=== PATIENT | male | born 1945 | race African-American/Black ===

== ENCOUNTER 2016-06-07 18:56 | Emergency (ER) | payer MEDICARE, MEDICAID ==
[~2016-06-07] VITALS: Ht 195.6 cm; Wt 100.0 kg
[~2016-06-07 18:56] MED LIST: BAYE2KIT XX; BUME2TAB PO; CLIN1CAP6 PO; GLUCOMETER XX; GLUCOMTESTSTRIPS XX; LACTCAP8 PO; LORTA5 PO; METF500 PO; PANT40IN3 PO; POTA-243 PO; POTA-267 PO; PRAV20TA PO; TRIA.1%T TOP
[2016-06-07 18:58] VITALS: BP 110/78; PULSE 124; RESP 18; TEMP 97.8; O2SAT 96
[2016-06-07] MEDS ORDERED: KLOR25PO2 (19:32)
[2016-06-07] MEDS ORDERED: BUME1TAB PO (19:32)
[2016-06-07] MEDS ORDERED: PRAV20TA PO (19:32)
[2016-06-07] MEDS ORDERED: METF500T PO (19:32)
[2016-06-07] MEDS ORDERED: PROPARACAINE HCL 0.5% OPHT SOLN 15 ML BTL EACH EYE ONE (19:45)
--- NOTE | 2016-06-07 19:53 | PD ---
HPI Chief Complaint: Eye Problems/Injury Time Seen by Provider: 19:45 Travel History International Travel<30 days: No Contact w/Intl Traveler<30days: No Traveled to known affect area: No History of Present Illness HPI 70-year-old black male presents to emergency department with complains of left I discharge and swelling. He states that this is been present now for approximately 4 days. He thinks that maybe he had been bitten by an insect. His left eye has become increasingly swollen, red and now has a large amount of mucoid drainage. He has blurred vision. No photophobia. Positive itching and irritation. Positive foreign body sensation. No diplopia. No fever chills. He does not wear contacts or glasses. PFSH Past Medical History Arthritis: Yes Anxiety: No Depression: No Cancer: No Cardiovascular Problems: Yes (CHF) High Cholesterol: Yes Congestive Heart Failure: Yes Diabetes: Yes (METFORMIN) Diminished Hearing: No Endocrine: No Gastrointestinal Disorders: No GERD: Yes Genitourinary: Yes Hypertension: Yes Immune Disorder: No Implanted Vascular Access Dvce: No Kidney Stones: Yes Musculoskeletal: Yes Neurologic: No Psychiatric: No Reproductive: No Respiratory: No Immunizations Current: No (UNKNOWN) Past Surgical History Other Surgery: Yes Social History Alcohol Use: Yes (OCCASIONAL) Tobacco Use: No Substance Use: No Allergies-Medications (Allergen,Severity, Reaction): Coded Allergies: No Known Allergies (Verified , 06/07/16) Reported Meds & Prescriptions Reported Meds & Active Scripts Active Tobrex Opth Drops (Tobramycin Opth Drops) 0.3 % Soln 1 Drop LEFT EYE Q6H Reported Pravachol (Pravastatin) 20 Mg Tab 10 Mg PO HS Klor-Con 25 (Potassium Chloride) 25 Meq Pow 10 Meq Metformin (Metformin HCl) 500 Mg Tab 500 Mg PO BIDPC With meals Bumetanide 1 Mg Tab 1 Mg PO DAILY Review of Systems Except as stated in HPI: all other systems reviewed are Neg General / Constitutional: No: Fever, Chills Eyes: Positive: Blurred Vision, Drainage, Redness, Foreign Body Sensation, Pain (mild), Visual changes, No: Diploplia, Photophobia, Tearing HENT: No: Headaches, Neck Pain Cardiovascular: No: Chest Pain or Discomfort, Palpitations Respiratory: Positive: Shortness of Breath (mild), No: Cough Gastrointestinal: No: Nausea, Vomiting Genitourinary: No: Dysuria, Hematuria Musculoskeletal: Positive: Arthralgias, Limited ROM, Edema Skin: Positive Rash, Positive Lesions (open draining sores on the left great toe and right second toe) Neurologic: No: Syncope, Headache Physical Exam Narrative GENERAL: Well-developed, well-nourished in no apparent distress. Nontoxic appearing. HEAD: Normocephalic, atraumatic. EYES: Pupils equal round and reactive. Extraocular motions intact. No scleral icterus. No injection or drainage in the right eye. The left eye has swelling of the upper and lower eyelids. He has a large amount of mucoid drainage. Lids are flipped and no foreign body seen. Ophthaine is instilled in left eye. Fluorescein stain reveals no obvious corneal abrasion. There is no obvious corneal abrasion, ulcer or dendrites. ENT: Nose clear. Throat without erythema, tonsillar hypertrophy or exudate. Uvula midline. Airway patent. NECK: Trachea midline. Supple, nontender, moves head freely. No central bony tenderness or spasm. CARDIOVASCULAR: Patient is irregularly irregular with a mildly tachycardic rate. He has a 2/6 murmur left sternal border. Question S 4 RESPIRATORY: Clear to auscultation. Breath sounds equal bilaterally. No wheezes , rales, or rhonchi. GASTROINTESTINAL: Abdomen soft, non-tender, nondistended. No hepato-splenomegaly , or palpable masses. No guarding. EXTREMITIES: Patient has 1+ bilateral pedal edema. He has chronic nodular densities over his joints I question whether these are tophi.. The left foot has a large open draining sore over the MTP joint as well as a skin avulsion with slight amount of drainage at the distal tip. The right foot has an open draining sore on the dorsal IP joint of the second toe. Both feet are edematous , however follow odor and are mildly erythematous. No significant pain. BACK: Nontender without deformity. No flank tenderness. NEUROLOGICAL: Awake, alert and oriented x 3 .Cranial nerves grossly intact. Motor and sensory grossly within normal limits. Normal speech. Data Data Last Documented VS Vital Signs Date Time Temp Pulse Resp B/P Pulse Ox O2 Delivery O2 Flow Rate FiO2 06/07/16 20:01 98 06/07/16 18:58 97.8 18 110/78 96 Room Air Orders Electrocardiogram (06/07/16 19:32) Proparacaine 0.5% Opth Soln (Alcaine 0.5 (06/07/16 19:45) Tobramycin 0.3% Opth Soln (Tobrex 0.3% O (06/07/16 20:45) Aspirin (Aspirin) (06/07/16 20:45) MDM Medical Decision Making Medical Screen Exam Complete: Yes Emergency Medical Condition: Yes Medical Record Reviewed: Yes Interpretation(s) EKG: Sinus rhythm with LVH. Old AL. No arrhythmia. The patient is placed on a string laster. He has episodes of frequent PVCs, bigeminy, couplets and a few runs of intermittent A. fib with a controlled rate Differential Diagnosis MDM: High Differential diagnoses: Acute conjunctivitis (bacterial, viral, allergic, traumatic), glaucoma, iritis, traumatic globe injury, foreign body, corneal abrasion, corneal ulcer, diabetic retinopathy, tophaceous gout, cellulitis, osteomyelitis, atrial fibrillation, A. fib with RVR, CHF Narrative Course The patient is given tobramycin ophthalmic drops to the left eye. One drop every 4-6 hours. Patient is encouraged to take an aspirin daily. The case has been discussed with Dr. Briones his primary care doctor. He has an appointment to see the patient next week. He agrees with discharging the patient home and he will follow-up on his arrhythmia as well as his conjunctivitis. Diagnosis Primary Impression: Conjunctivitis Qualified Code: H10.32 - Acute bacterial conjunctivitis of left eye Additional Impression: Arrhythmia Qualified Code: I49.9 - Cardiac arrhythmia, unspecified cardiac arrhythmia type Patient Instructions: General Instructions Additional Instructions: Rest. Wash eyelashes with baby shampoo 3 times daily. Warm compresses. Tobramycin ophthalmic drops. One drop in the left eye every 4-6 hours. Take 1 adult aspirin daily. Followup with an eye doctor in one week. Follow-up with a medical doctor one week. Return to the ER if any problems. Med/Other Pt SpecificInfo: Prescription(s) given Scripts Tobramycin Opth Drops (Tobrex Opth Drops)0.3 % Soln1 Drop LEFT EYE Q6H #1 BOTTLE Prov:Antonina Troy MD 06/07/16 Disposition: 01 DISCHARGE HOME Condition: Stable Lopez Hutton Jun 07, 2016 19:53
[2016-06-07] MEDS ORDERED: TOBR0.3S LEFT EYE (20:42)
[2016-06-07] MEDS ORDERED: TOBRAMYCIN SULF 0.3% OPHT SOLN 5 ML BTL LEFT EYE ONE (20:45)
[2016-06-07] MEDS ORDERED: ASPIRIN 325 MG TAB PO ONE (20:45)
--- NOTE | 2016-06-08 23:19 | EKG ---
Date Performed: 06/07/2016 Time Performed: 19:56:43 PTAGE: 70 years EKG: Sinus rhythm ANTEROSEPTAL MYOCARDIAL INFARCTION MODERATE T-WAVE ABNORMALITY, CONSIDER LATERAL ISCHEMIA ABNORMAL E CG PREVIOUS TRACING : 02/25/2016 12.59 DOCTOR: Leno Yates Interpretating Date/Time 06/08/2016 23:15:47
== END 2016-06-07 21:39 | disposition home or self-care (01) ==
LOC: NEPB 18:56
DX: H10.32 Unspecified acute conjunctivitis, left eye (principal); I49.9 Cardiac arrhythmia, unspecified
CPT/HCPCS: 93005

== ENCOUNTER 2017-03-15 19:05 | Inpatient (IN) | payer MEDICARE, MEDICAID ==
[~2017-03-15] VITALS: Ht 195.6 cm; Wt 104.7 kg
[~2017-03-15 19:05] MED LIST changes: -BAYE2KIT XX; +BUME1TAB PO; -BUME2TAB PO; -CLIN1CAP6 PO; -GLUCOMETER XX; -GLUCOMTESTSTRIPS XX; +KLOR25PO2; -LACTCAP8 PO; -LORTA5 PO; -METF500 PO; +METF500T PO; -PANT40IN3 PO; -POTA-243 PO; -POTA-267 PO; +TOBR0.3S LEFT EYE; -TRIA.1%T TOP
[2017-03-15 19:06] VITALS: BP 137/81; PULSE 105; RESP 16; TEMP 97.9; O2SAT 95
--- NOTE | 2017-03-15 21:11 | PD ---
HPI Chief Complaint: Skin Problem Time Seen by Provider: 20:24 Travel History International Travel<30 days: No Contact w/Intl Traveler<30days: No Traveled to known affect area: No History of Present Illness HPI pt has toe infection great toe left and middle toe right failing outpt therapy and Dr Briones his PCP started him on unknwn antibiotic few days ago, foot smells of gangrene , pt reports pain and instability on his feet PFSH Past Medical History Arthritis: Yes Anxiety: No Depression: No Cancer: No Cardiovascular Problems: Yes (CHF) High Cholesterol: Yes Congestive Heart Failure: Yes Diabetes: Yes Patient Takes Glucophage: Yes Diminished Hearing: No Endocrine: No Gastrointestinal Disorders: No GERD: Yes Genitourinary: Yes Hypertension: Yes Immune Disorder: No Implanted Vascular Access Dvce: No Kidney Stones: Yes Musculoskeletal: Yes Neurologic: No Psychiatric: No Reproductive: No Respiratory: No Immunizations Current: No (UNKNOWN) Influenza Vaccination: No Past Surgical History Other Surgery: Yes Social History Alcohol Use: No Tobacco Use: No Substance Use: No Allergies-Medications (Allergen,Severity, Reaction): Coded Allergies: No Known Allergies (Verified Allergy, Unknown, 03/16/17) Reported Meds & Prescriptions Reported Meds & Active Scripts Active Tobrex Opth Drops (Tobramycin Opth Drops) 0.3 % Soln 1 Drop LEFT EYE Q6H Reported Pravachol (Pravastatin) 20 Mg Tab 10 Mg PO HS Klor-Con 25 (Potassium Chloride) 25 Meq Pow 10 Meq Metformin (Metformin HCl) 500 Mg Tab 500 Mg PO BIDPC With meals Bumetanide 1 Mg Tab 1 Mg PO DAILY Review of Systems Except as stated in HPI: all other systems reviewed are Neg Physical Exam Narrative GENERAL: feet obviously swollen and ulcerated and odorous SKIN: ulcers and cellulitis to feet bilateral HEAD: Atraumatic. Normocephalic. EYES: Pupils equal and round. No scleral icterus. No injection or drainage. ENT: No nasal bleeding or discharge. Mucous membranes pink and moist. NECK: Trachea midline. No JVD. CARDIOVASCULAR: Regular rate and rhythm. RESPIRATORY: No accessory muscle use. Clear to auscultation. Breath sounds equal bilaterally. GASTROINTESTINAL: Abdomen soft, non-tender, nondistended. Hepatic and splenic margins not palpable. MUSCULOSKELETAL: Extremities feet ankle swollen and erythema and ulcer : left first metatarsal and :right third toe foot junction NEUROLOGICAL: Awake and alert. No obvious cranial nerve deficits. Motor grossly within normal limits. Five out of 5 muscle strength in the arms and legs. Normal speech. PSYCHIATRIC: Appropriate mood and affect; insight and judgment normal. FEET left great toe has bandage and weeping and smells strong odor of bacterial infection. Right foot middle toe infection open wound. Edema to both feet chronic . weeping cracking and infected Data Data Last Documented VS Vital Signs Date Time Temp Pulse Resp B/P (MAP) Pulse Ox O2 Delivery O2 Flow Rate FiO2 03/15/17 19:06 97.9 105 16 137/81 (99) 95 Room Air Orders Orders Complete Blood Count With Diff (03/15/17 20:46) Comprehensive Metabolic Panel (03/15/17 20:46) Blood Culture (03/15/17 20:46) Vancomycin Inj (Vancomycin Inj) (03/15/17 21:15) Morphine Inj (Morphine Inj) (03/15/17 22:00) Admit Order (Ed Use Only) (03/15/17 23:48) Labs Laboratory Tests Test 03/15/17 21:05 White Blood Count 6.3 TH/MM3 Red Blood Count 4.32 MIL/MM3 Hemoglobin 12.2 GM/DL Hematocrit 36.6 % Mean Corpuscular Volume 84.7 FL Mean Corpuscular Hemoglobin 28.1 PG Mean Corpuscular Hemoglobin Concent 33.2 % Red Cell Distribution Width 17.1 % Platelet Count 189 TH/MM3 Mean Platelet Volume 9.5 FL Neutrophils (%) (Auto) 68.8 % Lymphocytes (%) (Auto) 20.1 % Monocytes (%) (Auto) 7.7 % Eosinophils (%) (Auto) 2.6 % Basophils (%) (Auto) 0.8 % Neutrophils # (Auto) 4.3 TH/MM3 Lymphocytes # (Auto) 1.3 TH/MM3 Monocytes # (Auto) 0.5 TH/MM3 Eosinophils # (Auto) 0.2 TH/MM3 Basophils # (Auto) 0.0 TH/MM3 CBC Comment DIFF FINAL Differential Comment Blood Urea Nitrogen 36 MG/DL Creatinine 2.24 MG/DL Random Glucose 119 MG/DL Total Protein 8.5 GM/DL Albumin 3.5 GM/DL Calcium Level 9.5 MG/DL Alkaline Phosphatase 81 U/L Aspartate Amino Transf (AST/SGOT) 30 U/L Alanine Aminotransferase (ALT/SGPT) 18 U/L Total Bilirubin 1.0 MG/DL Sodium Level 138 MEQ/L Potassium Level 3.1 MEQ/L Chloride Level 101 MEQ/L Carbon Dioxide Level 25.3 MEQ/L Anion Gap 12 MEQ/L Estimat Glomerular Filtration Rate 35 ML/MIN [facility] Medical Decision Making Medical Screen Exam Complete: Yes Emergency Medical Condition: Yes Differential Diagnosis cellulitis vs gangrene vs ulcers of pressure due to edema chronic and swelling and weeping feet ankles Narrative Course vanco and admisson for vascular eval and diuretic eval and medication management Vanco Q8 until PO appropriate Diagnosis Primary Impression: Cellulitis and abscess of foot Additional Impression: Ischemic ulcer of both feet Tacho Dunbar MD Mar 15, 2017 21:11
[2017-03-15] MEDS ORDERED: VANCOMYCIN INJ 1,000 MG in SODIUM CHLOR 0.9% 250 ML INJ 250 ML IV ONE (21:15)
[2017-03-15] MEDS ORDERED: MORPHINE SULFATE 4 MG/ML INJ IV PUSH ONE (22:00)
[2017-03-15 22:01] LABS: AUTOMATED NEUTROPHIL # 4.3 TH/MM3 (1.8-7.7); BASOPHIL % 0.8 % (0.0-2.0); EOSINOPHIL # 0.2 TH/MM3 (0-0.4); EOSINOPHIL % 2.6 % (0.0-4.0); HEMATOCRIT 36.6 % (39.0-51.0); HEMO FLAGS DIFF FINAL; LYMPH % 20.1 % (9.0-44.0); LYMPHOCYTE # 1.3 TH/MM3 (1.0-4.8); MEAN CELL VOLUME 84.7 FL (80.0-100.0); MEAN CORPUSCULAR HEMOGLOBIN 28.1 PG (27.0-34.0); MEAN CORPUSCULAR HGB CONC 33.2 % (32.0-36.0); MONO % 7.7 % (0.0-8.0); NEUT % 68.8 % (16.0-70.0); PLATELET COUNT 189 TH/MM3 (150-450); RED BLOOD COUNT 4.32 MIL/MM3 (4.50-5.90); RED CELL DISTRIBUTION WIDTH 17.1 % (11.6-17.2); WHITE BLOOD COUNT 6.3 TH/MM3 (4.0-11.0)
[2017-03-15 22:28] LABS: ANION GAP 12 MEQ/L (5-15); AST (GOT) 30 U/L (15-37); BICARBONATE 25.3 MEQ/L (21.0-32.0); BLOOD UREA NITROGEN 36 MG/DL (7-18); CHLORIDE 101 MEQ/L (98-107); GLOMERULAR FILTRATION RATE 35 ML/MIN (>89); POTASSIUM 3.1 MEQ/L (3.5-5.1); SODIUM (NA) 138 MEQ/L (136-145)
[2017-03-15 22:32] LABS: ALKALINE PHOSPHATASE 81 U/L (45-117); ALT (GPT) 18 U/L (12-78)
[2017-03-16] VITALS (7 sets, daily range): BP systolic 105–131; BP diastolic 65–89; PULSE 50–99; RESP 16–20; TEMP 96.3–97.4; O2SAT 93–99
[2017-03-16] MEDS ORDERED: PIPERACIL-TAZO 3.375 GM PREMIX 50 ML IV ONE
[2017-03-16] MEDS ORDERED: PIPERACIL-TAZO 3.375 GM PREMIX 50 ML IV SCH
[2017-03-16] MEDS ORDERED: LACTULOSE SYRUP 20 GM/30 ML CUP PO PRN (00:15)
[2017-03-16] MEDS ORDERED: SENNOSIDES 8.6 MG TAB PO PRN (00:15)
[2017-03-16] MEDS ORDERED: NALOXONE HCL 0.4 MG/ML AMP IV PUSH PRN (00:15)
[2017-03-16] MEDS ORDERED: BISACODYL 10 MG SUPP RECTAL PRN (00:15)
[2017-03-16] MEDS ORDERED: ONDANSETRON HCL 4 MG/2 ML VIAL IVP PRN (00:15)
[2017-03-16] MEDS ORDERED: MAGNESIUM HYDROXIDE SUSP 30 ML CUP PO PRN (00:15)
[2017-03-16] MEDS ORDERED: ACETAMINOPHEN 325 MG TAB PO PRN ×2 (00:15→08:45)
[2017-03-16] MEDS ORDERED: SODIUM CHLORIDE 0.9% FLUSH 10 ML FLUSH IV FLUSH PRN (00:15)
[2017-03-16] MEDS ORDERED: POTASSIUM CHLORIDE 20 MEQ CONTROLLED RELEASE TAB PO ONE (01:00)
[2017-03-16] MEDS ORDERED: HEPARIN SODIUM - SQ 10,000 UNITS/ML VIAL SQ SCH (06:00)
[2017-03-16] MEDS: PIPERACIL-TAZO 2.25 GM PREMIX 50 ML IV SCH ×3 (06:07→17:37)
[2017-03-16 06:30] LABS: AUTOMATED NEUTROPHIL # 3.5 TH/MM3 (1.8-7.7); BASOPHIL % 0.8 % (0.0-2.0); EOSINOPHIL # 0.1 TH/MM3 (0-0.4); EOSINOPHIL % 2.3 % (0.0-4.0); HEMATOCRIT 36.8 % (39.0-51.0); HEMO FLAGS DIFF FINAL; LYMPH % 25.4 % (9.0-44.0); LYMPHOCYTE # 1.4 TH/MM3 (1.0-4.8); MEAN CELL VOLUME 85.4 FL (80.0-100.0); MEAN CORPUSCULAR HEMOGLOBIN 28.3 PG (27.0-34.0); MEAN CORPUSCULAR HGB CONC 33.2 % (32.0-36.0); MONO % 9.5 % (0.0-8.0); PLATELET COUNT 170 TH/MM3 (150-450); WHITE BLOOD COUNT 5.6 TH/MM3 (4.0-11.0)
[2017-03-16 07:07] LABS: BICARBONATE 24.9 MEQ/L (21.0-32.0)
[2017-03-16] MEDS ORDERED: ACETAMINOPHEN/HYDROcodone 325 MG/5 MG TAB PO PRN (08:45)
[2017-03-16] MEDS ORDERED: GLUCAGON 1 MG/ML VIAL OTHER PRN (08:45)
[2017-03-16] MEDS ORDERED: Vancomycin Consult Pharmacy 1 EA OTHER SCH (08:45)
[2017-03-16] MEDS ORDERED: DEXTROSE 50% IN WATER 50 ML VIAL(D50) IV PUSH PRN (08:45)
[2017-03-16] MEDS: DOCUSATE SODIUM 50 MG/SENNA 8.6 MG TAB PO SCH ×2 (09:00→20:30)
[2017-03-16] MEDS: POTASSIUM CHLORIDE 10 MEQ CONTROLLED RELEASE TAB PO SCH ×2 (09:27→20:30)
[2017-03-16] MEDS: ACETAMINOPHEN/HYDROcodone 325 MG/7.5 MG TAB PO PRN ×3 (09:27→20:33)
[2017-03-16] MEDS: NS + KCL 20 MEQ INJ 1,000 ML IV SCH (09:28)
[2017-03-16] MEDS: SODIUM CHLORIDE 0.9% FLUSH 10 ML FLUSH IV FLUSH SCH ×2 (09:28→20:38)
[2017-03-16] MEDS ORDERED: PANT20 PO (09:37)
[2017-03-16] MEDS ORDERED: GABA300C5 PO (09:37)
[2017-03-16 09:38] LABS: MAGNESIUM 1.7 MG/DL (1.5-2.5)
[2017-03-16] MEDS: MORPHINE SULFATE 2 MG/ML INJ IV PUSH PRN ×2 (10:57→17:37)
--- NOTE | 2017-03-16 11:29 | HHI.HP ---
[facility] Sel[facility] Briones MD Admission Diagnosis cellulitis and ulcer infected Diagnoses: Chief Complaint: Foot/toe ulcers and leg edema Travel History International Travel<30 Days: No Contact w/Intl Traveler <30 Da: No Traveled to Known Affected Are: No History of Present Illness This is a 71-year-old male with a history of systolic heart failure, diabetes mellitus with neuropathy, hyperlipidemia, GERD, hypertension and rheumatoid arthritis. Please note patient does not provide good history. States he came in because of bilateral lower extremity swelling despite change of his diuretic to Bumex. Denies shortness of breath and leg swelling. No urinary complaints. He has been compliant with fluid restriction. He also noted ulcers in his left foot and right second toe draining serous fluid denies fever and chills. States he was placed on unrecalled antibiotics by his primary care physician about a week ago. He has an ulcer on the right second toe and left first metatarsal head with purulent discharge. Maggots also noted. He has neuropathic pain. All other systems reviewed negative Review of Systems Except as stated in HPI: all other systems reviewed are Neg Past Family Social History Past Medical History As previously mentioned. Past Surgical History Denies Reported Medications Tobrex Opth Drops (Tobramycin Opth Drops) 0.3 % Soln 1 Drop LEFT EYE Q6H Reported Protonix (Pantoprazole Sodium) 20 Mg Tab 20 Mg PO DAILY Gabapentin 300 Mg Cap 300 Mg PO BID Pravachol (Pravastatin) 20 Mg Tab 10 Mg PO HS Klor-Con 25 (Potassium Chloride) 25 Meq Pow 10 Meq Metformin (Metformin HCl) 500 Mg Tab 500 Mg PO BIDPC With meals Bumetanide 1 Mg Tab 1 Mg PO DAILY Allergies: Coded Allergies: No Known Allergies (Verified Allergy, Unknown, 03/16/17) Family History Denies diabetes Social History Does not smoke or drink Physical Exam Vital Signs Vital Signs Date Time Temp Pulse Resp B/P (MAP) Pulse Ox O2 Delivery O2 Flow Rate FiO2 03/16/17 08:00 96.9 50 16 119/77 (91) 97 03/16/17 01:58 96.3 97 18 131/79 (96) 98 03/16/17 00:01 99 18 105/65 (78) 95 Room Air 03/15/17 19:06 97.9 105 16 137/81 (99) 95 Room Air Physical Exam GENERAL: This is a well-nourished, well-developed patient, in no apparent distress. SKIN: No rashes, ecchymoses or lesions. Cool and dry. HEAD: Atraumatic. Normocephalic. No temporal or scalp tenderness. EYES: Pupils equal round and reactive. Extraocular motions intact. No scleral icterus. No injection or drainage. ENT: Nose without bleeding, purulent drainage or septal hematoma. Throat without erythema, tonsillar hypertrophy or exudate. Uvula midline. Airway patent. NECK: Trachea midline. No JVD or lymphadenopathy. Supple, nontender, no meningeal signs. CARDIOVASCULAR: Regular rate and irregular rhythm without murmurs, gallops, or rubs. Telemetry shows PVCs RESPIRATORY: Clear to auscultation. Breath sounds equal bilaterally. No wheezes , rales, or rhonchi. GASTROINTESTINAL: Abdomen soft, non-tender, nondistended. No guarding. MUSCULOSKELETAL: Extremities without clubbing, cyanosis with bilateral breath lower extremity pitting edema. Multiple tophi noted. Large ulcer over left metatarsal head with purulent discharge. Maggots noted. Right second toe with ulcer. Unable to feel pulses NEUROLOGICAL: Awake and alert. Cranial nerves II through XII intact. Motor and sensory grossly within normal limits. Five out of 5 muscle strength in all muscle groups. Normal speech. Laboratory Laboratory Tests Test 03/15/17 21:05 03/16/17 04:20 White Blood Count 6.3 5.6 Red Blood Count 4.32 4.30 Hemoglobin 12.2 12.2 Hematocrit 36.6 36.8 Mean Corpuscular Volume 84.7 85.4 Mean Corpuscular Hemoglobin 28.1 28.3 Mean Corpuscular Hemoglobin Concent 33.2 33.2 Red Cell Distribution Width 17.1 17.0 Platelet Count 189 170 Mean Platelet Volume 9.5 9.5 Neutrophils (%) (Auto) 68.8 62.0 Lymphocytes (%) (Auto) 20.1 25.4 Monocytes (%) (Auto) 7.7 9.5 Eosinophils (%) (Auto) 2.6 2.3 Basophils (%) (Auto) 0.8 0.8 Neutrophils # (Auto) 4.3 3.5 Lymphocytes # (Auto) 1.3 1.4 Monocytes # (Auto) 0.5 0.5 Eosinophils # (Auto) 0.2 0.1 Basophils # (Auto) 0.0 0.0 CBC Comment DIFF FINAL DIFF FINAL Differential Comment Blood Urea Nitrogen 36 33 Creatinine 2.24 1.98 Random Glucose 119 122 Total Protein 8.5 Albumin 3.5 Calcium Level 9.5 8.7 Alkaline Phosphatase 81 Aspartate Amino Transf (AST/SGOT) 30 Alanine Aminotransferase (ALT/SGPT) 18 Total Bilirubin 1.0 Sodium Level 138 138 Potassium Level 3.1 3.0 Chloride Level 101 102 Carbon Dioxide Level 25.3 24.9 Anion Gap 12 11 Estimat Glomerular Filtration Rate 35 41 Magnesium Level 1.7 Total Creatine Kinase 445 Creatine Kinase MB 10.0 Creatine Kinase MB % 2.2 Date/Time Source Procedure Growth Status 03/15/17 21:05 Blood Peripheral Aerobic Blood Culture - Preliminary NO GROWTH IN 1 DAY Resulted 03/15/17 21:05 Blood Peripheral Anaerobic Blood Culture - Preliminary NO GROWTH IN 1 DAY Resulted Result Diagram: 03/16/17 0420 03/16/17 0420 Imaging Last Impressions Toe X-Ray 03/16/17 0000 Signed Impressions: Service Date/Time: Thursday, March 16, 2017 12:00 - CONCLUSION: 1. Dorsal soft tissue ulceration overlying the second PIP region without significant bony erosion to suggest osteomyelitis. Trace Robert MD Foot X-Ray 03/16/17 0000 Signed Impressions: Service Date/Time: Thursday, March 16, 2017 11:52 - CONCLUSION: 1. Large ulcer overlying the medial forefoot first MTP joint region without definitive bony erosive change to suggest osteomyelitis. Trace Robert MD Caprini VTE Risk Assessment Caprini VTE Risk Assessment: Mod/High Risk (score >= 2) Caprini Risk Assessment Model Point Value = 1 Point Value = 2 Point Value = 3 Point Value = 5 Age 41-60 Minor surgery BMI > 25 kg/m2 Swollen legs Varicose veins or History of unexplained or recurrent spontaneous Oral contraceptives or hormone replacement Sepsis (< 1 month) Serious lung disease, including pneumonia (< 1 month) Abnormal pulmonary function Acute myocardial infarction Congestive heart failure (< 1 month) History of inflammatory bowel disease Medical patient at bed rest Age 61-74 Arthroscopic surgery Major open surgery (> 45 min) Laparoscopic surgery (> 45 min) Malignancy Confined to bed (> 72 hours) Immobilizing plaster cast Central venous access Age >= 75 History of VTE Family history of VTE Factor V Leiden Prothrombin [id number] Lupus anticoagulant Anticardiolipin antibodies Elevated serum homocysteine Heparin-induced thrombocytopenia Other congenital or acquired thrombophilia Stroke (< 1 month) Elective arthroplasty Hip, pelvis, or leg fracture Acute spinal cord injury (< 1 month) Prophylaxis Regimen Total Risk Factor Score Risk Level Prophylaxis Regimen 0-1 Low Early ambulation 2 Moderate Order ONE of the following: *Sequential Compression Device (SCD) *Heparin 5000 units SQ BID 3-4 Higher Order ONE of the following medications: *Heparin 5000 units SQ TID *Enoxaparin/Lovenox 40 mg SQ daily (WT < 150 kg, CrCl > 30 mL/min) *Enoxaparin/Lovenox 30 mg SQ daily (WT < 150 kg, CrCl > 10-29 mL/min) *Enoxaparin/Lovenox 30 mg SQ BID (WT < 150 kg, CrCl > 30 mL/min) AND/OR *Sequential Compression Device (SCD) 5 or more Highest Order ONE of the following medications: *Heparin 5000 units SQ TID (Preferred with Epidurals) *Enoxaparin/Lovenox 40 mg SQ daily (WT < 150 kg, CrCl > 30 mL/min) *Enoxaparin/Lovenox 30 mg SQ daily (WT < 150 kg, CrCl > 10-29 mL/min) *Enoxaparin/Lovenox 30 mg SQ BID (WT < 150 kg, CrCl > 30 mL/min) AND *Sequential Compression Device (SCD) Assessment and Plan Problem List: (1) Diabetic foot infection ICD Code: E11.69 - Type 2 diabetes mellitus with other specified complication; L08.9 - Local infection of the skin and subcutaneous tissue, unspecified (2) Diabetic foot ulcer ICD Code: E11.621 - Type 2 diabetes mellitus with foot ulcer; L97.509 - Non- pressure chronic ulcer of other part of unspecified foot with unspecified severity Assessment and Plan This is a 71-year-old male who came in because of bilateral lower extremity swelling despite change of his diuretic to Bumex. Denies shortness of breath and leg swelling. No urinary complaints. He has been compliant with fluid restriction. He also noted ulcers in his left foot and right second toe draining serous fluid denies fever and chills. States he was placed on unrecalled antibiotics by his primary care physician about a week ago. He has an ulcer on the right second toe and left first metatarsal head with purulent discharge. Maggots also noted. He has neuropathic pain. Diabetic foot ulcers/infection involving left first metatarsal head and right second toe with failed outpatient therapy. Pain wound culture and follow-up blood culture. Wound care. X-rays reviewed did not show evidence of osteomyelitis. Continue IV vancomycin and Zosyn. Consult podiatry and obtain GHASSAN. RN to check pedal pulses with Doppler Acute kidney injury with hypokalemia. Nonoliguric. Gentle IV hydration and aggressive potassium repletion. Check magnesium and CK. Obtain renal sonogram and consult nephrology. Avoid nephrotoxins Chronic medical conditions Of systolic heart failure, diabetes mellitus with neuropathy, hyperlipidemia, GERD, hypertension and rheumatoid arthritis. Continue outpatient medications as appropriate. Monitor fingersticks with sliding scale coverage. Monitor for fluid overload DVT prophylaxis with early ambulation. Heparin on hold pending podiatry evaluation Discussed Condition With Patient and nursing staff Rolando Batista MD Mar 16, 2017 11:29
[2017-03-16] MEDS: INSULIN ASPART SUPPLEMENTAL SCALE SQ SCH ×3 (11:40→20:36)
[2017-03-16] MEDS: GABAPENTIN 300 MG CAP PO SCH ×2 (12:00→20:29)
[2017-03-16] MEDS ORDERED: PILL SPLITTER OTHER PRN (12:00)
--- NOTE | 2017-03-16 12:36 | RADRPT ---
EXAM DATE/TIME: 03/16/2017 11:52 [facility] COMPARISON: FOOT LEFT COMPLETE ([id number]), February 25, 2016, 12:46. FOOT RIGHT COMPLETE ([id number]), February 25, 2016, 12:43. INDICATIONS : Patient has ulcer in area of head of first metatarsal on medial aspect of foot. MEDICAL HISTORY : None. SURGICAL HISTORY : None. ENCOUNTER: Initial ACUITY: 3 weeks PAIN SCORE: 5/10 LOCATION: Left Foot FINDINGS: Extensive soft tissue abnormality involving the medial first toe in the region of the metatarsophalan geal joint. No evidence for significant bony erosion in this region. Osseous structures are intact. N o radiopaque foreign bodies. CONCLUSION: 1. Large ulcer overlying the medial forefoot first MTP joint region without definitive bony erosive c hange to suggest osteomyelitis. Trace Robert MD on March 16, 2017 at 12:32 Board Certified Radiologist. This report was verified electronically.
--- NOTE | 2017-03-16 12:39 | RADRPT ---
EXAM DATE/TIME: 03/16/2017 12:00 [facility] COMPARISON: No previous studies available for comparison. INDICATIONS : Patient has ulcer on PIPJ of 2nd digit, right foot. MEDICAL HISTORY : None. SURGICAL HISTORY : None. ENCOUNTER: Initial ACUITY: 3 weeks PAIN SCORE: 5/10 LOCATION: Right 2nd PIPJ FINDINGS: Soft tissue defect and air overlying the plantar aspect of the second PIP region. Underlying osseous structures are intact without significant bony erosive change. No radiopaque foreign bodies. CONCLUSION: 1. Dorsal soft tissue ulceration overlying the second PIP region without significant bony erosion to suggest osteomyelitis. Trace Robert MD on March 16, 2017 at 12:35 Board Certified Radiologist. This report was verified electronically.
[2017-03-16 14:03] LABS: HEMOGLOBIN A1a 1.8 %; HEMOGLOBIN Ao 82.2 %; HEMOGLOBIN LA1C 2.2 %; HEMOGLOBIN P3 4.2 %
--- NOTE | 2017-03-16 16:41 | RADRPT ---
EXAM DATE/TIME: 03/16/2017 16:06 [facility] COMPARISON: No previous studies available for comparison. INDICATIONS : Increased lab values. MEDICAL HISTORY : Congestive heart failure. Hypercholesterolemia. Hypertension. GERD. Renal calculi. Arthritis. Diabete s. SURGICAL HISTORY : Right shoulder surgery. ENCOUNTER: Initial ACUITY: 1 day PAIN SCORE: 2/10 LOCATION: Bilateral flank MEASUREMENTS: RIGHT KIDNEY: 10.3 x 5.0 x 5.5 cm LEFT KIDNEY: 11.1 x 3.8 x 5.7 cm FINDINGS: RIGHT KIDNEY: There is some increased echogenicity of the renal parenchyma. There is no evidence of hydronephrosis. No definite stones are seen. There is a cyst along the lower pole measuring 1.5 cm. LEFT KIDNEY: There is some increased echogenicity of the renal parenchyma. There is no evidence of hydronephrosis. Questionable small calcification in the left kidney. BLADDER: Within normal limits given the degree of distension. There appears to be some thickening of the urina ry bladder wall. CONCLUSION: 1. There is increased echogenicity of the renal parenchyma suggestive of some degree of chronic medic al renal disease. 2. No hydronephrosis. 3. 1.5 cm benign-appearing right renal cyst. 4. Questionable small calcification left kidney suggestive of a nonobstructing stone. Misbah Grey MD on March 16, 2017 at 16:37 Board Certified Radiologist. This report was verified electronically.
--- NOTE | 2017-03-16 17:07 | RADRPT ---
EXAM DATE/TIME: 03/16/2017 00:00 [facility] COMPARISON: No previous studies available for comparison. INDICATIONS : Cellulitis and ulcer infected TECHNIQUE: Four-cuff ankle and brachial pressures were obtained. Pulse cuff waveform tracings of the ankles were recorded, and ankle-brachial indices were calculated. PRESSURES (mmHg): Brachial (arm): Right IV SITE Left 133 Ankle: Right 111 Left 101 [place]: Right 0.83 Left 0.76 TBI: Right 0.00 Left 0.00 PULSED CUFF WAVEFORMS: The ABIs are diminished bilaterally, left greater right.. CONCLUSION: The ABIs are decreased bilaterally, left and right. This Suggests mild to moderate distal occlusive v ascular disease.. Misbah Grey MD on March 16, 2017 at 17:04 Board Certified Radiologist. This report was verified electronically.
[2017-03-16 19:28] LABS: URINE TOTAL PROTEIN TIMED 113.6 MG/DL
[2017-03-16 19:29] LABS: BACTERIA, URINE MOD /hpf; BLOOD, URINE NEG (NEG); GLUCOSE,URINE TRACE mg/dL (NEG); GRANULAR CAST, URINE 1 /lpf; KETONE, URINE NEG (NEG); MUCUS URINE FEW /lpf (OCC); NITRITE,URINE NEG (NEG); PH, URINE 5.5 (5.0-8.5); SQUAMOUS EPITHELIAL CELL URINE <1 /hpf (0-5); TRANSITIONAL EPI CELLS, URINE 1 /hpf; URINE COLOR YELLOW (YELLW/STRAW); WHITE BLOOD CELL CAST, URINE 6 /lpf
[2017-03-16] MEDS: FAMOTIDINE 20 MG TAB PO SCH (20:29)
[2017-03-16] MEDS: PRAVASTATIN SOD 10 MG TAB PO SCH (20:29)
[2017-03-17] VITALS (7 sets, daily range): BP systolic 113–140; BP diastolic 74–84; PULSE 53–109; RESP 19–22; TEMP 95.5–96.4; O2SAT 93–100
[2017-03-17] MEDS: NS + KCL 20 MEQ INJ 1,000 ML IV SCH ×2 (01:40→05:18)
[2017-03-17] MEDS: PIPERACIL-TAZO 2.25 GM PREMIX 50 ML IV SCH ×5 (02:00→23:17)
[2017-03-17] MEDS: ACETAMINOPHEN/HYDROcodone 325 MG/7.5 MG TAB PO PRN ×4 (05:17→20:29)
[2017-03-17 07:30] LABS: BICARBONATE 19.1 MEQ/L (21.0-32.0); MAGNESIUM 1.9 MG/DL (1.5-2.5); POTASSIUM 4.2 MEQ/L (3.5-5.1); TOTAL PROTEIN SPE 8.2 GM/DL (6.0-7.6)
[2017-03-17] MEDS: INSULIN ASPART SUPPLEMENTAL SCALE SQ SCH ×4 (08:00→20:39)
[2017-03-17] MEDS: SODIUM CHLORIDE 0.9% FLUSH 10 ML FLUSH IV FLUSH SCH ×2 (08:11→20:30)
[2017-03-17] MEDS: GABAPENTIN 300 MG CAP PO SCH ×2 (08:12→20:29)
[2017-03-17] MEDS: DOCUSATE SODIUM 50 MG/SENNA 8.6 MG TAB PO SCH ×2 (08:12→20:29)
[2017-03-17] MEDS: FAMOTIDINE 20 MG TAB PO SCH ×2 (08:12→20:29)
[2017-03-17] MEDS: MORPHINE SULFATE 2 MG/ML INJ IV PUSH PRN ×2 (08:14→23:18)
[2017-03-17] MEDS ORDERED: PANTOPRAZOLE SOD 20 MG DELAYED RELEASE TAB PO SCH (09:00)
--- NOTE | 2017-03-17 11:22 | HHI.PR ---
Subjective Remarks Follow-up diabetic foot infection. Patient complains of foot pain. Denies chest pain and shortness of breath. Claims he had negative stress test several years ago. Discussed with RN Objective Vitals Vital Signs Date Time Temp Pulse Resp B/P (MAP) Pulse Ox O2 Delivery O2 Flow Rate FiO2 03/17/17 08:00 96.2 98 19 113/78 (90) 95 03/17/17 06:25 20 03/17/17 03:32 96.2 97 20 114/80 (91) 93 03/17/17 00:00 95.7 53 20 140/77 (98) 93 03/16/17 20:15 99 03/16/17 20:00 96.3 89 20 109/73 (85) 93 03/16/17 16:00 96.9 80 20 120/89 (99) 99 03/16/17 12:00 97.4 90 18 109/69 (82) 99 I/O 03/16/17 03/16/17 03/16/17 03/17/17 03/17/17 03/17/17 07:00 15:00 23:00 07:00 15:00 23:00 Intake Total 10 ml 2050 ml 320 ml Output Total 500 ml 350 ml Balance 10 ml 1550 ml -30 ml Intake Oral 1600 ml 320 ml IV Total 10 ml 450 ml Output Urine Total 500 ml 350 ml # Voids 0 # Bowel Movements 0 0 0 Result Diagram: 03/16/17 0420 03/17/17 0638 Imaging Last Impressions Toe X-Ray 03/16/17 0000 Signed Impressions: Service Date/Time: Thursday, March 16, 2017 12:00 - CONCLUSION: 1. Dorsal soft tissue ulceration overlying the second PIP region without significant bony erosion to suggest osteomyelitis. Trace Robert MD Renal Ultrasound 03/16/17 0000 Signed Impressions: Service Date/Time: Thursday, March 16, 2017 16:06 - CONCLUSION: 1. There is increased echogenicity of the renal parenchyma suggestive of some degree of chronic medical renal disease. 2. No hydronephrosis. 3. 1.5 cm benign- appearing right renal cyst. 4. Questionable small calcification left kidney suggestive of a nonobstructing stone. Misbah Grey MD Foot X-Ray 03/16/17 0000 Signed Impressions: Service Date/Time: Thursday, March 16, 2017 11:52 - CONCLUSION: 1. Large ulcer overlying the medial forefoot first MTP joint region without definitive bony erosive change to suggest osteomyelitis. Trace Robert MD Objective Remarks GENERAL: This is a well-nourished, well-developed patient, in no apparent distress. SKIN: No rashes, ecchymoses or lesions. Cool and dry. CARDIOVASCULAR: Regular rate and irregular rhythm without murmurs, gallops, or rubs. Telemetry shows PVCs RESPIRATORY: Clear to auscultation. Breath sounds equal bilaterally. No wheezes , rales, or rhonchi. GASTROINTESTINAL: Abdomen soft, non-tender, nondistended. No guarding. MUSCULOSKELETAL: Extremities without clubbing, cyanosis with bilateral breath lower extremity pitting edema. Multiple tophi noted. Large ulcer over left metatarsal head with purulent discharge. Maggots noted. Right second toe with ulcer. Doppler pulses NEUROLOGICAL: Awake and alert. Cranial nerves II through XII intact. Motor and sensory grossly within normal limits. Five out of 5 muscle strength in all muscle groups. Normal speech. A/P Problem List: (1) Diabetic foot infection ICD Code: E11.69 - Type 2 diabetes mellitus with other specified complication; L08.9 - Local infection of the skin and subcutaneous tissue, unspecified (2) Diabetic foot ulcer ICD Code: E11.621 - Type 2 diabetes mellitus with foot ulcer; L97.509 - Non- pressure chronic ulcer of other part of unspecified foot with unspecified severity Assessment and Plan This is a 71-year-old male who came in because of bilateral lower extremity swelling despite change of his diuretic to Bumex. Denies shortness of breath and leg swelling. No urinary complaints. He has been compliant with fluid restriction. He also noted ulcers in his left foot and right second toe draining serous fluid denies fever and chills. States he was placed on unrecalled antibiotics by his primary care physician about a week ago. He has an ulcer on the right second toe and left first metatarsal head with purulent discharge. Maggots also noted. He has neuropathic pain. Diabetic foot ulcers/infection involving left first metatarsal head and right second toe with failed outpatient therapy. X-rays reviewed did not show evidence of osteomyelitis. Continue IV vancomycin and Zosyn Follow-up wound and blood cultures. Wound care. Consulted podiatry PVD. Doppler pulses. Start aspirin Acute kidney injury with hypokalemia. Nonoliguric. Continue Gentle IV hydration. Avoid nephrotoxins . Nephrology consulted Chronic medical conditions Of systolic heart failure, diabetes mellitus with neuropathy, hyperlipidemia, GERD, hypertension and rheumatoid arthritis. A1c 7.3 Continue outpatient medications as appropriate. Monitor fingersticks with sliding scale coverage. Monitor for fluid overload DVT prophylaxis with early ambulation. Heparin on hold pending podiatry evaluation Discharge Planning Not ready for discharge likely will need surgical intervention for his diabetic foot infection Rolando Batista MD Mar 17, 2017 11:22
[2017-03-17] MEDS: SODIUM CHLOR 0.9% 1000 ML INJ 1,000 ML IV SCH (11:48)
--- NOTE | 2017-03-17 13:09 | EKG ---
Date Performed: 03/16/2017 Time Performed: 22:55:46 PTAGE: 71 years EKG: Sinus rhythm WITH OCCASIONAL PACs AND PVCs LEFT AXIS DEVIATION INCOMPLETE RIGHT BUNDLE BRANCH BLOCK ANTEROSEPTAL MYOCARDIAL INFARCTION , OF INDETERMINATE AGE NONSPECIFIC ST & T CHANGE Compared to previous tracing, axis more leftward and the ectopy is new. ABNORMAL ECG PREVIOUS TRACING : 06/07/2016 19.56 DOCTOR: Kofi Capps Interpretating Date/Time 03/17/2017 13:08:28
--- NOTE | 2017-03-17 14:52 | PD.CONS ---
HPI Consult Requested By Reason for Consult Acute renal insufficiency/chronic kidney disease. Primary Care Physician Selina Briones MD History of Present Illness This patient is a 71-year-old male with a history of diabetes mellitus, congestive heart failure and hypertension as well as arthritis. Patient noted to have had an fraction of only 20-25% by 2-D echocardiogram in 2013. In creatinine level noted to have been 1.04 back in February 2016. Patient now presents with a history of increasing lower extremity edema and foot ulcerations being evaluated by primary care physician in house. Patient apparently was on antibiotic for 1 week prior to admission but patient cannot identify the specific antibiotic was taking. In addition on questioning indicated that he was taking an NSAID analgesia for about 2 weeks daily prior to this admission also. Renal ultrasound indicating echogenic kidneys this admission with no hydronephrosis. Presenting creatinine level was 2.24 potassium of 3.1 subsequently improving to a creatinine of 2.01 with an estimated GFR 40 on day of consultation. Review of Systems Constitutional: COMPLAINS OF: Fatigue, DENIES: Diaphoretic episodes, Fever, Weight gain, Weight loss, Chills, Dizziness, Change in appetite, Night Sweats Endocrine: DENIES: Heat/cold intolerance, Polydipsia, Polyuria, Polyphagia Respiratory: DENIES: Apneas, Cough, Snoring, Wheezing, Hemoptysis, Sputum production, Shortness of breath Cardiovascular: COMPLAINS OF: Lower Extremity Edema, DENIES: Chest pain, Palpitations, Syncope, Dyspnea on Exertion, PND, Orthopnea, Claudication Gastrointestinal: DENIES: Abdominal pain, Black stools, Bloody stools, Constipation, Diarrhea, Nausea, Vomiting, Difficulty Swallowing, Anorexia Musculoskeletal: COMPLAINS OF: Joint pain, DENIES: Muscle aches, Stiffness, Joint Swelling, Back pain, Neck pain Neurologic: COMPLAINS OF: Abnormal gait Psychiatric: DENIES: Anxiety, Confusion Past Family Social History Allergies: Coded Allergies: No Known Allergies (Verified Allergy, Unknown, 03/16/17) Past Medical History Congestive heart failure Diabetes mellitus Dyslipidemia Gastroesophageal reflux disease Hypertension Rheumatoid arthritis Cardiomyopathy with an ejection fraction said to be 20-25% in 2013. Past Surgical History Hernia repair. Reported Medications Reported Meds & Active Scripts Active Tobrex Opth Drops (Tobramycin Opth Drops) 0.3 % Soln 1 Drop LEFT EYE Q6H Reported Protonix (Pantoprazole Sodium) 20 Mg Tab 20 Mg PO DAILY Gabapentin 300 Mg Cap 300 Mg PO BID Pravachol (Pravastatin) 20 Mg Tab 10 Mg PO HS Klor-Con 25 (Potassium Chloride) 25 Meq Pow 10 Meq Metformin (Metformin HCl) 500 Mg Tab 500 Mg PO BIDPC With meals Bumetanide 1 Mg Tab 1 Mg PO DAILY Active Ordered Medications Current Medications Vancomycin HCl 1000 mg/Sodium Chloride 250 ml @ 250 mls/hr ONCE ONCE IV Last administered on 03/15/17 21:40; Start 03/15/17 at 21:15; Stop 03/15/17 at 22:14 ; Status DC Morphine Sulfate (Morphine Inj) 2 mg ONCE ONCE IV PUSH Last administered on 22:04; Start 03/15/17 at 22:00; Stop 03/15/17 at 22:01; Status DC Piperacillin Sod/ Tazobactam Sod 50 ml @ 100 mls/hr Q8H IV ; Start 03/16/17 at 00:00; Stop 03/16/17 at 00:12; Status DC Piperacillin Sod/ Tazobactam Sod 50 ml @ 100 mls/hr ONCE ONCE IV Last administered on 03/16/17 00:25; Start 03/16/17 at 00:00; Stop 03/16/17 at 00:29 ; Status DC Piperacillin Sod/ Tazobactam Sod 50 ml @ 100 mls/hr Q6H IV Last administered on 03/17/17 11:49; Start 03/16/17 at 06:00 Sodium Chloride (NS Flush) 2 ml UNSCH PRN IV FLUSH FLUSH AFTER USING IV ACCESS ; Start 03/16/17 at 00:15 Sodium Chloride (NS Flush) 2 ml BID IV FLUSH Last administered on 03/16/17 09: 28; Start 03/16/17 at 09:00 Acetaminophen (Tylenol) 650 mg Q4H PRN PO TEMP > 100.4; Start 03/16/17 at 00:15 Ondansetron HCl (Zofran Inj) 4 mg Q6H PRN IVP NAUSEA OR VOMITING; Start at 00:15 Heparin Sodium (Porcine) (Heparin Inj) 5,000 units Q8H SQ Last administered on 03/16/17 06:00; Start 03/16/17 at 06:00; Status Future Hold Naloxone HCl (Narcan Inj) 0.4 mg UNSCH PRN IV PUSH SEE LABEL COMMENTS; Start 03/16/17 at 00:15 Senna/Docusate Sodium (Sudha-Colace) 1 tab BID PO Last administered on 08:12; Start 03/16/17 at 09:00 Magnesium Hydroxide (Milk Of Magnesia Liq) 30 ml Q12H PRN PO Mild constipation ; Start 03/16/17 at 00:15 Sennosides (Senokot) 17.2 mg Q12H PRN PO Moderate constipation; Start 03/16/17 at 00:15 Bisacodyl (Dulcolax Supp) 10 mg DAILY PRN RECTAL SEVERE CONSITIPATION; Start 03/16/17 at 00:15 Lactulose (Lactulose Liq) 30 ml DAILY PRN PO SEVERE CONSITIPATION; Start at 00:15 Potassium Chloride (KCl) 40 meq ONCE ONCE PO Last administered on 03/16/17 02 :09; Start 03/16/17 at 01:00; Stop 03/16/17 at 01:01; Status DC Pharmacy Profile Note 0 ml @ 0 mls/hr UNSCH OTHER ; Start 03/16/17 at 08:45 Potassium Chloride (KCl) 30 meq Q12HR PO Last administered on 03/16/17 20:30; Start 03/16/17 at 09:00; Stop 03/17/17 at 08:59; Status DC Dextrose (D50w (Vial) Inj) 50 ml UNSCH PRN IV PUSH HYPOGLYCEMIA-SEE COMMENTS; Start 03/16/17 at 08:45 Glucagon (Glucagon Inj) 1 mg UNSCH PRN OTHER HYPOGLYCEMIA-SEE COMMENTS; Start 03/16/17 at 08:45 Insulin Aspart (NovoLOG SUPPLEMENTAL SCALE) 1 ACHS SLIDING SCALE SQ ; Start at 12:00 Acetaminophen (Tylenol) 650 mg Q6H PRN PO PAIN SCALE 1 TO 2; Start 03/16/17 at 08:45 Acetaminophen/ Hydrocodone Bitart ([place] 5-325 Mg) 1 tab Q4H PRN PO PAIN SCALE 3 TO 5; Start 03/16/17 at 08:45 Acetaminophen/ Hydrocodone Bitart ([place] 7.5-325 Mg) 1 tab Q4H PRN PO PAIN SCALE 6 TO 10 Last administered on 03/17/17 11:49; Start 03/16/17 at 08:45 Morphine Sulfate (Morphine Inj) 1 mg Q3H PRN IV PUSH BREAKTHROUGH PAIN Last administered on 03/17/17 08:14; Start 03/16/17 at 09:30 Pravastatin Sodium (Pravachol) 10 mg HS PO Last administered on 03/16/17 20:29 ; Start 03/16/17 at 21:00 Potassium Chloride/Sodium Chloride 1,000 ml @ 60 mls/hr [id number] IV Last administered on 03/17/17 05:18; Start 03/16/17 at 09:00; Stop 03/17/17 at 11: 13; Status DC Gabapentin (Neurontin) 300 mg BID PO Last administered on 03/17/17 08:12; Start 03/16/17 at 12:00 Pantoprazole Sodium (Protonix) 20 mg DAILY PO ; Start 03/17/17 at 09:00; Stop 03/17/17 at 09:00; Status DC Famotidine (Pepcid) 10 mg BID PO Last administered on 03/17/17 08:12; Start 03/16/17 at 21:00 Miscellaneous (Pill Splitter) 1 ea UNSCH PRN OTHER SEE LABEL COMMENTS Last administered on 03/17/17 08:12; Start 03/16/17 at 12:00 Sodium Chloride 1,000 ml @ 60 mls/hr [id number] IV Last administered on 11:48; Start 03/17/17 at 11:15 Family History Family history diabetes mellitus. Social History Denying alcohol or tobacco use currently. Physical Exam Vital Signs Vital Signs Date Time Temp Pulse Resp B/P (MAP) Pulse Ox O2 Delivery O2 Flow Rate FiO2 03/17/17 12:00 95.5 94 19 122/74 (90) 98 03/17/17 08:00 96.2 98 19 113/78 (90) 95 03/17/17 06:25 20 03/17/17 03:32 96.2 97 20 114/80 (91) 93 03/17/17 00:00 95.7 53 20 140/77 (98) 93 03/16/17 20:15 99 03/16/17 20:00 96.3 89 20 109/73 (85) 93 03/16/17 16:00 96.9 80 20 120/89 (99) 99 Physical Exam GENERAL: Very pleasant elderly male lying in bed not in respiratory distress. SKIN: Warm and dry. HEAD: Normocephalic. EYES: No scleral icterus. No injection or drainage. NECK: Supple, trachea midline. No JVD or lymphadenopathy. CARDIOVASCULAR: Regular rate and rhythm without murmurs, gallops, or rubs. No abdominal bruit audible. RESPIRATORY: Breath sounds equal bilaterally. No accessory muscle use. GASTROINTESTINAL: Abdomen soft, non-tender, nondistended. MUSCULOSKELETAL: No cyanosis, brawny 1+ pitting edema lower legs 2+ pitting edema feet. Dressing overlying feet not disturbed. BACK: Nontender without obvious deformity. No CVA tenderness. Laboratory Laboratory Tests Test 03/16/17 19:02 03/17/17 06:38 Urine Color YELLOW Urine Turbidity HAZY Urine pH 5.5 Urine Specific [place] 1.018 Urine Protein 30 Urine Glucose (UA) TRACE Urine Ketones NEG Urine Occult Blood NEG Urine Nitrite NEG Urine Bilirubin NEG Urine Urobilinogen LESS THAN 2.0 Urine Leukocyte Esterase NEG Urine RBC 2 Urine WBC 12 Urine Squamous Epithelial Cells <1 Urine Transitional Epithelial Cells 1 Urine Bacteria MOD Urine Granular Casts 1 Urine White Blood Cell Casts 6 Urine Mucus FEW Urine Random Creatinine 179 Urine Random Total Protein 113 Urine Random Sodium 12 Urine Protein/Creatinine Ratio 0.63 Blood Urea Nitrogen 32 Creatinine 2.01 Random Glucose 122 Calcium Level 9.4 Magnesium Level 1.9 Sodium Level 139 Potassium Level 4.2 Chloride Level 104 Carbon Dioxide Level 19.1 Anion Gap 16 Estimat Glomerular Filtration Rate 40 Total Protein 8.2 25-Hydroxy Vitamin D Total 16.6 Complement C3 96 Complement C4 10 Date/Time Source Procedure Growth Status 03/15/17 21:05 Blood Peripheral Aerobic Blood Culture - Preliminary NO GROWTH IN 2 DAYS Resulted 03/15/17 21:05 Blood Peripheral Anaerobic Blood Culture - Preliminary NO GROWTH IN 2 DAYS Resulted 03/16/17 15:15 Fluid Other Gram Stain - Final Resulted 03/16/17 15:15 Body Fluid Culture - Preliminary Gram Negative Iam Resulted Result Diagram: 03/16/17 0420 03/17/17 0638 Imaging Last 48 hours Impressions Toe X-Ray 03/16/17 0000 Signed Impressions: Service Date/Time: Thursday, March 16, 2017 12:00 - CONCLUSION: 1. Dorsal soft tissue ulceration overlying the second PIP region without significant bony erosion to suggest osteomyelitis. Trace Robert MD Renal Ultrasound 03/16/17 0000 Signed Impressions: Service Date/Time: Thursday, March 16, 2017 16:06 - CONCLUSION: 1. There is increased echogenicity of the renal parenchyma suggestive of some degree of chronic medical renal disease. 2. No hydronephrosis. 3. 1.5 cm benign- appearing right renal cyst. 4. Questionable small calcification left kidney suggestive of a nonobstructing stone. Misbah Grey MD Foot X-Ray 03/16/17 0000 Signed Impressions: Service Date/Time: Thursday, March 16, 2017 11:52 - CONCLUSION: 1. Large ulcer overlying the medial forefoot first MTP joint region without definitive bony erosive change to suggest osteomyelitis. Trace Robert MD Assessment and Plan Problem List: (1) Acute kidney insufficiency ICD Codes: N28.9 - Disorder of kidney and ureter, unspecified Status: Acute Plan: May be related to usage of NSAIDs prior to admission. Uncertain if they could be a component of cardiorenal syndrome given the severity of his cardiomyopathy documented previously with a markedly reduced ejection fraction 20-25% 2013. Serological studies as ordered. Urine eosinophils. Agree with holding metformin for the present stabilization of renal function and assessing what patient's baseline renal. Patient was counseled regarding probably etiology of his acute renal disease function as well as probable superimposed chronic kidney disease. He was advised of the potential adverse effects of NSAIDs in this setting. Also besides the importance of diabetic control as well as lipid control in the presence of CKD. Medications should be adjusted for the patient's estimated GFR if clinically indicated. Avoid agents with significant potential for nephrotoxicity possible including NSAIDs for analgesia, iodine contrast agents. Gadolinium is contraindicated if the GFR is below 30. (2) CKD (chronic kidney disease) stage 3, GFR 30-59 ml/min ICD Codes: N18.3 - Chronic kidney disease, stage 3 (moderate) Status: Chronic Plan: Renal ultrasound is suggestive of chronic kidney disease with increased echogenicity. Most likely related to nephrosclerosis of aging with possible superimposed diabetic nephropathy. Remains be determined what the patient's baseline renal indices are however. (3) Cardiomyopathy ICD Codes: I42.9 - Cardiomyopathy, unspecified Plan: Would like to repeat echocardiogram to reassess myocardial function. (4) Diabetic foot infection ICD Codes: E11.69 - Type 2 diabetes mellitus with other specified complication ; L08.9 - Local infection of the skin and subcutaneous tissue, unspecified Plan: Management per primary care physician. Franklin Altamirano MD Mar 17, 2017 14:52
[2017-03-17] MEDS: PRAVASTATIN SOD 10 MG TAB PO SCH (20:29)
[2017-03-18] VITALS: BP 115/75; PULSE 99; RESP 22; TEMP 96.4; O2SAT 92
[2017-03-18 03:56] VITALS: BP 125/70; PULSE 52; RESP 22; TEMP 96.9; O2SAT 98
[2017-03-18] MEDS: ACETAMINOPHEN/HYDROcodone 325 MG/7.5 MG TAB PO PRN (04:46)
[2017-03-18] MEDS: PIPERACIL-TAZO 2.25 GM PREMIX 50 ML IV SCH ×3 (04:47→17:18)
[2017-03-18] MEDS: SODIUM CHLOR 0.9% 1000 ML INJ 1,000 ML IV SCH (04:48)
[2017-03-18 08:00] VITALS: BP 102/74; PULSE 62; RESP 17; TEMP 95.9; O2SAT 93
[2017-03-18] MEDS: INSULIN ASPART SUPPLEMENTAL SCALE SQ SCH ×4 (08:00→20:11)
[2017-03-18 08:45] LABS: BICARBONATE 20.2 MEQ/L (21.0-32.0); POTASSIUM 5.5 MEQ/L (3.5-5.1)
[2017-03-18] MEDS: FAMOTIDINE 20 MG TAB PO SCH ×2 (08:50→20:11)
[2017-03-18] MEDS: DOCUSATE SODIUM 50 MG/SENNA 8.6 MG TAB PO SCH ×2 (08:50→20:11)
[2017-03-18] MEDS: ASPIRIN EC 325 MG TABEC PO SCH (08:50)
[2017-03-18] MEDS: GABAPENTIN 300 MG CAP PO SCH ×2 (08:50→20:11)
[2017-03-18] MEDS: SODIUM CHLORIDE 0.9% FLUSH 10 ML FLUSH IV FLUSH SCH ×2 (08:52→20:10)
--- NOTE | 2017-03-18 09:38 | HHI.PR ---
Subjective Remarks This is a pleasant 71 y/o Male with Diabetic Foot infection, seen in his bedroom , discussed with nurse Miss Serrato, Nephrology specialist and library specialist following, Echocardiogram performed and found EF 20%, has Acute Kidney Injury probable related to NSAIDs, as Cardiorenal syndrome, bilateral Leg edema, ordered IV furosemide by Nephrology specialist, CKD III after Renal ultrasound suggested this diagnosis, most likely due to Nephrosclerosis, probable Diabetic nephropathy. no other complaint by patient at this time. Objective Vital Signs Date Time Temp Pulse Resp B/P (MAP) Pulse Ox O2 Delivery O2 Flow Rate FiO2 03/18/17 08:00 95.9 62 17 102/74 (83) 93 03/18/17 06:02 20 03/18/17 03:56 96.9 52 22 125/70 (88) 98 03/18/17 00:00 96.4 99 22 115/75 (88) 92 03/17/17 20:50 109 03/17/17 20:00 96.4 100 22 113/77 (89) 94 03/17/17 16:11 95.8 95 19 118/84 (95) 100 03/17/17 12:00 95.5 94 19 122/74 (90) 98 I/O 03/17/17 03/17/17 03/17/17 03/18/17 03/18/17 03/18/17 07:00 15:00 23:00 07:00 15:00 23:00 Intake Total 320 ml 400 ml 1800 ml 240 ml Output Total 350 ml 350 ml 300 ml Balance -30 ml 400 ml 1450 ml -60 ml Intake Oral 320 ml 1800 ml 240 ml IV Total 400 ml Output Urine Total 350 ml 350 ml 300 ml # Bowel Movements 0 0 Result Diagram: 03/16/17 0420 03/18/17 0701 Imaging Last Impressions Toe X-Ray 03/16/17 0000 Signed Impressions: Service Date/Time: Thursday, March 16, 2017 12:00 - CONCLUSION: 1. Dorsal soft tissue ulceration overlying the second PIP region without significant bony erosion to suggest osteomyelitis. Trace Robert MD Renal Ultrasound 03/16/17 0000 Signed Impressions: Service Date/Time: Thursday, March 16, 2017 16:06 - CONCLUSION: 1. There is increased echogenicity of the renal parenchyma suggestive of some degree of chronic medical renal disease. 2. No hydronephrosis. 3. 1.5 cm benign- appearing right renal cyst. 4. Questionable small calcification left kidney suggestive of a nonobstructing stone. Misbah Grey MD Foot X-Ray 03/16/17 0000 Signed Impressions: Service Date/Time: Thursday, March 16, 2017 11:52 - CONCLUSION: 1. Large ulcer overlying the medial forefoot first MTP joint region without definitive bony erosive change to suggest osteomyelitis. Trace Robert MD Procedures None. Other Results Laboratory Tests Test 03/15/17 21:05 03/16/17 04:20 03/16/17 19:02 03/17/17 06:38 Blood Urea Nitrogen 36 MG/DL 32 MG/DL Creatinine 2.24 MG/DL 2.01 MG/DL Random Glucose 119 MG/DL 122 MG/DL Total Protein 8.5 GM/DL 8.2 GM/DL Albumin 3.5 GM/DL Calcium Level 9.5 MG/DL 9.4 MG/DL Alkaline Phosphatase 81 U/L Aspartate Amino Transf (AST/SGOT) 30 U/L Alanine Aminotransferase (ALT/SGPT) 18 U/L Total Bilirubin 1.0 MG/DL Sodium Level 138 MEQ/L 139 MEQ/L Potassium Level 3.1 MEQ/L 4.2 MEQ/L Chloride Level 101 MEQ/L 104 MEQ/L Carbon Dioxide Level 25.3 MEQ/L 19.1 MEQ/L White Blood Count 5.6 TH/MM3 Red Blood Count 4.30 MIL/MM3 Hemoglobin 12.2 GM/DL Hematocrit 36.8 % Mean Corpuscular Volume 85.4 FL Mean Corpuscular Hemoglobin 28.3 PG Mean Corpuscular Hemoglobin Concent 33.2 % Red Cell Distribution Width 17.0 % Platelet Count 170 TH/MM3 Mean Platelet Volume 9.5 FL Neutrophils (%) (Auto) 62.0 % Lymphocytes (%) (Auto) 25.4 % Monocytes (%) (Auto) 9.5 % Eosinophils (%) (Auto) 2.3 % Basophils (%) (Auto) 0.8 % Neutrophils # (Auto) 3.5 TH/MM3 Lymphocytes # (Auto) 1.4 TH/MM3 Monocytes # (Auto) 0.5 TH/MM3 Eosinophils # (Auto) 0.1 TH/MM3 Basophils # (Auto) 0.0 TH/MM3 CBC Comment DIFF FINAL Differential Comment Hemoglobin A1c 7.3 % Total Creatine Kinase 445 U/L Creatine Kinase MB 10.0 NG/ML Creatine Kinase MB % 2.2 % Urine Color YELLOW Urine Turbidity HAZY Urine pH 5.5 Urine Specific [place] 1.018 Urine Protein 30 mg/dL Urine Glucose (UA) TRACE mg/dL Urine Ketones NEG mg/dL Urine Occult Blood NEG Urine Nitrite NEG Urine Bilirubin NEG Urine Urobilinogen LESS THAN 2.0 MG/DL Urine Leukocyte Esterase NEG Urine RBC 2 /hpf Urine WBC 12 /hpf Urine Squamous Epithelial Cells <1 /hpf Urine Transitional Epithelial Cells 1 /hpf Urine Bacteria MOD /hpf Urine Granular Casts 1 /lpf Urine White Blood Cell Casts 6 /lpf Urine Mucus FEW /lpf Urine Random Creatinine 179 MG/DL Urine Random Total Protein 113 MG/DL Urine Random Sodium 12 MEQ/L Urine Protein/Creatinine Ratio 0.63 Magnesium Level 1.9 MG/DL 25-Hydroxy Vitamin D Total 16.6 ng/ML Complement C3 96 MG/DL Complement C4 10 MG/DL Test 03/18/17 04:00 03/18/17 07:01 Urine Eosinophils NONE SEEN /HPF Blood Urea Nitrogen 40 MG/DL Creatinine 2.40 MG/DL Random Glucose 111 MG/DL Calcium Level 9.6 MG/DL Sodium Level 134 MEQ/L Potassium Level 5.5 MEQ/L Chloride Level 102 MEQ/L Carbon Dioxide Level 20.2 MEQ/L Anion Gap 12 MEQ/L Estimat Glomerular Filtration Rate 33 ML/MIN Random Vancomycin Level 2.2 COMMENT Objective Remarks GENERAL: This is a well-nourished, well-developed patient, in no apparent distress. SKIN: No rashes, ecchymoses or lesions. Cool and dry. CARDIOVASCULAR: Regular rate and irregular rhythm without murmurs, gallops, or rubs. Telemetry shows PVCs RESPIRATORY: Clear to auscultation. Breath sounds equal bilaterally. No wheezes , rales, or rhonchi. GASTROINTESTINAL: Abdomen soft, non-tender, nondistended. No guarding. MUSCULOSKELETAL: Extremities without clubbing, cyanosis with bilateral breath lower extremity pitting edema. Multiple tophi noted. Large ulcer over left metatarsal head with purulent discharge. Maggots noted. Right second toe with ulcer. Doppler pulses NEUROLOGICAL: Awake and alert. Cranial nerves II through XII intact. Motor and sensory grossly within normal limits. Five out of 5 muscle strength in all muscle groups. Normal speech. Medications and IVs Current Medications Medications (Trade) Dose Ordered Sig/Iman Route Start Time Stop Time Status Last Admin Piperacillin Sod/ Tazobactam Sod 50 ml @ 100 mls/hr Q6H IV 03/16/17 06:00 03/18/17 04:47 (NS Flush) 2 ml UNSCH PRN IV FLUSH 03/16/17 00:15 (NS Flush) 2 ml BID IV FLUSH 03/16/17 09:00 03/17/17 20:30 (Tylenol) 650 mg Q4H PRN PO 03/16/17 00:15 (Zofran Inj) 4 mg Q6H PRN IVP 03/16/17 00:15 (Heparin Inj) 5,000 units Q8H SQ 03/16/17 06:00 Future Hold 03/16/17 06:00 (Narcan Inj) 0.4 mg UNSCH PRN IV PUSH 03/16/17 00:15 (Sudha-Colace) 1 tab BID PO 03/16/17 09:00 03/18/17 08:50 (Milk Of Magnesia Liq) 30 ml Q12H PRN PO 03/16/17 00:15 (Senokot) 17.2 mg Q12H PRN PO 03/16/17 00:15 (Dulcolax Supp) 10 mg DAILY PRN RECTAL 03/16/17 00:15 (Lactulose Liq) 30 ml DAILY PRN PO 03/16/17 00:15 Pharmacy Profile Note 0 ml @ 0 mls/hr UNSCH OTHER 03/16/17 08:45 (D50w (Vial) Inj) 50 ml UNSCH PRN IV PUSH 03/16/17 08:45 (Glucagon Inj) 1 mg UNSCH PRN OTHER 03/16/17 08:45 (NovoLOG SUPPLEMENTAL SCALE) 1 ACHS SLIDING SCALE SQ 03/16/17 12:00 03/17/17 20:39 (Tylenol) 650 mg Q6H PRN PO 03/16/17 08:45 ([place] 5-325 Mg) 1 tab Q4H PRN PO 03/16/17 08:45 ([place] 7.5-325 Mg) 1 tab Q4H PRN PO 03/16/17 08:45 03/18/17 04:46 (Morphine Inj) 1 mg Q3H PRN IV PUSH 03/16/17 09:30 03/17/17 23:18 (Pravachol) 10 mg HS PO 03/16/17 21:00 03/17/17 20:29 (Neurontin) 300 mg BID PO 03/16/17 12:00 03/18/17 08:50 (Pepcid) 10 mg BID PO 03/16/17 21:00 03/18/17 08:50 (Pill Splitter) 1 ea UNSCH PRN OTHER 03/16/17 12:00 03/17/17 08:12 Sodium Chloride 1,000 ml @ 60 mls/hr [id number] IV 03/17/17 11:15 03/18/17 04:48 (Ecotrin Ec) 325 mg DAILY PO 03/18/17 09:00 03/18/17 08:50 A/P Assessment and Plan This is a 71-year-old male who came in because of bilateral lower extremity swelling despite change of his diuretic to Bumex. He also noted ulcers in his left foot and right second toe draining serous fluid denies fever and chills. Received antibiotics as per PCP. Diabetic foot ulcers/infection involving left first metatarsal head and right second toe with failed outpatient therapy. X-rays reviewed did not show evidence of osteomyelitis. Continue IV vancomycin and Zosyn Follow-up wound and blood cultures. Wound care. Consulted podiatry PVD. Doppler pulses. Start aspirin Acute kidney injury with hypokalemia. Nephrology specialist following.probable related to NSAIDs, as Cardiorenal syndrome, bilateral Leg edema, ordered IV furosemide by Nephrology specialist, CKD III after Renal ultrasound suggested this diagnosis, most likely due to Nephrosclerosis, probable Diabetic nephropathy. Chronic heart Failure with compromised Ejection Fraction 20%. library specialist following. Hyperlipidemia to continue Home medicines. Hyperkalemia followed by Nephrology specialist. Hypertension controlled Rheumatoid arthritis DM II hemoglobin A1C 7.3 continue SSI. DVT prophylaxis with early ambulation. Heparin on hold pending podiatry evaluation Discharge Planning Awaiting final recommendations by Cardiology, Podiatry and Nephrology specialist for discharge. Nilesh Mccall MD Mar 18, 2017 09:38
[2017-03-18 12:00] VITALS: BP 123/86; PULSE 106; RESP 17; TEMP 96.1; O2SAT 97
[2017-03-18] MEDS ORDERED: VANCOMYCIN 1,500 MG/NS 500 ML IV ONE ×2 (12:00)
[2017-03-18] MEDS ORDERED: FUROSEMIDE 40 MG/4 ML VIAL IV PUSH ONE (12:00)
--- NOTE | 2017-03-18 12:08 | HHI.NPPN ---
Subjective History of Present Illness This patient is a 71-year-old male with a history of diabetes mellitus, congestive heart failure and hypertension as well as arthritis. Patient noted to have had an fraction of only 20-25% by 2-D echocardiogram in 2013. In creatinine level noted to have been 1.04 back in February 2016. Patient now presents with a history of increasing lower extremity edema and foot ulcerations being evaluated by primary care physician in house. Patient apparently was on antibiotic for 1 week prior to admission but patient cannot identify the specific antibiotic was taking. In addition on questioning indicated that he was taking an NSAID analgesia for about 2 weeks daily prior to this admission also. Renal ultrasound indicating echogenic kidneys this admission with no hydronephrosis. Presenting creatinine level was 2.24 potassium of 3.1 subsequently improving to a creatinine of 2.01 with an estimated GFR 40 on day of consultation. Interval History Patient's complaining of some shortness of breath Review of Systems Respiratory Lungs: SOB Cardiovascular Cardiac: Edema Objective Data Data Vital Signs Date Time Temp Pulse Resp B/P (MAP) Pulse Ox O2 Delivery O2 Flow Rate FiO2 03/18/17 08:00 95.9 62 17 102/74 (83) 93 03/18/17 06:02 20 03/18/17 03:56 96.9 52 22 125/70 (88) 98 03/18/17 00:00 96.4 99 22 115/75 (88) 92 03/17/17 20:50 109 03/17/17 20:00 96.4 100 22 113/77 (89) 94 03/17/17 16:11 95.8 95 19 118/84 (95) 100 -: 03/16/17 0420 03/18/17 0701 Medication Review Current Medications Vancomycin HCl 1000 mg/Sodium Chloride 250 ml @ 250 mls/hr ONCE ONCE IV Last administered on 03/15/17 21:40; Start 03/15/17 at 21:15; Stop 03/15/17 at 22:14 ; Status DC Morphine Sulfate (Morphine Inj) 2 mg ONCE ONCE IV PUSH Last administered on 22:04; Start 03/15/17 at 22:00; Stop 03/15/17 at 22:01; Status DC Piperacillin Sod/ Tazobactam Sod 50 ml @ 100 mls/hr Q8H IV ; Start 03/16/17 at 00:00; Stop 03/16/17 at 00:12; Status DC Piperacillin Sod/ Tazobactam Sod 50 ml @ 100 mls/hr ONCE ONCE IV Last administered on 03/16/17 00:25; Start 03/16/17 at 00:00; Stop 03/16/17 at 00:29 ; Status DC Piperacillin Sod/ Tazobactam Sod 50 ml @ 100 mls/hr Q6H IV Last administered on 03/18/17 04:47; Start 03/16/17 at 06:00 Sodium Chloride (NS Flush) 2 ml UNSCH PRN IV FLUSH FLUSH AFTER USING IV ACCESS ; Start 03/16/17 at 00:15 Sodium Chloride (NS Flush) 2 ml BID IV FLUSH Last administered on 03/17/17 20 :30; Start 03/16/17 at 09:00 Acetaminophen (Tylenol) 650 mg Q4H PRN PO TEMP > 100.4; Start 03/16/17 at 00:15 Ondansetron HCl (Zofran Inj) 4 mg Q6H PRN IVP NAUSEA OR VOMITING; Start at 00:15 Heparin Sodium (Porcine) (Heparin Inj) 5,000 units Q8H SQ Last administered on 03/16/17 06:00; Start 03/16/17 at 06:00; Status Future Hold Naloxone HCl (Narcan Inj) 0.4 mg UNSCH PRN IV PUSH SEE LABEL COMMENTS; Start 03/16/17 at 00:15 Senna/Docusate Sodium (Sudha-Colace) 1 tab BID PO Last administered on 08:50; Start 03/16/17 at 09:00 Magnesium Hydroxide (Milk Of Magnesia Liq) 30 ml Q12H PRN PO Mild constipation ; Start 03/16/17 at 00:15 Sennosides (Senokot) 17.2 mg Q12H PRN PO Moderate constipation; Start 03/16/17 at 00:15 Bisacodyl (Dulcolax Supp) 10 mg DAILY PRN RECTAL SEVERE CONSITIPATION; Start 03/16/17 at 00:15 Lactulose (Lactulose Liq) 30 ml DAILY PRN PO SEVERE CONSITIPATION; Start at 00:15 Potassium Chloride (KCl) 40 meq ONCE ONCE PO Last administered on 03/16/17 02 :09; Start 03/16/17 at 01:00; Stop 03/16/17 at 01:01; Status DC Pharmacy Profile Note 0 ml @ 0 mls/hr UNSCH OTHER ; Start 03/16/17 at 08:45 Potassium Chloride (KCl) 30 meq Q12HR PO Last administered on 03/16/17 20:30; Start 03/16/17 at 09:00; Stop 03/17/17 at 08:59; Status DC Dextrose (D50w (Vial) Inj) 50 ml UNSCH PRN IV PUSH HYPOGLYCEMIA-SEE COMMENTS; Start 03/16/17 at 08:45 Glucagon (Glucagon Inj) 1 mg UNSCH PRN OTHER HYPOGLYCEMIA-SEE COMMENTS; Start 03/16/17 at 08:45 Insulin Aspart (NovoLOG SUPPLEMENTAL SCALE) 1 ACHS SLIDING SCALE SQ Last administered on 03/17/17 20:39; Start 03/16/17 at 12:00 Acetaminophen (Tylenol) 650 mg Q6H PRN PO PAIN SCALE 1 TO 2; Start 03/16/17 at 08:45 Acetaminophen/ Hydrocodone Bitart ([place] 5-325 Mg) 1 tab Q4H PRN PO PAIN SCALE 3 TO 5; Start 03/16/17 at 08:45 Acetaminophen/ Hydrocodone Bitart ([place] 7.5-325 Mg) 1 tab Q4H PRN PO PAIN SCALE 6 TO 10 Last administered on 03/18/17 04:46; Start 03/16/17 at 08:45 Morphine Sulfate (Morphine Inj) 1 mg Q3H PRN IV PUSH BREAKTHROUGH PAIN Last administered on 03/17/17 23:18; Start 03/16/17 at 09:30 Pravastatin Sodium (Pravachol) 10 mg HS PO Last administered on 03/17/17 20: 29; Start 03/16/17 at 21:00 Potassium Chloride/Sodium Chloride 1,000 ml @ 60 mls/hr [id number] IV Last administered on 03/17/17 05:18; Start 03/16/17 at 09:00; Stop 03/17/17 at 11: 13; Status DC Gabapentin (Neurontin) 300 mg BID PO Last administered on 03/18/17 08:50; Start 03/16/17 at 12:00 Pantoprazole Sodium (Protonix) 20 mg DAILY PO ; Start 03/17/17 at 09:00; Stop 03/17/17 at 09:00; Status DC Famotidine (Pepcid) 10 mg BID PO Last administered on 03/18/17 08:50; Start 03/16/17 at 21:00 Miscellaneous (Pill Splitter) 1 ea UNSCH PRN OTHER SEE LABEL COMMENTS Last administered on 03/17/17 08:12; Start 03/16/17 at 12:00 Sodium Chloride 1,000 ml @ 60 mls/hr [id number] IV Last administered on 04:48; Start 03/17/17 at 11:15; Stop 03/18/17 at 12:02; Status DC Aspirin (Ecotrin Ec) 325 mg DAILY PO Last administered on 03/18/17 08:50; Start 03/18/17 at 09:00 Vancomycin HCl 1500 mg/Sodium Chloride 515 ml @ 257.5 mls/ hr ONCE ONCE IV ; Start 03/18/17 at 12:00; Stop 03/18/17 at 13:59 Furosemide (Lasix Inj) 40 mg ONCE ONCE IV PUSH ; Start 03/18/17 at 12:00; Stop 03/18/17 at 12:01; Status UNV Physical Exam General Appearance: No Acute Distress, Malnourished Eyes Eye Exam: Sclera White Neck Neck Exam: Trachea Midline Pulmonary Resp Exam: Clear Bilaterally, Breath Sounds Equal, Decreased Bases Resp Remarks Mild dyspnea. Cardiology CV Exam: Regular, Normal Sinus Rhythm Gastrointestinal/Abdomen GI Exam: Soft, Non-Tender Integumentary Skin Exam: Warm, Normal Turgor Extremeties Extremities Exam: Moderate Edema (2+ pitting edema legs now with 1+ edema extending up into the hips and presacral area.), Pitting Edema, Dependent Edema Neurologic Neuro Exam: Alert, Awake, Moving All Extremities Psychiatric Psych Exam: Appropriate Responses Assessment/Plan Problem List: (1) Acute kidney insufficiency ICD Codes: N28.9 - Disorder of kidney and ureter, unspecified Status: Acute Plan: May be related to usage of NSAIDs prior to admission. Uncertain if they could be a component of cardiorenal syndrome given the severity of his cardiomyopathy documented previously with a markedly reduced ejection fraction 20-25% 2013. Patient's renal indices appear to be deteriorating despite IV hydration and the patient may be developing worsening cardiorenal syndrome with increasing edema now noted. Another consideration would be vancomycin toxicity. We will discontinue IV fluids. IV furosemide as ordered. Patient has not been following up with an outpatient can sorter. Medications should be adjusted for the patient's estimated GFR if clinically indicated. Avoid agents with significant potential for nephrotoxicity possible including NSAIDs for analgesia, iodine contrast agents. Gadolinium is contraindicated if the GFR is below 30. (2) CKD (chronic kidney disease) stage 3, GFR 30-59 ml/min ICD Codes: N18.3 - Chronic kidney disease, stage 3 (moderate) Status: Chronic Plan: Renal ultrasound is suggestive of chronic kidney disease with increased echogenicity. Most likely related to nephrosclerosis of aging with possible superimposed diabetic nephropathy. Remains be determined what the patient's baseline renal indices are however. (3) Hyperkalemia ICD Codes: E87.5 - Hyperkalemia Status: Acute Plan: Secondary to worsening renal function. Diuretics as ordered with low potassium diet (4) Cardiomyopathy ICD Codes: I42.9 - Cardiomyopathy, unspecified Plan: Repeat 2-D echocardiogram pending. On questioning the patient now indicates that he has not been following up with outpatient can sorter despite the severity of his cardiomyopathy. Recommend cardiology consultation as ordered if okay with primary M.D. (5) Diabetic foot infection ICD Codes: E11.69 - Type 2 diabetes mellitus with other specified complication ; L08.9 - Local infection of the skin and subcutaneous tissue, unspecified Plan: Management per primary care physician. Plan Total time spent in direct patient care 38 minutes. Franklin Altamirano MD Mar 18, 2017 12:08
[2017-03-18] MEDS: CHOLECALCIFEROL (VIT D3) 1000 UNIT TAB PO SCH (12:15)
--- NOTE | 2017-03-18 14:51 | PD.CONS ---
HPI Consult Requested By Primary Care Physician Selina Briones MD History of Present Illness 71-year-old male with past medical history significant diabetes mellitus, HF with LV dysfunction, hypertension and chronic leg ulcers consulted due to acute on chronic heart failure. He was admitted with complaints of increasing lower extremity edema for a couple of weeks. He has been found to be on acute on chronic renal failure in the setting of being taking NSAID's and Antx for the last weeks in the setting of cellulitis and pain. Review of Systems Consitutional: DENIES: Fatigue, Fever, Chills, Weight gain, Weight loss Eyes: DENIES: Amaurosis Fugax, Change in vision HEENT: DENIES: Lightheadedness, Change in hearing Respiratory: DENIES: See HPI, Cough, Snoring, Shortness of breath, Wheezing, Sputum production Cardiovascular: DENIES: See HPI, Chest pain, Palpitations, Syncope, Tachycardia Gastrointestinal: DENIES: Nausea, Vomiting, Change in bowel habits, Reflux, Bloody stools, Melena Genitourinary: DENIES: Urinary incontinence, Difficulty voiding Integumentary: DENIES: Rash Neurologic: DENIES: Tingling or numbness, Memory problems, Poor Balance, Stroke symptoms Musculoskeletal: DENIES: Joint pain, Muscle pain, Limited range of motion, Back pain Psychiatric: DENIES: Anxiety, Depression, Sleep disturbances Hematologic: DENIES: Bruising tendencies, Bleeding tendencies Endocrine: COMPLAINS OF: Weight gain, DENIES: Weight loss, Thyroid disease Past Family Social History Allergies: Coded Allergies: No Known Allergies (Verified Allergy, Unknown, 03/16/17) Past Medical History Congestive heart failure Diabetes mellitus Dyslipidemia Gastroesophageal reflux disease Hypertension Rheumatoid arthritis Cardiomyopathy with an ejection fraction said to be 20-25% in 2013. Past Surgical History Hernia repair. Reported Medications Reported Meds & Active Scripts Active Tobrex Opth Drops (Tobramycin Opth Drops) 0.3 % Soln 1 Drop LEFT EYE Q6H Reported Protonix (Pantoprazole Sodium) 20 Mg Tab 20 Mg PO DAILY Gabapentin 300 Mg Cap 300 Mg PO BID Pravachol (Pravastatin) 20 Mg Tab 10 Mg PO HS Klor-Con 25 (Potassium Chloride) 25 Meq Pow 10 Meq Metformin (Metformin HCl) 500 Mg Tab 500 Mg PO BIDPC With meals Bumetanide 1 Mg Tab 1 Mg PO DAILY Active Ordered Medications Current Medications Medications (Trade) Dose Ordered Sig/Iman Route Start Time Stop Time Status Last Admin Piperacillin Sod/ Tazobactam Sod 50 ml @ 100 mls/hr Q6H IV 03/16/17 06:00 03/18/17 12:00 (NS Flush) 2 ml UNSCH PRN IV FLUSH 03/16/17 00:15 (NS Flush) 2 ml BID IV FLUSH 03/16/17 09:00 03/17/17 20:30 (Tylenol) 650 mg Q4H PRN PO 03/16/17 00:15 (Zofran Inj) 4 mg Q6H PRN IVP 03/16/17 00:15 (Heparin Inj) 5,000 units Q8H SQ 03/16/17 06:00 Future Hold 03/16/17 06:00 (Narcan Inj) 0.4 mg UNSCH PRN IV PUSH 03/16/17 00:15 (Sudha-Colace) 1 tab BID PO 03/16/17 09:00 03/18/17 08:50 (Milk Of Magnesia Liq) 30 ml Q12H PRN PO 03/16/17 00:15 (Senokot) 17.2 mg Q12H PRN PO 03/16/17 00:15 (Dulcolax Supp) 10 mg DAILY PRN RECTAL 03/16/17 00:15 (Lactulose Liq) 30 ml DAILY PRN PO 03/16/17 00:15 Pharmacy Profile Note 0 ml @ 0 mls/hr UNSCH OTHER 03/16/17 08:45 (D50w (Vial) Inj) 50 ml UNSCH PRN IV PUSH 03/16/17 08:45 (Glucagon Inj) 1 mg UNSCH PRN OTHER 03/16/17 08:45 (NovoLOG SUPPLEMENTAL SCALE) 1 ACHS SLIDING SCALE SQ 03/16/17 12:00 03/17/17 20:39 (Tylenol) 650 mg Q6H PRN PO 03/16/17 08:45 ([place] 5-325 Mg) 1 tab Q4H PRN PO 03/16/17 08:45 ([place] 7.5-325 Mg) 1 tab Q4H PRN PO 03/16/17 08:45 03/18/17 04:46 (Morphine Inj) 1 mg Q3H PRN IV PUSH 03/16/17 09:30 03/17/17 23:18 (Pravachol) 10 mg HS PO 03/16/17 21:00 03/17/17 20:29 (Neurontin) 300 mg BID PO 03/16/17 12:00 03/18/17 08:50 (Pepcid) 10 mg BID PO 03/16/17 21:00 03/18/17 08:50 (Pill Splitter) 1 ea UNSCH PRN OTHER 03/16/17 12:00 03/17/17 08:12 (Ecotrin Ec) 325 mg DAILY PO 03/18/17 09:00 03/18/17 08:50 (Vitamin D3) 2,000 units DAILY PO 03/18/17 12:15 03/18/17 12:15 Family History Family history diabetes mellitus. Social History Denying alcohol or tobacco use currently. Physical Exam Vital Signs Vital Signs Date Time Temp Pulse Resp B/P (MAP) Pulse Ox O2 Delivery O2 Flow Rate FiO2 03/18/17 12:00 96.1 106 17 123/86 (98) 97 03/18/17 08:00 95.9 62 17 102/74 (83) 93 03/18/17 06:02 20 03/18/17 03:56 96.9 52 22 125/70 (88) 98 03/18/17 00:00 96.4 99 22 115/75 (88) 92 03/17/17 20:50 109 03/17/17 20:00 96.4 100 22 113/77 (89) 94 03/17/17 16:11 95.8 95 19 118/84 (95) 100 Physical Exam GENERAL: Well-nourished, well-developed patient. SKIN: Warm and dry. HEAD: Normocephalic. EYES: No scleral icterus. No injection or drainage. NECK: Supple, trachea midline. + JVD or lymphadenopathy. CARDIOVASCULAR: Regular rate and rhythm without murmurs, gallops, or rubs. RESPIRATORY: Breath sounds equal bilaterally. No accessory muscle use. GASTROINTESTINAL: Abdomen soft, non-tender, nondistended. EXTREMITIES: No cyanosis, or ++++edema. NEUROLOGICAL: Awake, alert, and oriented x 3. Non-focal. Laboratory Laboratory Tests Test 03/18/17 04:00 03/18/17 07:01 Urine Eosinophils NONE SEEN Blood Urea Nitrogen 40 Creatinine 2.40 Random Glucose 111 Calcium Level 9.6 Sodium Level 134 Potassium Level 5.5 Chloride Level 102 Carbon Dioxide Level 20.2 Anion Gap 12 Estimat Glomerular Filtration Rate 33 Random Vancomycin Level 2.2 Date/Time Source Procedure Growth Status 03/15/17 21:05 Blood Peripheral Aerobic Blood Culture - Preliminary NO GROWTH IN 3 DAYS Resulted 03/15/17 21:05 Blood Peripheral Anaerobic Blood Culture - Preliminary NO GROWTH IN 3 DAYS Resulted 03/16/17 15:15 Fluid Other Gram Stain - Final Resulted 03/16/17 15:15 Body Fluid Culture - Preliminary Group D Enterococcus Resulted Result Diagram: 03/16/17 0420 03/18/17 0701 Imaging Last Impressions Toe X-Ray 03/16/17 0000 Signed Impressions: Service Date/Time: Thursday, March 16, 2017 12:00 - CONCLUSION: 1. Dorsal soft tissue ulceration overlying the second PIP region without significant bony erosion to suggest osteomyelitis. Trace Robert MD Renal Ultrasound 03/16/17 0000 Signed Impressions: Service Date/Time: Thursday, March 16, 2017 16:06 - CONCLUSION: 1. There is increased echogenicity of the renal parenchyma suggestive of some degree of chronic medical renal disease. 2. No hydronephrosis. 3. 1.5 cm benign- appearing right renal cyst. 4. Questionable small calcification left kidney suggestive of a nonobstructing stone. Misbah Grey MD Foot X-Ray 03/16/17 0000 Signed Impressions: Service Date/Time: Thursday, March 16, 2017 11:52 - CONCLUSION: 1. Large ulcer overlying the medial forefoot first MTP joint region without definitive bony erosive change to suggest osteomyelitis. Trace Robert MD Assessment and Plan Problem List: (1) CHF (congestive heart failure) ICD Codes: I50.9 - CHF (congestive heart failure) Status: Acute Plan: 71 y/o with acute on chronic systolic HF, Stage C, NYHA II sx admitted with worsening renal failure in the setting of NSAIDS. Denies chest pain, palpitations, SOB, PND or orthopnea. Cardiorenal syndrome may also be playing a role. There is a mention of MPI on EMR but no report. Uncertain if LV dysfunction is Ischemic or Non Ischemic CMP. Recommendations: 1. Strict I&O 2. Daily Weight 3. Low salt diet 4. Hold ACEi/ARB given KALIN 5. Fluid management per Nephro. Consider Ultrafiltration 6. Avoid nephrotoxic drugs 7. Start Coreg 3.125mg PO BID 8. Cardiac enzymes x3. 9. Outpatient MPI stress test (2) Elevated troponin ICD Codes: R79.89 - Elevated troponin Status: Acute (3) Fluid overload ICD Codes: E87.70 - Fluid overload Status: Acute (4) Diabetes mellitus, type 2 ICD Codes: E11.9 - Type 2 diabetes mellitus without complications Status: Acute (5) Cardiomyopathy ICD Codes: I42.9 - Cardiomyopathy, unspecified (6) CKD (chronic kidney disease) stage 3, GFR 30-59 ml/min ICD Codes: N18.3 - Chronic kidney disease, stage 3 (moderate) Status: Chronic (7) Cellulitis and abscess of foot ICD Codes: L03.119 - Cellulitis of unspecified part of limb; L02.619 - Cutaneous abscess of unspecified foot Status: Acute (8) Ischemic ulcer of both feet ICD Codes: L97.519 - Non-pressure chronic ulcer of other part of right foot with unspecified severity; L97.529 - Non-pressure chronic ulcer of other part of left foot with unspecified severity Status: Acute Problem Qualifiers (1) CHF (congestive heart failure): Qualified Codes: I50.23 - Acute on chronic systolic (congestive) heart failure Ja Flanagan MD Mar 18, 2017 14:51
--- NOTE | 2017-03-18 15:24 | ECHRPT ---
Indication: Heart Failure CONCLUSIONS Moderately dilated left ventricle. Wall thickness is normal. The left ventricular systolic function is severely reduced with an estimated ejection fraction less than 20%. The right ventricle is mildly dilated. The right ventricular systoilc function is moderately decreased. The left atrial size is mildly dilated. The right atrial size is mildly dilated. Mitral annular calcification is present. [id number] mitral valve regurgitation. Mild to Moderate aortic valve stenosis Moderate thickening of the aortic valve leaflets. Trace aortic valve regurgitation. There is moderate tricuspid regurgitation. The estimated pulmonary arterial pressure is 45 mmHg. Mild pulmonary valve regurgitation. There is a small pericardial effusion present. BP: / HR: Rhythm: MEASUREMENTS (Male / Female) Normal Values Technical Quality:Good 2D ECHO LV Diastolic Diameter PLAX 6.6 cm 4.2 - 5.9 / 3.9 - 5.3 cm LV Systolic Diameter PLAX 6.4 cm IVS Diastolic Thickness 0.9 cm 0.6 - 1.0 / 0.6 - 0.9 cm LVPW Diastolic Thickness 1.0 cm 0.6 - 1.0 / 0.6 - 0.9 cm LV Relative Wall Thickness 0.3 RV Internal Dim ED PLAX 3.5 cm LVOT Diameter 1.9 cm LA Systolic Diameter LX 5.2 cm 3.0 - 4.0 / 2.7 - 3.8 cm DOPPLER AV Peak Velocity 371.0 cm/s AV Peak Gradient 55.1 mmHg AV Mean Gradient 22.0 mmHg AV Velocity Time Integral 66.9 cm LVOT Peak Velocity 53.8 cm/s LVOT Peak Gradient 1.2 mmHg LVOT Velocity Time Integral 8.2 cm AV Area Cont Eq vti 0.3 cm AV Area Cont Eq pk 0.4 cm MR Peak Velocity 468.0 cm/s MR Peak Gradient 87.6 mmHg Mitral E Point Velocity 62.2 cm/s Mitral A Point Velocity 48.4 cm/s Mitral E to A Ratio 1.3 TR Peak Velocity 274.0 cm/s TR Peak Gradient 30.0 mmHg Right Atrial Pressure 15.0 mmHg Pulmonary Artery Systolic Pressu 45.0 mmHg Right Ventricular Systolic Press 45.0 mmHg FINDINGS LEFT VENTRICLE Moderately dilated left ventricle. Wall thickness is normal. The left ventricular systolic function is severely reduced with an estimated ejection fraction less than 20%. RIGHT VENTRICLE The right ventricle is mildly dilated. The right ventricular systoilc function is moderately decreased. LEFT ATRIUM The left atrial size is mildly dilated. RIGHT ATRIUM The right atrial size is mildly dilated. ATRIAL SEPTUM Normal atrial septal thickness without atrial level shunting by limited color doppler interrogation. AORTA The aortic root and proximal ascending aorta are normal in size on limited imaging. MITRAL VALVE Mitral annular calcification is present. [id number] mitral valve regurgitation. AORTIC VALVE Yefjyguc-[id number]-[id number] aortic valve regurgitation. Moderate thickening of the aortic valve leaflets. Trace aortic valve regurgitation. TRICUSPID VALVE There is moderate tricuspid regurgitation. The estimated pulmonary arterial pressure is 45 mmHg. PULMONARY VALVE Mild pulmonary valve regurgitation. VESSELS The inferior vena cava is normal in size. PERICARDIUM There is a small pericardial effusion present. Ja Flanagan MD (Electronically Signed) Final Date:18 March 2017 15:23
[2017-03-18 16:00] VITALS: BP 121/87; PULSE 107; RESP 17; TEMP 96.9; O2SAT 99
[2017-03-18 20:00] VITALS: BP 111/83; PULSE 104; RESP 20; TEMP 97; O2SAT 97
[2017-03-18] MEDS: PRAVASTATIN SOD 10 MG TAB PO SCH (20:11)
[2017-03-18 22:35] LABS: ALBUMIN SPE 4.1 GM/DL (3.50-5.00); ALPHA 1 GLOBULIN 0.3 GM/DL (0.11-0.29)
[2017-03-18 22:36] LABS: ALPHA 2 GLOBULIN 0.83 GM/DL (0.22-1.00); BETA GLOBULINS (SPE) 0.93 GM/DL (0.53-1.03)
--- NOTE | 2017-03-18 23:08 | PD.CONS ---
History of Present Illness Service Foot and Ankle Surgery/Podiatry Consult Requested By Reason for Consult Bilateral LE ulcers Primary Care Physician Selina Briones MD Diagnoses: History of Present Illness 71 year old male diabetic male with bilateral LE ulcers. Patient is being evaluated by nephrology and cardiology. Patient states he was seeing Dr. Madelyn SARAH and his bilateral LE ulcer had healed. he states he was given lasix by his PCP to reduce the edema to bilateral LE. Since he started the medication he states he noticed the ulcers return. States he has been taking care of the ulcers himself as Dr. Joshi is far for him. Review of Systems ROS Limitations: Poor Historian Constitutional: COMPLAINS OF: Fatigue, DENIES: Night Sweats Eyes: DENIES: Blurred vision Respiratory: DENIES: Cough Cardiovascular: DENIES: Chest pain Gastrointestinal: DENIES: Abdominal pain Musculoskeletal: COMPLAINS OF: Joint pain Hematologic/lymphatic: DENIES: Bruising Neurologic: DENIES: Headache, Seizures, Speech Problems Psychiatric: DENIES: Anxiety, Confusion Past Family Social History Allergies: Coded Allergies: No Known Allergies (Verified Allergy, Unknown, 03/16/17) Past Medical History Diabetes, Heart Failure, Hypertension Active Ordered Medications Current Medications Medications (Trade) Dose Ordered Sig/Iman Route Start Time Stop Time Status Last Admin Piperacillin Sod/ Tazobactam Sod 50 ml @ 100 mls/hr Q6H IV 03/16/17 06:00 03/18/17 17:18 (NS Flush) 2 ml UNSCH PRN IV FLUSH 03/16/17 00:15 (NS Flush) 2 ml BID IV FLUSH 03/16/17 09:00 03/18/17 20:10 (Tylenol) 650 mg Q4H PRN PO 03/16/17 00:15 (Zofran Inj) 4 mg Q6H PRN IVP 03/16/17 00:15 (Heparin Inj) 5,000 units Q8H SQ 03/16/17 06:00 Future Hold 03/16/17 06:00 (Narcan Inj) 0.4 mg UNSCH PRN IV PUSH 03/16/17 00:15 (Sudha-Colace) 1 tab BID PO 03/16/17 09:00 03/18/17 20:11 (Milk Of Magnesia Liq) 30 ml Q12H PRN PO 03/16/17 00:15 (Senokot) 17.2 mg Q12H PRN PO 03/16/17 00:15 (Dulcolax Supp) 10 mg DAILY PRN RECTAL 03/16/17 00:15 (Lactulose Liq) 30 ml DAILY PRN PO 03/16/17 00:15 Pharmacy Profile Note 0 ml @ 0 mls/hr UNSCH OTHER 03/16/17 08:45 (D50w (Vial) Inj) 50 ml UNSCH PRN IV PUSH 03/16/17 08:45 (Glucagon Inj) 1 mg UNSCH PRN OTHER 03/16/17 08:45 (NovoLOG SUPPLEMENTAL SCALE) 1 ACHS SLIDING SCALE SQ 03/16/17 12:00 03/17/17 20:39 (Tylenol) 650 mg Q6H PRN PO 03/16/17 08:45 ([place] 5-325 Mg) 1 tab Q4H PRN PO 03/16/17 08:45 ([place] 7.5-325 Mg) 1 tab Q4H PRN PO 03/16/17 08:45 03/18/17 04:46 (Morphine Inj) 1 mg Q3H PRN IV PUSH 03/16/17 09:30 03/17/17 23:18 (Pravachol) 10 mg HS PO 03/16/17 21:00 03/18/17 20:11 (Neurontin) 300 mg BID PO 03/16/17 12:00 03/18/17 20:11 (Pepcid) 10 mg BID PO 03/16/17 21:00 03/18/17 20:11 (Pill Splitter) 1 ea UNSCH PRN OTHER 03/16/17 12:00 03/17/17 08:12 (Ecotrin Ec) 325 mg DAILY PO 03/18/17 09:00 03/18/17 08:50 (Vitamin D3) 2,000 units DAILY PO 03/18/17 12:15 03/18/17 12:15 Social History Non-Smoker Physical Exam Vital Signs Vital Signs Date Time Temp Pulse Resp B/P (MAP) Pulse Ox O2 Delivery O2 Flow Rate FiO2 03/18/17 16:00 96.9 107 17 121/87 (98) 99 03/18/17 12:00 96.1 106 17 123/86 (98) 97 03/18/17 08:00 95.9 62 17 102/74 (83) 93 03/18/17 06:02 20 03/18/17 03:56 96.9 52 22 125/70 (88) 98 03/18/17 00:00 96.4 99 22 115/75 (88) 92 Physical Exam GENERAL: This is a well-nourished, well-developed patient, in no apparent distress. SKIN: Right foot interdigital ulcers; Left foot medial MPJ ulcer HEAD: Atraumatic. EYES: Pupils equal round and reactive. ENT: Airway patent. CV: Non palpable pulse to bilateral LE RESPIRATORY: No labored respirations MUSCULOSKELETAL: No calf tenderness. Negative Homans sign bilaterally. NEUROLOGICAL: Awake and alert. Lower Extremity Physical Exam: Vasc: DP/PT 0/4 non palpable to bilateral LE. RN HOME HEALTH under 5 secs and delayed to digts x5 to bilateral LE. Distal digits cool to touch. Neuro: Gross sensation intact. No hyperalgesia noted. Derm: Ulcer located to left medial MPJ with probe to capsule hyperkeratotic skin edges with fibrous base, mild serous drainage. No purulent drainage upon compression. Interdigital maceration with fissures noted to all interspaced of right foot. Serous drainage noted, no purulent drainage noted. MSK: ROM to left first MPJ limited. Hammertoes noted to digits 2-5 bilateral LE. No amputations noted. Laboratory Laboratory Tests Test 03/18/17 04:00 03/18/17 07:01 Urine Eosinophils NONE SEEN Blood Urea Nitrogen 40 Creatinine 2.40 Random Glucose 111 Calcium Level 9.6 Sodium Level 134 Potassium Level 5.5 Chloride Level 102 Carbon Dioxide Level 20.2 Anion Gap 12 Estimat Glomerular Filtration Rate 33 Random Vancomycin Level 2.2 Date/Time Source Procedure Growth Status 03/15/17 21:05 Blood Peripheral Aerobic Blood Culture - Preliminary NO GROWTH IN 3 DAYS Resulted 03/15/17 21:05 Blood Peripheral Anaerobic Blood Culture - Preliminary NO GROWTH IN 3 DAYS Resulted 03/16/17 15:15 Fluid Other Gram Stain - Final Resulted 03/16/17 15:15 Body Fluid Culture - Preliminary Group D Enterococcus Resulted Result Diagram: 03/16/17 0420 03/18/17 0701 Imaging Last 72 hours Impressions Toe X-Ray 03/16/17 0000 Signed Impressions: Service Date/Time: Thursday, March 16, 2017 12:00 - CONCLUSION: 1. Dorsal soft tissue ulceration overlying the second PIP region without significant bony erosion to suggest osteomyelitis. Trace Robert MD Renal Ultrasound 03/16/17 0000 Signed Impressions: Service Date/Time: Thursday, March 16, 2017 16:06 - CONCLUSION: 1. There is increased echogenicity of the renal parenchyma suggestive of some degree of chronic medical renal disease. 2. No hydronephrosis. 3. 1.5 cm benign- appearing right renal cyst. 4. Questionable small calcification left kidney suggestive of a nonobstructing stone. Misbah Grey MD Foot X-Ray 03/16/17 0000 Signed Impressions: Service Date/Time: Thursday, March 16, 2017 11:52 - CONCLUSION: 1. Large ulcer overlying the medial forefoot first MTP joint region without definitive bony erosive change to suggest osteomyelitis. Trace Robert MD Assessment and Plan Assessment and Plan 71 year old male with bilateral LE ulcers; Right interdigital ulcers and Left first medial MPJ ulcer Patient examined and evaluated with all questions answered No further imaging to bilateral LE expected at this time Recommend Hibiclens cleanse to right foot Betadine with dry sterile guaze to interdigital spaces to right foot Santyl with wet to dry to left MPJ ulcer No surgical intervention planned at this point 2/2 to stable ulcer which may improve with conservative treatment Recommend vascular consult for abnormal ABIs values perfusion will help left medial MPJ ulcer heal Will follow patient to monitor progress while in house Patient to follow up in office upon discharge or wound care center at [place] Mary Devries DPM Mar 18, 2017 23:08
[2017-03-19] MEDS: PIPERACIL-TAZO 2.25 GM PREMIX 50 ML IV SCH ×3 (00:56→11:03)
[2017-03-19 04:00] VITALS: BP 112/72; PULSE 97; RESP 20; TEMP 97.9; O2SAT 99
[2017-03-19 08:00] VITALS: BP 116/80; PULSE 103; RESP 18; TEMP 96.3; O2SAT 94
[2017-03-19] MEDS: INSULIN ASPART SUPPLEMENTAL SCALE SQ SCH ×4 (08:00→20:25)
[2017-03-19] MEDS ORDERED: CHLORHEXIDINE GLUCONATE 4% SOLN 120 ML BTL TOPICAL ONE (09:00)
[2017-03-19] MEDS: DOCUSATE SODIUM 50 MG/SENNA 8.6 MG TAB PO SCH ×2 (09:00→20:25)
[2017-03-19] MEDS: ASPIRIN EC 325 MG TABEC PO SCH (09:00)
[2017-03-19] MEDS: CHOLECALCIFEROL (VIT D3) 1000 UNIT TAB PO SCH (09:00)
[2017-03-19] MEDS: FAMOTIDINE 20 MG TAB PO SCH ×2 (09:00→20:24)
[2017-03-19] MEDS: GABAPENTIN 300 MG CAP PO SCH ×2 (09:00→20:24)
[2017-03-19] MEDS: SODIUM CHLORIDE 0.9% FLUSH 10 ML FLUSH IV FLUSH SCH ×2 (09:00→20:24)
--- NOTE | 2017-03-19 09:12 | HHI.PR ---
Subjective Remarks This is a pleasant 71 y/o Male with Diabetic Foot infection, seen in his bedroom , discussed with nurse Miss Serrato, Nephrology specialist and emission specialist following, Echocardiogram performed and found EF 20%, has Acute Kidney Injury probable related to NSAIDs, as Cardiorenal syndrome, bilateral Leg edema, ordered IV furosemide by Nephrology specialist, CKD III after Renal ultrasound suggested this diagnosis, most likely due to Nephrosclerosis, probable Diabetic nephropathy. no other complaint by patient at this time. 03/19: Seen by Podiatry specialist, Right interdigital ulcers and left fist medial MPJ ulcer, recommended Hibiclens to Right foot, Betadine to interdigital spaces to right foot, Santyl to Left MPJ ulcer, No surgical intervention at this time. recommended vascular Surgery consult. on discharge Wound care center at [place]. by doctor Devries. Status post Echocardiogram performed by Doctor Montes EF less than 20% Severely reduced Left ventricular systolic function, Mild to moderate mitral regurgitation, Mild to moderate aortic valve stenosis. small Pericardial effusion present. no nausea, vomit or diarrhea, seen in his bedroom in the present of friend, Objective Vital Signs Date Time Temp Pulse Resp B/P (MAP) Pulse Ox O2 Delivery O2 Flow Rate FiO2 03/19/17 08:00 96.3 103 18 116/80 (92) 94 03/19/17 04:00 97.9 97 20 112/72 (85) 99 03/18/17 20:00 97.0 104 20 111/83 (92) 97 03/18/17 16:00 96.9 107 17 121/87 (98) 99 03/18/17 12:00 96.1 106 17 123/86 (98) 97 I/O 03/18/17 03/18/17 03/18/17 03/19/17 03/19/17 03/19/17 07:00 15:00 23:00 07:00 15:00 23:00 Intake Total 240 ml 240 ml 100 ml Output Total 300 ml Balance -60 ml 240 ml 100 ml Intake Oral 240 ml 240 ml IV Total 100 ml Output Urine Total 300 ml # Voids 2 # Bowel Movements 0 0 Result Diagram: 03/16/17 0420 03/18/17 0701 Imaging Last Impressions Toe X-Ray 03/16/17 0000 Signed Impressions: Service Date/Time: Thursday, March 16, 2017 12:00 - CONCLUSION: 1. Dorsal soft tissue ulceration overlying the second PIP region without significant bony erosion to suggest osteomyelitis. Trace Robert MD Renal Ultrasound 03/16/17 0000 Signed Impressions: Service Date/Time: Thursday, March 16, 2017 16:06 - CONCLUSION: 1. There is increased echogenicity of the renal parenchyma suggestive of some degree of chronic medical renal disease. 2. No hydronephrosis. 3. 1.5 cm benign- appearing right renal cyst. 4. Questionable small calcification left kidney suggestive of a nonobstructing stone. Misbah Grey MD Foot X-Ray 03/16/17 0000 Signed Impressions: Service Date/Time: Thursday, March 16, 2017 11:52 - CONCLUSION: 1. Large ulcer overlying the medial forefoot first MTP joint region without definitive bony erosive change to suggest osteomyelitis. Trace Robert MD Procedures None. Other Results Laboratory Tests Test 03/15/17 21:05 03/16/17 04:20 03/16/17 19:02 03/17/17 06:38 Blood Urea Nitrogen 36 MG/DL 32 MG/DL Creatinine 2.24 MG/DL 2.01 MG/DL Random Glucose 119 MG/DL 122 MG/DL Total Protein 8.5 GM/DL 8.2 GM/DL Albumin 3.5 GM/DL 4.10 GM/DL Calcium Level 9.5 MG/DL 9.4 MG/DL Alkaline Phosphatase 81 U/L Aspartate Amino Transf (AST/SGOT) 30 U/L Alanine Aminotransferase (ALT/SGPT) 18 U/L Total Bilirubin 1.0 MG/DL Sodium Level 138 MEQ/L 139 MEQ/L Potassium Level 3.1 MEQ/L 4.2 MEQ/L Chloride Level 101 MEQ/L 104 MEQ/L Carbon Dioxide Level 25.3 MEQ/L 19.1 MEQ/L White Blood Count 5.6 TH/MM3 Red Blood Count 4.30 MIL/MM3 Hemoglobin 12.2 GM/DL Hematocrit 36.8 % Mean Corpuscular Volume 85.4 FL Mean Corpuscular Hemoglobin 28.3 PG Mean Corpuscular Hemoglobin Concent 33.2 % Red Cell Distribution Width 17.0 % Platelet Count 170 TH/MM3 Mean Platelet Volume 9.5 FL Neutrophils (%) (Auto) 62.0 % Lymphocytes (%) (Auto) 25.4 % Monocytes (%) (Auto) 9.5 % Eosinophils (%) (Auto) 2.3 % Basophils (%) (Auto) 0.8 % Neutrophils # (Auto) 3.5 TH/MM3 Lymphocytes # (Auto) 1.4 TH/MM3 Monocytes # (Auto) 0.5 TH/MM3 Eosinophils # (Auto) 0.1 TH/MM3 Basophils # (Auto) 0.0 TH/MM3 CBC Comment DIFF FINAL Differential Comment Hemoglobin A1c 7.3 % Total Creatine Kinase 445 U/L Creatine Kinase MB 10.0 NG/ML Creatine Kinase MB % 2.2 % Urine Color YELLOW Urine Turbidity HAZY Urine pH 5.5 Urine Specific [place] 1.018 Urine Protein 30 mg/dL Urine Glucose (UA) TRACE mg/dL Urine Ketones NEG mg/dL Urine Occult Blood NEG Urine Nitrite NEG Urine Bilirubin NEG Urine Urobilinogen LESS THAN 2.0 MG/DL Urine Leukocyte Esterase NEG Urine RBC 2 /hpf Urine WBC 12 /hpf Urine Squamous Epithelial Cells <1 /hpf Urine Transitional Epithelial Cells 1 /hpf Urine Bacteria MOD /hpf Urine Granular Casts 1 /lpf Urine White Blood Cell Casts 6 /lpf Urine Mucus FEW /lpf Urine Random Creatinine 179 MG/DL Urine Random Total Protein 113 MG/DL Urine Random Sodium 12 MEQ/L Urine Protein/Creatinine Ratio 0.63 Magnesium Level 1.9 MG/DL Albumin/Globulin Ratio 1.00 Wqdyf-6-Bbqrkrmgv 0.30 GM/DL Xyock-3-Fkuqtrhux 0.83 GM/DL Beta Globulins 0.93 GM/DL Gamma Globulins 2.04 GM/DL 25-Hydroxy Vitamin D Total 16.6 ng/ML Complement C3 96 MG/DL Complement C4 10 MG/DL Hepatitis C Antibody NEGATIVE Test 03/18/17 04:00 03/18/17 07:01 Urine Eosinophils NONE SEEN /HPF Blood Urea Nitrogen 40 MG/DL Creatinine 2.40 MG/DL Random Glucose 111 MG/DL Calcium Level 9.6 MG/DL Sodium Level 134 MEQ/L Potassium Level 5.5 MEQ/L Chloride Level 102 MEQ/L Carbon Dioxide Level 20.2 MEQ/L Anion Gap 12 MEQ/L Estimat Glomerular Filtration Rate 33 ML/MIN Random Vancomycin Level 2.2 COMMENT Objective Remarks GENERAL: This is a well-nourished, well-developed patient, in no apparent distress. SKIN: No rashes, ecchymoses or lesions. Cool and dry. CARDIOVASCULAR: Regular rate and irregular rhythm without murmurs, gallops, or rubs. Telemetry shows PVCs RESPIRATORY: Clear to auscultation. Breath sounds equal bilaterally. No wheezes , rales, or rhonchi. GASTROINTESTINAL: Abdomen soft, non-tender, nondistended. No guarding. MUSCULOSKELETAL: Extremities without clubbing, cyanosis with bilateral breath lower extremity pitting edema. Multiple tophi noted. Large ulcer over left metatarsal head with purulent discharge. Maggots noted. Right second toe with ulcer. Doppler pulses NEUROLOGICAL: Awake and alert. No focal deficits. Medications and IVs Current Medications Medications (Trade) Dose Ordered Sig/Iman Route Start Time Stop Time Status Last Admin Piperacillin Sod/ Tazobactam Sod 50 ml @ 100 mls/hr Q6H IV 03/16/17 06:00 03/19/17 05:12 (NS Flush) 2 ml UNSCH PRN IV FLUSH 03/16/17 00:15 (NS Flush) 2 ml BID IV FLUSH 03/16/17 09:00 03/18/17 20:10 (Tylenol) 650 mg Q4H PRN PO 03/16/17 00:15 (Zofran Inj) 4 mg Q6H PRN IVP 03/16/17 00:15 (Heparin Inj) 5,000 units Q8H SQ 03/16/17 06:00 Future Hold 03/16/17 06:00 (Narcan Inj) 0.4 mg UNSCH PRN IV PUSH 03/16/17 00:15 (Sudha-Colace) 1 tab BID PO 03/16/17 09:00 03/18/17 20:11 (Milk Of Magnesia Liq) 30 ml Q12H PRN PO 03/16/17 00:15 (Senokot) 17.2 mg Q12H PRN PO 03/16/17 00:15 (Dulcolax Supp) 10 mg DAILY PRN RECTAL 03/16/17 00:15 (Lactulose Liq) 30 ml DAILY PRN PO 03/16/17 00:15 Pharmacy Profile Note 0 ml @ 0 mls/hr UNSCH OTHER 03/16/17 08:45 (D50w (Vial) Inj) 50 ml UNSCH PRN IV PUSH 03/16/17 08:45 (Glucagon Inj) 1 mg UNSCH PRN OTHER 03/16/17 08:45 (NovoLOG SUPPLEMENTAL SCALE) 1 ACHS SLIDING SCALE SQ 03/16/17 12:00 03/17/17 20:39 (Tylenol) 650 mg Q6H PRN PO 03/16/17 08:45 ([place] 5-325 Mg) 1 tab Q4H PRN PO 03/16/17 08:45 ([place] 7.5-325 Mg) 1 tab Q4H PRN PO 03/16/17 08:45 03/18/17 04:46 (Morphine Inj) 1 mg Q3H PRN IV PUSH 03/16/17 09:30 03/17/17 23:18 (Pravachol) 10 mg HS PO 03/16/17 21:00 03/18/17 20:11 (Neurontin) 300 mg BID PO 03/16/17 12:00 03/18/17 20:11 (Pepcid) 10 mg BID PO 03/16/17 21:00 03/18/17 20:11 (Pill Splitter) 1 ea UNSCH PRN OTHER 03/16/17 12:00 03/17/17 08:12 (Ecotrin Ec) 325 mg DAILY PO 03/18/17 09:00 03/18/17 08:50 (Vitamin D3) 2,000 units DAILY PO 03/18/17 12:15 03/18/17 12:15 (Santyl Oint) 1 applic DAILY TOPICAL 03/19/17 23:45 A/P Assessment and Plan This is a 71-year-old male who came in because of bilateral lower extremity swelling despite change of his diuretic to Bumex. He also noted ulcers in his left foot and right second toe draining serous fluid denies fever and chills. Received antibiotics as per PCP. Diabetic foot ulcers/infection involving left first metatarsal head and right second toe with failed outpatient therapy. X-rays reviewed did not show evidence of osteomyelitis. Continue IV vancomycin and Zosyn Follow-up wound and blood cultures. Wound care following, Seen by Podiatry specialist, Right interdigital ulcers and left fist medial MPJ ulcer, recommended Hibiclens to Right foot, Betadine to interdigital spaces to right foot, Santyl to Left MPJ ulcer, No surgical intervention at this time. recommended vascular Surgery consult. on discharge Wound care center at [place]. PVD. Doppler pulses. Start aspirin recommended for Vascular surgery consult by Podiatry specialist. Acute kidney injury with hypokalemia. Nephrology specialist following.probable related to NSAIDs, as Cardiorenal syndrome, bilateral Leg edema, ordered IV furosemide by Nephrology specialist, CKD III after Renal ultrasound suggested this diagnosis, most likely due to Nephrosclerosis, probable Diabetic nephropathy. Chronic Systolic heart Failure Status post Echocardiogram performed by Doctor Montes EF less than 20% Severely reduced Left ventricular systolic function, Mild to moderate mitral regurgitation, Mild to moderate aortic valve stenosis. small Pericardial effusion present. on Diuretics. Hyperlipidemia to continue Home medicines. Hyperkalemia followed by Nephrology specialist. Hypertension controlled Rheumatoid arthritis DM II hemoglobin A1C 7.3 continue SSI. DVT prophylaxis with early ambulation. continue Heparin at this time. Discharge Planning Not yet cleared by specialists Nilesh Mccall MD Mar 19, 2017 09:11
--- NOTE | 2017-03-19 09:53 | HHI.NPPN ---
Subjective History of Present Illness This patient is a 71-year-old male with a history of diabetes mellitus, congestive heart failure and hypertension as well as arthritis. Patient noted to have had an fraction of only 20-25% by 2-D echocardiogram in 2013. In creatinine level noted to have been 1.04 back in February 2016. Patient now presents with a history of increasing lower extremity edema and foot ulcerations being evaluated by primary care physician in house. Patient apparently was on antibiotic for 1 week prior to admission but patient cannot identify the specific antibiotic was taking. In addition on questioning indicated that he was taking an NSAID analgesia for about 2 weeks daily prior to this admission also. Renal ultrasound indicating echogenic kidneys this admission with no hydronephrosis. Presenting creatinine level was 2.24 potassium of 3.1 subsequently improving to a creatinine of 2.01 with an estimated GFR 40 on day of consultation. Interval History Pt feeling better today Reports SOB improved Constipated Review of Systems Respiratory Lungs: SOB Cardiovascular Cardiac: Edema Objective Data Data Vital Signs Date Time Temp Pulse Resp B/P (MAP) Pulse Ox O2 Delivery O2 Flow Rate FiO2 03/19/17 08:00 96.3 103 18 116/80 (92) 94 03/19/17 04:00 97.9 97 20 112/72 (85) 99 03/18/17 20:00 97.0 104 20 111/83 (92) 97 03/18/17 16:00 96.9 107 17 121/87 (98) 99 03/18/17 12:00 96.1 106 17 123/86 (98) 97 -: 03/16/17 0420 03/18/17 0701 Imaging Last Impressions Toe X-Ray 03/16/17 0000 Signed Impressions: Service Date/Time: Thursday, March 16, 2017 12:00 - CONCLUSION: 1. Dorsal soft tissue ulceration overlying the second PIP region without significant bony erosion to suggest osteomyelitis. Trace Robert MD Renal Ultrasound 03/16/17 0000 Signed Impressions: Service Date/Time: Thursday, March 16, 2017 16:06 - CONCLUSION: 1. There is increased echogenicity of the renal parenchyma suggestive of some degree of chronic medical renal disease. 2. No hydronephrosis. 3. 1.5 cm benign- appearing right renal cyst. 4. Questionable small calcification left kidney suggestive of a nonobstructing stone. Misbah Grey MD Foot X-Ray 03/16/17 0000 Signed Impressions: Service Date/Time: Thursday, March 16, 2017 11:52 - CONCLUSION: 1. Large ulcer overlying the medial forefoot first MTP joint region without definitive bony erosive change to suggest osteomyelitis. Trace Robert MD Medication Review Current Medications Medications (Trade) Dose Ordered Sig/Iman Route Start Time Stop Time Status Last Admin Piperacillin Sod/ Tazobactam Sod 50 ml @ 100 mls/hr Q6H IV 03/16/17 06:00 03/19/17 05:12 (NS Flush) 2 ml UNSCH PRN IV FLUSH 03/16/17 00:15 (NS Flush) 2 ml BID IV FLUSH 03/16/17 09:00 03/18/17 20:10 (Tylenol) 650 mg Q4H PRN PO 03/16/17 00:15 (Zofran Inj) 4 mg Q6H PRN IVP 03/16/17 00:15 (Heparin Inj) 5,000 units Q8H SQ 03/16/17 06:00 Future Hold 03/16/17 06:00 (Narcan Inj) 0.4 mg UNSCH PRN IV PUSH 03/16/17 00:15 (Sudha-Colace) 1 tab BID PO 03/16/17 09:00 03/18/17 20:11 (Milk Of Magnesia Liq) 30 ml Q12H PRN PO 03/16/17 00:15 (Senokot) 17.2 mg Q12H PRN PO 03/16/17 00:15 (Dulcolax Supp) 10 mg DAILY PRN RECTAL 03/16/17 00:15 (Lactulose Liq) 30 ml DAILY PRN PO 03/16/17 00:15 Pharmacy Profile Note 0 ml @ 0 mls/hr UNSCH OTHER 03/16/17 08:45 (D50w (Vial) Inj) 50 ml UNSCH PRN IV PUSH 03/16/17 08:45 (Glucagon Inj) 1 mg UNSCH PRN OTHER 03/16/17 08:45 (NovoLOG SUPPLEMENTAL SCALE) 1 ACHS SLIDING SCALE SQ 03/16/17 12:00 03/17/17 20:39 (Tylenol) 650 mg Q6H PRN PO 03/16/17 08:45 ([place] 5-325 Mg) 1 tab Q4H PRN PO 03/16/17 08:45 ([place] 7.5-325 Mg) 1 tab Q4H PRN PO 03/16/17 08:45 03/18/17 04:46 (Morphine Inj) 1 mg Q3H PRN IV PUSH 03/16/17 09:30 03/17/17 23:18 (Pravachol) 10 mg HS PO 03/16/17 21:00 03/18/17 20:11 (Neurontin) 300 mg BID PO 03/16/17 12:00 03/18/17 20:11 (Pepcid) 10 mg BID PO 03/16/17 21:00 03/18/17 20:11 (Pill Splitter) 1 ea UNSCH PRN OTHER 03/16/17 12:00 03/17/17 08:12 (Ecotrin Ec) 325 mg DAILY PO 03/18/17 09:00 03/18/17 08:50 (Vitamin D3) 2,000 units DAILY PO 03/18/17 12:15 03/18/17 12:15 (Santyl Oint) 1 applic DAILY TOPICAL 03/19/17 23:45 Physical Exam General Appearance: No Acute Distress, Malnourished Eyes Eye Exam: Sclera White Neck Neck Exam: Trachea Midline Pulmonary Resp Exam: Clear Bilaterally, Breath Sounds Equal, Decreased Bases Cardiology CV Exam: Regular, Normal Sinus Rhythm Gastrointestinal/Abdomen GI Exam: Soft, Non-Tender Integumentary Skin Exam: Warm, Normal Turgor Extremeties Extremities Exam: Moderate Edema (1+ pitting edema BLE up to hips), Pitting Edema, Dependent Edema Neurologic Neuro Exam: Alert, Awake, Moving All Extremities Psychiatric Psych Exam: Appropriate Responses Assessment/Plan Problem List: (1) Acute kidney insufficiency ICD Codes: N28.9 - Disorder of kidney and ureter, unspecified Status: Acute Plan: May be related to usage of NSAIDs prior to admission. Uncertain if they could be a component of cardiorenal syndrome given the severity of his cardiomyopathy documented previously with a markedly reduced ejection fraction 20-25% 2013. Pending labs today. Will give another dose of IV Lasix to help improve volume status Medications should be adjusted for the patient's estimated GFR if clinically indicated. Avoid agents with significant potential for nephrotoxicity possible including NSAIDs for analgesia, iodine contrast agents. Gadolinium is contraindicated if the GFR is below 30. (2) CKD (chronic kidney disease) stage 3, GFR 30-59 ml/min ICD Codes: N18.3 - Chronic kidney disease, stage 3 (moderate) Status: Chronic Plan: Renal ultrasound is suggestive of chronic kidney disease with increased echogenicity. Most likely related to nephrosclerosis of aging with possible superimposed diabetic nephropathy. Remains be determined what the patient's baseline renal indices are however. (3) Hyperkalemia ICD Codes: E87.5 - Hyperkalemia Status: Acute Plan: Secondary to worsening renal function. Pending labs today (4) Cardiomyopathy ICD Codes: I42.9 - Cardiomyopathy, unspecified Plan: Repeat 2-D echocardiogram pending. On questioning the patient now indicates that he has not been following up with outpatient scientific affairs manager despite the severity of his cardiomyopathy. Recommend cardiology consultation as ordered if okay with primary M.D. (5) Diabetic foot infection ICD Codes: E11.69 - Type 2 diabetes mellitus with other specified complication ; L08.9 - Local infection of the skin and subcutaneous tissue, unspecified Plan: Management per primary care physician. Rohini Cochran Mar 19, 2017 09:53
[2017-03-19] MEDS ORDERED: FUROSEMIDE 40 MG/4 ML VIAL IV PUSH ONE (10:45)
--- NOTE | 2017-03-19 11:12 | HHI.FF ---
Face to Face Verification Diagnosis: (1) CHF exacerbation (2) Diabetic foot ulcer (3) Acute kidney insufficiency Physical Therapy Order: Evaluate and Treat, Improve ambulation, Strength and gait training Home Health Nursing Order: Medical education Signs/symptoms of disease process Diabetic education CHF education Oxygen administration education Medication education-adverse effect Wound care and dressing changes Nursing assessment with vital signs I have seen patient Gonzalo Elias on 03/19/17. My clinical findings support the need for the requested home health care services because: Ltd mobility - disease progression I certify that my clinical findings support that this patient is homebound because: Unsafe to leave home unassisted Nilesh Mccall MD Mar 19, 2017 11:12
[2017-03-19] MEDS: MORPHINE SULFATE 2 MG/ML INJ IV PUSH PRN ×2 (11:16→12:12)
[2017-03-19 11:29] LABS: POTASSIUM 3.7 MEQ/L (3.5-5.1)
[2017-03-19 12:11] VITALS: BP 115/78; PULSE 101; RESP 18; TEMP 95.5; O2SAT 100
[2017-03-19] MEDS ORDERED: VANCOMYCIN INJ 1,500 MG in SODIUM CHLORID 0.9% 500 ML INJ 500 ML IV ONE (13:00)
[2017-03-19] MEDS: cefTRIAXone INJ 1,000 MG in SODIUM CHLORIDE 0.9% INJ 100 ML IV SCH (15:50)
[2017-03-19 16:00] VITALS: BP 105/74; PULSE 62; RESP 18; TEMP 96.6; O2SAT 97
[2017-03-19] MEDS: ACETAMINOPHEN/HYDROcodone 325 MG/7.5 MG TAB PO PRN (16:09)
--- NOTE | 2017-03-19 17:34 | PD.WCN.NOT ---
Wound Consult Description: Consult for WOUND MANAGEMENT of foot per Dr Batista Recommendation: Defer to Podiatry orders in place per Mary Devries DPM Additional Information: Patient not seen by wound care. Allie De La Paz [facility] Mar 19, 2017 17:34
[2017-03-19 20:00] VITALS: BP 108/71; PULSE 92; RESP 20; TEMP 97; O2SAT 100
[2017-03-19] MEDS: PRAVASTATIN SOD 10 MG TAB PO SCH (20:25)
[2017-03-19] MEDS: COLLAGENASE OINT 30 GM TUBE TOPICAL SCH (23:41)
[2017-03-20] VITALS (7 sets, daily range): BP systolic 109–147; BP diastolic 73–80; PULSE 88–106; RESP 17–20; TEMP 96.9–98.6; O2SAT 93–98
[2017-03-20] MEDS: INSULIN ASPART SUPPLEMENTAL SCALE SQ SCH ×4 (08:00→20:42)
[2017-03-20] MEDS: GABAPENTIN 300 MG CAP PO SCH ×2 (08:19→20:41)
[2017-03-20] MEDS: ASPIRIN EC 325 MG TABEC PO SCH (08:19)
[2017-03-20] MEDS: FAMOTIDINE 20 MG TAB PO SCH ×2 (08:19→20:41)
[2017-03-20] MEDS: DOCUSATE SODIUM 50 MG/SENNA 8.6 MG TAB PO SCH ×2 (08:19→20:41)
[2017-03-20] MEDS: SODIUM CHLORIDE 0.9% FLUSH 10 ML FLUSH IV FLUSH SCH ×2 (08:19→20:42)
[2017-03-20] MEDS: CHOLECALCIFEROL (VIT D3) 1000 UNIT TAB PO SCH (08:19)
[2017-03-20] MEDS: ACETAMINOPHEN/HYDROcodone 325 MG/7.5 MG TAB PO PRN ×3 (08:20→20:42)
[2017-03-20] MEDS: COLLAGENASE OINT 30 GM TUBE TOPICAL SCH (08:21)
--- NOTE | 2017-03-20 11:33 | HHI.PR ---
Subjective Remarks This is a pleasant 71 y/o Male with Diabetic Foot infection, seen in his bedroom , discussed with nurse Miss Serrato, Nephrology specialist and counseling specialist following, Echocardiogram performed and found EF 20%, has Acute Kidney Injury probable related to NSAIDs, as Cardiorenal syndrome, bilateral Leg edema, ordered IV furosemide by Nephrology specialist, CKD III after Renal ultrasound suggested this diagnosis, most likely due to Nephrosclerosis, probable Diabetic nephropathy. no other complaint by patient at this time. 03/19: Seen by Podiatry specialist, Right interdigital ulcers and left fist medial MPJ ulcer, recommended Hibiclens to Right foot, Betadine to interdigital spaces to right foot, Santyl to Left MPJ ulcer, No surgical intervention at this time. recommended vascular Surgery consult. on discharge Wound care center at [place]. by doctor Devries. Status post Echocardiogram performed by Doctor Montes EF less than 20% Severely reduced Left ventricular systolic function, Mild to moderate mitral regurgitation, Mild to moderate aortic valve stenosis. small Pericardial effusion present. no nausea, vomit or diarrhea, seen in his bedroom in the present of friend, 03/20: Discussed on Multidisciplinary round, patient stable improving general condition, he has CKD III and Chronic systolic heart failure will need to get final recommendations by counseling specialist and Nephrology also will ask for final recommendations for wound care by Podiatry specialist. no nausea, vomit or diarrhea. Objective Vital Signs Date Time Temp Pulse Resp B/P (MAP) Pulse Ox O2 Delivery O2 Flow Rate FiO2 03/20/17 08:00 96.9 105 20 113/77 (89) 93 03/20/17 04:00 97.1 98 20 125/73 (90) 97 03/20/17 00:00 97.2 104 20 109/80 (90) 98 03/19/17 20:00 97.0 92 20 108/71 (83) 100 03/19/17 16:00 96.6 62 18 105/74 (84) 97 03/19/17 12:11 95.5 101 18 115/78 (90) 100 I/O 03/19/17 03/19/17 03/19/17 03/20/17 03/20/17 03/20/17 07:00 15:00 23:00 07:00 15:00 23:00 Intake Total 100 ml 960 ml 120 ml Output Total 700 ml 600 ml Balance 100 ml 260 ml -480 ml Intake Oral 960 ml 120 ml IV Total 100 ml Output Urine Total 700 ml 600 ml # Bowel Movements 0 Result Diagram: 03/16/17 0420 03/19/17 0945 Imaging Last Impressions Toe X-Ray 03/16/17 0000 Signed Impressions: Service Date/Time: Thursday, March 16, 2017 12:00 - CONCLUSION: 1. Dorsal soft tissue ulceration overlying the second PIP region without significant bony erosion to suggest osteomyelitis. Trace Robert MD Renal Ultrasound 03/16/17 0000 Signed Impressions: Service Date/Time: Thursday, March 16, 2017 16:06 - CONCLUSION: 1. There is increased echogenicity of the renal parenchyma suggestive of some degree of chronic medical renal disease. 2. No hydronephrosis. 3. 1.5 cm benign- appearing right renal cyst. 4. Questionable small calcification left kidney suggestive of a nonobstructing stone. Misbah Grey MD Foot X-Ray 03/16/17 0000 Signed Impressions: Service Date/Time: Thursday, March 16, 2017 11:52 - CONCLUSION: 1. Large ulcer overlying the medial forefoot first MTP joint region without definitive bony erosive change to suggest osteomyelitis. Trace Robert MD Procedures None. Other Results Laboratory Tests Test 03/15/17 21:05 03/16/17 04:20 03/16/17 19:02 03/17/17 06:38 Blood Urea Nitrogen 36 MG/DL 32 MG/DL Creatinine 2.24 MG/DL 2.01 MG/DL Random Glucose 119 MG/DL 122 MG/DL Total Protein 8.5 GM/DL 8.2 GM/DL Albumin 3.5 GM/DL 4.10 GM/DL Calcium Level 9.5 MG/DL 9.4 MG/DL Alkaline Phosphatase 81 U/L Aspartate Amino Transf (AST/SGOT) 30 U/L Alanine Aminotransferase (ALT/SGPT) 18 U/L Total Bilirubin 1.0 MG/DL Sodium Level 138 MEQ/L 139 MEQ/L Potassium Level 3.1 MEQ/L 4.2 MEQ/L Chloride Level 101 MEQ/L 104 MEQ/L Carbon Dioxide Level 25.3 MEQ/L 19.1 MEQ/L White Blood Count 5.6 TH/MM3 Red Blood Count 4.30 MIL/MM3 Hemoglobin 12.2 GM/DL Hematocrit 36.8 % Mean Corpuscular Volume 85.4 FL Mean Corpuscular Hemoglobin 28.3 PG Mean Corpuscular Hemoglobin Concent 33.2 % Red Cell Distribution Width 17.0 % Platelet Count 170 TH/MM3 Mean Platelet Volume 9.5 FL Neutrophils (%) (Auto) 62.0 % Lymphocytes (%) (Auto) 25.4 % Monocytes (%) (Auto) 9.5 % Eosinophils (%) (Auto) 2.3 % Basophils (%) (Auto) 0.8 % Neutrophils # (Auto) 3.5 TH/MM3 Lymphocytes # (Auto) 1.4 TH/MM3 Monocytes # (Auto) 0.5 TH/MM3 Eosinophils # (Auto) 0.1 TH/MM3 Basophils # (Auto) 0.0 TH/MM3 CBC Comment DIFF FINAL Differential Comment Hemoglobin A1c 7.3 % Total Creatine Kinase 445 U/L Creatine Kinase MB 10.0 NG/ML Creatine Kinase MB % 2.2 % Urine Color YELLOW Urine Turbidity HAZY Urine pH 5.5 Urine Specific Danielson 1.018 Urine Protein 30 mg/dL Urine Glucose (UA) TRACE mg/dL Urine Ketones NEG mg/dL Urine Occult Blood NEG Urine Nitrite NEG Urine Bilirubin NEG Urine Urobilinogen LESS THAN 2.0 MG/DL Urine Leukocyte Esterase NEG Urine RBC 2 /hpf Urine WBC 12 /hpf Urine Squamous Epithelial Cells <1 /hpf Urine Transitional Epithelial Cells 1 /hpf Urine Bacteria MOD /hpf Urine Granular Casts 1 /lpf Urine White Blood Cell Casts 6 /lpf Urine Mucus FEW /lpf Urine Random Creatinine 179 MG/DL Urine Random Total Protein 113 MG/DL Urine Random Sodium 12 MEQ/L Urine Protein/Creatinine Ratio 0.63 Urine Immunofixation Magnesium Level 1.9 MG/DL Albumin/Globulin Ratio 1.00 Tlzel-4-Pejtziocn 0.30 GM/DL Idbyh-3-Clyqsuoqv 0.83 GM/DL Beta Globulins 0.93 GM/DL Gamma Globulins 2.04 GM/DL Electrophoresis Pathologist Comment 25-Hydroxy Vitamin D Total 16.6 ng/ML Complement C3 96 MG/DL Complement C4 10 MG/DL Hepatitis C Antibody NEGATIVE Test 03/18/17 04:00 03/19/17 09:45 Urine Eosinophils NONE SEEN /HPF Blood Urea Nitrogen 41 MG/DL Creatinine 2.09 MG/DL Random Glucose 142 MG/DL Calcium Level 9.0 MG/DL Sodium Level 136 MEQ/L Potassium Level 3.7 MEQ/L Chloride Level 103 MEQ/L Carbon Dioxide Level 22.0 MEQ/L Anion Gap 11 MEQ/L Estimat Glomerular Filtration Rate 38 ML/MIN Random Vancomycin Level 10.6 COMMENT Objective Remarks GENERAL: This is a well-nourished, well-developed patient, in no apparent distress. SKIN: No rashes, ecchymoses or lesions. Cool and dry. CARDIOVASCULAR: Regular rate and irregular rhythm without murmurs, gallops, or rubs. Telemetry shows PVCs RESPIRATORY: Clear to auscultation. Breath sounds equal bilaterally. No wheezes , rales, or rhonchi. GASTROINTESTINAL: Abdomen soft, non-tender, nondistended. No guarding. MUSCULOSKELETAL: Extremities without clubbing, cyanosis with bilateral breath lower extremity pitting edema. Multiple tophi noted. Large ulcer over left metatarsal head with purulent discharge. Maggots noted. Right second toe with ulcer. Doppler pulses NEUROLOGICAL: Awake and alert. No focal deficits. Medications and IVs Current Medications Medications (Trade) Dose Ordered Sig/Iman Route Start Time Stop Time Status Last Admin (NS Flush) 2 ml UNSCH PRN IV FLUSH 03/16/17 00:15 (NS Flush) 2 ml BID IV FLUSH 03/16/17 09:00 03/20/17 08:19 (Tylenol) 650 mg Q4H PRN PO 03/16/17 00:15 (Zofran Inj) 4 mg Q6H PRN IVP 03/16/17 00:15 (Heparin Inj) 5,000 units Q8H SQ 03/16/17 06:00 Future Hold 03/16/17 06:00 (Narcan Inj) 0.4 mg UNSCH PRN IV PUSH 03/16/17 00:15 (Sudha-Colace) 1 tab BID PO 03/16/17 09:00 03/20/17 08:19 (Milk Of Magnesia Liq) 30 ml Q12H PRN PO 03/16/17 00:15 (Senokot) 17.2 mg Q12H PRN PO 03/16/17 00:15 (Dulcolax Supp) 10 mg DAILY PRN RECTAL 03/16/17 00:15 (Lactulose Liq) 30 ml DAILY PRN PO 03/16/17 00:15 (D50w (Vial) Inj) 50 ml UNSCH PRN IV PUSH 03/16/17 08:45 (Glucagon Inj) 1 mg UNSCH PRN OTHER 03/16/17 08:45 (NovoLOG SUPPLEMENTAL SCALE) 1 ACHS SLIDING SCALE SQ 03/16/17 12:00 03/17/17 20:39 (Tylenol) 650 mg Q6H PRN PO 03/16/17 08:45 (Mead 5-325 Mg) 1 tab Q4H PRN PO 03/16/17 08:45 03/19/17 23:41 (Mead 7.5-325 Mg) 1 tab Q4H PRN PO 03/16/17 08:45 03/20/17 08:20 (Morphine Inj) 1 mg Q3H PRN IV PUSH 03/16/17 09:30 03/19/17 11:16 (Pravachol) 10 mg HS PO 03/16/17 21:00 03/19/17 20:25 (Neurontin) 300 mg BID PO 03/16/17 12:00 03/20/17 08:19 (Pepcid) 10 mg BID PO 03/16/17 21:00 03/20/17 08:19 (Pill Splitter) 1 ea UNSCH PRN OTHER 03/16/17 12:00 03/17/17 08:12 (Ecotrin Ec) 325 mg DAILY PO 03/18/17 09:00 03/20/17 08:19 (Vitamin D3) 2,000 units DAILY PO 03/18/17 12:15 03/20/17 08:19 (Santyl Oint) 1 applic DAILY TOPICAL 03/19/17 23:45 03/20/17 08:21 Ceftriaxone Sodium 1000 mg/ Sodium Chloride 100 ml @ 200 mls/hr Q24H IV 03/19/17 16:00 03/19/17 15:50 A/P Assessment and Plan This is a 71-year-old male who came in because of bilateral lower extremity swelling despite change of his diuretic to Bumex. He also noted ulcers in his left foot and right second toe draining serous fluid denies fever and chills. Received antibiotics as per PCP. Diabetic foot ulcers/infection involving left first metatarsal head and right second toe with failed outpatient therapy. X-rays reviewed did not show evidence of osteomyelitis. Continue IV vancomycin and Zosyn Follow-up wound and blood cultures. Wound care following, Seen by Podiatry specialist, Right interdigital ulcers and left fist medial MPJ ulcer, recommended Hibiclens to Right foot, Betadine to interdigital spaces to right foot, Santyl to Left MPJ ulcer, No surgical intervention at this time. recommended vascular Surgery consult. on discharge Wound care center at [place]. at this time on Ceftriaxone and following. wound culture for Enterococcus Avium covered by Ceftriaxone and will need Ampicillin by mouth at discharge. awaiting recommendations by Podiatry for discharge. PVD. Doppler pulses. Start aspirin recommended for Vascular surgery consult by Podiatry specialist. Acute kidney injury with hypokalemia. Nephrology specialist following.probable related to NSAIDs, as Cardiorenal syndrome, bilateral Leg edema, ordered IV furosemide by Nephrology specialist, CKD III after Renal ultrasound suggested this diagnosis, most likely due to Nephrosclerosis, probable Diabetic nephropathy. awaiting final by Nephrology for discharge. Chronic Systolic heart Failure Status post Echocardiogram performed by Doctor Montes EF less than 20% Severely reduced Left ventricular systolic function, Mild to moderate mitral regurgitation, Mild to moderate aortic valve stenosis. small Pericardial effusion present. on Diuretics. waiting final by Cardiology doctor Montes for discharge. Hyperlipidemia to continue Home medicines. Hyperkalemia improved. Hypertension controlled Rheumatoid arthritis DM II hemoglobin A1C 7.3 continue SSI. DVT prophylaxis with early ambulation. continue Heparin at this time. Discharge Planning Not yet cleared by specialists Nilesh Mccall MD Mar 20, 2017 11:33
--- NOTE | 2017-03-20 11:41 | PD.VS.CON ---
History of Present Illness Chief Complaint: Non healing BLE ulcerations Non palpable distal pulses Consult Requested by: History of Present Illness 71/M c/o worsening LE ulcerations for 2W and non palpable distal pulses PMH DM, CHF (HF with LV dysfunction), HTN and RA. (Miriam Flores) Past/Family/Social History Past Medical History Congestive heart failure Diabetes mellitus Dyslipidemia Gastroesophageal reflux disease Hypertension Rheumatoid arthritis Cardiomyopathy with an ejection fraction said to be 20-25% in 2013 Past Surgical History Hernia repair. Social History Denied smoking Denied ETOH Denied illicit drug usage Family History DM (Miriam Flores) Home Medications Active Scripts Tobramycin Opth Drops (Tobrex Opth Drops) 0.3 % Soln, 1 DROP LEFT EYE Q6H for Infection, #1 BOTTLE Prov:Antonina Troy MD 06/07/16 Reported Medications Pantoprazole (Protonix) 20 Mg Tab, 20 MG PO DAILY for Reflux, #30 TAB 0 Refills 03/16/17 Gabapentin (Gabapentin) 300 Mg Cap, 300 MG PO BID, #60 CAP 0 Refills 03/16/17 Pravastatin (Pravachol) 20 Mg Tab, 10 MG PO HS for Cholesterol Management, #30 TAB 0 Refills 06/07/16 Potassium Chloride (Klor-Con 25) 25 Meq Pow, 10 MEQ 06/07/16 Metformin (Metformin) 500 Mg Tab, 500 MG PO BIDPC for Blood Sugar Management, # 60 TAB 0 Refills With meals 06/07/16 Bumetanide (Bumetanide) 1 Mg Tab, 1 MG PO DAILY, #30 TAB 0 Refills 06/07/16 Coded Allergies: No Known Allergies (Verified Allergy, Unknown, 03/16/17) Review of Systems Constitutional: DENIES: Fever, Chills, Change in appetite Integumentary: COMPLAINS OF: Abnormal pigmentation (LE ulcerations), Nail changes, Pruritus, Rash (Miriam Flores) Physical Exam Vitals/I&O Date Time Temp Pulse Resp B/P (MAP) Pulse Ox O2 Delivery O2 Flow Rate FiO2 03/20/17 08:00 96.9 105 20 113/77 (89) 93 03/20/17 04:00 97.1 98 20 125/73 (90) 97 03/20/17 00:00 97.2 104 20 109/80 (90) 98 03/19/17 20:00 97.0 92 20 108/71 (83) 100 03/19/17 16:00 96.6 62 18 105/74 (84) 97 03/19/17 12:11 95.5 101 18 115/78 (90) 100 03/20/17 03/20/17 03/20/17 07:00 15:00 23:00 Intake Total 120 ml Output Total 600 ml Balance -480 ml Neuro: CN2-12 intact GCS 15 Heart: + S1,S2 RRR Lungs: CTA Abdomen: S/NT Vascular: Non palpable R/L DP/PT Extremities: BLE swelling present Ulceration present to R 1st digit toe (medical aspect) and interdigital between R 1,2,3,4 and 5th digit toes (Miriam Flores) Date/Time Source Procedure Growth Status 03/15/17 21:05 Blood Peripheral Aerobic Blood Culture - Preliminary NO GROWTH IN 4 DAYS Resulted 03/15/17 21:05 Blood Peripheral Anaerobic Blood Culture - Preliminary NO GROWTH IN 4 DAYS Resulted 03/16/17 15:15 Fluid Other Gram Stain - Final Complete 03/16/17 15:15 Body Fluid Culture - Final Enterococcus Avium Complete (Miriam Flores) Assessment and Plan Assessment: (1) Leg swelling Status: Acute (2) Ischemic ulcer of both feet Status: Acute Plan Afebrile 71/M with stagnant Bilateral lower extremity wound healing and non palpable distal pulses Reviewed GHASSAN Pt will need BLE revascularization Plan Discussed and reviewed GHASSAN exam w/ pt Discussed BLE angiogram with pt Pt agrees Pt scheduled for a Bilateral LE angiogram w/ Dr. Matt (Saturday-03/25/17). Miriam BELTRAN [facility] [phone] (Miriam Flores) Plan B LE tissue loss no palpable pulses Will schedule angiogram Significant comorbidities. Wong Matt MD FACS VI [employer] [facility] - Heart and Vascular Surgery at [facility] [phone] (Wong Matt MD) Miriam Flores Mar 20, 2017 11:41 Wong Matt MD Mar 20, 2017 13:02
[2017-03-20 12:35] LABS: BICARBONATE 23.4 MEQ/L (21.0-32.0); POTASSIUM 3.5 MEQ/L (3.5-5.1)
[2017-03-20] MEDS: cefTRIAXone INJ 1,000 MG in SODIUM CHLORIDE 0.9% INJ 100 ML IV SCH (16:03)
--- NOTE | 2017-03-20 19:14 | HHI.NPPN ---
Subjective History of Present Illness This patient is a 71-year-old male with a history of diabetes mellitus, congestive heart failure and hypertension as well as arthritis. Patient noted to have had an fraction of only 20-25% by 2-D echocardiogram in 2013. In creatinine level noted to have been 1.04 back in February 2016. Patient now presents with a history of increasing lower extremity edema and foot ulcerations being evaluated by primary care physician in house. Patient apparently was on antibiotic for 1 week prior to admission but patient cannot identify the specific antibiotic was taking. In addition on questioning indicated that he was taking an NSAID analgesia for about 2 weeks daily prior to this admission also. Renal ultrasound indicating echogenic kidneys this admission with no hydronephrosis. Presenting creatinine level was 2.24 potassium of 3.1 subsequently improving to a creatinine of 2.01 with an estimated GFR 40 on day of consultation. Interval History Patient had no verbal complaints today. Review of Systems Respiratory Lungs: SOB Cardiovascular Cardiac: Edema Objective Data Data 03/20/17 03/21/17 19:00 07:00 Intake Total 580 ml Output Total 850 ml Balance -270 ml Intake Oral 480 ml IV Total 100 ml Output Urine Total 850 ml # Bowel Movements 0 Vital Signs Date Time Temp Pulse Resp B/P (MAP) Pulse Ox O2 Delivery O2 Flow Rate FiO2 03/20/17 16:00 97.8 106 18 124/76 (92) 96 03/20/17 12:00 98.6 88 19 131/76 (94) 98 03/20/17 08:00 96.9 105 20 113/77 (89) 93 03/20/17 04:00 97.1 98 20 125/73 (90) 97 03/20/17 00:00 97.2 104 20 109/80 (90) 98 03/19/17 20:00 97.0 92 20 108/71 (83) 100 -: 03/16/17 0420 03/20/17 1033 Physical Exam General Appearance: No Acute Distress, Malnourished Eyes Eye Exam: Sclera White Neck Neck Exam: Trachea Midline Pulmonary Resp Exam: Clear Bilaterally, Breath Sounds Equal Resp Remarks Mild dyspnea. Cardiology CV Exam: Regular, Normal Sinus Rhythm Gastrointestinal/Abdomen GI Exam: Soft, Non-Tender Integumentary Skin Exam: Warm, Normal Turgor Extremeties Extremities Exam: Moderate Edema (1+ pitting edema of the legs and feet.), Pitting Edema, Dependent Edema Neurologic Neuro Exam: Alert, Awake, Moving All Extremities Psychiatric Psych Exam: Appropriate Responses Assessment/Plan Problem List: (1) Acute kidney insufficiency ICD Codes: N28.9 - Disorder of kidney and ureter, unspecified Status: Resolved Plan: May be related to usage of NSAIDs prior to admission. Uncertain if they could be a component of cardiorenal syndrome given the severity of his cardiomyopathy documented previously with a markedly reduced ejection fraction 20-25% 2014 now said to be less than 20% this admission.. Medications should be adjusted for the patient's estimated GFR if clinically indicated. Avoid agents with significant potential for nephrotoxicity possible including NSAIDs for analgesia, iodine contrast agents. Gadolinium is contraindicated if the GFR is below 30. (2) CKD (chronic kidney disease) stage 3, GFR 30-59 ml/min ICD Codes: N18.3 - Chronic kidney disease, stage 3 (moderate) Status: Chronic Plan: Renal ultrasound is suggestive of chronic kidney disease with increased echogenicity. Most likely related to nephrosclerosis of aging with possible superimposed diabetic nephropathy. In addition to the patient's significant intrinsic renal disease he appears to have a significant component of cardiorenal syndrome with an ejection fraction now said to be less than 20% by echocardiogram. (3) Hyperkalemia ICD Codes: E87.5 - Hyperkalemia Status: Resolved Plan: Secondary to worsening renal function. Pending labs today (4) Cardiomyopathy ICD Codes: I42.9 - Cardiomyopathy, unspecified Plan: Repeat echocardiogram this admission shows an ejection fraction less than 20%. Defer management of same to cardiology and primary care in house. (5) Diabetic foot infection ICD Codes: E11.69 - Type 2 diabetes mellitus with other specified complication ; L08.9 - Local infection of the skin and subcutaneous tissue, unspecified Plan: Noted the patient is being considered for an angiogram. Should be noted that the patient is risk of developing contrast nephrotoxicity is about 26% based on risk factors which would likely result in reversible acute renal insufficiency however there is a 1.1% risk that the patient may require dialysis possibly permanently with exposure to 100 MLS iodine contrast agent. Risk-benefit ratio needs to be considered. Franklin Altamirano MD Mar 20, 2017 19:14
[2017-03-20] MEDS: PRAVASTATIN SOD 10 MG TAB PO SCH (20:41)
[2017-03-20] MEDS: TORSEMIDE 20 MG TAB PO SCH (20:41)
[2017-03-20 23:53] LABS: KAPPA/LAMBDA FREE 1.86 (0.26-1.65)
[2017-03-21] VITALS (8 sets, daily range): BP systolic 110–149; BP diastolic 74–86; PULSE 91–114; RESP 17–22; TEMP 96.1–97.7; O2SAT 93–100
[2017-03-21] MEDS: ASPIRIN EC 325 MG TABEC PO SCH (07:56)
[2017-03-21] MEDS: TORSEMIDE 20 MG TAB PO SCH (07:56)
[2017-03-21] MEDS: CHOLECALCIFEROL (VIT D3) 1000 UNIT TAB PO SCH (07:56)
[2017-03-21] MEDS: FAMOTIDINE 20 MG TAB PO SCH ×2 (07:56→20:12)
[2017-03-21] MEDS: GABAPENTIN 300 MG CAP PO SCH ×2 (07:56→20:12)
[2017-03-21] MEDS: DOCUSATE SODIUM 50 MG/SENNA 8.6 MG TAB PO SCH ×2 (07:56→20:12)
[2017-03-21] MEDS: SODIUM CHLORIDE 0.9% FLUSH 10 ML FLUSH IV FLUSH SCH ×2 (07:56→20:12)
[2017-03-21] MEDS: ACETAMINOPHEN/HYDROcodone 325 MG/7.5 MG TAB PO PRN (07:57)
[2017-03-21] MEDS: INSULIN ASPART SUPPLEMENTAL SCALE SQ SCH ×4 (08:00→21:00)
[2017-03-21] MEDS: COLLAGENASE OINT 30 GM TUBE TOPICAL SCH (08:02)
[2017-03-21 08:11] LABS: POTASSIUM 3.7 MEQ/L (3.5-5.1)
--- NOTE | 2017-03-21 13:59 | RADRPT ---
EXAM DATE/TIME: 03/21/2017 12:19 [facility] COMPARISON: No previous studies available for comparison. INDICATIONS : Right arm swelling. MEDICAL HISTORY : Hypercholesterolemia. CHF. Hypertension. Kidney stones. Arthritis. Diabetes. Pruritis. CKD. SURGICAL HISTORY : Right shoulder surgery. ENCOUNTER: Initial ACUITY: 1 day PAIN SCORE: 3/10 LOCATION: Right arm. FINDINGS: There is spontaneous flow documented in the brachial, basilic, axillary, and subclavian veins. The sp lenic vein demonstrates incomplete compressibility and demonstrates intraluminal filling defect. Spon taneous and phasic flow is otherwise noted through the subclavian vein. The cephalic vein is noncompr essible and lack significant flow. The vessels are otherwise compressible and augmentation response is documented. No other filling de fects are seen. The flow is phasic with respiration. Direction of flow in the jugular vein is cauda l. CONCLUSION: 1. Nonocclusive DVT in the right subclavian vein. 2. Superficial venous thrombosis involving the cephalic vein. 3. Otherwise patent venous system. Shiva Watts MD on March 21, 2017 at 13:53 Board Certified Radiologist. This report was verified electronically.
--- NOTE | 2017-03-21 14:38 | HHI.PR ---
Subjective Remarks This is a pleasant 71 y/o Male with Diabetic Foot infection, seen in his bedroom , discussed with nurse Miss Serrato, Nephrology specialist and resource specialist following, Echocardiogram performed and found EF 20%, has Acute Kidney Injury probable related to NSAIDs, as Cardiorenal syndrome, bilateral Leg edema, ordered IV furosemide by Nephrology specialist, CKD III after Renal ultrasound suggested this diagnosis, most likely due to Nephrosclerosis, probable Diabetic nephropathy. no other complaint by patient at this time. 03/19: Seen by Podiatry specialist, Right interdigital ulcers and left fist medial MPJ ulcer, recommended Hibiclens to Right foot, Betadine to interdigital spaces to right foot, Santyl to Left MPJ ulcer, No surgical intervention at this time. recommended vascular Surgery consult. on discharge Wound care center at [place]. by doctor Devries. Status post Echocardiogram performed by Doctor Montes EF less than 20% Severely reduced Left ventricular systolic function, Mild to moderate mitral regurgitation, Mild to moderate aortic valve stenosis. small Pericardial effusion present. no nausea, vomit or diarrhea, seen in his bedroom in the present of friend, 03/20: Discussed on Multidisciplinary round, patient stable improving general condition, he has CKD III and Chronic systolic heart failure will need to get final recommendations by resource specialist and Nephrology also will ask for final recommendations for wound care by Podiatry specialist. 03/21: Stable in his bedroom seen in the presence of nurse Miss Nowak and his Ex- Mrs. Svetlana Elias, no nausea, vomit or diarrhea but complaint of right arm edema asked for ultrasound to rule out DVT, he will have Angiography and probable angioplasty next 03/25/17. Objective Vital Signs Date Time Temp Pulse Resp B/P (MAP) Pulse Ox O2 Delivery O2 Flow Rate FiO2 03/21/17 12:00 97.6 98 18 122/85 (97) 100 03/21/17 08:00 97.5 93 20 149/80 (103) 95 03/21/17 04:00 97.7 101 18 118/79 (92) 100 03/21/17 00:00 97.6 114 17 115/81 (92) 97 03/20/17 21:42 18 03/20/17 20:45 101 03/20/17 20:00 97.6 106 17 147/80 (102) 96 03/20/17 16:00 97.8 106 18 124/76 (92 96 I/O 03/20/17 03/20/17 03/20/17 03/21/17 03/21/17 03/21/17 07:00 15:00 23:00 07:00 15:00 23:00 Intake Total 120 ml 460 ml Output Total 600 ml 250 ml 350 ml Balance -480 ml 210 ml -350 ml Intake Oral 120 ml 360 ml IV Total 100 ml Output Urine Total 600 ml 250 ml 350 ml # Voids 2 # Bowel Movements 0 0 Result Diagram: 03/21/17 0654 Imaging Last Impressions Upper Extremity Ultrasound 03/21/17 0000 Signed Impressions: Service Date/Time: March 12:19 - CONCLUSION: 1. Nonocclusive DVT in the right subclavian vein. 2. Superficial venous thrombosis involving the cephalic vein. 3. Otherwise patent venous system. Shiva Watts MD Toe X-Ray 03/16/17 0000 Signed Impressions: Service Date/Time: Thursday, March 16, 2017 12:00 - CONCLUSION: 1. Dorsal soft tissue ulceration overlying the second PIP region without significant bony erosion to suggest osteomyelitis. Trace Robert MD Renal Ultrasound 03/16/17 0000 Signed Impressions: Service Date/Time: Thursday, March 16, 2017 16:06 - CONCLUSION: 1. There is increased echogenicity of the renal parenchyma suggestive of some degree of chronic medical renal disease. 2. No hydronephrosis. 3. 1.5 cm benign- appearing right renal cyst. 4. Questionable small calcification left kidney suggestive of a nonobstructing stone. Misbah Grey MD Foot X-Ray 03/16/17 0000 Signed Impressions: Service Date/Time: Thursday, March 16, 2017 11:52 - CONCLUSION: 1. Large ulcer overlying the medial forefoot first MTP joint region without definitive bony erosive change to suggest osteomyelitis. Trace Robert MD Procedures None. Other Results Laboratory Tests Test 03/15/17 21:05 03/16/17 04:20 03/16/17 19:02 03/17/17 06:38 Blood Urea Nitrogen 36 MG/DL 32 MG/DL Creatinine 2.24 MG/DL 2.01 MG/DL Random Glucose 119 MG/DL 122 MG/DL Total Protein 8.5 GM/DL 8.2 GM/DL Albumin 3.5 GM/DL Calcium Level 9.5 MG/DL 9.4 MG/DL Alkaline Phosphatase 81 U/L Aspartate Amino Transf (AST/SGOT) 30 U/L Alanine Aminotransferase (ALT/SGPT) 18 U/L Total Bilirubin 1.0 MG/DL Sodium Level 138 MEQ/L 139 MEQ/L Potassium Level 3.1 MEQ/L 4.2 MEQ/L Chloride Level 101 MEQ/L 104 MEQ/L Carbon Dioxide Level 25.3 MEQ/L 19.1 MEQ/L White Blood Count 5.6 TH/MM3 Red Blood Count 4.30 MIL/MM3 Hemoglobin 12.2 GM/DL Hematocrit 36.8 % Mean Corpuscular Volume 85.4 FL Mean Corpuscular Hemoglobin 28.3 PG Mean Corpuscular Hemoglobin Concent 33.2 % Red Cell Distribution Width 17.0 % Platelet Count 170 TH/MM3 Mean Platelet Volume 9.5 FL Neutrophils (%) (Auto) 62.0 % Lymphocytes (%) (Auto) 25.4 % Monocytes (%) (Auto) 9.5 % Eosinophils (%) (Auto) 2.3 % Basophils (%) (Auto) 0.8 % Neutrophils # (Auto) 3.5 TH/MM3 Lymphocytes # (Auto) 1.4 TH/MM3 Monocytes # (Auto) 0.5 TH/MM3 Eosinophils # (Auto) 0.1 TH/MM3 Basophils # (Auto) 0.0 TH/MM3 CBC Comment DIFF FINAL Differential Comment Hemoglobin A1c 7.3 % Total Creatine Kinase 445 U/L Creatine Kinase MB 10.0 NG/ML Creatine Kinase MB % 2.2 % Urine Color YELLOW Urine Turbidity HAZY Urine pH 5.5 Urine Specific [place] 1.018 Urine Protein 30 mg/dL Urine Glucose (UA) TRACE mg/dL Urine Ketones NEG mg/dL Urine Occult Blood NEG Urine Nitrite NEG Urine Bilirubin NEG Urine Urobilinogen LESS THAN 2.0 MG/DL Urine Leukocyte Esterase NEG Urine RBC 2 /hpf Urine WBC 12 /hpf Urine Squamous Epithelial Cells <1 /hpf Urine Transitional Epithelial Cells 1 /hpf Urine Bacteria MOD /hpf Urine Granular Casts 1 /lpf Urine White Blood Cell Casts 6 /lpf Urine Mucus FEW /lpf Urine Random Creatinine 179 MG/DL Urine Random Total Protein 113 MG/DL Urine Random Sodium 12 MEQ/L Urine Protein/Creatinine Ratio 0.63 Urine Immunofixation Magnesium Level 1.9 MG/DL Albumin/Globulin Ratio 1.00 Ezjce-1-Ksfbbnvga 0.30 GM/DL Rwdym-4-Amlkbzanu 0.83 GM/DL Beta Globulins 0.93 GM/DL Gamma Globulins 2.04 GM/DL Electrophoresis Pathologist Comment 25-Hydroxy Vitamin D Total 16.6 ng/ML Complement C3 96 MG/DL Complement C4 10 MG/DL Free [place] Light Chains 41.79 mg/L Free Lambda Light Chains 22.49 mg/L Free [place]/Lambda Light Chain Ratio 1.86 Hepatitis C Antibody NEGATIVE Test 03/18/17 04:00 03/19/17 09:45 03/20/17 10:33 03/21/17 06:54 Urine Eosinophils NONE SEEN /HPF Random Vancomycin Level 10.6 COMMENT Blood Urea Nitrogen 37 MG/DL 36 MG/DL Creatinine 1.59 MG/DL 1.44 MG/DL Random Glucose 116 MG/DL 121 MG/DL Albumin 3.0 GM/DL Calcium Level 9.2 MG/DL 9.1 MG/DL Phosphorus Level 2.8 MG/DL Sodium Level 139 MEQ/L 138 MEQ/L Potassium Level 3.5 MEQ/L 3.7 MEQ/L Chloride Level 104 MEQ/L 104 MEQ/L Carbon Dioxide Level 23.4 MEQ/L 22.0 MEQ/L Anion Gap 12 MEQ/L Estimat Glomerular Filtration Rate 59 ML/MIN Objective Remarks GENERAL: This is a well-nourished, well-developed patient, in no apparent distress. SKIN: No rashes, ecchymoses or lesions. Cool and dry. CARDIOVASCULAR: Regular rate and irregular rhythm without murmurs, gallops, or rubs. Telemetry shows PVCs RESPIRATORY: Clear to auscultation. Breath sounds equal bilaterally. No wheezes , rales, or rhonchi. GASTROINTESTINAL: Abdomen soft, non-tender, nondistended. No guarding. MUSCULOSKELETAL: Extremities without clubbing, cyanosis with bilateral breath lower extremity pitting edema. Multiple tophi noted. Large ulcer over left metatarsal head with purulent discharge. Maggots noted. Right second toe with ulcer. at this time with edema on the right extremity. NEUROLOGICAL: Awake and alert. No focal deficits. Medications and IVs Current Medications Medications (Trade) Dose Ordered Sig/Iman Route Start Time Stop Time Status Last Admin (NS Flush) 2 ml UNSCH PRN IV FLUSH 03/16/17 00:15 (NS Flush) 2 ml BID IV FLUSH 03/16/17 09:00 03/21/17 07:56 (Tylenol) 650 mg Q4H PRN PO 03/16/17 00:15 (Zofran Inj) 4 mg Q6H PRN IVP 03/16/17 00:15 (Heparin Inj) 5,000 units Q8H SQ 03/16/17 06:00 Future Hold 03/16/17 06:00 (Narcan Inj) 0.4 mg UNSCH PRN IV PUSH 03/16/17 00:15 (Sudha-Colace) 1 tab BID PO 03/16/17 09:00 03/21/17 07:56 (Milk Of Magnesia Liq) 30 ml Q12H PRN PO 03/16/17 00:15 03/21/17 08:00 (Senokot) 17.2 mg Q12H PRN PO 03/16/17 00:15 (Dulcolax Supp) 10 mg DAILY PRN RECTAL 03/16/17 00:15 (Lactulose Liq) 30 ml DAILY PRN PO 03/16/17 00:15 (D50w (Vial) Inj) 50 ml UNSCH PRN IV PUSH 03/16/17 08:45 (Glucagon Inj) 1 mg UNSCH PRN OTHER 03/16/17 08:45 (NovoLOG SUPPLEMENTAL SCALE) 1 ACHS SLIDING SCALE SQ 03/16/17 12:00 03/21/17 12:43 (Tylenol) 650 mg Q6H PRN PO 03/16/17 08:45 (Evans 5-325 Mg) 1 tab Q4H PRN PO 03/16/17 08:45 03/19/17 23:41 (Evans 7.5-325 Mg) 1 tab Q4H PRN PO 03/16/17 08:45 03/21/17 07:57 (Morphine Inj) 1 mg Q3H PRN IV PUSH 03/16/17 09:30 03/19/17 11:16 (Pravachol) 10 mg HS PO 03/16/17 21:00 03/20/17 20:41 (Neurontin) 300 mg BID PO 03/16/17 12:00 03/21/17 07:56 (Pepcid) 10 mg BID PO 03/16/17 21:00 03/21/17 07:56 (Pill Splitter) 1 ea UNSCH PRN OTHER 03/16/17 12:00 03/17/17 08:12 (Ecotrin Ec) 325 mg DAILY PO 03/18/17 09:00 03/21/17 07:56 (Vitamin D3) 2,000 units DAILY PO 03/18/17 12:15 03/21/17 07:56 (Santyl Oint) 1 applic DAILY TOPICAL 03/19/17 23:45 03/21/17 08:02 Ceftriaxone Sodium 1000 mg/ Sodium Chloride 100 ml @ 200 mls/hr Q24H IV 03/19/17 16:00 03/20/17 16:03 (Demadex) 20 mg DAILY PO 03/20/17 19:15 03/21/17 07:56 A/P Assessment and Plan This is a 71-year-old male who came in because of bilateral lower extremity swelling despite change of his diuretic to Bumex. He also noted ulcers in his left foot and right second toe draining serous fluid denies fever and chills. Received antibiotics as per PCP. Diabetic foot ulcers/infection involving left first metatarsal head and right second toe with failed outpatient therapy. X-rays reviewed did not show evidence of osteomyelitis. Continue IV vancomycin and Zosyn Follow-up wound and blood cultures. Wound care following, Seen by Podiatry specialist, Right interdigital ulcers and left fist medial MPJ ulcer, recommended Hibiclens to Right foot, Betadine to interdigital spaces to right foot, Santyl to Left MPJ ulcer, No surgical intervention at this time. recommended vascular Surgery consult. on discharge Wound care center at [place]. at this time on Ceftriaxone and following. wound culture for Enterococcus Avium covered by Ceftriaxone and will need Ampicillin by mouth at discharge. awaiting recommendations by Podiatry for discharge. PVD. Doppler pulses. Start aspirin recommended for Vascular surgery consult by Podiatry specialist. seen by Vascular career transition specialist and recommended for Angiography and Angioplasty for 03/25/17 Acute kidney injury with hypokalemia. Nephrology specialist following.probable related to NSAIDs, as Cardiorenal syndrome, bilateral Leg edema, ordered IV furosemide by Nephrology specialist, CKD III after Renal ultrasound suggested this diagnosis, most likely due to Nephrosclerosis, probable Diabetic nephropathy. improving renal function Chronic Systolic heart Failure Status post Echocardiogram performed by Doctor Montes EF less than 20% Severely reduced Left ventricular systolic function, Mild to moderate mitral regurgitation, Mild to moderate aortic valve stenosis. small Pericardial effusion present. on Diuretics. waiting final by Cardiology doctor Simon, may need Defibrillator. Hyperlipidemia to continue Home medicines. DVT of the Right arm he has Occlusive thrombus on the right subclavian vein, After Axillary vein that continues as Subclavian vein there is high risk for Pulmonary Emboli no clear evidence of efficacy of anticoagulation with Heparin. Hypertension controlled Rheumatoid arthritis DM II hemoglobin A1C 7.3 continue SSI. DVT prophylaxis with early ambulation. Heparin drip at this time Discharge Planning Not yet cleared by specialists Nilesh Mccall MD Mar 21, 2017 14:38
--- NOTE | 2017-03-21 14:47 | PD.VS.PN ---
Subjective Subjective/Hospital Course Afebrile 71/M w/ Non healing BLE ulcerations Non palpable distal pulses Pt w/o complaints LE ulcerations stable w/o worsening Objective Vitals/I&O Date Time Temp Pulse Resp B/P (MAP) Pulse Ox O2 Delivery O2 Flow Rate FiO2 03/21/17 12:00 97.6 98 18 122/85 (97) 100 03/21/17 08:00 97.5 93 20 149/80 (103) 95 03/21/17 04:00 97.7 101 18 118/79 (92) 100 03/21/17 00:00 97.6 114 17 115/81 (92) 97 03/20/17 21:42 18 03/20/17 20:45 101 03/20/17 20:00 97.6 106 17 147/80 (102) 96 03/20/17 16:00 97.8 106 18 124/76 (92) 96 03/21/17 03/21/17 03/21/17 07:00 15:00 23:00 Output Total 350 ml Balance -350 ml Physical Exam GENERAL: A&OX3,NAD,GCS15 SKIN: Warm and dry. HEAD: Normocephalic. EYES: No scleral icterus. No injection or drainage. MUSCULOSKELETAL: No cyanosis,BLE swelling present Ulceration present to R 1st digit toe (medical aspect) and interdigital between R 1,2,3,4 and 5th digit toes LE warm w/ motor intact Non palpable distal pulses Laboratory Laboratory Tests Test 03/21/17 06:54 Blood Urea Nitrogen 36 Creatinine 1.44 Random Glucose 121 Calcium Level 9.1 Sodium Level 138 Potassium Level 3.7 Chloride Level 104 Carbon Dioxide Level 22.0 Anion Gap 12 Estimat Glomerular Filtration Rate 59 Date/Time Source Procedure Growth Status 03/15/17 21:05 Blood Peripheral Aerobic Blood Culture - Final NO GROWTH IN 5 DAYS Complete 03/15/17 21:05 Blood Peripheral Anaerobic Blood Culture - Final NO GROWTH IN 5 DAYS Complete 03/16/17 15:15 Fluid Other Gram Stain - Final Complete 03/16/17 15:15 Body Fluid Culture - Final Enterococcus Avium Complete Imaging Last 48 hours Impressions Upper Extremity Ultrasound 03/21/17 0000 Signed Impressions: Service Date/Time: March 12:19 - CONCLUSION: 1. Nonocclusive DVT in the right subclavian vein. 2. Superficial venous thrombosis involving the cephalic vein. 3. Otherwise patent venous system. Shiva Watts MD Assessment and Plan Assessment: (1) Leg swelling Status: Acute (2) Ischemic ulcer of both feet Status: Acute Plan 71/M with BLE non healing ulcerations (tissue loss) and non palpable distal pulses Plan Discussed BLE endovascular revascularization Questions answered Consent signed and placed in the chart Pt scheduled for Saturday03/25/17 w/ Dr. Matt Continue aggressive wound care per podiatry Miriam BELTRAN [facility] [phone] Miriam Flores Mar 21, 2017 14:47
[2017-03-21] MEDS ORDERED: HEPARIN SODIUM - IV 10,000 UNITS/10 ML VIAL IV PUSH ONE (15:00)
[2017-03-21 15:22] LABS: HEMATOCRIT 36.2 % (39.0-51.0); MEAN CELL VOLUME 86.4 FL (80.0-100.0); MEAN CORPUSCULAR HEMOGLOBIN 27.6 PG (27.0-34.0); PLATELET COUNT 175 TH/MM3 (150-450); RED BLOOD COUNT 4.19 MIL/MM3 (4.50-5.90); RED CELL DISTRIBUTION WIDTH 17.5 % (11.6-17.2); REVIEW FLAG FINAL
[2017-03-21 15:33] LABS: APTT (PATIENT) 34.3 SEC (24.3-30.1); INTERNATIONAL NORMALIZED RATIO 1.9 RATIO; PROTHROMBIN TIME - PATIENT 19.4 SEC (9.8-11.6)
[2017-03-21] MEDS: cefTRIAXone INJ 1,000 MG in SODIUM CHLORIDE 0.9% INJ 100 ML IV SCH (16:58)
[2017-03-21] MEDS: HEPARIN-D5W 25,000 U/250 ML 250 ML IV PRN (17:44)
[2017-03-21] MEDS: PRAVASTATIN SOD 10 MG TAB PO SCH (20:12)
[2017-03-22] VITALS (7 sets, daily range): BP systolic 108–138; BP diastolic 59–82; PULSE 90–106; RESP 16–24; TEMP 96.2–97.7; O2SAT 92–99
[2017-03-22 00:09] LABS: APTT (PATIENT) 74.8 SEC (24.3-30.1)
[2017-03-22] MEDS: INSULIN ASPART SUPPLEMENTAL SCALE SQ SCH ×4 (08:00→21:00)
[2017-03-22] MEDS: HEPARIN-D5W 25,000 U/250 ML 250 ML IV PRN (08:14)
[2017-03-22] MEDS: SODIUM CHLORIDE 0.9% FLUSH 10 ML FLUSH IV FLUSH SCH ×2 (08:15→22:17)
[2017-03-22] MEDS: TORSEMIDE 20 MG TAB PO SCH (08:16)
[2017-03-22] MEDS: ASPIRIN EC 325 MG TABEC PO SCH (08:16)
[2017-03-22] MEDS: FAMOTIDINE 20 MG TAB PO SCH ×2 (08:16→22:11)
[2017-03-22] MEDS: GABAPENTIN 300 MG CAP PO SCH ×2 (08:16→22:11)
[2017-03-22] MEDS: CHOLECALCIFEROL (VIT D3) 1000 UNIT TAB PO SCH (08:16)
[2017-03-22] MEDS: DOCUSATE SODIUM 50 MG/SENNA 8.6 MG TAB PO SCH ×2 (08:16→22:11)
[2017-03-22 08:36] LABS: APTT (PATIENT) 105.2 SEC (24.3-30.1)
[2017-03-22] MEDS: COLLAGENASE OINT 30 GM TUBE TOPICAL SCH (09:00)
--- NOTE | 2017-03-22 10:57 | HHI.PR ---
Subjective Remarks This is a pleasant 71 y/o Male with Diabetic Foot infection, seen in his bedroom , discussed with nurse Miss Serrato, Nephrology specialist and family development specialist following, Echocardiogram performed and found EF 20%, has Acute Kidney Injury probable related to NSAIDs, as Cardiorenal syndrome, bilateral Leg edema, ordered IV furosemide by Nephrology specialist, CKD III after Renal ultrasound suggested this diagnosis, most likely due to Nephrosclerosis, probable Diabetic nephropathy. no other complaint by patient at this time. 03/19: Seen by Podiatry specialist, Right interdigital ulcers and left fist medial MPJ ulcer, recommended Hibiclens to Right foot, Betadine to interdigital spaces to right foot, Santyl to Left MPJ ulcer, No surgical intervention at this time. recommended vascular Surgery consult. on discharge Wound care center at [facility]. by doctor Devries. Status post Echocardiogram performed by Doctor Montes EF less than 20% Severely reduced Left ventricular systolic function, Mild to moderate mitral regurgitation, Mild to moderate aortic valve stenosis. small Pericardial effusion present. no nausea, vomit or diarrhea, seen in his bedroom in the present of friend, 03/20: Discussed on Multidisciplinary round, patient stable improving general condition, he has CKD III and Chronic systolic heart failure will need to get final recommendations by family development specialist and Nephrology also will ask for final recommendations for wound care by Podiatry specialist. 03/21: Stable in his bedroom seen in the presence of nurse Miss Nowak and his Ex- Mrs. Svetlana Elias, but complaint of right arm edema asked for ultrasound to rule out DVT, he will have Angiography and probable angioplasty next 03/25/17. 03/22: Seen in his bedroom in the presence of his Ex Mrs. Svetlana Elias, he has Increased INR with normal liver function started on heparin yesterday for DVT on Right arm, patient with Subclavian vein thrombosis, asked for travel specialist consult. No nausea, vomit or diarrhea. Objective Vital Signs Date Time Temp Pulse Resp B/P (MAP) Pulse Ox O2 Delivery O2 Flow Rate FiO2 03/22/17 08:00 97.1 105 16 127/80 (96) 96 03/22/17 04:00 96.7 90 20 118/82 (94) 95 03/22/17 03:46 103 03/22/17 00:00 96.2 96 22 116/77 (90) 97 03/21/17 23:48 91 03/21/17 20:00 96.1 95 22 110/86 (94) 93 03/21/17 19:36 96 03/21/17 16:00 96.9 98 20 136/74 (94) 98 03/21/17 12:00 97.6 98 18 122/85 (97) 100 I/O 03/21/17 03/21/17 03/21/17 03/22/17 03/22/17 03/22/17 07:00 15:00 23:00 07:00 15:00 23:00 Intake Total 100 ml 320 ml Output Total 350 ml 600 ml Balance -350 ml 100 ml -280 ml Intake Oral 320 ml IV Total 100 ml Output Urine Total 350 ml 600 ml # Voids 2 0 # Bowel Movements 0 0 Result Diagram: 03/21/17 1504 03/21/17 0654 Imaging Last Impressions Upper Extremity Ultrasound 03/21/17 0000 Signed Impressions: Service Date/Time: March 12:19 - CONCLUSION: 1. Nonocclusive DVT in the right subclavian vein. 2. Superficial venous thrombosis involving the cephalic vein. 3. Otherwise patent venous system. Shiva Watts MD Toe X-Ray 03/16/17 0000 Signed Impressions: Service Date/Time: Thursday, March 16, 2017 12:00 - CONCLUSION: 1. Dorsal soft tissue ulceration overlying the second PIP region without significant bony erosion to suggest osteomyelitis. Trace Robert MD Renal Ultrasound 03/16/17 0000 Signed Impressions: Service Date/Time: Thursday, March 16, 2017 16:06 - CONCLUSION: 1. There is increased echogenicity of the renal parenchyma suggestive of some degree of chronic medical renal disease. 2. No hydronephrosis. 3. 1.5 cm benign- appearing right renal cyst. 4. Questionable small calcification left kidney suggestive of a nonobstructing stone. Misbah Grey MD Foot X-Ray 03/16/17 0000 Signed Impressions: Service Date/Time: Thursday, March 16, 2017 11:52 - CONCLUSION: 1. Large ulcer overlying the medial forefoot first MTP joint region without definitive bony erosive change to suggest osteomyelitis. Trace Robert MD Procedures None. Other Results Laboratory Tests Test 03/15/17 21:05 03/16/17 04:20 03/16/17 19:02 03/17/17 06:38 Blood Urea Nitrogen 36 MG/DL 32 MG/DL Creatinine 2.24 MG/DL 2.01 MG/DL Random Glucose 119 MG/DL 122 MG/DL Total Protein 8.5 GM/DL 8.2 GM/DL Albumin 3.5 GM/DL Calcium Level 9.5 MG/DL 9.4 MG/DL Alkaline Phosphatase 81 U/L Aspartate Amino Transf (AST/SGOT) 30 U/L Alanine Aminotransferase (ALT/SGPT) 18 U/L Total Bilirubin 1.0 MG/DL Sodium Level 138 MEQ/L 139 MEQ/L Potassium Level 3.1 MEQ/L 4.2 MEQ/L Chloride Level 101 MEQ/L 104 MEQ/L Carbon Dioxide Level 25.3 MEQ/L 19.1 MEQ/L Neutrophils (%) (Auto) 62.0 % Lymphocytes (%) (Auto) 25.4 % Monocytes (%) (Auto) 9.5 % Eosinophils (%) (Auto) 2.3 % Basophils (%) (Auto) 0.8 % Neutrophils # (Auto) 3.5 TH/MM3 Lymphocytes # (Auto) 1.4 TH/MM3 Monocytes # (Auto) 0.5 TH/MM3 Eosinophils # (Auto) 0.1 TH/MM3 Basophils # (Auto) 0.0 TH/MM3 CBC Comment DIFF FINAL Differential Comment Hemoglobin A1c 7.3 % Total Creatine Kinase 445 U/L Creatine Kinase MB 10.0 NG/ML Creatine Kinase MB % 2.2 % Urine Color YELLOW Urine Turbidity HAZY Urine pH 5.5 Urine Specific [place] 1.018 Urine Protein 30 mg/dL Urine Glucose (UA) TRACE mg/dL Urine Ketones NEG mg/dL Urine Occult Blood NEG Urine Nitrite NEG Urine Bilirubin NEG Urine Urobilinogen LESS THAN 2.0 MG/DL Urine Leukocyte Esterase NEG Urine RBC 2 /hpf Urine WBC 12 /hpf Urine Squamous Epithelial Cells <1 /hpf Urine Transitional Epithelial Cells 1 /hpf Urine Bacteria MOD /hpf Urine Granular Casts 1 /lpf Urine White Blood Cell Casts 6 /lpf Urine Mucus FEW /lpf Urine Random Creatinine 179 MG/DL Urine Random Total Protein 113 MG/DL Urine Random Sodium 12 MEQ/L Urine Protein/Creatinine Ratio 0.63 Urine Immunofixation Magnesium Level 1.9 MG/DL Albumin/Globulin Ratio 1.00 [id number] 0.30 GM/DL Zfumg-7-Cmvndcqfa 0.83 GM/DL Beta Globulins 0.93 GM/DL Gamma Globulins 2.04 GM/DL Electrophoresis Pathologist Comment 25-Hydroxy Vitamin D Total 16.6 ng/ML Complement C3 96 MG/DL Complement C4 10 MG/DL Free [place] Light Chains 41.79 mg/L Free Lambda Light Chains 22.49 mg/L Free [place]/Lambda Light Chain Ratio 1.86 Hepatitis C Antibody NEGATIVE Test 03/18/17 04:00 03/19/17 09:45 03/20/17 10:33 03/21/17 06:54 Urine Eosinophils NONE SEEN /HPF Random Vancomycin Level 10.6 COMMENT Blood Urea Nitrogen 37 MG/DL 36 MG/DL Creatinine 1.59 MG/DL 1.44 MG/DL Random Glucose 116 MG/DL 121 MG/DL Albumin 3.0 GM/DL Calcium Level 9.2 MG/DL 9.1 MG/DL Phosphorus Level 2.8 MG/DL Sodium Level 139 MEQ/L 138 MEQ/L Potassium Level 3.5 MEQ/L 3.7 MEQ/L Chloride Level 104 MEQ/L 104 MEQ/L Carbon Dioxide Level 23.4 MEQ/L 22.0 MEQ/L Anion Gap 12 MEQ/L Estimat Glomerular Filtration Rate 59 ML/MIN Test 03/21/17 15:04 03/22/17 08:12 White Blood Count 10.0 TH/MM3 Red Blood Count 4.19 MIL/MM3 Hemoglobin 11.6 GM/DL Hematocrit 36.2 % Mean Corpuscular Volume 86.4 FL Mean Corpuscular Hemoglobin 27.6 PG Mean Corpuscular Hemoglobin Concent 32.0 % Red Cell Distribution Width 17.5 % Platelet Count 175 TH/MM3 Mean Platelet Volume 9.2 FL Prothrombin Time 19.4 SEC Prothromb Time International Ratio 1.9 RATIO Activated Partial Thromboplast Time 105.2 SEC Objective Remarks GENERAL: This is a well-nourished, well-developed patient, in no apparent distress. SKIN: No rashes, ecchymoses or lesions. Cool and dry. CARDIOVASCULAR: Regular rate and irregular rhythm without murmurs, gallops, or rubs. Telemetry shows PVCs RESPIRATORY: Clear to auscultation. Breath sounds equal bilaterally. No wheezes , rales, or rhonchi. GASTROINTESTINAL: Abdomen soft, non-tender, nondistended. No guarding. MUSCULOSKELETAL: Extremities without clubbing, cyanosis with bilateral breath lower extremity pitting edema. Multiple tophi noted. Large ulcer over left metatarsal head with purulent discharge. Maggots noted. Right second toe with ulcer. at this time with edema on the right extremity. NEUROLOGICAL: Awake and alert. No focal deficits. Medications and IVs Current Medications Medications (Trade) Dose Ordered Sig/Iman Route Start Time Stop Time Status Last Admin (NS Flush) 2 ml UNSCH PRN IV FLUSH 03/16/17 00:15 (NS Flush) 2 ml BID IV FLUSH 03/16/17 09:00 03/22/17 08:15 (Tylenol) 650 mg Q4H PRN PO 03/16/17 00:15 (Zofran Inj) 4 mg Q6H PRN IVP 03/16/17 00:15 (Heparin Inj) 5,000 units Q8H SQ 03/16/17 06:00 Future Hold 03/16/17 06:00 (Narcan Inj) 0.4 mg UNSCH PRN IV PUSH 03/16/17 00:15 (Sudha-Colace) 1 tab BID PO 03/16/17 09:00 03/22/17 08:16 (Milk Of Magnesia Liq) 30 ml Q12H PRN PO 03/16/17 00:15 03/21/17 08:00 (Senokot) 17.2 mg Q12H PRN PO 03/16/17 00:15 03/21/17 20:12 (Dulcolax Supp) 10 mg DAILY PRN RECTAL 03/16/17 00:15 (Lactulose Liq) 30 ml DAILY PRN PO 03/16/17 00:15 (D50w (Vial) Inj) 50 ml UNSCH PRN IV PUSH 03/16/17 08:45 (Glucagon Inj) 1 mg UNSCH PRN OTHER 03/16/17 08:45 (NovoLOG SUPPLEMENTAL SCALE) 1 ACHS SLIDING SCALE SQ 03/16/17 12:00 03/21/17 17:05 (Tylenol) 650 mg Q6H PRN PO 03/16/17 08:45 ([place] 5-325 Mg) 1 tab Q4H PRN PO 03/16/17 08:45 03/19/17 23:41 ([place] 7.5-325 Mg) 1 tab Q4H PRN PO 03/16/17 08:45 03/21/17 07:57 (Morphine Inj) 1 mg Q3H PRN IV PUSH 03/16/17 09:30 03/19/17 11:16 (Pravachol) 10 mg HS PO 03/16/17 21:00 03/21/17 20:12 (Neurontin) 300 mg BID PO 03/16/17 12:00 03/22/17 08:16 (Pepcid) 10 mg BID PO 03/16/17 21:00 03/22/17 08:16 (Pill Splitter) 1 ea UNSCH PRN OTHER 03/16/17 12:00 03/17/17 08:12 (Ecotrin Ec) 325 mg DAILY PO 03/18/17 09:00 03/22/17 08:16 (Vitamin D3) 2,000 units DAILY PO 03/18/17 12:15 03/22/17 08:16 (Santyl Oint) 1 applic DAILY TOPICAL 03/19/17 23:45 03/21/17 08:02 Ceftriaxone Sodium 1000 mg/ Sodium Chloride 100 ml @ 200 mls/hr Q24H IV 03/19/17 16:00 03/21/17 16:58 (Demadex) 20 mg DAILY PO 03/20/17 19:15 03/22/17 08:16 Heparin Sodium/ Dextrose 250 ml @ 18 mls/hr TITRATE PRN IV 03/21/17 14:30 03/22/17 08:14 A/P Assessment and Plan This is a 71-year-old male who came in because of bilateral lower extremity swelling despite change of his diuretic to Bumex. He also noted ulcers in his left foot and right second toe draining serous fluid denies fever and chills. Received antibiotics as per PCP. Diabetic foot ulcers/infection involving left first metatarsal head and right second toe with failed outpatient therapy. X-rays reviewed did not show evidence of osteomyelitis. Continue IV vancomycin and Zosyn Follow-up wound and blood cultures. Wound care following, Seen by Podiatry specialist, Right interdigital ulcers and left fist medial MPJ ulcer, recommended Hibiclens to Right foot, Betadine to interdigital spaces to right foot, Santyl to Left MPJ ulcer, No surgical intervention at this time. recommended vascular Surgery consult. on discharge Wound care center at [facility]. at this time on Ceftriaxone and following. wound culture for Enterococcus Avium covered by Ceftriaxone and will need Ampicillin by mouth at discharge. awaiting recommendations by Podiatry for discharge. PVD. Doppler pulses. Start aspirin recommended for Vascular surgery consult by Podiatry specialist. seen by Vascular marketing communications specialist and recommended for Angiography and Angioplasty for 03/25/17 Acute kidney injury with hypokalemia. Nephrology specialist following.probable related to NSAIDs, as Cardiorenal syndrome, bilateral Leg edema, ordered IV furosemide by Nephrology specialist, CKD III after Renal ultrasound suggested this diagnosis, most likely due to Nephrosclerosis, probable Diabetic nephropathy. improving renal function Chronic Systolic heart Failure Status post Echocardiogram performed by Doctor Montes EF less than 20% Severely reduced Left ventricular systolic function, Mild to moderate mitral regurgitation, Mild to moderate aortic valve stenosis. small Pericardial effusion present. on Diuretics. discussed with doctor Montes no further recommendations by Cardiology at this time, not recommended for Defibrillator the patient was non compliant in the past so he will need to follow as outpatient with family development specialist. Severe Non compliance found by family development specialist. Hyperlipidemia to continue Home medicines. DVT of the Right arm he has Occlusive thrombus on the right subclavian vein, After Axillary vein that continues as Subclavian vein there is high risk for Pulmonary Emboli no clear evidence of efficacy of anticoagulation with Heparin. has INR in 1.9 asked for travel specialist evaluation. Hypertension controlled Rheumatoid arthritis by history. DM II hemoglobin A1C 7.3 continue SSI. DVT prophylaxis with early ambulation. Heparin drip at this time Discharge Planning Not yet cleared by specialists Nilesh Mccall MD Mar 22, 2017 10:57
--- NOTE | 2017-03-22 15:48 | HHI.NPPN ---
Subjective History of Present Illness This patient is a 71-year-old male with a history of diabetes mellitus, congestive heart failure and hypertension as well as arthritis. Patient noted to have had an fraction of only 20-25% by 2-D echocardiogram in 2013. In creatinine level noted to have been 1.04 back in February 2016. Patient now presents with a history of increasing lower extremity edema and foot ulcerations being evaluated by primary care physician in house. Patient apparently was on antibiotic for 1 week prior to admission but patient cannot identify the specific antibiotic was taking. In addition on questioning indicated that he was taking an NSAID analgesia for about 2 weeks daily prior to this admission also. Renal ultrasound indicating echogenic kidneys this admission with no hydronephrosis. Presenting creatinine level was 2.24 potassium of 3.1 subsequently improving to a creatinine of 2.01 with an estimated GFR 40 on day of consultation. Interval History No new concerns except says he hasn't moved bowels in 4 days Review of Systems Gastrointestinal Gastrointestinal: Constipation Objective Data Data Vital Signs Date Time Temp Pulse Resp B/P (MAP) Pulse Ox O2 Delivery O2 Flow Rate FiO2 03/22/17 12:00 97.7 106 18 138/75 (96) 99 03/22/17 08:00 97.1 105 16 127/80 (96) 96 03/22/17 04:00 96.7 90 20 118/82 (94) 95 03/22/17 03:46 103 03/22/17 00:00 96.2 96 22 116/77 (90) 97 03/21/17 23:48 91 03/21/17 20:00 96.1 95 22 110/86 (94) 93 03/21/17 19:36 96 03/21/17 16:00 96.9 98 20 136/74 (94) 98 -: 03/21/17 1504 03/21/17 0654 Imaging Last Impressions Upper Extremity Ultrasound 03/21/17 0000 Signed Impressions: Service Date/Time: March 12:19 - CONCLUSION: 1. Nonocclusive DVT in the right subclavian vein. 2. Superficial venous thrombosis involving the cephalic vein. 3. Otherwise patent venous system. Shiva Watts MD Toe X-Ray 03/16/17 0000 Signed Impressions: Service Date/Time: Thursday, March 16, 2017 12:00 - CONCLUSION: 1. Dorsal soft tissue ulceration overlying the second PIP region without significant bony erosion to suggest osteomyelitis. Trace Robert MD Renal Ultrasound 03/16/17 0000 Signed Impressions: Service Date/Time: Thursday, March 16, 2017 16:06 - CONCLUSION: 1. There is increased echogenicity of the renal parenchyma suggestive of some degree of chronic medical renal disease. 2. No hydronephrosis. 3. 1.5 cm benign- appearing right renal cyst. 4. Questionable small calcification left kidney suggestive of a nonobstructing stone. Misbah Grey MD Foot X-Ray 03/16/17 0000 Signed Impressions: Service Date/Time: Thursday, March 16, 2017 11:52 - CONCLUSION: 1. Large ulcer overlying the medial forefoot first MTP joint region without definitive bony erosive change to suggest osteomyelitis. Trace Robert MD Medication Review Current Medications Medications (Trade) Dose Ordered Sig/Iman Route Start Time Stop Time Status Last Admin (NS Flush) 2 ml UNSCH PRN IV FLUSH 03/16/17 00:15 (NS Flush) 2 ml BID IV FLUSH 03/16/17 09:00 03/22/17 08:15 (Tylenol) 650 mg Q4H PRN PO 03/16/17 00:15 (Zofran Inj) 4 mg Q6H PRN IVP 03/16/17 00:15 (Heparin Inj) 5,000 units Q8H SQ 03/16/17 06:00 Future Hold 03/16/17 06:00 (Narcan Inj) 0.4 mg UNSCH PRN IV PUSH 03/16/17 00:15 (Sudha-Colace) 1 tab BID PO 03/16/17 09:00 03/22/17 08:16 (Milk Of Magnesia Liq) 30 ml Q12H PRN PO 03/16/17 00:15 03/21/17 08:00 (Senokot) 17.2 mg Q12H PRN PO 03/16/17 00:15 03/21/17 20:12 (Dulcolax Supp) 10 mg DAILY PRN RECTAL 03/16/17 00:15 (Lactulose Liq) 30 ml DAILY PRN PO 03/16/17 00:15 (D50w (Vial) Inj) 50 ml UNSCH PRN IV PUSH 03/16/17 08:45 (Glucagon Inj) 1 mg UNSCH PRN OTHER 03/16/17 08:45 (NovoLOG SUPPLEMENTAL SCALE) 1 ACHS SLIDING SCALE SQ 03/16/17 12:00 03/22/17 12:00 (Tylenol) 650 mg Q6H PRN PO 03/16/17 08:45 ([place] 5-325 Mg) 1 tab Q4H PRN PO 03/16/17 08:45 03/19/17 23:41 ([place] 7.5-325 Mg) 1 tab Q4H PRN PO 03/16/17 08:45 03/21/17 07:57 (Morphine Inj) 1 mg Q3H PRN IV PUSH 03/16/17 09:30 03/19/17 11:16 (Pravachol) 10 mg HS PO 03/16/17 21:00 03/21/17 20:12 (Neurontin) 300 mg BID PO 03/16/17 12:00 03/22/17 08:16 (Pepcid) 10 mg BID PO 03/16/17 21:00 03/22/17 08:16 (Pill Splitter) 1 ea UNSCH PRN OTHER 03/16/17 12:00 03/17/17 08:12 (Ecotrin Ec) 325 mg DAILY PO 03/18/17 09:00 03/22/17 08:16 (Vitamin D3) 2,000 units DAILY PO 03/18/17 12:15 03/22/17 08:16 (Santyl Oint) 1 applic DAILY TOPICAL 03/19/17 23:45 03/21/17 08:02 Ceftriaxone Sodium 1000 mg/ Sodium Chloride 100 ml @ 200 mls/hr Q24H IV 03/19/17 16:00 03/21/17 16:58 (Demadex) 20 mg DAILY PO 03/20/17 19:15 03/22/17 08:16 Heparin Sodium/ Dextrose 250 ml @ 18 mls/hr TITRATE PRN IV 03/21/17 14:30 03/22/17 08:14 Physical Exam General Appearance: No Acute Distress, Malnourished Eyes Eye Exam: Sclera White Neck Neck Exam: Trachea Midline Pulmonary Resp Exam: Clear Bilaterally, Breath Sounds Equal Cardiology CV Exam: Regular, Normal Sinus Rhythm Gastrointestinal/Abdomen GI Exam: Soft, Non-Tender Integumentary Skin Exam: Warm, Normal Turgor Extremeties Extremities Exam: Trace Edema, Pitting Edema Neurologic Neuro Exam: Alert, Awake, Moving All Extremities Psychiatric Psych Exam: Appropriate Responses Assessment/Plan Problem List: (1) Acute kidney insufficiency ICD Codes: N28.9 - Disorder of kidney and ureter, unspecified Status: Resolved Plan: May be related to usage of NSAIDs prior to admission. Uncertain if they could be a component of cardiorenal syndrome given the severity of his cardiomyopathy documented previously with a markedly reduced ejection fraction 20-25% 2013 now said to be less than 20% this admission. Renal functions & edema improving. Continue on Torsemide 20mg QD. We will see on as necessary basis. Please call with any questions. Medications should be adjusted for the patient's estimated GFR if clinically indicated. Avoid agents with significant potential for nephrotoxicity possible including NSAIDs for analgesia, iodine contrast agents. Gadolinium is contraindicated if the GFR is below 30. (2) CKD (chronic kidney disease) stage 3, GFR 30-59 ml/min ICD Codes: N18.3 - Chronic kidney disease, stage 3 (moderate) Status: Chronic Plan: Renal ultrasound is suggestive of chronic kidney disease with increased echogenicity. Most likely related to nephrosclerosis of aging with possible superimposed diabetic nephropathy. In addition to the patient's significant intrinsic renal disease he appears to have a significant component of cardiorenal syndrome with an ejection fraction now said to be less than 20% by echocardiogram. (3) Hyperkalemia ICD Codes: E87.5 - Hyperkalemia Status: Resolved Plan: Resolved (4) Cardiomyopathy ICD Codes: I42.9 - Cardiomyopathy, unspecified Plan: Repeat echocardiogram this admission shows an ejection fraction less than 20%. Defer management of same to cardiology and primary care in house. (5) Diabetic foot infection ICD Codes: E11.69 - Type 2 diabetes mellitus with other specified complication ; L08.9 - Local infection of the skin and subcutaneous tissue, unspecified Plan: Revascularization scheduled for Saturday Should be noted that the patient is risk of developing contrast nephrotoxicity is about 26% based on risk factors which would likely result in reversible acute renal insufficiency however there is a 1.1% risk that the patient may require dialysis possibly permanently with exposure to 100 MLS iodine contrast agent. Risk-benefit ratio needs to be considered. Rohini Cochran Mar 22, 2017 15:48
[2017-03-22] MEDS ORDERED: POLYETHYLENE GLYCOL 17 GM PKG PO PRN (16:00)
[2017-03-22 16:26] LABS: APTT (PATIENT) 34.5 SEC (24.3-30.1)
[2017-03-22] MEDS: cefTRIAXone INJ 1,000 MG in SODIUM CHLORIDE 0.9% INJ 100 ML IV SCH (18:05)
--- NOTE | 2017-03-22 20:14 | MB ---
cc: MACARIO JURADO MD, RUBY ANNE E. M.D. DATE OF CONSULTATION: 03/22/17 DATE OF [address] Italo Diaz REASON FOR CONSULTATION Dr. Italo Diaz requested a consultation for Mr. Elias regarding right upper extremity deep vein thrombosis and elevated INR at baseline. HISTORY OF PRESENT ILLNESS Mr. Elias is a 71-year-old man with multiple medical problems. He presented to the emergency room on 03/15/2017 under the care of Dr. Dunbar with left great toe and middle right toe infection. He was being treated on an outpatient basis by his primary physician Dr. Briones. He came in for feet smelling of gangrene, increased pain and instability. His course was complicated by acute renal failure. Nephrology was consulted. He has known chronic kidney disease with increased echogenicity. He had urine eosinophils, Metformin was held for a time. He was using a lot of NSAIDs prior to his admission, and he was also found to have worsened cardiomyopathy with an ejection fraction of less than 40%. 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 His renal function improved to a creatinine of 1.44, BUN of 36 on 03/21/2017. He had anemia, at baseline hemoglobin was 11.6 at the time of the consultation. 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 Liver function on admission was normal. Vitamin D level is low. During the course of his hospitalization, he has developed right arm swelling. Doppler or ultrasound of the right arm shows a nonocclusive DVT in the right subclavian vein. There is superficial venous thrombosis involving the cephalic vein. Otherwise, the rest of the venous system was patent. Hematology/Oncology is consulted. Review of his PTT from 03/21/2017 shows a PT of 19.4, PTT of 34.3 at baseline. His PTT is being titrated with plans to initiate Coumadin therapy. PAST MEDICAL HISTORY 1. Cardiomyopathy, ejection fraction less than 20%. 2. Diabetes type 2. 3. Dyslipidemia. 4. Gastroesophageal reflux. 5. Hypertension. 6. Rheumatoid arthritis. 7. Chronic renal insufficiency. 8. Chronic anemia. PAST SURGICAL HISTORY 1. Hernia repair. 2. Shoulder surgery. FAMILY HISTORY Mother is at age 96 from liver cancer, father of esophageal cancer at age 74. This was reviewed from the electronic medical records. The patient denies knowing what his mother and father of at the time of the consultation. SOCIAL HISTORY He denies any tobacco, alcohol or illicit drug use. ALLERGIES NO KNOWN DRUG ALLERGIES. CURRENT MEDICATIONS 1. Pepcid. 2. MiraLax. 3. Unfractionated Heparin. 4. Ceftriaxone. 5. Vitamin D3. 6. Aspirin. 7. Pravachol. 8. Insulin. 9. Gabapentin. 10. Morphine sulfate p.r.n. 11. Sudha-Colace. 12. [employer] p.r.n. 13. Milk of Magnesia p.r.n. 14. Senokot p.r.n. PHYSICAL EXAMINATION VITAL SIGNS: Temperature 96.9, heart rate 102, respiratory rate 19, blood pressure 117/59, saturation 99%. GENERAL: Mr. Elias is a well-developed, well-nourished man who looks older than stated age. He looks chronically tired. HEAD, EYES, EARS, NOSE AND THROAT: His pupils are small and reactive. Bilateral arcus senilis. Sclerae are muddy. NECK: Neck is supple. LUNGS: Lungs are clear. CARDIOVASCULAR: Reveals a tachycardia. ABDOMEN: Abdomen is benign. LOWER EXTREMITIES: Lower extremities with a dry dressing wrapped on both feet. There is trace edema of both feet. Both hands with chronic changes arthritic related to the rheumatoid arthritis. There are multiple nodules of his joints. Right arm is more prominent than the left. No axillary adenopathy appreciated. LABORATORY DATA As described above. ASSESSMENT AND PLAN Mr. Elias is a 71-year-old man with multiple medical problems. He presented with feet infection. His course is complicated by renal insufficiency, chronic anemia, cardiomyopathy. He has poor insight into his disease. His history is unreliable. His history is complemented by review of the electronic medical records. He is being treated for various things namely his foot infection and his renal insufficiency which has improved. His estimated glomerular filtration rate is around 59%. He continues on anticoagulant therapy with unfractionated heparin. I am concerned that he would do poorly on Coumadin given need for monitoring, the dietary restrictions, the need to understand the mechanism action of Coumadin and the rational for the dietary restrictions. He may benefit more from the new oral anticoagulant albeit his risk of bleeding may be high in light of his renal insufficiency. He would will need to be compliant with monitoring. We will see how his renal function improves and its baseline. I am able to exclude a lupus anticoagulant with a functional assay. He is on unfractionated heparin already. The oral anticoagulants would interfere with the assay. An antiphospholipid antibody panel will be checked. He appears to have a provoked upper extremity deep vein thrombosis. He does not recall specifically an IV in the right arm, suspect that may have been the precipitating event. His questions were answered to his satisfaction. MD MIAN Alexandra/BJF /7:08 PM /7:32 PM MYESHA
[2017-03-22] MEDS: PRAVASTATIN SOD 10 MG TAB PO SCH (22:11)
[2017-03-22] MEDS: WARFARIN SOD 2.5 MG TAB PO SCH (22:15)
[2017-03-22] MEDS: ACETAMINOPHEN/HYDROcodone 325 MG/7.5 MG TAB PO PRN (22:16)
[2017-03-23] VITALS (9 sets, daily range): BP systolic 107–134; BP diastolic 72–83; PULSE 73–111; RESP 17–22; TEMP 95.5–99.1; O2SAT 94–100
[2017-03-23 04:33] LABS: BICARBONATE 24.2 MEQ/L (21.0-32.0); POTASSIUM 3.4 MEQ/L (3.5-5.1)
[2017-03-23 05:39] LABS: APTT (PATIENT) 103.2 SEC (24.3-30.1)
[2017-03-23] MEDS: INSULIN ASPART SUPPLEMENTAL SCALE SQ SCH ×4 (08:00→19:42)
[2017-03-23] MEDS: FAMOTIDINE 20 MG TAB PO SCH ×2 (08:40→19:42)
[2017-03-23] MEDS: GABAPENTIN 300 MG CAP PO SCH ×2 (08:41→19:42)
[2017-03-23] MEDS: CHOLECALCIFEROL (VIT D3) 1000 UNIT TAB PO SCH (08:41)
[2017-03-23] MEDS: ASPIRIN EC 325 MG TABEC PO SCH (08:41)
[2017-03-23] MEDS: DOCUSATE SODIUM 50 MG/SENNA 8.6 MG TAB PO SCH ×2 (08:41→19:42)
[2017-03-23] MEDS: TORSEMIDE 20 MG TAB PO SCH (08:41)
[2017-03-23] MEDS: SODIUM CHLORIDE 0.9% FLUSH 10 ML FLUSH IV FLUSH SCH ×2 (08:41→19:40)
[2017-03-23] MEDS: COLLAGENASE OINT 30 GM TUBE TOPICAL SCH (09:00)
--- NOTE | 2017-03-23 11:06 | PD.ONC.PN ---
Subjective Subjective Remarks Afebrile overnight Pt resting in bed watching TV Denies any bleeding including the taste of blood in his mouth. Denies pain or SOB. Objective Data Date Time Temp Pulse Resp B/P (MAP) Pulse Ox O2 Delivery O2 Flow Rate FiO2 03/23/17 08:00 95.5 105 19 134/81 (98) 100 03/23/17 04:00 97.7 91 22 133/72 (92) 98 03/23/17 01:09 102 03/23/17 00:00 97.1 73 22 123/81 (95) 96 03/22/17 20:00 96.5 96 24 108/76 (87) 92 03/22/17 16:00 96.9 102 19 117/59 (78) 99 03/22/17 12:00 97.7 106 18 138/75 (96) 99 03/23/17 03/23/17 03/23/17 07:00 15:00 23:00 Intake Total 480 ml Output Total 500 ml Balance -20 ml Result Diagram: 03/21/17 1504 03/23/17 0342 Laboratory Results Laboratory Tests Test 03/22/17 14:48 03/23/17 03:42 Activated Partial Thromboplast Time 34.5 SEC 103.2 SEC Blood Urea Nitrogen 33 MG/DL Creatinine 1.32 MG/DL Random Glucose 160 MG/DL Albumin 2.8 GM/DL Calcium Level 8.8 MG/DL Phosphorus Level 3.5 MG/DL Sodium Level 137 MEQ/L Potassium Level 3.4 MEQ/L Chloride Level 101 MEQ/L Carbon Dioxide Level 24.2 MEQ/L Anion Gap 12 MEQ/L Estimat Glomerular Filtration Rate 65 ML/MIN Administered Medications Medications (Trade) Dose Ordered Sig/Iman Route PRN Reason Start Time Stop Time Status Last Admin Dose Admin Sodium Chloride (NS Flush) 2 ml BID IV FLUSH 03/16/17 09:00 03/23/17 08:41 Heparin Sodium (Porcine) (Heparin Inj) 5,000 units Q8H SQ 03/16/17 06:00 Future Hold 03/16/17 06:00 Senna/Docusate Sodium (Sudha-Colace) 1 tab BID PO 03/16/17 09:00 03/23/17 08:41 Magnesium Hydroxide (Milk Of Magnesia Liq) 30 ml Q12H PRN PO Mild constipation 03/16/17 00:15 12/14/17 08:00 Sennosides (Senokot) 17.2 mg Q12H PRN PO Moderate constipation 03/16/17 00:15 03/21/17 20:12 Insulin Aspart (NovoLOG SUPPLEMENTAL SCALE) 1 ACHS SLIDING SCALE SQ 03/16/17 12:00 03/22/17 17:00 Acetaminophen/ Hydrocodone Bitart ([place] 5-325 Mg) 1 tab Q4H PRN PO PAIN SCALE 3 TO 5 03/16/17 08:45 03/19/17 23:41 Acetaminophen/ Hydrocodone Bitart ([place] 7.5-325 Mg) 1 tab Q4H PRN PO PAIN SCALE 6 TO 10 03/16/17 08:45 03/22/17 22:16 Morphine Sulfate (Morphine Inj) 1 mg Q3H PRN IV PUSH BREAKTHROUGH PAIN 03/16/17 09:30 03/19/17 11:16 Pravastatin Sodium (Pravachol) 10 mg HS PO 03/16/17 21:00 03/22/17 22:11 Gabapentin (Neurontin) 300 mg BID PO 03/16/17 12:00 03/23/17 08:41 Miscellaneous (Pill Splitter) 1 ea UNSCH PRN OTHER SEE LABEL COMMENTS 03/16/17 12:00 03/17/17 08:12 Aspirin (Ecotrin Ec) 325 mg DAILY PO 03/18/17 09:00 03/23/17 08:41 Cholecalciferol (Vitamin D3) 2,000 units DAILY PO 03/18/17 12:15 03/23/17 08:41 Collagenase (Santyl Oint) 1 applic DAILY TOPICAL 03/19/17 23:45 03/21/17 08:02 Ceftriaxone Sodium 1000 mg/ Sodium Chloride 100 ml @ 200 mls/hr Q24H IV 03/19/17 16:00 03/22/17 18:05 Torsemide (Demadex) 20 mg DAILY PO 03/20/17 19:15 03/23/17 08:41 Heparin Sodium/ Dextrose 250 ml @ 18 mls/hr TITRATE PRN IV Coagulation Management 03/21/17 14:30 03/22/17 08:14 Famotidine (Pepcid) 20 mg BID PO 03/22/17 21:00 03/23/17 08:40 Warfarin Sodium (Coumadin) 2.5 mg DAILY@16 PO 03/22/17 19:30 03/22/17 22:15 Objective Remarks GENERAL: Elderly male, resting in bed in no acute distress. SKIN: Warm and dry. HEAD: Normocephalic. EYES: No injection or drainage. NECK: Supple, trachea midline. CARDIOVASCULAR: Regular rate and rhythm without murmurs. RESPIRATORY: Breath sounds equal bilaterally. No accessory muscle use. GASTROINTESTINAL: Abdomen soft, non-tender, nondistended. EXTREMITIES: No cyanosis. RUE edema. BLE generalized edema with bandages to bilateral feet. MUSCULOSKELETAL: Adequate muscle tone. NEUROLOGICAL: Somewhat lethargic. Moving all extremities. No obvious focal deficit. Assessment/Plan Problem List: (1) DVT (deep venous thrombosis) ICD Codes: I82.409 - Acute embolism and thrombosis of unspecified deep veins of unspecified lower extremity Plan: -- RUE has nonocclusive thrombus -- Has BLE swelling, will get US -- On heparin bridge to coumadin (2) Leg swelling ICD Codes: M79.89 - Other specified soft tissue disorders Status: Acute Plan: -- Get US of BLE to r/o DVT (3) Acute kidney insufficiency ICD Codes: N28.9 - Disorder of kidney and ureter, unspecified Status: Resolved Plan: -- Nephrology following -- Improving (4) Diabetic foot infection ICD Codes: E11.69 - Type 2 diabetes mellitus with other specified complication ; L08.9 - Local infection of the skin and subcutaneous tissue, unspecified Plan: -- On Rocephin -- Primary managing Assessment 71 y/o male with multiple medical problems admitted for foot infection found to have a RUE nonocclusive thrombus Plan 1. Continue heparin- coumadin bridge. 2. Get US of BLE to r/o DVT. 3. Monitor for bleeding 4. Monitor CBC (pending today), PT/INR. Attending Statement The exam, history, and the medical decision-making described in the above note were completed with the assistance of the mid-level provider. I reviewed and agree with the findings presented. I attest that I had a [id number] encounter with the patient on the same day, and personally performed and documented my assessment and findings in the medical record. Pt seen and examined. Doppler US on going. Noted that no LE DVT found. Renal function improve, ok to stop UFH, use LMWH. MRI feet done. Cont Coumadin, manage by pharmacy, titrate to therapeutic INR. Aurora Khalil Mar 23, 2017 11:05 Candi Madera MD Mar 23, 2017 14:19
--- NOTE | 2017-03-23 11:22 | HHI.PR ---
Subjective Remarks Patient seen bedside with the nurse present. Patient resting comfortably with no concerns at this time report pain to bilateral foot. Objective Vital Signs Date Time Temp Pulse Resp B/P (MAP) Pulse Ox O2 Delivery O2 Flow Rate FiO2 03/23/17 08:00 95.5 105 19 134/81 (98) 100 03/23/17 04:00 97.7 91 22 133/72 (92) 98 03/23/17 01:09 102 03/23/17 00:00 97.1 73 22 123/81 (95) 96 03/22/17 20:00 96.5 96 24 108/76 (87) 92 03/22/17 16:00 96.9 102 19 117/59 (78) 99 03/22/17 12:00 97.7 106 18 138/75 (96) 99 I/O 03/22/17 03/22/17 03/22/17 03/23/17 03/23/17 03/23/17 07:00 15:00 23:00 07:00 15:00 23:00 Intake Total 320 ml 720 ml 480 ml Output Total 600 ml 600 ml 500 ml Balance -280 ml 120 ml -20 ml Intake Oral 320 ml 720 ml 480 ml Output Urine Total 600 ml 600 ml 500 ml # Bowel Movements 0 0 0 Result Diagram: 03/21/17 1504 03/23/17 0342 Imaging Last 72 hours Impressions Upper Extremity Ultrasound 03/21/17 0000 Signed Impressions: Service Date/Time: March 12:19 - CONCLUSION: 1. Nonocclusive DVT in the right subclavian vein. 2. Superficial venous thrombosis involving the cephalic vein. 3. Otherwise patent venous system. Shiva Watts MD Procedures None. Other Results Laboratory Tests Test 03/21/17 15:04 03/21/17 23:27 03/22/17 08:12 03/22/17 14:48 White Blood Count 10.0 TH/MM3 Red Blood Count 4.19 MIL/MM3 Hemoglobin 11.6 GM/DL Hematocrit 36.2 % Mean Corpuscular Volume 86.4 FL Mean Corpuscular Hemoglobin 27.6 PG Mean Corpuscular Hemoglobin Concent 32.0 % Red Cell Distribution Width 17.5 % Platelet Count 175 TH/MM3 Mean Platelet Volume 9.2 FL Prothrombin Time 19.4 SEC Prothromb Time International Ratio 1.9 RATIO Activated Partial Thromboplast Time 34.3 SEC 74.8 SEC 105.2 SEC 34.5 SEC Test 03/23/17 03:42 03/23/17 11:10 Activated Partial Thromboplast Time 103.2 SEC Blood Urea Nitrogen 33 MG/DL Creatinine 1.32 MG/DL Random Glucose 160 MG/DL Albumin 2.8 GM/DL Calcium Level 8.8 MG/DL Phosphorus Level 3.5 MG/DL Sodium Level 137 MEQ/L Potassium Level 3.4 MEQ/L Chloride Level 101 MEQ/L Carbon Dioxide Level 24.2 MEQ/L Anion Gap 12 MEQ/L Estimat Glomerular Filtration Rate 65 ML/MIN Objective Remarks Vasc: DP/PT 0/4 non palpable to bilateral LE. [employer] under 5 secs and delayed to digts x5 to bilateral LE. Distal digits cool to touch. Neuro: Gross sensation intact. No hyperalgesia noted. Derm: Ulcer located to left medial MPJ with exposed bone and hyperkeratotic skin edges with fibrous base, mild serous drainage , increased malodor with superficial discoloration bluish-Green. No purulent drainage upon compression. Interdigital maceration with fissures noted to all interspaced of right foot. Serous drainage noted, no purulent drainage noted. MSK: ROM to left first MPJ limited. Hammertoes noted to digits 2-5 bilateral LE. No amputations noted. Medications and IVs Current Medications Medications (Trade) Dose Ordered Sig/Iman Route Start Time Stop Time Status Last Admin (NS Flush) 2 ml UNSCH PRN IV FLUSH 03/16/17 00:15 (NS Flush) 2 ml BID IV FLUSH 03/16/17 09:00 03/23/17 08:41 (Tylenol) 650 mg Q4H PRN PO 03/16/17 00:15 (Zofran Inj) 4 mg Q6H PRN IVP 03/16/17 00:15 (Heparin Inj) 5,000 units Q8H SQ 03/16/17 06:00 Future Hold 03/16/17 06:00 (Narcan Inj) 0.4 mg UNSCH PRN IV PUSH 03/16/17 00:15 (Sudha-Colace) 1 tab BID PO 03/16/17 09:00 03/23/17 08:41 (Milk Of Magnesia Liq) 30 ml Q12H PRN PO 03/16/17 00:15 03/21/17 08:00 (Senokot) 17.2 mg Q12H PRN PO 03/16/17 00:15 03/21/17 20:12 (Dulcolax Supp) 10 mg DAILY PRN RECTAL 03/16/17 00:15 (Lactulose Liq) 30 ml DAILY PRN PO 03/16/17 00:15 (D50w (Vial) Inj) 50 ml UNSCH PRN IV PUSH 03/16/17 08:45 (Glucagon Inj) 1 mg UNSCH PRN OTHER 03/16/17 08:45 (NovoLOG SUPPLEMENTAL SCALE) 1 ACHS SLIDING SCALE SQ 03/16/17 12:00 03/22/17 17:00 (Tylenol) 650 mg Q6H PRN PO 03/16/17 08:45 ([place] 5-325 Mg) 1 tab Q4H PRN PO 03/16/17 08:45 03/19/17 23:41 ([place] 7.5-325 Mg) 1 tab Q4H PRN PO 03/16/17 08:45 03/22/17 22:16 (Morphine Inj) 1 mg Q3H PRN IV PUSH 03/16/17 09:30 03/19/17 11:16 (Pravachol) 10 mg HS PO 03/16/17 21:00 03/22/17 22:11 (Neurontin) 300 mg BID PO 03/16/17 12:00 03/23/17 08:41 (Pill Splitter) 1 ea UNSCH PRN OTHER 03/16/17 12:00 03/17/17 08:12 (Ecotrin Ec) 325 mg DAILY PO 03/18/17 09:00 03/23/17 08:41 (Vitamin D3) 2,000 units DAILY PO 03/18/17 12:15 03/23/17 08:41 (Santyl Oint) 1 applic DAILY TOPICAL 03/19/17 23:45 03/21/17 08:02 Ceftriaxone Sodium 1000 mg/ Sodium Chloride 100 ml @ 200 mls/hr Q24H IV 03/19/17 16:00 03/22/17 18:05 (Demadex) 20 mg DAILY PO 03/20/17 19:15 03/23/17 08:41 Heparin Sodium/ Dextrose 250 ml @ 18 mls/hr TITRATE PRN IV 03/21/17 14:30 03/22/17 08:14 (Miralax) 17 gm DAILY PRN PO 03/22/17 16:00 (Pepcid) 20 mg BID PO 03/22/17 21:00 03/23/17 08:40 (Coumadin) 2.5 mg DAILY@16 PO 03/22/17 19:30 03/22/17 22:15 Assessment and Plan Assessment and Plan 71 year old male with bilateral LE ulcers; Right interdigital ulcers and Left first medial MPJ ulcer Patient examined and evaluated with all questions answered MRI to left foot ordered secondary to D2 radiation of first MPJ ulcer with now exposed bone and superficial pseudomonal infection MRI to left foot exposed bone to second digit proximal phalanx Betadine with dry sterile gauze to interdigital spaces to right foot D/C santyl and continue with Dakin' s solution to left first MPJ Secondary to vascular status deterioration noted to left foot first MPJ ulcer - suspect MRI will be positive for increased signal intensity to first metatarsal and indicative of osteomyelitis - wounds vascular intervention/ assessment is performed will determine viability of possible amputation Discussed possibility of amputation of toe with patient, patient as was not amenable to any sort of amputation, discussed with patient we will re-evaluate once vascular intervention performed Will continue to follow patient Mary Devries DPM Mar 23, 2017 11:22
[2017-03-23 11:34] LABS: APTT (PATIENT) 63.6 SEC (24.3-30.1)
[2017-03-23 12:08] LABS: INTERNATIONAL NORMALIZED RATIO 1.8 RATIO; PROTHROMBIN TIME - PATIENT 18.7 SEC (9.8-11.6)
--- NOTE | 2017-03-23 12:29 | RADRPT ---
EXAM DATE/TIME: 03/23/2017 11:25 [facility] COMPARISON: US LEG BILATERAL VENOUS DOPPLER, February 25, 2016, 13:23. INDICATIONS : Bilateral leg swelling. MEDICAL HISTORY : Congestive heart failure. Hypercholesterolemia. Hypertension. Kidney stones. Arthritis. Diabetes. SURGICAL HISTORY : Right shoulder surgery. ENCOUNTER: Subsequent ACUITY: 1 day PAIN SCORE: 0/10 LOCATION: Bilateral legs. TECHNIQUE: Venous ultrasound of the left and right leg was performed from the inguinal ligament to the proximal calf. Real-time, color Doppler and spectral tracing, compression and augmentation techniques were us ed. FINDINGS: RIGHT LEG: There is normal compressibility of the deep venous system from the inguinal region to the proximal ca lf. No echogenic clot is seen in the lumen of the common femoral, femoral, popliteal, and posterior tibial veins. There is a normal response of the venous system to proximal and distal augmentation an d respiration. LEFT LEG: There is normal compressibility of the deep venous system from the inguinal region to the proximal ca lf. No echogenic clot is seen in the lumen of the common femoral, femoral, popliteal, and posterior tibial veins. There is a normal response of the venous system to proximal and distal augmentation an d respiration. CONCLUSION: 1. No sonographic evidence for lower extremity DVT. Trace Robert MD on March 23, 2017 at 12:27 Board Certified Radiologist. This report was verified electronically.
--- NOTE | 2017-03-23 12:47 | HHI.PR ---
Subjective Remarks This is a pleasant 71 y/o Male with Diabetic Foot infection, seen in his bedroom , discussed with nurse Miss Serrato, Nephrology specialist and residential specialist following, Echocardiogram performed and found EF 20%, has Acute Kidney Injury probable related to NSAIDs, as Cardiorenal syndrome, bilateral Leg edema, ordered IV furosemide by Nephrology specialist, CKD III after Renal ultrasound suggested this diagnosis, most likely due to Nephrosclerosis, probable Diabetic nephropathy. no other complaint by patient at this time. 03/19: Seen by Podiatry specialist, Right interdigital ulcers and left fist medial MPJ ulcer, recommended Hibiclens to Right foot, Betadine to interdigital spaces to right foot, Santyl to Left MPJ ulcer, No surgical intervention at this time. recommended vascular Surgery consult. on discharge Wound care center at [place]. by doctor Devries. Status post Echocardiogram performed by Doctor Montes EF less than 20% Severely reduced Left ventricular systolic function, Mild to moderate mitral regurgitation, Mild to moderate aortic valve stenosis. small Pericardial effusion present. no nausea, vomit or diarrhea, seen in his bedroom in the present of friend, 03/20: Discussed on Multidisciplinary round, patient stable improving general condition, he has CKD III and Chronic systolic heart failure will need to get final recommendations by residential specialist and Nephrology also will ask for final recommendations for wound care by Podiatry specialist. 03/21: Stable in his bedroom seen in the presence of nurse Miss Nowak and his Ex- Mrs. Svetlana Elias, but complaint of right arm edema asked for ultrasound to rule out DVT, he will have Angiography and probable angioplasty next 03/25/17. 03/22: Seen in his bedroom in the presence of his Ex Mrs. Svetlana Elias, he has Increased INR with normal liver function started on heparin yesterday for DVT on Right arm, patient with Subclavian vein thrombosis, asked for home care specialist consult. 03/23: Stable in his bedroom, followed by Podiatry specialist, wound care with Betadine, removed Santyl, continue with Dakin's solution to the left MPJ, Discussed about probable amputation, Hematology, vascular surgery, ID specialist and Nephrology following, high risk for worsening renal failure secondary to IV contrast for surgery 03/25/17. No nausea, vomit or diarrhea. Objective Vital Signs Date Time Temp Pulse Resp B/P (MAP) Pulse Ox O2 Delivery O2 Flow Rate FiO2 03/23/17 11:47 97.7 111 19 107/73 (84) 100 03/23/17 08:00 95.5 105 19 134/81 (98) 100 03/23/17 04:00 97.7 91 22 133/72 (92) 98 03/23/17 01:09 102 03/23/17 00:00 97.1 73 22 123/81 (95) 96 03/22/17 20:00 96.5 96 24 108/76 (87) 92 03/22/17 16:00 96.9 102 19 117/59 (78) 99 I/O 03/22/17 03/22/17 03/22/17 03/23/17 03/23/17 03/23/17 07:00 15:00 23:00 07:00 15:00 23:00 Intake Total 320 ml 720 ml 480 ml Output Total 600 ml 600 ml 500 ml Balance -280 ml 120 ml -20 ml Intake Oral 320 ml 720 ml 480 ml Output Urine Total 600 ml 600 ml 500 ml # Bowel Movements 0 0 0 Result Diagram: 03/21/17 1504 03/23/17 0342 Imaging Last Impressions Lower Extremity Ultrasound 03/23/17 0000 Signed Impressions: Service Date/Time: Thursday, March 23, 2017 11:25 - CONCLUSION: 1. No sonographic evidence for lower extremity DVT. Trace Robert MD Upper Extremity Ultrasound 03/21/17 0000 Signed Impressions: Service Date/Time: March 12:19 - CONCLUSION: 1. Nonocclusive DVT in the right subclavian vein. 2. Superficial venous thrombosis involving the cephalic vein. 3. Otherwise patent venous system. Shiva Watts MD Toe X-Ray 03/16/17 0000 Signed Impressions: Service Date/Time: Thursday, March 16, 2017 12:00 - CONCLUSION: 1. Dorsal soft tissue ulceration overlying the second PIP region without significant bony erosion to suggest osteomyelitis. Trace Robert MD Renal Ultrasound 03/16/17 0000 Signed Impressions: Service Date/Time: Thursday, March 16, 2017 16:06 - CONCLUSION: 1. There is increased echogenicity of the renal parenchyma suggestive of some degree of chronic medical renal disease. 2. No hydronephrosis. 3. 1.5 cm benign- appearing right renal cyst. 4. Questionable small calcification left kidney suggestive of a nonobstructing stone. Misbah Grey MD Foot X-Ray 03/16/17 0000 Signed Impressions: Service Date/Time: Thursday, March 16, 2017 11:52 - CONCLUSION: 1. Large ulcer overlying the medial forefoot first MTP joint region without definitive bony erosive change to suggest osteomyelitis. Trace Robert MD Procedures None. Other Results Laboratory Tests Test 03/15/17 21:05 03/16/17 04:20 03/16/17 19:02 03/17/17 06:38 Blood Urea Nitrogen 36 MG/DL 32 MG/DL Creatinine 2.24 MG/DL 2.01 MG/DL Random Glucose 119 MG/DL 122 MG/DL Total Protein 8.5 GM/DL 8.2 GM/DL Albumin 3.5 GM/DL Calcium Level 9.5 MG/DL 9.4 MG/DL Alkaline Phosphatase 81 U/L Aspartate Amino Transf (AST/SGOT) 30 U/L Alanine Aminotransferase (ALT/SGPT) 18 U/L Total Bilirubin 1.0 MG/DL Sodium Level 138 MEQ/L 139 MEQ/L Potassium Level 3.1 MEQ/L 4.2 MEQ/L Chloride Level 101 MEQ/L 104 MEQ/L Carbon Dioxide Level 25.3 MEQ/L 19.1 MEQ/L Neutrophils (%) (Auto) 62.0 % Lymphocytes (%) (Auto) 25.4 % Monocytes (%) (Auto) 9.5 % Eosinophils (%) (Auto) 2.3 % Basophils (%) (Auto) 0.8 % Neutrophils # (Auto) 3.5 TH/MM3 Lymphocytes # (Auto) 1.4 TH/MM3 Monocytes # (Auto) 0.5 TH/MM3 Eosinophils # (Auto) 0.1 TH/MM3 Basophils # (Auto) 0.0 TH/MM3 CBC Comment DIFF FINAL Differential Comment Hemoglobin A1c 7.3 % Total Creatine Kinase 445 U/L Creatine Kinase MB 10.0 NG/ML Creatine Kinase MB % 2.2 % Urine Color YELLOW Urine Turbidity HAZY Urine pH 5.5 Urine Specific [place] 1.018 Urine Protein 30 mg/dL Urine Glucose (UA) TRACE mg/dL Urine Ketones NEG mg/dL Urine Occult Blood NEG Urine Nitrite NEG Urine Bilirubin NEG Urine Urobilinogen LESS THAN 2.0 MG/DL Urine Leukocyte Esterase NEG Urine RBC 2 /hpf Urine WBC 12 /hpf Urine Squamous Epithelial Cells <1 /hpf Urine Transitional Epithelial Cells 1 /hpf Urine Bacteria MOD /hpf Urine Granular Casts 1 /lpf Urine White Blood Cell Casts 6 /lpf Urine Mucus FEW /lpf Urine Random Creatinine 179 MG/DL Urine Random Total Protein 113 MG/DL Urine Random Sodium 12 MEQ/L Urine Protein/Creatinine Ratio 0.63 Urine Immunofixation Magnesium Level 1.9 MG/DL Albumin/Globulin Ratio 1.00 [id number] 0.30 GM/DL [id number]-[id number] 0.83 GM/DL Beta Globulins 0.93 GM/DL Gamma Globulins 2.04 GM/DL Electrophoresis Pathologist Comment 25-Hydroxy Vitamin D Total 16.6 ng/ML Complement C3 96 MG/DL Complement C4 10 MG/DL Free Umbarger Light Chains 41.79 mg/L Free Lambda Light Chains 22.49 mg/L Free Umbarger/Lambda Light Chain Ratio 1.86 Hepatitis C Antibody NEGATIVE Test 03/18/17 04:00 03/19/17 09:45 03/21/17 15:04 03/23/17 03:42 Urine Eosinophils NONE SEEN /HPF Random Vancomycin Level 10.6 COMMENT White Blood Count 10.0 TH/MM3 Red Blood Count 4.19 MIL/MM3 Hemoglobin 11.6 GM/DL Hematocrit 36.2 % Mean Corpuscular Volume 86.4 FL Mean Corpuscular Hemoglobin 27.6 PG Mean Corpuscular Hemoglobin Concent 32.0 % Red Cell Distribution Width 17.5 % Platelet Count 175 TH/MM3 Mean Platelet Volume 9.2 FL Blood Urea Nitrogen 33 MG/DL Creatinine 1.32 MG/DL Random Glucose 160 MG/DL Albumin 2.8 GM/DL Calcium Level 8.8 MG/DL Phosphorus Level 3.5 MG/DL Sodium Level 137 MEQ/L Potassium Level 3.4 MEQ/L Chloride Level 101 MEQ/L Carbon Dioxide Level 24.2 MEQ/L Anion Gap 12 MEQ/L Estimat Glomerular Filtration Rate 65 ML/MIN Test 03/23/17 11:10 Prothrombin Time 18.7 SEC Prothromb Time International Ratio 1.8 RATIO Activated Partial Thromboplast Time 63.6 SEC Objective Remarks GENERAL: This is a well-nourished, well-developed patient, in no apparent distress. SKIN: No rashes, ecchymoses or lesions. Cool and dry. CARDIOVASCULAR: Regular rate and irregular rhythm without murmurs, gallops, or rubs. Telemetry shows PVCs RESPIRATORY: Clear to auscultation. Breath sounds equal bilaterally. No wheezes , rales, or rhonchi. GASTROINTESTINAL: Abdomen soft, non-tender, nondistended. No guarding. MUSCULOSKELETAL: Extremities without clubbing, cyanosis with bilateral breath lower extremity pitting edema. Multiple tophi noted. Large ulcer over left metatarsal head with purulent discharge. Maggots noted. Right second toe with ulcer. at this time with edema on the right extremity. NEUROLOGICAL: Awake and alert. No focal deficits. Medications and IVs Current Medications Medications (Trade) Dose Ordered Sig/Iman Route Start Time Stop Time Status Last Admin (NS Flush) 2 ml UNSCH PRN IV FLUSH 03/16/17 00:15 (NS Flush) 2 ml BID IV FLUSH 03/16/17 09:00 03/23/17 08:41 (Tylenol) 650 mg Q4H PRN PO 03/16/17 00:15 (Zofran Inj) 4 mg Q6H PRN IVP 03/16/17 00:15 (Heparin Inj) 5,000 units Q8H SQ 03/16/17 06:00 Future Hold 03/16/17 06:00 (Narcan Inj) 0.4 mg UNSCH PRN IV PUSH 03/16/17 00:15 (Sudha-Colace) 1 tab BID PO 03/16/17 09:00 03/23/17 08:41 (Milk Of Magnesia Liq) 30 ml Q12H PRN PO 03/16/17 00:15 03/21/17 08:00 (Senokot) 17.2 mg Q12H PRN PO 03/16/17 00:15 03/21/17 20:12 (Dulcolax Supp) 10 mg DAILY PRN RECTAL 03/16/17 00:15 (Lactulose Liq) 30 ml DAILY PRN PO 03/16/17 00:15 (D50w (Vial) Inj) 50 ml UNSCH PRN IV PUSH 03/16/17 08:45 (Glucagon Inj) 1 mg UNSCH PRN OTHER 03/16/17 08:45 (NovoLOG SUPPLEMENTAL SCALE) 1 ACHS SLIDING SCALE SQ 03/16/17 12:00 03/22/17 17:00 (Tylenol) 650 mg Q6H PRN PO 03/16/17 08:45 ([place] 5-325 Mg) 1 tab Q4H PRN PO 03/16/17 08:45 03/19/17 23:41 ([place] 7.5-325 Mg) 1 tab Q4H PRN PO 03/16/17 08:45 03/22/17 22:16 (Morphine Inj) 1 mg Q3H PRN IV PUSH 03/16/17 09:30 03/19/17 11:16 (Pravachol) 10 mg HS PO 03/16/17 21:00 03/22/17 22:11 (Neurontin) 300 mg BID PO 03/16/17 12:00 03/23/17 08:41 (Pill Splitter) 1 ea UNSCH PRN OTHER 03/16/17 12:00 03/17/17 08:12 (Ecotrin Ec) 325 mg DAILY PO 03/18/17 09:00 03/23/17 08:41 (Vitamin D3) 2,000 units DAILY PO 03/18/17 12:15 03/23/17 08:41 (Santyl Oint) 1 applic DAILY TOPICAL 03/19/17 23:45 03/21/17 08:02 Ceftriaxone Sodium 1000 mg/ Sodium Chloride 100 ml @ 200 mls/hr Q24H IV 03/19/17 16:00 03/22/17 18:05 (Demadex) 20 mg DAILY PO 03/20/17 19:15 03/23/17 08:41 Heparin Sodium/ Dextrose 250 ml @ 18 mls/hr TITRATE PRN IV 03/21/17 14:30 03/22/17 08:14 (Miralax) 17 gm DAILY PRN PO 03/22/17 16:00 (Pepcid) 20 mg BID PO 03/22/17 21:00 03/23/17 08:40 (Coumadin) 2.5 mg DAILY@16 PO 03/22/17 19:30 03/22/17 22:15 (Betadine 10% Top Soln) 2 applic DAILY EXTERNAL 03/23/17 13:00 A/P Assessment and Plan This is a 71-year-old male who came in because of bilateral lower extremity swelling despite change of his diuretic to Bumex. He also noted ulcers in his left foot and right second toe draining serous fluid denies fever and chills. Received antibiotics as per PCP. Diabetic foot ulcers/infection involving left first metatarsal head and right second toe with failed outpatient therapy. X-rays reviewed did not show evidence of osteomyelitis. Continue IV vancomycin and Zosyn Follow-up wound and blood cultures. Wound care following, Seen by Podiatry specialist, Right interdigital ulcers and left fist medial MPJ ulcer, recommended Hibiclens to Right foot, Betadine to interdigital spaces to right foot, Santyl to Left MPJ ulcer. Followed by Podiatry specialist, wound care with Betadine, removed Santyl, continue with Dakin's solution to the left MPJ, Discussed about probable amputation, Hematology, vascular surgery, ID specialist and Nephrology following , high risk for worsening renal failure secondary to IV contrast for surgery . PVD. Doppler pulses. Start aspirin recommended for Vascular surgery consult by Podiatry specialist. seen by Vascular manager surgery and recommended for Angiography and Angioplasty for 03/25/17 Acute kidney injury with hypokalemia. Nephrology specialist following.probable related to NSAIDs, as Cardiorenal syndrome, bilateral Leg edema, ordered IV furosemide by Nephrology specialist, CKD III after Renal ultrasound suggested this diagnosis, most likely due to Nephrosclerosis, probable Diabetic nephropathy. improving renal function Chronic Systolic heart Failure Status post Echocardiogram performed by Doctor Montes EF less than 20% Severely reduced Left ventricular systolic function, Mild to moderate mitral regurgitation, Mild to moderate aortic valve stenosis. small Pericardial effusion present. on Diuretics. discussed with doctor Montes no further recommendations by Cardiology at this time, not recommended for Defibrillator the patient was non compliant in the past so he will need to follow as outpatient with residential specialist. Severe Non compliance found by residential specialist. Hyperlipidemia to continue Home medicines. DVT of the Right arm he has Occlusive thrombus on the right subclavian vein, After Axillary vein that continues as Subclavian vein there is high risk for Pulmonary Emboli no clear evidence of efficacy of anticoagulation with Heparin. has INR in 1.9 asked for home care specialist evaluation. Hypertension controlled Rheumatoid arthritis by history. DM II hemoglobin A1C 7.3 continue SSI. DVT prophylaxis with early ambulation. Heparin drip at this time added Warfarin by home care specialist. Discharge Planning Not yet cleared by specialists Nilesh Mccall MD Mar 23, 2017 12:47
[2017-03-23] MEDS ORDERED: POVIDONE IODINE 10% SOLN 118 ML BOTTLE EXTERNAL SCH (13:00)
[2017-03-23 15:46] LABS: AUTOMATED NEUTROPHIL # 12.4 TH/MM3 (1.8-7.7); BASOPHIL % 0.3 % (0.0-2.0); EOSINOPHIL % 0.1 % (0.0-4.0); HEMO FLAGS DIFF FINAL; LYMPH % 8.3 % (9.0-44.0); LYMPHOCYTE # 1.2 TH/MM3 (1.0-4.8); MEAN CORPUSCULAR HEMOGLOBIN 28.3 PG (27.0-34.0); MEAN CORPUSCULAR HGB CONC 32.9 % (32.0-36.0); NEUT % 82.3 % (16.0-70.0); PLATELET COUNT 177 TH/MM3 (150-450); RED BLOOD COUNT 4.53 MIL/MM3 (4.50-5.90); RED CELL DISTRIBUTION WIDTH 18.4 % (11.6-17.2)
[2017-03-23] MEDS: SODIUM HYPOCHLORITE 0.5% 500 ML BTL EXTERNAL SCH (16:00)
[2017-03-23] MEDS: WARFARIN SOD 2.5 MG TAB PO SCH (16:11)
[2017-03-23] MEDS: ENOXAPARIN SODIUM 60 MG/0.6 ML SYRINGE SQ SCH (16:11)
[2017-03-23] MEDS: cefTRIAXone INJ 1,000 MG in SODIUM CHLORIDE 0.9% INJ 100 ML IV SCH (16:12)
--- NOTE | 2017-03-23 16:22 | RADRPT ---
EXAM DATE/TIME: 03/23/2017 12:10 [facility] COMPARISON: No previous studies available for comparison. INDICATIONS : Osteomyelitis. MEDICAL HISTORY : Renal insufficiency, chronic. Diabetes mellitus type 2. Hypertension. SURGICAL HISTORY : Hernia repair, shoulder ENCOUNTER: Initial ACUITY: 1 day PAIN SCORE: 0/10 LOCATION: Bilateral feet TECHNIQUE: Multiplanar, multisequence MRI examination was performed without contrast. FINDINGS: The examination is degraded by motion artifact. There is soft tissue edema especially in the forefoot . No significant bone marrow signal abnormalities are seen to suggest osteomyelitis. There is an ulce ration medially and in the first MTP. CONCLUSION: 1. Suboptimal exam due to motion artifact. No definite evidence for osteomyelitis. There is edema and probable cellulitis of the forefoot with a skin ulceration medially near the first MTP. Lopez Montes MD on March 23, 2017 at 16:13 Board Certified Radiologist. This report was verified electronically.
--- NOTE | 2017-03-23 16:25 | RADRPT ---
EXAM DATE/TIME: 03/23/2017 12:10 [facility] COMPARISON: No previous studies available for comparison. INDICATIONS : Osteomyelitis. MEDICAL HISTORY : Renal failure, chronic. Diabetes mellitus type 2. Hypertension. SURGICAL HISTORY : Hernia repair, shoulder ENCOUNTER: Initial ACUITY: 1 day PAIN SCORE: 0/10 LOCATION: Bilateral feet TECHNIQUE: Multiplanar, multisequence MRI examination was performed without contrast. FINDINGS: There is a focal soft tissue swelling and small ulceration on the dorsum of the second toe. No signif icant marrow signal abnormality is identified to suggest osteomyelitis. Examination is suboptimal wit h motion artifact. CONCLUSION: 1. Suboptimal exam due to motion artifact. No definite marrow signal abnormality to suggest osteomyel itis. Soft tissue swelling and ulceration at the second toe. Lopez Montes MD on March 23, 2017 at 16:20 Board Certified Radiologist. This report was verified electronically.
[2017-03-23] MEDS: POVIDONE IODINE 10% SOLN 118 ML BOTTLE EXTERNAL SCH (17:00)
[2017-03-23 18:47] LABS: APTT (PATIENT) 38.2 SEC (24.3-30.1)
[2017-03-23] MEDS: ACETAMINOPHEN/HYDROcodone 325 MG/7.5 MG TAB PO PRN (19:41)
[2017-03-23] MEDS: PRAVASTATIN SOD 10 MG TAB PO SCH (19:42)
[2017-03-23 20:23] LABS: LACTIC ACID GHOST NOT REPORTABLE
[2017-03-24] VITALS: BP 111/69; PULSE 113; RESP 17; TEMP 96.5; O2SAT 97
[2017-03-24 04:00] VITALS: BP 131/72; PULSE 107; RESP 21; TEMP 98.3; O2SAT 100
[2017-03-24] MEDS: ENOXAPARIN SODIUM 60 MG/0.6 ML SYRINGE SQ SCH ×2 (04:23→17:24)
[2017-03-24] MEDS: ACETAMINOPHEN/HYDROcodone 325 MG/7.5 MG TAB PO PRN ×3 (04:25→23:15)
[2017-03-24 07:50] LABS: HEMATOCRIT 36.2 % (39.0-51.0); MEAN CELL VOLUME 85.5 FL (80.0-100.0); MEAN CORPUSCULAR HEMOGLOBIN 27.3 PG (27.0-34.0); MEAN CORPUSCULAR HGB CONC 31.9 % (32.0-36.0); PLATELET COUNT 166 TH/MM3 (150-450); RED BLOOD COUNT 4.23 MIL/MM3 (4.50-5.90); RED CELL DISTRIBUTION WIDTH 18.6 % (11.6-17.2); REVIEW FLAG FINAL; WHITE BLOOD COUNT 17.8 TH/MM3 (4.0-11.0)
[2017-03-24 07:52] LABS: INTERNATIONAL NORMALIZED RATIO 1.9 RATIO; PROTHROMBIN TIME - PATIENT 19.6 SEC (9.8-11.6)
[2017-03-24 08:00] VITALS: BP 101/72; PULSE 105; RESP 22; TEMP 95.3; O2SAT 98
[2017-03-24] MEDS: INSULIN ASPART SUPPLEMENTAL SCALE SQ SCH ×4 (08:00→19:30)
[2017-03-24] MEDS: TORSEMIDE 20 MG TAB PO SCH (08:36)
[2017-03-24] MEDS: POVIDONE IODINE 10% SOLN 118 ML BOTTLE EXTERNAL SCH (08:37)
[2017-03-24] MEDS: SODIUM CHLORIDE 0.9% FLUSH 10 ML FLUSH IV FLUSH SCH ×2 (08:37→19:31)
[2017-03-24] MEDS: SODIUM HYPOCHLORITE 0.5% 500 ML BTL EXTERNAL SCH (08:37)
[2017-03-24] MEDS: CHOLECALCIFEROL (VIT D3) 1000 UNIT TAB PO SCH (08:37)
[2017-03-24] MEDS: COLLAGENASE OINT 30 GM TUBE TOPICAL SCH (08:37)
[2017-03-24] MEDS: GABAPENTIN 300 MG CAP PO SCH ×2 (08:37→19:31)
[2017-03-24] MEDS: ASPIRIN EC 325 MG TABEC PO SCH (08:37)
[2017-03-24] MEDS: FAMOTIDINE 20 MG TAB PO SCH ×2 (08:37→19:31)
[2017-03-24] MEDS: DOCUSATE SODIUM 50 MG/SENNA 8.6 MG TAB PO SCH ×2 (08:37→19:30)
--- NOTE | 2017-03-24 09:42 | PD.ONC.PN ---
Subjective Subjective Remarks Afebrile No bleeding No acute complaints Objective Data Date Time Temp Pulse Resp B/P (MAP) Pulse Ox O2 Delivery O2 Flow Rate FiO2 03/24/17 08:00 95.3 105 22 101/72 (82) 98 03/24/17 04:00 98.3 107 21 131/72 (91) 100 03/24/17 00:00 96.5 113 17 111/69 (83) 97 03/23/17 23:07 103 03/23/17 20:00 96.9 107 17 123/83 (96) 94 03/23/17 19:51 107 03/23/17 16:00 99.1 101 21 127/79 (95) 99 03/23/17 11:47 97.7 111 19 107/73 (84) 100 03/24/17 03/24/17 03/24/17 07:00 15:00 23:00 Intake Total 240 ml Balance 240 ml Result Diagram: 03/24/17 0654 03/23/17 0342 Laboratory Results Laboratory Tests Test 03/23/17 11:10 03/23/17 14:39 03/23/17 18:12 03/24/17 03:00 Prothrombin Time 18.7 SEC Prothromb Time International Ratio 1.8 RATIO Activated Partial Thromboplast Time 63.6 SEC 38.2 SEC White Blood Count 15.0 TH/MM3 Red Blood Count 4.53 MIL/MM3 Hemoglobin 12.8 GM/DL Hematocrit 39.0 % Mean Corpuscular Volume 86.0 FL Mean Corpuscular Hemoglobin 28.3 PG Mean Corpuscular Hemoglobin Concent 32.9 % Red Cell Distribution Width 18.4 % Platelet Count 177 TH/MM3 Mean Platelet Volume 9.8 FL Neutrophils (%) (Auto) 82.3 % Lymphocytes (%) (Auto) 8.3 % Monocytes (%) (Auto) 9.0 % Eosinophils (%) (Auto) 0.1 % Basophils (%) (Auto) 0.3 % Neutrophils # (Auto) 12.4 TH/MM3 Lymphocytes # (Auto) 1.2 TH/MM3 Monocytes # (Auto) 1.4 TH/MM3 Eosinophils # (Auto) 0.0 TH/MM3 Basophils # (Auto) 0.0 TH/MM3 CBC Comment DIFF FINAL Differential Comment Lactic Acid Level 3.4 mmol/L 3.7 mmol/L Test 03/24/17 06:54 White Blood Count 17.8 TH/MM3 Red Blood Count 4.23 MIL/MM3 Hemoglobin 11.5 GM/DL Hematocrit 36.2 % Mean Corpuscular Volume 85.5 FL Mean Corpuscular Hemoglobin 27.3 PG Mean Corpuscular Hemoglobin Concent 31.9 % Red Cell Distribution Width 18.6 % Platelet Count 166 TH/MM3 Mean Platelet Volume 9.3 FL Prothrombin Time 19.6 SEC Prothromb Time International Ratio 1.9 RATIO Administered Medications Medications (Trade) Dose Ordered Sig/Iman Route PRN Reason Start Time Stop Time Status Last Admin Dose Admin Sodium Chloride (NS Flush) 2 ml BID IV FLUSH 03/16/17 09:00 03/24/17 08:37 Senna/Docusate Sodium (Sudha-Colace) 1 tab BID PO 03/16/17 09:00 03/24/17 08:37 Magnesium Hydroxide (Milk Of Magnmark Liq) 30 ml Q12H PRN PO Mild constipation 03/16/17 00:15 03/21/17 08:00 Sennosides (Senokot) 17.2 mg Q12H PRN PO Moderate constipation 03/16/17 00:15 03/21/17 20:12 Insulin Aspart (NovoLOG SUPPLEMENTAL SCALE) 1 ACHS SLIDING SCALE SQ 03/16/17 12:00 03/23/17 19:42 Acetaminophen/ Hydrocodone Bitart ([place] 5-325 Mg) 1 tab Q4H PRN PO PAIN SCALE 3 TO 5 03/16/17 08:45 03/19/17 23:41 Acetaminophen/ Hydrocodone Bitart ([place] 7.5-325 Mg) 1 tab Q4H PRN PO PAIN SCALE 6 TO 10 03/16/17 08:45 03/24/17 04:25 Morphine Sulfate (Morphine Inj) 1 mg Q3H PRN IV PUSH BREAKTHROUGH PAIN 03/16/17 09:30 03/19/17 11:16 Pravastatin Sodium (Pravachol) 10 mg HS PO 03/16/17 21:00 03/23/17 19:42 Gabapentin (Neurontin) 300 mg BID PO 03/16/17 12:00 03/24/17 08:37 Miscellaneous (Pill Splitter) 1 ea UNSCH PRN OTHER SEE LABEL COMMENTS 03/16/17 12:00 03/17/17 08:12 Aspirin (Ecotrin Ec) 325 mg DAILY PO 03/18/17 09:00 03/24/17 08:37 Cholecalciferol (Vitamin D3) 2,000 units DAILY PO 03/18/17 12:15 03/24/17 08:37 Collagenase (Santyl Oint) 1 applic DAILY TOPICAL 03/19/17 23:45 03/21/17 08:02 Ceftriaxone Sodium 1000 mg/ Sodium Chloride 100 ml @ 200 mls/hr Q24H IV 03/19/17 16:00 03/23/17 16:12 Torsemide (Demadex) 20 mg DAILY PO 03/20/17 19:15 03/24/17 08:36 Famotidine (Pepcid) 20 mg BID PO 03/22/17 21:00 03/24/17 08:37 Warfarin Sodium (Coumadin) 2.5 mg DAILY@16 PO 03/22/17 19:30 03/23/17 16:11 Sodium Hypochlorite ([place] 0.5% Soln) 5 ml DAILY EXTERNAL 03/23/17 16:00 03/24/17 08:37 Enoxaparin Sodium (Lovenox Inj) 60 mg Q12H SQ 03/23/17 17:00 03/24/17 04:23 Povidone Iodine (Betadine 10% Top Soln) 1 applic DAILY EXTERNAL 03/23/17 17:00 03/24/17 08:37 Objective Remarks GENERAL: Elderly male, resting in bed in no acute distress. SKIN: Warm and dry. HEAD: Normocephalic. EYES: No injection or drainage. NECK: Supple, trachea midline. CARDIOVASCULAR: Regular rate and rhythm without murmurs. RESPIRATORY: Breath sounds equal bilaterally. No accessory muscle use. GASTROINTESTINAL: Abdomen soft, non-tender, nondistended. EXTREMITIES: No cyanosis. RUE edema. BLE generalized edema with bandages to bilateral feet. MUSCULOSKELETAL: Generalized weakness NEUROLOGICAL: Somewhat lethargic. Moving all extremities. No obvious focal deficit. Assessment/Plan Problem List: (1) DVT (deep venous thrombosis) ICD Codes: I82.409 - Acute embolism and thrombosis of unspecified deep veins of unspecified lower extremity Plan: -- RUE has nonocclusive thrombus -- Has BLE swelling, US negative for DVT -- On Lovenox bridge to coumadin (2) Leg swelling ICD Codes: M79.89 - Other specified soft tissue disorders Status: Acute Plan: --Bilateral Ultrasound negative for DVT (3) Acute kidney insufficiency ICD Codes: N28.9 - Disorder of kidney and ureter, unspecified Status: Resolved Plan: -- Nephrology following -- Improving (4) Diabetic foot infection ICD Codes: E11.69 - Type 2 diabetes mellitus with other specified complication ; L08.9 - Local infection of the skin and subcutaneous tissue, unspecified Plan: -- On Rocephin -- Primary managing Assessment 71 y/o male with multiple medical problems admitted for foot infection found to have a RUE nonocclusive thrombus Plan 1. Continue Lovenox- Coumadin bridge. 2. Monitor CBC; PT/INR 3. Antiphospholipid antibody pending 4. Monitor for bleeding Attending Statement The exam, history, and the medical decision-making described in the above note were completed with the assistance of the mid-level provider. I reviewed and agree with the findings presented. I attest that I had a [id number] encounter with the patient on the same day, and personally performed and documented my assessment and findings in the medical record. Confirm he does not want amputation. Noted podiatry recommendations- and concerns for osteomyelitis. LE neg for DVT. RUE still with swelling, subjectively pt feels better. Monitor for bleeding. Aurora Khalil Mar 24, 2017 09:42 Candi Madera MD Mar 24, 2017 12:06
[2017-03-24 11:59] VITALS: BP 135/92; PULSE 102; RESP 21; TEMP 98.1; O2SAT 100
[2017-03-24] MEDS ORDERED: Vancomycin Consult Pharmacy 1 EA OTHER SCH (12:15)
[2017-03-24] MEDS ORDERED: LACTULOSE SYRUP 20 GM/30 ML CUP PO ONE (12:15)
[2017-03-24] MEDS ORDERED: VANCOMYCIN INJ 1,250 MG in SODIUM CHLOR 0.9% 250 ML INJ 250 ML IV ONE (12:15)
--- NOTE | 2017-03-24 12:15 | HHI.PR ---
Subjective Remarks This is a pleasant 71 y/o Male with Diabetic Foot infection, seen in his bedroom , discussed with nurse Miss Serrato, Nephrology specialist and process safety specialist following, Echocardiogram performed and found EF 20%, has Acute Kidney Injury probable related to NSAIDs, as Cardiorenal syndrome, bilateral Leg edema, ordered IV furosemide by Nephrology specialist, CKD III after Renal ultrasound suggested this diagnosis, most likely due to Nephrosclerosis, probable Diabetic nephropathy. no other complaint by patient at this time. 03/19: Seen by Podiatry specialist, Right interdigital ulcers and left fist medial MPJ ulcer, recommended Hibiclens to Right foot, Betadine to interdigital spaces to right foot, Santyl to Left MPJ ulcer, No surgical intervention at this time. recommended vascular Surgery consult. on discharge Wound care center at [place]. by doctor Devries. Status post Echocardiogram performed by Doctor Montes EF less than 20% Severely reduced Left ventricular systolic function, Mild to moderate mitral regurgitation, Mild to moderate aortic valve stenosis. small Pericardial effusion present. no nausea, vomit or diarrhea, seen in his bedroom in the present of friend, 03/20: Discussed on Multidisciplinary round, patient stable improving general condition, he has CKD III and Chronic systolic heart failure will need to get final recommendations by process safety specialist and Nephrology also will ask for final recommendations for wound care by Podiatry specialist. 03/21: Stable in his bedroom seen in the presence of nurse Miss Nowak and his Ex- Mrs. Svetlana Elias, but complaint of right arm edema asked for ultrasound to rule out DVT, he will have Angiography and probable angioplasty next 03/25/17. 03/22: Seen in his bedroom in the presence of his Ex Mrs. Svetlana Elias, he has Increased INR with normal liver function started on heparin yesterday for DVT on Right arm, patient with Subclavian vein thrombosis, asked for disability benefits specialist consult. 03/23: Stable in his bedroom, followed by Podiatry specialist, wound care with Betadine, removed Santyl, continue with Dakin's solution to the left MPJ, Discussed about probable amputation, Hematology, vascular surgery, ID specialist and Nephrology following, high risk for worsening renal failure secondary to IV contrast for surgery 03/25/17. 03/24: Seen in his bedroom, no nausea, vomit or diarrhea, Constipation, Objective Vital Signs Date Time Temp Pulse Resp B/P (MAP) Pulse Ox O2 Delivery O2 Flow Rate FiO2 03/24/17 11:59 98.1 102 21 135/92 (106) 100 03/24/17 08:00 95.3 105 22 101/72 (82) 98 03/24/17 04:00 98.3 107 21 131/72 (91) 100 03/24/17 00:00 96.5 113 17 111/69 (83) 97 03/23/17 23:07 103 03/23/17 20:00 96.9 107 17 123/83 (96) 94 03/23/17 19:51 107 03/23/17 16:00 99.1 101 21 127/79 (95) 99 I/O 03/23/17 03/23/17 03/23/17 03/24/17 03/24/17 03/24/17 07:00 15:00 23:00 07:00 15:00 23:00 Intake Total 480 ml 580 ml 240 ml Output Total 500 ml Balance -20 ml 580 ml 240 ml Intake Oral 480 ml 480 ml 240 ml IV Total 100 ml Output Urine Total 500 ml # Voids 2 3 # Bowel Movements 0 0 Result Diagram: 03/24/17 0654 03/23/17 0342 Procedures None. Objective Remarks GENERAL: This is a well-nourished, well-developed patient, in no apparent distress. SKIN: No rashes, ecchymoses or lesions. Cool and dry. CARDIOVASCULAR: Regular rate and irregular rhythm without murmurs, gallops, or rubs. Telemetry shows PVCs RESPIRATORY: Clear to auscultation. Breath sounds equal bilaterally. No wheezes , rales, or rhonchi. GASTROINTESTINAL: Abdomen soft, non-tender, nondistended. No guarding. MUSCULOSKELETAL: Extremities without clubbing, cyanosis with bilateral breath lower extremity pitting edema. Multiple tophi noted. Large ulcer over left metatarsal head with purulent discharge. Maggots noted. Right second toe with ulcer. at this time with edema on the right extremity. NEUROLOGICAL: Awake and alert. No focal deficits. A/P Assessment and Plan This is a 71-year-old male who came in because of bilateral lower extremity swelling despite change of his diuretic to Bumex. He also noted ulcers in his left foot and right second toe draining serous fluid denies fever and chills. Received antibiotics as per PCP. Diabetic foot ulcers/infection involving left first metatarsal head and right second toe with failed outpatient therapy. X-rays reviewed did not show evidence of osteomyelitis. Continue IV vancomycin and Zosyn Follow-up wound and blood cultures. Wound care following, Seen by Podiatry specialist, Right interdigital ulcers and left fist medial MPJ ulcer, recommended Hibiclens to Right foot, Betadine to interdigital spaces to right foot, Santyl to Left MPJ ulcer. Followed by Podiatry specialist, wound care with Betadine, removed Santyl, continue with Dakin's solution to the left MPJ, Discussed about probable amputation, Hematology, vascular surgery, ID specialist and Nephrology following , high risk for worsening renal failure secondary to IV contrast for surgery . PVD. Doppler pulses. Start aspirin recommended for Vascular surgery consult by Podiatry specialist. seen by Vascular information specialist and recommended for Angiography and Angioplasty for 03/25/17 Acute kidney injury with hypokalemia. Nephrology specialist following.probable related to NSAIDs, as Cardiorenal syndrome, bilateral Leg edema, ordered IV furosemide by Nephrology specialist, CKD III after Renal ultrasound suggested this diagnosis, most likely due to Nephrosclerosis, probable Diabetic nephropathy. improving renal function Chronic Systolic heart Failure Status post Echocardiogram performed by Doctor Montes EF less than 20% Severely reduced Left ventricular systolic function, Mild to moderate mitral regurgitation, Mild to moderate aortic valve stenosis. small Pericardial effusion present. on Diuretics. discussed with doctor Montes no further recommendations by Cardiology at this time, not recommended for Defibrillator the patient was non compliant in the past so he will need to follow as outpatient with process safety specialist. Severe Non compliance found by process safety specialist. Hyperlipidemia to continue Home medicines. DVT of the Right arm he has Occlusive thrombus on the right subclavian vein, After Axillary vein that continues as Subclavian vein there is high risk for Pulmonary Emboli no clear evidence of efficacy of anticoagulation with Heparin. has INR in 1.9 asked for disability benefits specialist evaluation. Hypertension controlled Rheumatoid arthritis by history. DM II hemoglobin A1C 7.3 continue SSI. DVT prophylaxis with early ambulation. Heparin drip at this time added Warfarin by disability benefits specialist. Discharge Planning Not yet cleared by specialists Nilesh Mccall MD Mar 24, 2017 12:15
[2017-03-24] MEDS: PIPERACILLIN/TAZ 3.375 GM VIAL 3.375 GM in SODIUM CHLORIDE 0.9% INJ 100 ML IV SCH ×2 (13:13→19:30)
--- NOTE | 2017-03-24 13:13 | RADRPT ---
EXAM DATE/TIME: 03/24/2017 12:37 [facility] COMPARISON: CHEST SINGLE AP, February 25, 2016, 12:40. INDICATIONS : Sepsis. MEDICAL HISTORY : Renal failure, chronic. Diabetes mellitus type 2. Hypertension SURGICAL HISTORY : Hernia repair ENCOUNTER: Subsequent ACUITY: 3 days PAIN SCORE: Non-responsive. LOCATION: Bilateral chest FINDINGS: A single view of the chest demonstrates persistent cardiomegaly. There is airspace disease in the rig ht lower lobe possible pneumonia. Mild pulmonary vascular congestion. Upper lungs are clear.. Osseou s structures are intact. CONCLUSION: Consolidation right lung base, possible pneumonia. Heart remains enlarged.. Maycol Leung MD on March 24, 2017 at 13:10 Board Certified Radiologist. This report was verified electronically.
[2017-03-24] MEDS: VANCOMYCIN 1,500 MG/NS 500 ML IV SCH ×2 (13:15)
[2017-03-24 13:29] LABS: BLOOD, URINE NEG (NEG); COMMENT (UR) CULT NOT INDICATED; CULTURE IF INDICATED CULT NOT INDICATED; GLUCOSE,URINE NEG (NEG); HYALINE CAST, URINE 30 /lpf (RARE); KETONE, URINE NEG (NEG); MUCUS URINE FEW /lpf (OCC); NITRITE,URINE NEG (NEG); PH, URINE 5.5 (5.0-8.5); SQUAMOUS EPITHELIAL CELL URINE <1 /hpf (0-5); URINE COLOR YELLOW (YELLW/STRAW)
[2017-03-24] MEDS ORDERED: VANCOMYCIN 1,500 MG/NS 500 ML IV ONE ×2 (14:00)
--- NOTE | 2017-03-24 15:22 | MB ---
cc: GLENN TRIANA MD DATE OF CONSULTATION: 03/24/2017. REASON FOR CONSULTATION: Sepsis. REQUESTING PHYSICIAN: Dr. Puckett. HISTORY OF PRESENT ILLNESS: This is a 71-year-old black male who was admitted to the hospital on 03/15/2017. The patient presented to the emergency department at that time with toe infection of the left great toe and right middle toe. He reportedly was failing outpatient therapy. It is not clear what antibiotic treatment was given. The patient has been in the hospital and was seen by podiatry. He also had renal failure and was seen by nephrology. The reason why this consult was called is that the patient had elevated heart rate and his white blood cell count increased from 10,000 to 15,000 yesterday and the lactic acid was obtained and the lactic acid level was elevated. He was put on vancomycin after having been on ceftriaxone previously. He is undergoing workup for the two ulcerations as mentioned above and he is due to undergo vascular surgical procedure tomorrow. The MRI of the feet showed no definite evidence of osteomyelitis. Blood cultures were obtained today. The patient has been afebrile however he has had low temperatures. The patient is very somnolent. I was able to get him to wake up and he answered a few simple questions including telling me that he has no pain. He quickly drifts back to sleep and occasionally grunts. When I awaken him from grunting and ask him if he is having pain, he says "no" and he indicates that he usually does this. Prior blood cultures were obtained on 03/15 and have no growth. Culture from the foot ulcer at the left great toe on 03/16 had mixed robbie including mixed gram-negative abeba with no predominant organism and Enterococcus avium and heavy growth of normal skin robbie. Chest x-ray today shows consolidation at the right base indicating possible pneumonia. The patient is not coughing. His blood pressure has been normal. He has a Ochoa cath. He has a condom catheter in place. Since the patient is a very poor historian, information is obtained from the medical record. PAST MEDICAL HISTORY: 1. Diabetes mellitus. 2. Hypertension. 3. Hyperlipidemia. 4. Diabetic neuropathy. 5. Rheumatoid arthritis. ALLERGIES: NO KNOWN DRUG ALLERGIES. MEDICATIONS: 1. Piperacillin / tazobactam. 2. Vancomycin. 3. Lovenox. 4. MiraLax. 5. Santyl ointment topical. 6. Demadex. 7. Vitamin D3. 8. Aspirin. 9. Pravachol. 10. Insulin. 11. Sudha-Colace. SOCIAL HISTORY: No tobacco, no alcohol. No illicit drugs. FAMILY HISTORY: Noncontributory. REVIEW OF SYSTEMS: Difficult to obtain because of the patient's mental status PHYSICAL EXAMINATION: GENERAL: On physical exam, this is a well-developed elderly male who is chronically ill-appearing. He is in no acute distress. He is somnolent. VITAL SIGNS: Include temperature of 98.1, blood pressure 135/92, respirations 20, heart rate 102. HEAD, EYES, EARS, NOSE, THROAT: The head is atraumatic. Extraocular movements grossly intact. No icterus. Pale sclerae. Oropharynx with no visible lesions. NECK: The neck is supple. No adenopathy. LUNGS: Decreased breath sounds throughout. HEART: Irregular rate and rhythm. There is a 1-2/6 systolic murmur at the left sternal border. ABDOMEN: Bowel sounds present, soft, no tenderness appreciated. RECTAL: Not performed. EXTREMITIES: The right third toe has an ulceration at the dorsal aspect which is draining serous drainage. The left lateral great toe has also an ulceration approximately the size of a quarter coin which has a little exudate. Both lower extremities have dry skin and have a leathery appearance. NEUROLOGIC: Difficult to assess. PSYCHIATRIC: Difficult to assess. LABS: WBCs 17.8, platelet count 166,000, hemoglobin 11.5. Creatinine 1.32, BUN 33, sodium 137. IMPRESSION: 1. Probable sepsis in a patient with features including leukocytosis and lactic acidemia along with elevated heart rate and patient being very somnolent. 2. Lower extremity ulcerations. 3. Abnormal chest x-ray indicating probable pneumonia of the right lung. 4. Peripheral vascular disease. RECOMMENDATIONS: 1. Obtain urine culture. 2. Continue piperacillin / tazobactam. 3. Continue Vancomycin. 4. Monitor blood cultures which have been obtained. 5. Monitor clinical status and continue with wound care as given by wound aged or disabled care worker. Thank you for this consultation. The patient's progress will be monitored and further recommendations will be made on followup if necessary. Glenn Triana MD FD/JUDIE /2:19 PM /2:55 PM
[2017-03-24 16:00] VITALS: BP 110/85; PULSE 104; RESP 20; TEMP 97.1; O2SAT 90
[2017-03-24] MEDS: PRAVASTATIN SOD 10 MG TAB PO SCH (19:31)
[2017-03-24 21:53] VITALS: BP 132/79; PULSE 55; RESP 20; TEMP 98.2; O2SAT 97
[2017-03-25] VITALS (9 sets, daily range): BP systolic 105–147; BP diastolic 56–90; PULSE 52–107; RESP 17–22; TEMP 96.3–98.4; O2SAT 93–96
[2017-03-25] MEDS: PIPERACILLIN/TAZ 3.375 GM VIAL 3.375 GM in SODIUM CHLORIDE 0.9% INJ 100 ML IV SCH ×4 (01:13→23:38)
[2017-03-25] MEDS ORDERED: LACTATED RINGER'S 1000 ML IV PRN (04:45)
[2017-03-25] MEDS: ENOXAPARIN SODIUM 60 MG/0.6 ML SYRINGE SQ SCH (05:03)
[2017-03-25] MEDS: ACETAMINOPHEN/HYDROcodone 325 MG/7.5 MG TAB PO PRN ×2 (05:06→22:05)
[2017-03-25 07:02] LABS: AUTOMATED NEUTROPHIL # 17.9 TH/MM3 (1.8-7.7); BASOPHIL # 0.1 TH/MM3 (0-0.2); BASOPHIL % 0.3 % (0.0-2.0); HEMATOCRIT 35.5 % (39.0-51.0); HEMO FLAGS DIFF FINAL; LYMPH % 5.5 % (9.0-44.0); LYMPHOCYTE # 1.2 TH/MM3 (1.0-4.8); MEAN CELL VOLUME 85.5 FL (80.0-100.0); MEAN CORPUSCULAR HEMOGLOBIN 28.1 PG (27.0-34.0); MEAN CORPUSCULAR HGB CONC 32.9 % (32.0-36.0); MONO % 8.2 % (0.0-8.0); PLATELET COUNT 160 TH/MM3 (150-450); RED BLOOD COUNT 4.16 MIL/MM3 (4.50-5.90); RED CELL DISTRIBUTION WIDTH 18.5 % (11.6-17.2); WHITE BLOOD COUNT 20.9 TH/MM3 (4.0-11.0)
[2017-03-25 07:04] LABS: INTERNATIONAL NORMALIZED RATIO 2.2 RATIO; PROTHROMBIN TIME - PATIENT 22.1 SEC (9.8-11.6)
[2017-03-25] MEDS: INSULIN ASPART SUPPLEMENTAL SCALE SQ SCH ×4 (08:00→22:00)
[2017-03-25] MEDS: ASPIRIN EC 325 MG TABEC PO SCH (09:00)
[2017-03-25] MEDS: SODIUM HYPOCHLORITE 0.5% 500 ML BTL EXTERNAL SCH (09:00)
[2017-03-25] MEDS: POVIDONE IODINE 10% SOLN 118 ML BOTTLE EXTERNAL SCH (09:00)
[2017-03-25] MEDS: FAMOTIDINE 20 MG TAB PO SCH ×2 (09:00→22:01)
[2017-03-25] MEDS: GABAPENTIN 300 MG CAP PO SCH ×2 (09:00→22:01)
[2017-03-25] MEDS: COLLAGENASE OINT 30 GM TUBE TOPICAL SCH (09:00)
[2017-03-25] MEDS: CHOLECALCIFEROL (VIT D3) 1000 UNIT TAB PO SCH (09:00)
[2017-03-25] MEDS: TORSEMIDE 20 MG TAB PO SCH (09:00)
[2017-03-25] MEDS: DOCUSATE SODIUM 50 MG/SENNA 8.6 MG TAB PO SCH ×2 (09:00→22:01)
[2017-03-25] MEDS ORDERED: PROTAMINE SULFATE 50 MG/5 ML VIAL ONE (09:14)
[2017-03-25] MEDS ORDERED: HEPARIN SODIUM - IV 10,000 UNITS/10 ML VIAL ONE (09:14)
[2017-03-25] MEDS ORDERED: BUPIVACAINE HCL PF 0.5% 30 ML VIAL ONE (09:15)
[2017-03-25] MEDS ORDERED: ceFAZolin 2 GM PREMIX 0 ML ONE (09:15)
[2017-03-25] MEDS ORDERED: HEPARIN-NS/PF INJ 500 ML ONE (09:15)
[2017-03-25] MEDS: SODIUM CHLORIDE 0.9% FLUSH 10 ML FLUSH IV FLUSH SCH ×2 (09:21→22:02)
[2017-03-25] MEDS ORDERED: MIDAZOLAM HCL 2 MG/2 ML VIAL ONE (10:04)
[2017-03-25] MEDS ORDERED: KETAMINE HCL 500 MG/5 ML VIAL ONE (10:05)
[2017-03-25] MEDS ORDERED: VERAPAMIL HCL 5 MG/2 ML VIAL ONE (11:10)
[2017-03-25] MEDS ORDERED: NITROGLYCERIN INJ 5 ML ONE (11:14)
[2017-03-25] MEDS ORDERED: IOHEXOL 300 INJ 50 ML IV ONE (11:33)
--- NOTE | 2017-03-25 11:59 | HHI.PR ---
Immediate Post Op Note Procedure Date: Mar 25, 2017 Pre Op Diagnosis: PAD, B LE Post Op Diagnosis: PAD, B LE Surgeon: Wong Matt Steam Generating Powerplant Mechanic(s): Juan Stuart Procedure: 1. L LE angiogram 2. L SFA orbital atherectomy with TRANSITION COACH/stent 3. R MATERIALS ENGINEER Angioseal Findings: 1. L SFA occlusion, recanalized and atherectomy/stent 2. PT and peroneal runoff Complications: none Specimen(s) removed: none Estimated blood loss: 10mL Anesthesia: MAC Drains: None Fluids: 100mL IVF Patient to: PACU Patient Condition: Good Implant/Devices: SEE IMPLANT LOG (if applicable) Date/Time of Procedure: SEE SURGICAL CARE RECORD Wong Matt MD Mar 25, 2017 11:59
[2017-03-25] MEDS ORDERED: PROPOFOL 200 MG/20 ML AMP IV ONE (12:00)
[2017-03-25] MEDS ORDERED: PHENYLEPH/NS 1000 MCG/10 ML SYR IV ONE (12:00)
[2017-03-25] MEDS ORDERED: ROCURONIUM INJ 50 MG/5 ML SYRINGE IV PUSH ONE (12:00)
[2017-03-25] MEDS ORDERED: LIDOCAINE HCL 1% PF 5 ML SYRINGE OTHER ONE (12:00)
[2017-03-25] MEDS ORDERED: ePHEDrine/NS 25 MG/5 ML SYRINGE IV ONE (12:00)
[2017-03-25] MEDS ORDERED: DO NOT ADM ANY ANTICOAGULANT DRUGS PRN (12:25)
[2017-03-25] MEDS ORDERED: *morphine SULFATE 8 MG/ML PERIprocedure ONLY ONE (12:55)
--- NOTE | 2017-03-25 13:01 | HHI.PR ---
Subjective Remarks This is a pleasant 71 y/o Male with Diabetic Foot infection, seen in his bedroom , discussed with nurse Miss Serrato, Nephrology specialist and hair specialist following, Echocardiogram performed and found EF 20%, has Acute Kidney Injury probable related to NSAIDs, as Cardiorenal syndrome, bilateral Leg edema, ordered IV furosemide by Nephrology specialist, CKD III after Renal ultrasound suggested this diagnosis, most likely due to Nephrosclerosis, probable Diabetic nephropathy. no other complaint by patient at this time. 03/19: Seen by Podiatry specialist, Right interdigital ulcers and left fist medial MPJ ulcer, recommended Hibiclens to Right foot, Betadine to interdigital spaces to right foot, Santyl to Left MPJ ulcer, No surgical intervention at this time. recommended vascular Surgery consult. on discharge Wound care center at [facility]. by doctor Jaycob. Status post Echocardiogram performed by Doctor Montes EF less than 20% Severely reduced Left ventricular systolic function, Mild to moderate mitral regurgitation, Mild to moderate aortic valve stenosis. small Pericardial effusion present. no nausea, vomit or diarrhea, seen in his bedroom in the present of friend, 03/20: Discussed on Multidisciplinary round, patient stable improving general condition, he has CKD III and Chronic systolic heart failure will need to get final recommendations by hair specialist and Nephrology also will ask for final recommendations for wound care by Podiatry specialist. 03/21: Stable in his bedroom seen in the presence of nurse Miss Nowak and his Ex- Mrs. Svetlana Elias, but complaint of right arm edema asked for ultrasound to rule out DVT, he will have Angiography and probable angioplasty next 03/25/17. 03/22: Seen in his bedroom in the presence of his Ex Mrs. Svetlana Elias, he has Increased INR with normal liver function started on heparin yesterday for DVT on Right arm, patient with Subclavian vein thrombosis, asked for revenue tax specialist consult. 03/23: Stable in his bedroom, followed by Podiatry specialist, wound care with Betadine, removed Santyl, continue with Dakin's solution to the left MPJ, Discussed about probable amputation, Hematology, vascular surgery, ID specialist and Nephrology following, high risk for worsening renal failure secondary to IV contrast for surgery 03/25/17. 03/24: Seen in his bedroom, no nausea, vomit or diarrhea, Constipation, 03-[address] MATT TO RECANULATE LEFT LOWER EXTREMITY NO NEW COMPLAINTS AT THIS TIME AM LABS DW RN AND PT AND CASE MANAGEMENT Objective Vitals Vital Signs Date Time Temp Pulse Resp B/P (MAP) Pulse Ox O2 Delivery O2 Flow Rate FiO2 03/25/17 08:00 97.6 101 22 105/65 (78) 93 03/25/17 04:36 84 112/56 (74) 03/25/17 04:14 101 03/25/17 00:00 98.4 55 22 140/72 (94) 94 03/24/17 21:53 98.2 55 20 132/79 (96) 97 03/24/17 16:00 97.1 104 20 110/85 (93) 90 I/O 03/24/17 03/24/17 03/24/17 03/25/17 03/25/17 03/25/17 07:00 15:00 23:00 07:00 15:00 23:00 Intake Total 240 ml 100 ml 1115 ml 100 ml 100 ml Output Total 450 ml 1300 ml 10 ml Balance 240 ml 100 ml 665 ml -1200 ml 90 ml Intake Oral 240 ml 500 ml IV Total 100 ml 615 ml 100 ml Other 100 ml Output Urine Total 450 ml 1300 ml Estimated Blood Loss 10 ml # Voids 3 # Bowel Movements 0 1 Result Diagram: 03/25/17 0627 03/23/17 0342 Other Results Laboratory Tests Test 03/22/17 14:48 03/23/17 03:42 03/23/17 11:10 03/23/17 14:39 Activated Partial Thromboplast Time 34.5 SEC 103.2 SEC 63.6 SEC Blood Urea Nitrogen 33 MG/DL Creatinine 1.32 MG/DL Random Glucose 160 MG/DL Albumin 2.8 GM/DL Calcium Level 8.8 MG/DL Phosphorus Level 3.5 MG/DL Sodium Level 137 MEQ/L Potassium Level 3.4 MEQ/L Chloride Level 101 MEQ/L Carbon Dioxide Level 24.2 MEQ/L Anion Gap 12 MEQ/L Estimat Glomerular Filtration Rate 65 ML/MIN Prothrombin Time 18.7 SEC Prothromb Time International Ratio 1.8 RATIO White Blood Count 15.0 TH/MM3 Red Blood Count 4.53 MIL/MM3 Hemoglobin 12.8 GM/DL Hematocrit 39.0 % Mean Corpuscular Volume 86.0 FL Mean Corpuscular Hemoglobin 28.3 PG Mean Corpuscular Hemoglobin Concent 32.9 % Red Cell Distribution Width 18.4 % Platelet Count 177 TH/MM3 Mean Platelet Volume 9.8 FL Neutrophils (%) (Auto) 82.3 % Lymphocytes (%) (Auto) 8.3 % Monocytes (%) (Auto) 9.0 % Eosinophils (%) (Auto) 0.1 % Basophils (%) (Auto) 0.3 % Neutrophils # (Auto) 12.4 TH/MM3 Lymphocytes # (Auto) 1.2 TH/MM3 Monocytes # (Auto) 1.4 TH/MM3 Eosinophils # (Auto) 0.0 TH/MM3 Basophils # (Auto) 0.0 TH/MM3 CBC Comment DIFF FINAL Differential Comment Test 03/23/17 18:12 03/24/17 03:00 03/24/17 06:54 03/24/17 09:50 Activated Partial Thromboplast Time 38.2 SEC Lactic Acid Level 3.4 mmol/L 3.7 mmol/L White Blood Count 17.8 TH/MM3 Red Blood Count 4.23 MIL/MM3 Hemoglobin 11.5 GM/DL Hematocrit 36.2 % Mean Corpuscular Volume 85.5 FL Mean Corpuscular Hemoglobin 27.3 PG Mean Corpuscular Hemoglobin Concent 31.9 % Red Cell Distribution Width 18.6 % Platelet Count 166 TH/MM3 Mean Platelet Volume 9.3 FL Prothrombin Time 19.6 SEC Prothromb Time International Ratio 1.9 RATIO Urine Color YELLOW Urine Turbidity CLEAR Urine pH 5.5 Urine Specific [place] 1.016 Urine Protein 100 mg/dL Urine Glucose (UA) NEG mg/dL Urine Ketones NEG mg/dL Urine Occult Blood NEG Urine Nitrite NEG Urine Bilirubin NEG Urine Urobilinogen LESS THAN 2.0 MG/DL Urine Leukocyte Esterase NEG Urine RBC 1 /hpf Urine WBC 1 /hpf Urine Squamous Epithelial Cells <1 /hpf Urine Hyaline Casts 30 /lpf Urine Mucus FEW /lpf Microscopic Urinalysis Comment CULT NOT INDICATED Test 03/25/17 06:27 White Blood Count 20.9 TH/MM3 Red Blood Count 4.16 MIL/MM3 Hemoglobin 11.7 GM/DL Hematocrit 35.5 % Mean Corpuscular Volume 85.5 FL Mean Corpuscular Hemoglobin 28.1 PG Mean Corpuscular Hemoglobin Concent 32.9 % Red Cell Distribution Width 18.5 % Platelet Count 160 TH/MM3 Mean Platelet Volume 9.6 FL Neutrophils (%) (Auto) 86.0 % Lymphocytes (%) (Auto) 5.5 % Monocytes (%) (Auto) 8.2 % Eosinophils (%) (Auto) 0.0 % Basophils (%) (Auto) 0.3 % Neutrophils # (Auto) 17.9 TH/MM3 Lymphocytes # (Auto) 1.2 TH/MM3 Monocytes # (Auto) 1.7 TH/MM3 Eosinophils # (Auto) 0.0 TH/MM3 Basophils # (Auto) 0.1 TH/MM3 CBC Comment DIFF FINAL Differential Comment Prothrombin Time 22.1 SEC Prothromb Time International Ratio 2.2 RATIO Imaging Last Impressions Chest X-Ray 03/24/17 0000 Signed Impressions: Service Date/Time: Friday, March 24, 2017 12:37 - CONCLUSION: Consolidation right lung base, possible pneumonia. Heart remains enlarged.. Maycol Leung MD Foot MRI 03/23/17 0800 Signed Impressions: Service Date/Time: Thursday, March 23, 2017 12:10 - CONCLUSION: 1. Suboptimal exam due to motion artifact. No definite marrow signal abnormality to suggest osteomyelitis. Soft tissue swelling and ulceration at the second toe. Lopez Montes MD Lower Extremity Ultrasound 03/23/17 0000 Signed Impressions: Service Date/Time: Thursday, March 23, 2017 11:25 - CONCLUSION: 1. No sonographic evidence for lower extremity DVT. Trace Robert MD Upper Extremity Ultrasound 03/21/17 0000 Signed Impressions: Service Date/Time: March 12:19 - CONCLUSION: 1. Nonocclusive DVT in the right subclavian vein. 2. Superficial venous thrombosis involving the cephalic vein. 3. Otherwise patent venous system. Shiva Watts MD Toe X-Ray 03/16/17 0000 Signed Impressions: Service Date/Time: Thursday, March 16, 2017 12:00 - CONCLUSION: 1. Dorsal soft tissue ulceration overlying the second PIP region without significant bony erosion to suggest osteomyelitis. Trace Robert MD Renal Ultrasound 03/16/17 0000 Signed Impressions: Service Date/Time: Thursday, March 16, 2017 16:06 - CONCLUSION: 1. There is increased echogenicity of the renal parenchyma suggestive of some degree of chronic medical renal disease. 2. No hydronephrosis. 3. 1.5 cm benign- appearing right renal cyst. 4. Questionable small calcification left kidney suggestive of a nonobstructing stone. Misbah Grey MD Foot X-Ray 03/16/17 0000 Signed Impressions: Service Date/Time: Thursday, March 16, 2017 11:52 - CONCLUSION: 1. Large ulcer overlying the medial forefoot first MTP joint region without definitive bony erosive change to suggest osteomyelitis. Trace Robert MD Objective Remarks GENERAL: Awake and alert seen post surgery --no current complaints SKIN: Warm and dry. bilateral lower extremities dressed GROINS dressed HEAD: Atraumatic. Normocephalic. EYES: Pupils equal and round. No scleral icterus. No injection or drainage. Extraocular muscles intact ENT: No nasal bleeding or discharge. Mucous membranes pink and dry. Tongue is midline NECK: Trachea midline. No JVD. Supple CARDIOVASCULAR: Regular rate and rhythm. S1 and S2 no S3-S4 no heave or thrill or rub or gallop RESPIRATORY: No accessory muscle use. Clear to auscultation. Breath sounds equal bilaterally. GASTROINTESTINAL: Abdomen soft, non-tender, nondistended. Hepatic and splenic margins not palpable. MUSCULOSKELETAL: Extremities without clubbing, cyanosis, or edema. No obvious deformities. Has bilateral lower extremity wounds dressed NEUROLOGICAL: Awake and alert. No obvious cranial nerve deficits. Motor grossly within normal limits. 4 out of 5 muscle strength in the arms and legs. Normal speech. Bilateral lower extremity swelling dressed PSYCHIATRIC: INAppropriate mood and affect; insight and judgment ABnormal. Procedures Procedure Date: Mar 25, 2017 Pre Op Diagnosis: PAD, B LE Post Op Diagnosis: PAD, B LE Surgeon: Wong Matt Multi Operation Machine Operator(s): Juan Stuart Procedure: 1. L LE angiogram 2. L SFA orbital atherectomy with DEHYDRATOR TENDER/stent 3. R YOUTH SERVICES SPECIALIST Angioseal Findings: 1. L SFA occlusion, recanalized and atherectomy/stent 2. PT and peroneal runoff Complications: none Specimen(s) removed: none Estimated blood loss: 10mL Anesthesia: MAC Drains: None Fluids: 100mL IVF Patient to: PACU Patient Condition: Good Implant/Devices: SEE IMPLANT LOG (if applicable) Date/Time of Procedure: SEE SURGICAL CARE RECORD Medications and IVs Current Medications Vancomycin HCl 1000 mg/Sodium Chloride 250 ml @ 250 mls/hr ONCE ONCE IV Last administered on 03/15/17 21:40; Start 03/15/17 at 21:15; Stop 03/15/17 at 22:14 ; Status DC Morphine Sulfate (Morphine Inj) 2 mg ONCE ONCE IV PUSH Last administered on 22:04; Start 03/15/17 at 22:00; Stop 03/15/17 at 22:01; Status DC Piperacillin Sod/ Tazobactam Sod 50 ml @ 100 mls/hr Q8H IV ; Start 03/16/17 at 00:00; Stop 03/16/17 at 00:12; Status DC Piperacillin Sod/ Tazobactam Sod 50 ml @ 100 mls/hr ONCE ONCE IV Last administered on 03/16/17 00:25; Start 03/16/17 at 00:00; Stop 03/16/17 at 00:29 ; Status DC Piperacillin Sod/ Tazobactam Sod 50 ml @ 100 mls/hr Q6H IV Last administered on 03/19/17 11:03; Start 03/16/17 at 06:00; Stop 03/19/17 at 15:13; Status DC Sodium Chloride (NS Flush) 2 ml UNSCH PRN IV FLUSH FLUSH AFTER USING IV ACCESS ; Start 03/16/17 at 00:15 Sodium Chloride (NS Flush) 2 ml BID IV FLUSH Last administered on 03/25/17 09 :21; Start 03/16/17 at 09:00 Acetaminophen (Tylenol) 650 mg Q4H PRN PO TEMP > 100.4; Start 03/16/17 at 00:15 Ondansetron HCl (Zofran Inj) 4 mg Q6H PRN IVP NAUSEA OR VOMITING; Start at 00:15 Heparin Sodium (Porcine) (Heparin Inj) 5,000 units Q8H SQ Last administered on 03/16/17 06:00; Start 03/16/17 at 06:00; Stop 03/23/17 at 14:32; Status DC Naloxone HCl (Narcan Inj) 0.4 mg UNSCH PRN IV PUSH SEE LABEL COMMENTS; Start 03/16/17 at 00:15 Senna/Docusate Sodium (Sudha-Colace) 1 tab BID PO Last administered on 19:30; Start 03/16/17 at 09:00 Magnesium Hydroxide (Milk Of Magnesia Liq) 30 ml Q12H PRN PO Mild constipation Last administered on 03/21/17 08:00; Start 03/16/17 at 00:15 Sennosides (Senokot) 17.2 mg Q12H PRN PO Moderate constipation Last administered on 03/21/17 20:12; Start 03/16/17 at 00:15 Bisacodyl (Dulcolax Supp) 10 mg DAILY PRN RECTAL SEVERE CONSITIPATION; Start 03/16/17 at 00:15 Lactulose (Lactulose Liq) 30 ml DAILY PRN PO SEVERE CONSITIPATION; Start at 00:15 Potassium Chloride (KCl) 40 meq ONCE ONCE PO Last administered on 03/16/17 02 :09; Start 03/16/17 at 01:00; Stop 03/16/17 at 01:01; Status DC Pharmacy Profile Note 0 ml @ 0 mls/hr UNSCH OTHER ; Start 03/16/17 at 08:45; Stop 03/19/17 at 15:13; Status DC Potassium Chloride (KCl) 30 meq Q12HR PO Last administered on 03/16/17 20:30; Start 03/16/17 at 09:00; Stop 03/17/17 at 08:59; Status DC Dextrose (D50w (Vial) Inj) 50 ml UNSCH PRN IV PUSH HYPOGLYCEMIA-SEE COMMENTS; Start 03/16/17 at 08:45 Glucagon (Glucagon Inj) 1 mg UNSCH PRN OTHER HYPOGLYCEMIA-SEE COMMENTS; Start 03/16/17 at 08:45 Insulin Aspart (NovoLOG SUPPLEMENTAL SCALE) 1 ACHS SLIDING SCALE SQ Last administered on 03/25/17 08:00; Start 03/16/17 at 12:00 Acetaminophen (Tylenol) 650 mg Q6H PRN PO PAIN SCALE 1 TO 2; Start 03/16/17 at 08:45 Acetaminophen/ Hydrocodone Bitart (Robeline 5-325 Mg) 1 tab Q4H PRN PO PAIN SCALE 3 TO 5 Last administered on 03/19/17 23:41; Start 03/16/17 at 08:45 Acetaminophen/ Hydrocodone Bitart (Robeline 7.5-325 Mg) 1 tab Q4H PRN PO PAIN SCALE 6 TO 10 Last administered on 03/25/17 05:06; Start 03/16/17 at 08:45 Morphine Sulfate (Morphine Inj) 1 mg Q3H PRN IV PUSH BREAKTHROUGH PAIN Last administered on 03/19/17 11:16; Start 03/16/17 at 09:30 Pravastatin Sodium (Pravachol) 10 mg HS PO Last administered on 03/24/17 19: 31; Start 03/16/17 at 21:00 Potassium Chloride/Sodium Chloride 1,000 ml @ 60 mls/hr [id number] IV Last administered on 03/17/17 05:18; Start 03/16/17 at 09:00; Stop 03/17/17 at 11: 13; Status DC Gabapentin (Neurontin) 300 mg BID PO Last administered on 03/24/17 19:31; Start 03/16/17 at 12:00 Pantoprazole Sodium (Protonix) 20 mg DAILY PO ; Start 03/17/17 at 09:00; Stop 03/17/17 at 09:00; Status DC Famotidine (Pepcid) 10 mg BID PO Last administered on 03/22/17 08:16; Start 03/16/17 at 21:00; Stop 03/22/17 at 16:04; Status DC Miscellaneous (Pill Splitter) 1 ea UNSCH PRN OTHER SEE LABEL COMMENTS Last administered on 03/17/17 08:12; Start 03/16/17 at 12:00 Sodium Chloride 1,000 ml @ 60 mls/hr [id number] IV Last administered on 04:48; Start 03/17/17 at 11:15; Stop 03/18/17 at 12:02; Status DC Aspirin (Ecotrin Ec) 325 mg DAILY PO Last administered on 03/24/17 08:37; Start 03/18/17 at 09:00 Vancomycin HCl 1500 mg/Sodium Chloride 515 ml @ 257.5 mls/ hr ONCE ONCE IV Last administered on 03/18/17 12:00; Start 03/18/17 at 12:00; Stop 03/18/17 at 13:59; Status DC Furosemide (Lasix Inj) 40 mg ONCE ONCE IV PUSH Last administered on 12:00; Start 03/18/17 at 12:00; Stop 03/18/17 at 12:05; Status DC Cholecalciferol (Vitamin D3) 2,000 units DAILY PO Last administered on 08:37; Start 03/18/17 at 12:15 Collagenase (Santyl Oint) 1 applic DAILY TOPICAL Last administered on 08:02; Start 03/19/17 at 23:45 Chlorhexidine Gluconate (Hibiclens 4% Top Soln) 120 applic ONCE ONCE TOPICAL Last administered on 03/19/17 09:00; Start 03/19/17 at 09:00; Stop 03/19/17 at 09:01; Status DC Furosemide (Lasix Inj) 40 mg ONCE ONCE IV PUSH Last administered on 11:03; Start 03/19/17 at 10:45; Stop 03/19/17 at 10:46; Status DC Vancomycin HCl 1500 mg/Sodium Chloride 515 ml @ 250 mls/hr ONCE ONCE IV Last administered on 03/19/17 12:34; Start 03/19/17 at 13:00; Stop 03/19/17 at 15 :13; Status DC Ceftriaxone Sodium 1000 mg/ Sodium Chloride 100 ml @ 200 mls/hr Q24H IV Last administered on 03/23/17 16:12; Start 03/19/17 at 16:00; Stop 03/24/17 at 12 :14; Status DC Torsemide (Demadex) 20 mg DAILY PO Last administered on 03/24/17 08:36; Start 03/20/17 at 19:15 Heparin Sodium (Porcine) (Heparin Inj) 8,000 units ONCE ONCE IV PUSH Last administered on 03/21/17 17:04; Start 03/21/17 at 15:00; Stop 03/21/17 at 15 :01; Status DC Heparin Sodium/ Dextrose 250 ml @ 18 mls/hr TITRATE PRN IV Coagulation Management Last administered on 03/22/17 08:14; Start 03/21/17 at 14:30; Stop 03/23/17 at 14:17; Status DC Polyethylene Glycol (Miralax) 17 gm DAILY PRN PO constipation; Start 03/22/17 at 16:00 Famotidine (Pepcid) 20 mg BID PO Last administered on 03/24/17 19:31; Start 03/22/17 at 21:00 Warfarin Sodium (Coumadin) 2.5 mg DAILY@16 PO Last administered on 03/23/17 16:11; Start 03/22/17 at 19:30; Status Future hold Patient Medication Teaching (Coumadin Booklet) 1 ONCE ONCE .XX Last administered on 03/22/17 22:10; Start 03/22/17 at 20:45; Stop 03/22/17 at 20 :46; Status DC Povidone Iodine (Betadine 10% Top Soln) 2 applic DAILY EXTERNAL ; Start at 13:00; Stop 03/23/17 at 15:12; Status DC Sodium Hypochlorite (Dakin'S 0.5% Soln) 5 ml DAILY EXTERNAL Last administered on 03/24/17 08:37; Start 03/23/17 at 16:00 Enoxaparin Sodium (Lovenox Inj) 60 mg Q12H SQ Last administered on 03/25/17 05:03; Start 03/23/17 at 17:00 Povidone Iodine (Betadine 10% Top Soln) 1 applic DAILY EXTERNAL Last administered on 03/24/17 08:37; Start 03/23/17 at 17:00 Vancomycin HCl 1250 mg/Sodium Chloride 262.5 ml @ 262.5 mls/ hr ONCE ONCE IV ; Start 03/24/17 at 12:15; Stop 03/24/17 at 13:14; Status UNV Pharmacy Profile Note 0 ml @ 0 mls/hr UNSCH OTHER ; Start 03/24/17 at 12:15 Piperacillin Sod/ Tazobactam Sod 3.375 gm/Sodium Chloride 100 ml @ 100 mls/hr Q6H IV Last administered on 03/25/17 09:13; Start 03/24/17 at 14:00 Lactulose (Lactulose Liq) 30 ml ONCE ONCE PO Last administered on 03/24/17 12:58; Start 03/24/17 at 12:15; Stop 03/24/17 at 12:17; Status DC Vancomycin HCl 1500 mg/Sodium Chloride 515 ml @ 257.5 mls/ hr ONCE ONCE IV ; Start 03/24/17 at 14:00; Stop 03/24/17 at 14:00; Status DC Vancomycin HCl 1500 mg/Sodium Chloride 515 ml @ 257.5 mls/ hr Q24H IV Last administered on 03/24/17t 13:15; Start 03/24/17 at 14:00 Miscellaneous Information SPECIFIC LAB TO BE ... ONCE ONCE .XX ; Start at 13:45; Stop 03/27/17 at 13:46 Lactated Ringer's 1,000 ml @ 30 mls/hr Q24H PRN IV SEE LABEL COMMENTS; Start 03/25/17 at 04:45; Stop 03/28/17 at 04:44 Protamine Sulfate (Protamine Sulfate Inj) 50 mg STK-MED ONCE .ROUTE ; Start at 09:14; Stop 03/25/17 at 09:15; Status DC Heparin Sodium (Porcine) (Heparin Inj) 10,000 units STK-MED ONCE .ROUTE ; Start 03/25/17 at 09:14; Stop 03/25/17 at 09:15; Status DC Bupivacaine HCl (Marcaine Pf 0.5% Inj) 30 ml STK-MED ONCE .ROUTE Last administered on 03/25/17 09:15; Start 03/25/17 at 09:15; Stop 03/25/17 at 09 :16; Status DC Heparin Sodium/ Sodium Chloride 500 ml @ As Directed STK-MED ONCE .ROUTE Last administered on 03/25/17 09:15; Start 03/25/17 at 09:15; Stop 03/25/17 at 09 :16; Status DC Cefazolin Sodium/ Dextrose 0 ml @ As Directed STK-MED ONCE .ROUTE ; Start 03/25 at 09:15; Stop 03/25/17 at 09:16; Status DC Midazolam HCl (Versed Inj) 2 mg STK-MED ONCE .ROUTE ; Start 03/25/17 at 10:04; Stop 03/25/17 at 10:05; Status DC Ketamine HCl (Ketalar Inj) 500 mg STK-MED ONCE .ROUTE ; Start 03/25/17 at 10:05 ; Stop 03/25/17 at 10:06; Status DC Verapamil HCl (Isoptin Inj) 5 mg STK-MED ONCE .ROUTE ; Start 03/25/17 at 11:10 ; Stop 03/25/17 at 11:11; Status DC Nitroglycerin 5 ml @ As Directed STK-MED ONCE .ROUTE ; Start 03/25/17 at 11:14 ; Stop 03/25/17 at 11:15; Status DC Iohexol 50 ml @ 0 mls/hr ONCE ONCE IV ; Start 03/25/17 at 11:33; Stop at 11:34; Status UNV Fentanyl Citrate (fentaNYL INJ) 100 mcg STK-MED ONCE .ROUTE ; Start 03/25/17 at 12:36; Stop 03/25/17 at 12:37; Status DC A/P Problem List: (1) Diabetic foot infection ICD Code: E11.69 - Type 2 diabetes mellitus with other specified complication; L08.9 - Local infection of the skin and subcutaneous tissue, unspecified (2) Diabetic foot ulcer ICD Code: E11.621 - Type 2 diabetes mellitus with foot ulcer; L97.509 - Non- pressure chronic ulcer of other part of unspecified foot with unspecified severity Assessment and Plan This is a 71-year-old male who came in because of bilateral lower extremity swelling despite change of his diuretic to Bumex. He also noted ulcers in his left foot and right second toe draining serous fluid denies fever and chills. Received antibiotics as per PCP. Diabetic foot ulcers/infection involving left first metatarsal head and right second toe with failed outpatient therapy. X-rays reviewed did not show evidence of osteomyelitis. Continue IV vancomycin and Zosyn Follow-up wound and blood cultures. Wound care following, Seen by Podiatry specialist, Right interdigital ulcers and left fist medial MPJ ulcer, recommended Hibiclens to Right foot, Betadine to interdigital spaces to right foot, Santyl to Left MPJ ulcer. Followed by Podiatry specialist, wound care with Betadine, removed Santyl, continue with Dakin's solution to the left MPJ, Discussed about probable amputation, Hematology, vascular surgery, ID specialist and Nephrology following , high risk for worsening renal failure secondary to IV contrast for surgery . PVD. Doppler pulses. Start aspirin recommended for Vascular surgery consult by Podiatry specialist. seen by Vascular health education specialist and recommended for Angiography and Angioplasty for 03/25/17 -had procedure today with vascular surgery March 25 Acute kidney injury with hypokalemia. Nephrology specialist following.probable related to NSAIDs, as Cardiorenal syndrome, bilateral Leg edema, ordered IV furosemide by Nephrology specialist, CKD III after Renal ultrasound suggested this diagnosis, most likely due to Nephrosclerosis, probable Diabetic nephropathy. improving renal function Chronic Systolic heart Failure Status post Echocardiogram performed by Doctor Montes EF less than 20% Severely reduced Left ventricular systolic function, Mild to moderate mitral regurgitation, Mild to moderate aortic valve stenosis. small Pericardial effusion present. on Diuretics. discussed with doctor Montes no further recommendations by Cardiology at this time, not recommended for Defibrillator the patient was non compliant in the past so he will need to follow as outpatient with hair specialist. Severe Non compliance found by hair specialist. Hyperlipidemia to continue Home medicines. DVT of the Right arm he has Occlusive thrombus on the right subclavian vein, After Axillary vein that continues as Subclavian vein there is high risk for Pulmonary Emboli no clear evidence of efficacy of anticoagulation with Heparin. has INR in 1.9 asked for revenue tax specialist evaluation. Hypertension controlled Rheumatoid arthritis by history. DM II hemoglobin A1C 7.3 continue SSI. DVT prophylaxis with early ambulation. Heparin drip at this time added Warfarin by revenue tax specialist. Will need chronic anticoagulation López Perkins DO Mar 25, 2017 13:01
--- NOTE | 2017-03-25 14:44 | PD.ONC.PN ---
Subjective Subjective Remarks Afebrile overnight. Patient still mildly sedated. Just back from the OR where he underwent vascular procedure with Dr. Matt. Objective Data Date Time Temp Pulse Resp B/P (MAP) Pulse Ox O2 Delivery O2 Flow Rate FiO2 03/25/17 13:30 104 18 135/72 (93) 100 Nasal Cannula 2 03/25/17 13:15 117 18 125/78 (94) 100 Nasal Cannula 2 03/25/17 13:00 109 18 130/89 (103) 100 Nasal Cannula 2 03/25/17 12:45 109 18 139/85 (103) 100 Nasal Cannula 2 03/25/17 12:30 105 18 136/70 (92) 100 Nasal Cannula 2 03/25/17 12:21 97.7 105 18 114/82 (93) 99 Nasal Cannula 2 03/25/17 08:00 97.6 101 22 105/65 (78) 93 03/25/17 04:36 84 112/56 (74) 03/25/17 04:14 101 03/25/17 00:00 98.4 55 22 140/72 (94) 94 03/24/17 21:53 98.2 55 20 132/79 (96) 97 03/24/17 16:00 97.1 104 20 110/85 (93) 90 03/25/17 03/25/17 03/25/17 07:00 15:00 23:00 Intake Total 100 ml 100 ml Output Total 1300 ml 10 ml Balance -1200 ml 90 ml Result Diagram: 03/25/17 0627 03/23/17 0342 Laboratory Results Laboratory Tests Test 03/25/17 06:27 White Blood Count 20.9 TH/MM3 Red Blood Count 4.16 MIL/MM3 Hemoglobin 11.7 GM/DL Hematocrit 35.5 % Mean Corpuscular Volume 85.5 FL Mean Corpuscular Hemoglobin 28.1 PG Mean Corpuscular Hemoglobin Concent 32.9 % Red Cell Distribution Width 18.5 % Platelet Count 160 TH/MM3 Mean Platelet Volume 9.6 FL Neutrophils (%) (Auto) 86.0 % Lymphocytes (%) (Auto) 5.5 % Monocytes (%) (Auto) 8.2 % Eosinophils (%) (Auto) 0.0 % Basophils (%) (Auto) 0.3 % Neutrophils # (Auto) 17.9 TH/MM3 Lymphocytes # (Auto) 1.2 TH/MM3 Monocytes # (Auto) 1.7 TH/MM3 Eosinophils # (Auto) 0.0 TH/MM3 Basophils # (Auto) 0.1 TH/MM3 CBC Comment DIFF FINAL Differential Comment Prothrombin Time 22.1 SEC Prothromb Time International Ratio 2.2 RATIO Culture Results Microbiology Date/Time Source Procedure Growth Status 03/24/17 16:36 Blood Peripheral Aerobic Blood Culture - Preliminary NO GROWTH IN 1 DAY Resulted 03/24/17 16:36 Blood Peripheral Anaerobic Blood Culture - Preliminary NO GROWTH IN 1 DAY Resulted 03/24/17 16:30 Blood Peripheral Aerobic Blood Culture - Preliminary NO GROWTH IN 1 DAY Resulted 03/24/17 16:30 Blood Peripheral Anaerobic Blood Culture - Preliminary NO GROWTH IN 1 DAY Resulted Imaging Studies Last Impressions Chest X-Ray 03/24/17 0000 Signed Impressions: Service Date/Time: Friday, March 24, 2017 12:37 - CONCLUSION: Consolidation right lung base, possible pneumonia. Heart remains enlarged.. Maycol Leung MD Foot MRI 03/23/17 0800 Signed Impressions: Service Date/Time: Thursday, March 23, 2017 12:10 - CONCLUSION: 1. Suboptimal exam due to motion artifact. No definite marrow signal abnormality to suggest osteomyelitis. Soft tissue swelling and ulceration at the second toe. Lopez Montes MD Lower Extremity Ultrasound 03/23/17 0000 Signed Impressions: Service Date/Time: Thursday, March 23, 2017 11:25 - CONCLUSION: 1. No sonographic evidence for lower extremity DVT. Trace Robert MD Upper Extremity Ultrasound 03/21/17 0000 Signed Impressions: Service Date/Time: March 12:19 - CONCLUSION: 1. Nonocclusive DVT in the right subclavian vein. 2. Superficial venous thrombosis involving the cephalic vein. 3. Otherwise patent venous system. Shiva Watts MD Toe X-Ray 03/16/17 0000 Signed Impressions: Service Date/Time: Thursday, March 16, 2017 12:00 - CONCLUSION: 1. Dorsal soft tissue ulceration overlying the second PIP region without significant bony erosion to suggest osteomyelitis. Trace Robert MD Renal Ultrasound 03/16/17 0000 Signed Impressions: Service Date/Time: Thursday, March 16, 2017 16:06 - CONCLUSION: 1. There is increased echogenicity of the renal parenchyma suggestive of some degree of chronic medical renal disease. 2. No hydronephrosis. 3. 1.5 cm benign- appearing right renal cyst. 4. Questionable small calcification left kidney suggestive of a nonobstructing stone. Misbah Grey MD Foot X-Ray 03/16/17 0000 Signed Impressions: Service Date/Time: Thursday, March 16, 2017 11:52 - CONCLUSION: 1. Large ulcer overlying the medial forefoot first MTP joint region without definitive bony erosive change to suggest osteomyelitis. Trace Robert MD Administered Medications Medications (Trade) Dose Ordered Sig/Iman Route PRN Reason Start Time Stop Time Status Last Admin Dose Admin Sodium Chloride (NS Flush) 2 ml BID IV FLUSH 03/16/17 09:00 03/25/17 09:21 Senna/Docusate Sodium (Sudha-Colace) 1 tab BID PO 03/16/17 09:00 03/24/17 19:30 Magnesium Hydroxide (Milk Of [place]) 30 ml Q12H PRN PO Mild constipation 03/16/17 00:15 03/21/17 08:00 Sennosides (Senokot) 17.2 mg Q12H PRN PO Moderate constipation 03/16/17 00:15 03/21/17 20:12 Insulin Aspart (NovoLOG SUPPLEMENTAL SCALE) 1 ACHS SLIDING SCALE SQ 03/16/17 12:00 03/25/17 08:00 Acetaminophen/ Hydrocodone Bitart ([place] 5-325 Mg) 1 tab Q4H PRN PO PAIN SCALE 3 TO 5 03/16/17 08:45 03/19/17 23:41 Acetaminophen/ Hydrocodone Bitart ([place] 7.5-325 Mg) 1 tab Q4H PRN PO PAIN SCALE 6 TO 10 03/16/17 08:45 03/25/17 05:06 Morphine Sulfate (Morphine Inj) 1 mg Q3H PRN IV PUSH BREAKTHROUGH PAIN 03/16/17 09:30 03/19/17 11:16 Pravastatin Sodium (Pravachol) 10 mg HS PO 03/16/17 21:00 03/24/17 19:31 Gabapentin (Neurontin) 300 mg BID PO 03/16/17 12:00 03/24/17 19:31 Miscellaneous (Pill Splitter) 1 ea UNSCH PRN OTHER SEE LABEL COMMENTS 03/16/17 12:00 03/17/17 08:12 Aspirin (Ecotrin Ec) 325 mg DAILY PO 03/18/17 09:00 03/24/17 08:37 Cholecalciferol (Vitamin D3) 2,000 units DAILY PO 03/18/17 12:15 03/24/17 08:37 Collagenase (Santyl Oint) 1 applic DAILY TOPICAL 03/19/17 23:45 03/21/17 08:02 Torsemide (Demadex) 20 mg DAILY PO 03/20/17 19:15 03/24/17 08:36 Famotidine (Pepcid) 20 mg BID PO 03/22/17 21:00 03/24/17 19:31 Warfarin Sodium (Coumadin) 2.5 mg DAILY@16 PO 03/22/17 19:30 Future hold 03/23/17 16:11 Sodium Hypochlorite (Dakin'S 0.5% Soln) 5 ml DAILY EXTERNAL 03/23/17 16:00 03/24/17 08:37 Enoxaparin Sodium (Lovenox Inj) 60 mg Q12H SQ 03/23/17 17:00 03/25/17 05:03 Povidone Iodine (Betadine 10% Top Soln) 1 applic DAILY EXTERNAL 03/23/17 17:00 03/24/17 08:37 Piperacillin Sod/ Tazobactam Sod 3.375 gm/Sodium Chloride 100 ml @ 100 mls/hr Q6H IV 03/24/17 14:00 03/25/17 09:13 Vancomycin HCl 1500 mg/Sodium Chloride 515 ml @ 257.5 mls/ hr Q24H IV 03/24/17 14:00 03/24/17 13:15 Objective Remarks GENERAL: Elderly male lying supine in bed in [facility]. SKIN: Warm and dry. HEAD: Normocephalic. EYES: No injection or drainage. NECK: Supple, trachea midline. CARDIOVASCULAR: Regular rate and rhythm RESPIRATORY: anterior jeff clear. on O2 via [place] GASTROINTESTINAL: Abdomen soft, non-tender, nondistended. EXTREMITIES: No cyanosis. bilateral feet in clean bandages. MUSCULOSKELETAL: Adequate muscle tone. NEUROLOGICAL: mildly sedated. awakens to voice commands. Assessment/Plan Problem List: (1) DVT (deep venous thrombosis) ICD Codes: I82.409 - Acute embolism and thrombosis of unspecified deep veins of unspecified lower extremity Plan: -- RUE + Nonocclusive DVT in the right subclavian vein. -- Has BLE swelling, US legs negative for DVT -- On Lovenox bridge to Coumadin --APA pending. (2) Diabetic foot infection ICD Codes: E11.69 - Type 2 diabetes mellitus with other specified complication ; L08.9 - Local infection of the skin and subcutaneous tissue, unspecified Plan: -- On Zosyn/Vanco -- Primary managing (3) PAD (peripheral artery disease) ICD Codes: I73.9 - Peripheral vascular disease, unspecified Plan: --s/p Angiography and Angioplasty for 03/25/17 --found L SFA occlusion, was recanalized and underwent atherectomy/stent Assessment 71 y/o male with multiple medical problems admitted for foot infection found to have a RUE nonocclusive thrombus Plan 1. Continue Lovenox- Coumadin bridge. 2. Monitor CBC, INR Attending Statement The exam, history, and the medical decision-making described in the above note were completed with the assistance of the mid-level provider. I reviewed and agree with the findings presented. I attest that I had a [id number] encounter with the patient on the same day, and personally performed and documented my assessment and findings in the medical record. Pt seen and examined. c/o feet pain. INR 2.2 therapeutic, OK to DC Lovenox. Continue Coumadin as secondary prophylaxis. Kelli Calvillo Mar 25, 2017 14:44 Candi Madera MD Mar 25, 2017 17:56
[2017-03-25] MEDS: VANCOMYCIN 1,500 MG/NS 500 ML IV SCH ×2 (17:13)
[2017-03-25] MEDS: MORPHINE SULFATE 2 MG/ML INJ IV PUSH PRN (18:26)
[2017-03-25] MEDS: PRAVASTATIN SOD 10 MG TAB PO SCH (22:01)
[2017-03-26] VITALS: BP 119/85; PULSE 80; RESP 20; TEMP 96; O2SAT 99
[2017-03-26] MEDS: PIPERACILLIN/TAZ 3.375 GM VIAL 3.375 GM in SODIUM CHLORIDE 0.9% INJ 100 ML IV SCH ×4 (02:13→21:02)
[2017-03-26 04:00] VITALS: BP 120/62; PULSE 69; RESP 20; TEMP 95.8; O2SAT 99
--- NOTE | 2017-03-26 06:35 | PD.VS.PN ---
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/stenting with good radiographic result Pt doing well overnight no R groin pain Objective Vitals/I&O Date Time Temp Pulse Resp B/P (MAP) Pulse Ox O2 Delivery O2 Flow Rate FiO2 03/26/17 04:00 95.8 69 20 120/62 (81) 99 03/26/17 00:00 96.0 80 20 119/85 (96) 99 03/25/17 20:00 96.3 52 17 131/83 (99) 95 03/25/17 18:02 94 Nasal Cannula 2.00 03/25/17 16:00 96.9 107 18 121/78 (92) 94 03/25/17 14:00 97.1 103 22 147/90 (109) 96 03/25/17 13:30 104 18 135/72 (93) 100 Nasal Cannula 2 03/25/17 13:15 117 18 125/78 (94) 100 Nasal Cannula 2 03/25/17 13:00 109 18 130/89 (103) 100 Nasal Cannula 2 03/25/17 12:45 109 18 139/85 (103) 100 Nasal Cannula 2 03/25/17 12:30 105 18 136/70 (92) 100 Nasal Cannula 2 03/25/17 12:21 97.7 105 18 114/82 (93) 99 Nasal Cannula 2 03/25/17 08:30 101 03/25/17 08:00 97.6 101 22 105/65 (78) 93 03/26/17 03/26/17 03/26/17 06:59 14:59 22:59 Intake Total 240 ml Balance 240 ml Physical Exam L great toe hallux dry without odor R toe wounds also dry no palpable pulses R groin soft, no hematoma Laboratory Date/Time Source Procedure Growth Status 03/24/17 16:36 Blood Peripheral Aerobic Blood Culture - Preliminary NO GROWTH IN 1 DAY Resulted 03/24/17 16:36 Blood Peripheral Anaerobic Blood Culture - Preliminary NO GROWTH IN 1 DAY Resulted 03/16/17 15:15 Fluid Other Gram Stain - Final Complete 03/16/17 15:15 Body Fluid Culture - Final Enterococcus Avium Complete Assessment and Plan Assessment: (1) Leg swelling Status: Acute (2) Ischemic ulcer of both feet Status: Acute Plan 71/M with BLE non healing ulcerations (tissue loss) and non palpable distal pulses now POD#1 s/p L LE revascularization 1. Will need R LE revasc but should allow for kidney function to recover to avoid repeated IV contrast administration. I am ok if he is d/c'ed from hospital and will arrange f/u in my clinic next week, with intervention within 1 -2 weeks. 2. Pt knows that if wounds look worse or start to have odor, he will call and come back sooner 3. Suggest rehab or at a minimum HH RN 4. Resume coumadin - INR 2.2 yesterday, no groin hematoma Will follow while in house. Wong Matt MD Mar 26, 2017 06:35
[2017-03-26 08:00] VITALS: BP 120/82; PULSE 57; RESP 18; TEMP 97.6; O2SAT 92
[2017-03-26] MEDS: INSULIN ASPART SUPPLEMENTAL SCALE SQ SCH ×4 (08:00→22:59)
[2017-03-26] MEDS: POVIDONE IODINE 10% SOLN 118 ML BOTTLE EXTERNAL SCH (09:00)
[2017-03-26] MEDS: SODIUM CHLORIDE 0.9% FLUSH 10 ML FLUSH IV FLUSH SCH ×2 (09:00→21:03)
[2017-03-26 09:08] LABS: AUTOMATED NEUTROPHIL # 16.8 TH/MM3 (1.8-7.7); BASOPHIL # 0.2 TH/MM3 (0-0.2); BASOPHIL % 0.9 % (0.0-2.0); EOSINOPHIL % 0.2 % (0.0-4.0); HEMATOCRIT 36.6 % (39.0-51.0); LYMPH % 5.5 % (9.0-44.0); LYMPHOCYTE # 1.1 TH/MM3 (1.0-4.8); MEAN CELL VOLUME 86.1 FL (80.0-100.0); MEAN CORPUSCULAR HEMOGLOBIN 28.4 PG (27.0-34.0); MEAN CORPUSCULAR HGB CONC 32.9 % (32.0-36.0); MONO % 8.3 % (0.0-8.0); NEUT % 85.1 % (16.0-70.0); PLATELET COUNT 156 TH/MM3 (150-450); RED BLOOD COUNT 4.25 MIL/MM3 (4.50-5.90); RED CELL DISTRIBUTION WIDTH 18.6 % (11.6-17.2); WHITE BLOOD COUNT 19.7 TH/MM3 (4.0-11.0)
[2017-03-26 09:09] LABS: PROTHROMBIN TIME - PATIENT 22.5 SEC (9.8-11.6)
[2017-03-26 09:12] LABS: INTERNATIONAL NORMALIZED RATIO 2.2 RATIO
[2017-03-26] MEDS: TORSEMIDE 20 MG TAB PO SCH (09:14)
[2017-03-26] MEDS: DOCUSATE SODIUM 50 MG/SENNA 8.6 MG TAB PO SCH ×2 (09:14→21:02)
[2017-03-26] MEDS: ASPIRIN EC 325 MG TABEC PO SCH (09:14)
[2017-03-26] MEDS: FAMOTIDINE 20 MG TAB PO SCH ×2 (09:14→21:02)
[2017-03-26] MEDS: GABAPENTIN 300 MG CAP PO SCH ×2 (09:14→21:02)
[2017-03-26] MEDS: CHOLECALCIFEROL (VIT D3) 1000 UNIT TAB PO SCH (09:14)
[2017-03-26] MEDS: COLLAGENASE OINT 30 GM TUBE TOPICAL SCH (09:20)
[2017-03-26] MEDS: SODIUM HYPOCHLORITE 0.5% 500 ML BTL EXTERNAL SCH (09:20)
[2017-03-26 09:27] LABS: HEMO FLAGS AUTO DIFF
[2017-03-26 09:29] LABS: ANION GAP 14 MEQ/L (5-15); AST (GOT) 216 U/L (15-37); BLOOD UREA NITROGEN 60 MG/DL (7-18); CHLORIDE 105 MEQ/L (98-107); GLOMERULAR FILTRATION RATE 51 ML/MIN (>89); MAGNESIUM 2.8 MG/DL (1.5-2.5); POTASSIUM 3.8 MEQ/L (3.5-5.1); SODIUM (NA) 141 MEQ/L (136-145)
[2017-03-26 09:37] LABS: ALKALINE PHOSPHATASE 73 U/L (45-117); ALT (GPT) 196 U/L (12-78); FREE T4 1.12 NG/DL (0.76-1.46); TOTAL BILIRUBIN ADULT 3.8 MG/DL (0.2-1.0)
[2017-03-26 10:10] LABS: ACANTHOCYTES 1+ (NORMAL); BURR CELLS 1+ (NORMAL); KERATOCYTES OCC (NORMAL); SCAN/DIFF AUTO DIFF CONFIRMED
--- NOTE | 2017-03-26 11:29 | PD.ONC.PN ---
Subjective Subjective Remarks Afebrile overnight. Patient resting in room with brother and ex- at bedside. No complaints. Denies bleeding. Objective Data Date Time Temp Pulse Resp B/P (MAP) Pulse Ox O2 Delivery O2 Flow Rate FiO2 03/26/17 08:00 97.6 57 18 120/82 (95) 92 03/26/17 04:00 95.8 69 20 120/62 (81) 99 03/26/17 00:00 96.0 80 20 119/85 (96) 99 03/25/17 20:00 96.3 52 17 131/83 (99) 95 03/25/17 18:02 94 Nasal Cannula 2.00 03/25/17 16:00 96.9 107 18 121/78 (92) 94 03/25/17 14:00 97.1 103 22 147/90 (109) 96 03/25/17 13:30 104 18 135/72 (93) 100 Nasal Cannula 2 03/25/17 13:15 117 18 125/78 (94) 100 Nasal Cannula 2 03/25/17 13:00 109 18 130/89 (103) 100 Nasal Cannula 2 03/25/17 12:45 109 18 139/85 (103) 100 Nasal Cannula 2 03/25/17 12:30 105 18 136/70 (92) 100 Nasal Cannula 2 03/25/17 12:21 97.7 105 18 114/82 (93) 99 Nasal Cannula 2 03/26/17 03/26/17 03/26/17 07:00 15:00 23:00 Intake Total 240 ml Balance 240 ml Result Diagram: 03/26/1782903/26/17 0830 Laboratory Results Laboratory Tests Test 03/26/17 08:30 White Blood Count 19.7 TH/MM3 Red Blood Count 4.25 MIL/MM3 Hemoglobin 12.0 GM/DL Hematocrit 36.6 % Mean Corpuscular Volume 86.1 FL Mean Corpuscular Hemoglobin 28.4 PG Mean Corpuscular Hemoglobin Concent 32.9 % Red Cell Distribution Width 18.6 % Platelet Count 156 TH/MM3 Mean Platelet Volume 9.9 FL Neutrophils (%) (Auto) 85.1 % Lymphocytes (%) (Auto) 5.5 % Monocytes (%) (Auto) 8.3 % Eosinophils (%) (Auto) 0.2 % Basophils (%) (Auto) 0.9 % Neutrophils # (Auto) 16.8 TH/MM3 Lymphocytes # (Auto) 1.1 TH/MM3 Monocytes # (Auto) 1.6 TH/MM3 Eosinophils # (Auto) 0.0 TH/MM3 Basophils # (Auto) 0.2 TH/MM3 CBC Comment AUTO DIFF Differential Comment AUTO DIFF CONFIRMED Susan Cells 1+ Acanthocytes 1+ Keratocytes OCC Prothrombin Time 22.5 SEC Prothromb Time International Ratio 2.2 RATIO Blood Urea Nitrogen 60 MG/DL Creatinine 1.64 MG/DL Random Glucose 141 MG/DL Total Protein 8.0 GM/DL Albumin 2.5 GM/DL Calcium Level 8.9 MG/DL Phosphorus Level 3.2 MG/DL Magnesium Level 2.8 MG/DL Alkaline Phosphatase 73 U/L Aspartate Amino Transf (AST/SGOT) 216 U/L Alanine Aminotransferase (ALT/SGPT) 196 U/L Total Bilirubin 3.8 MG/DL Sodium Level 141 MEQ/L Potassium Level 3.8 MEQ/L Chloride Level 105 MEQ/L Carbon Dioxide Level 22.0 MEQ/L Anion Gap 14 MEQ/L Estimat Glomerular Filtration Rate 51 ML/MIN Free Thyroxine 1.12 NG/DL Thyroid Stimulating Hormone 3rd Gen 4.430 uIU/ML Culture Results Microbiology Date/Time Source Procedure Growth Status 03/24/17 16:36 Blood Peripheral Aerobic Blood Culture - Preliminary NO GROWTH IN 2 DAYS Resulted 03/24/17 16:36 Blood Peripheral Anaerobic Blood Culture - Preliminary NO GROWTH IN 2 DAYS Resulted 03/24/17 16:30 Blood Peripheral Aerobic Blood Culture - Preliminary NO GROWTH IN 2 DAYS Resulted 03/24/17 16:30 Blood Peripheral Anaerobic Blood Culture - Preliminary NO GROWTH IN 2 DAYS Resulted Administered Medications Medications (Trade) Dose Ordered Sig/Iman Route PRN Reason Start Time Stop Time Status Last Admin Dose Admin Sodium Chloride (NS Flush) 2 ml BID IV FLUSH 03/16/17 09:00 03/25/17 22:02 Senna/Docusate Sodium (Sudha-Colace) 1 tab BID PO 03/16/17 09:00 03/26/17 09:14 Magnesium Hydroxide (Milk Of [place]q) 30 ml Q12H PRN PO Mild constipation 03/16/17 00:15 03/21/17 08:00 Sennosides (Senokot) 17.2 mg Q12H PRN PO Moderate constipation 03/16/17 00:15 03/21/17 20:12 Insulin Aspart (NovoLOG SUPPLEMENTAL SCALE) 1 ACHS SLIDING SCALE SQ 03/16/17 12:00 03/25/17 22:00 Acetaminophen/ Hydrocodone Bitart ([place] 5-325 Mg) 1 tab Q4H PRN PO PAIN SCALE 3 TO 5 03/16/17 08:45 03/19/17 23:41 Acetaminophen/ Hydrocodone Bitart ([place] 7.5-325 Mg) 1 tab Q4H PRN PO PAIN SCALE 6 TO 10 03/16/17 08:45 03/25/17 22:05 Morphine Sulfate (Morphine Inj) 1 mg Q3H PRN IV PUSH BREAKTHROUGH PAIN 03/16/17 09:30 03/25/17 18:26 Pravastatin Sodium (Pravachol) 10 mg HS PO 03/16/17 21:00 03/25/17 22:01 Gabapentin (Neurontin) 300 mg BID PO 03/16/17 12:00 03/26/17 09:14 Miscellaneous (Pill Splitter) 1 ea UNSCH PRN OTHER SEE LABEL COMMENTS 03/16/17 12:00 03/17/17 08:12 Aspirin (Ecotrin Ec) 325 mg DAILY PO 03/18/17 09:00 03/26/17 09:14 Cholecalciferol (Vitamin D3) 2,000 units DAILY PO 03/18/17 12:15 03/26/17 09:14 Collagenase (Santyl Oint) 1 applic DAILY TOPICAL 03/19/17 23:45 03/26/17 09:20 Torsemide (Demadex) 20 mg DAILY PO 03/20/17 19:15 03/26/17 09:14 Famotidine (Pepcid) 20 mg BID PO 03/22/17 21:00 03/26/17 09:14 Warfarin Sodium (Coumadin) 2.5 mg DAILY@16 PO 03/22/17 19:30 Future hold 03/23/17 16:11 Sodium Hypochlorite ([place] 0.5% Soln) 5 ml DAILY EXTERNAL 03/23/17 16:00 03/26/17 09:20 Povidone Iodine (Betadine 10% Top Soln) 1 applic DAILY EXTERNAL 03/23/17 17:00 03/24/17 08:37 Piperacillin Sod/ Tazobactam Sod 3.375 gm/Sodium Chloride 100 ml @ 100 mls/hr Q6H IV 03/24/17 14:00 03/26/17 02:13 Vancomycin HCl 1500 mg/Sodium Chloride 515 ml @ 257.5 mls/ hr Q24H IV 03/24/17 14:00 03/25/17 17:13 Objective Remarks GENERAL: Elderly male sitting up in bed in [place]. SKIN: Warm and dry. HEAD: Normocephalic. EYES: No injection or drainage. NECK: Supple, trachea midline. CARDIOVASCULAR: +S1/S2 RESPIRATORY: anterior jeff clear. on 2L O2 via [place] GASTROINTESTINAL: Abdomen soft, non-tender, nondistended. EXTREMITIES: No cyanosis. bandages on bilateral feet are c/d/i. NEUROLOGICAL: awake and alert, normal speech. Assessment/Plan Problem List: (1) DVT (deep venous thrombosis) ICD Codes: I82.409 - Acute embolism and thrombosis of unspecified deep veins of unspecified lower extremity Plan: -- RUE + Nonocclusive DVT in the right subclavian vein. -- Has BLE swelling, US legs negative for DVT -- THERAPEUTIC on coumadin --APA pending. (2) Diabetic foot infection ICD Codes: E11.69 - Type 2 diabetes mellitus with other specified complication ; L08.9 - Local infection of the skin and subcutaneous tissue, unspecified Plan: -- On Zosyn/Vanco -- Primary managing (3) PAD (peripheral artery disease) ICD Codes: I73.9 - Peripheral vascular disease, unspecified Plan: --s/p Angiography and Angioplasty for 03/25/17 --found L SFA occlusion, was recanalized and underwent atherectomy/stent Assessment 71 y/o male with multiple medical problems admitted for foot infection found to have a RUE nonocclusive thrombus Plan 1. INR therapeutic. continue coumadin 2. hematology will sign off. Please call or reconsult if needed. Attending Statement The exam, history, and the medical decision-making described in the above note were completed with the assistance of the mid-level provider. I reviewed and agree with the findings presented. I attest that I had a [id number] encounter with the patient on the same day, and personally performed and documented my assessment and findings in the medical record. Denies any problem. Foot dressing with betadine. No bleeding. INR therapeutic. Noted multiple medical problems. Defer to primary team and pharmacy continue management chronic anticoagulation. Will sign off. Kelli Calvillo Mar 26, 2017 11:29 Candi Madera MD Mar 26, 2017 20:51
[2017-03-26 12:00] VITALS: BP 105/72; PULSE 95; RESP 18; TEMP 97.3; O2SAT 96
--- NOTE | 2017-03-26 12:08 | HHI.IDPN ---
Note Infectious Disease Note Patient is very somnolent. Awakens but sleepy. Afebrile. RN reports poor PO intake. Patient's exwife says he wears denture which he does no have here and that could affect his eating. Post left revascularization procedure of the LLE. The patient presented to the emergency department at that time with toe infection of the left great toe and right middle toe. He reportedly was failing outpatient therapy. It is not clear what antibiotic treatment was given. The patient has been in the hospital and was seen by podiatry. He also had renal failure and was seen by nephrology. The reason why this consult was called is that the patient had elevated heart rate and his white blood cell count increased from 10,000 to 15,000 yesterday and the lactic acid was obtained and the lactic acid level was elevated. He was put on vancomycin after having been on ceftriaxone previously. The MRI of the feet showed no definite evidence of osteomyelitis. Blood cultures were obtained today. The patient has been afebrile however he has had low temperatures. PAST MEDICAL HISTORY: 1. Diabetes mellitus. 2. Hypertension. 3. Hyperlipidemia. 4. Diabetic neuropathy. 5. Rheumatoid arthritis. ALLERGIES: NO KNOWN DRUG ALLERGIES. MEDICATIONS: 1. Piperacillin / tazobactam. 2. Vancomycin. REVIEW OF SYSTEMS: Difficult to obtain because of the patient's mental status OBJECTIVE: Vital Signs Date Time Temp Pulse Resp B/P (MAP) Pulse Ox O2 Delivery O2 Flow Rate FiO2 03/26/17 08:00 97.6 57 18 120/82 (95) 92 03/26/17 04:00 95.8 69 20 120/62 (81) 99 03/26/17 00:00 96.0 80 20 119/85 (96) 99 03/25/17 20:00 96.3 52 17 131/83 (99) 95 03/25/17 18:02 94 Nasal Cannula 2.00 03/25/17 16:00 96.9 107 18 121/78 (92) 94 03/25/17 14:00 97.1 103 22 147/90 (109) 96 03/25/17 13:30 104 18 135/72 (93) 100 Nasal Cannula 2 03/25/17 13:15 117 18 125/78 (94) 100 Nasal Cannula 2 03/25/17 13:00 109 18 130/89 (103) 100 Nasal Cannula 2 03/25/17 12:45 109 18 139/85 (103) 100 Nasal Cannula 2 03/25/17 12:30 105 18 136/70 (92) 100 Nasal Cannula 2 03/25/17 12:21 97.7 105 18 114/82 (93) 99 Nasal Cannula 2 Laboratory Tests Test 03/26/17 08:30 White Blood Count 19.7 TH/MM3 Red Blood Count 4.25 MIL/MM3 Hemoglobin 12.0 GM/DL Hematocrit 36.6 % Mean Corpuscular Volume 86.1 FL Mean Corpuscular Hemoglobin 28.4 PG Mean Corpuscular Hemoglobin Concent 32.9 % Red Cell Distribution Width 18.6 % Platelet Count 156 TH/MM3 Mean Platelet Volume 9.9 FL Neutrophils (%) (Auto) 85.1 % Lymphocytes (%) (Auto) 5.5 % Monocytes (%) (Auto) 8.3 % Eosinophils (%) (Auto) 0.2 % Basophils (%) (Auto) 0.9 % Neutrophils # (Auto) 16.8 TH/MM3 Lymphocytes # (Auto) 1.1 TH/MM3 Monocytes # (Auto) 1.6 TH/MM3 Eosinophils # (Auto) 0.0 TH/MM3 Basophils # (Auto) 0.2 TH/MM3 CBC Comment AUTO DIFF Differential Comment AUTO DIFF CONFIRMED Susan Cells 1+ Acanthocytes 1+ Keratocytes OCC Prothrombin Time 22.5 SEC Prothromb Time International Ratio 2.2 RATIO Blood Urea Nitrogen 60 MG/DL Creatinine 1.64 MG/DL Random Glucose 141 MG/DL Total Protein 8.0 GM/DL Albumin 2.5 GM/DL Calcium Level 8.9 MG/DL Phosphorus Level 3.2 MG/DL Magnesium Level 2.8 MG/DL Alkaline Phosphatase 73 U/L Aspartate Amino Transf (AST/SGOT) 216 U/L Alanine Aminotransferase (ALT/SGPT) 196 U/L Total Bilirubin 3.8 MG/DL Sodium Level 141 MEQ/L Potassium Level 3.8 MEQ/L Chloride Level 105 MEQ/L Carbon Dioxide Level 22.0 MEQ/L Anion Gap 14 MEQ/L Estimat Glomerular Filtration Rate 51 ML/MIN Free Thyroxine 1.12 NG/DL Thyroid Stimulating Hormone 3rd Gen 4.430 uIU/ML IMAGING: Chest X-Ray 03/24/17 0000 Signed Impressions: Service Date/Time: Friday, March 24, 2017 12:37 - CONCLUSION: Consolidation right lung base, possible pneumonia. Heart remains enlarged.. Maycol Leung MD Foot MRI 03/23/17 0800 Signed Impressions: Service Date/Time: Thursday, March 23, 2017 12:10 - CONCLUSION: 1. Suboptimal exam due to motion artifact. No definite marrow signal abnormality to suggest osteomyelitis. Soft tissue swelling and ulceration at the second toe. Lopez Montes MD Lower Extremity Ultrasound 03/23/17 0000 Signed Impressions: Service Date/Time: Thursday, March 23, 2017 11:25 - CONCLUSION: 1. No sonographic evidence for lower extremity DVT. Trace Robert MD Upper Extremity Ultrasound 03/21/17 0000 Signed Impressions: Service Date/Time: March 12:19 - CONCLUSION: 1. Nonocclusive DVT in the right subclavian vein. 2. Superficial venous thrombosis involving the cephalic vein. 3. Otherwise patent venous system. Shiva Watts MD Toe X-Ray 03/16/17 0000 Signed Impressions: Service Date/Time: Thursday, March 16, 2017 12:00 - CONCLUSION: 1. Dorsal soft tissue ulceration overlying the second PIP region without significant bony erosion to suggest osteomyelitis. Trace Robert MD Renal Ultrasound 03/16/17 0000 Signed Impressions: Service Date/Time: Thursday, March 16, 2017 16:06 - CONCLUSION: 1. There is increased echogenicity of the renal parenchyma suggestive of some degree of chronic medical renal disease. 2. No hydronephrosis. 3. 1.5 cm benign- appearing right renal cyst. 4. Questionable small calcification left kidney suggestive of a nonobstructing stone. Misbah Grey MD Foot X-Ray 03/16/17 0000 Signed Impressions: Service Date/Time: Thursday, March 16, 2017 11:52 - CONCLUSION: 1. Large ulcer overlying the medial forefoot first MTP joint region without definitive bony erosive change to suggest osteomyelitis. Trace Robert MD PHYSICAL EXAMINATION: GENERAL: Very somnolent. HEAD, EYES, EARS, NOSE, THROAT: The head is atraumatic. Extraocular movements grossly intact. No icterus. Pale sclerae. Oropharynx with no visible lesions. NECK: The neck is supple. No adenopathy. LUNGS: Decreased breath sounds bilateral. HEART: Irregular rate and rhythm. There is a 1-2/6 systolic murmur at the left sternal border. ABDOMEN: Bowel sounds present, soft, no tenderness appreciated. EXTREMITIES: The right third toe has an ulceration at the dorsal aspect which is draining serous drainage. The left lateral great toe has also an ulceration approximately the size of a quarter coin which has a little exudate. Both lower extremities have dry skin and have a leathery appearance. NEUROLOGIC: Difficult to assess. PSYCHIATRIC: Difficult to assess. IMPRESSION: 1. Sepsis in a patient with features including leukocytosis and lactic acidemia along with elevated heart rate and patient being very somnolent. 2. Lower extremity ulcerations. 3. Pneumonia of the right lung. 4. Peripheral vascular disease. 5. Leukocytosis secondary to infection. 6. Altered mentation due to infection. RECOMMENDATIONS: 1. Continue piperacillin / tazobactam for pneumonia. 2. Continue Vancomycin for the toe wounds. 3. Reculture the toe wounds. 4. Repeat CXR. 5. Follow WBC. 5. Monitor blood cultures which have been obtained. 6. Patient is not safe for discharge and is still appears septic. D/W Dr. Perkins. Notified about denture problem. Chai Triana MD Mar 26, 2017 12:08
[2017-03-26] MEDS ORDERED: PHARMACY ORDERED LAB ONE (13:45)
--- NOTE | 2017-03-26 15:10 | HHI.PR ---
Subjective Remarks This is a pleasant 71 y/o Male with Diabetic Foot infection, seen in his bedroom , discussed with nurse Miss Serrato, Nephrology specialist and fundraising specialist following, Echocardiogram performed and found EF 20%, has Acute Kidney Injury probable related to NSAIDs, as Cardiorenal syndrome, bilateral Leg edema, ordered IV furosemide by Nephrology specialist, CKD III after Renal ultrasound suggested this diagnosis, most likely due to Nephrosclerosis, probable Diabetic nephropathy. no other complaint by patient at this time. 03/19: Seen by Podiatry specialist, Right interdigital ulcers and left fist medial MPJ ulcer, recommended Hibiclens to Right foot, Betadine to interdigital spaces to right foot, Santyl to Left MPJ ulcer, No surgical intervention at this time. recommended vascular Surgery consult. on discharge Wound care center at [facility]. by doctor Jaycob. Status post Echocardiogram performed by Doctor Montes EF less than 20% Severely reduced Left ventricular systolic function, Mild to moderate mitral regurgitation, Mild to moderate aortic valve stenosis. small Pericardial effusion present. no nausea, vomit or diarrhea, seen in his bedroom in the present of friend, 03/20: Discussed on Multidisciplinary round, patient stable improving general condition, he has CKD III and Chronic systolic heart failure will need to get final recommendations by fundraising specialist and Nephrology also will ask for final recommendations for wound care by Podiatry specialist. 03/21: Stable in his bedroom seen in the presence of nurse Miss Nowak and his Ex- Mrs. Svetlana Elias, but complaint of right arm edema asked for ultrasound to rule out DVT, he will have Angiography and probable angioplasty next 03/25/17. 03/22: Seen in his bedroom in the presence of his Ex Mrs. Svetlana Elias, he has Increased INR with normal liver function started on heparin yesterday for DVT on Right arm, patient with Subclavian vein thrombosis, asked for park interpretive specialist consult. 03/23: Stable in his bedroom, followed by Podiatry specialist, wound care with Betadine, removed Santyl, continue with Dakin's solution to the left MPJ, Discussed about probable amputation, Hematology, vascular surgery, ID specialist and Nephrology following, high risk for worsening renal failure secondary to IV contrast for surgery 03/25/17. 03/24: Seen in his bedroom, no nausea, vomit or diarrhea, Constipation, 03-[address] MATT TO RECANULATE LEFT LOWER EXTREMITY NO NEW COMPLAINTS AT THIS TIME AM LABS DW RN AND PT AND CASE MANAGEMENT 03-26 PATIENT HAS NO APPETITE WILL ADD MEGACE DAILY DW ID- NOT CLEARED FOR DC YET DW CM AND RN AND PT CONTINUE COUMADIN Objective Vitals Vital Signs Date Time Temp Pulse Resp B/P (MAP) Pulse Ox O2 Delivery O2 Flow Rate FiO2 03/26/17 12:00 97.3 95 18 105/72 (83) 96 03/26/17 08:00 97.6 57 18 120/82 (95) 92 03/26/17 04:00 95.8 69 20 120/62 (81) 99 03/26/17 00:00 96.0 80 20 119/85 (96) 99 03/25/17 20:00 96.3 52 17 131/83 (99) 95 03/25/17 18:02 94 Nasal Cannula 2.00 03/25/17 16:00 96.9 107 18 121/78 (92) 94 I/O 03/25/17 03/25/17 03/25/17 03/26/17 03/26/17 03/26/17 07:00 15:00 23:00 07:00 15:00 23:00 Intake Total 100 ml 100 ml 855 ml 240 ml Output Total 1300 ml 10 ml Balance -1200 ml 90 ml 855 ml 240 ml Intake Oral 240 ml 240 ml IV Total 100 ml 615 ml Other 100 ml Output Urine Total 1300 ml Estimated Blood Loss 10 ml # Voids 1 1 # Bowel Movements 1 Result Diagram: 03/26/17 0830 03/26/17 0830 Other Results Laboratory Tests Test 03/23/17 18:12 03/24/17 03:00 03/24/17 06:54 03/24/17 09:50 Activated Partial Thromboplast Time 38.2 SEC Lactic Acid Level 3.4 mmol/L 3.7 mmol/L White Blood Count 17.8 TH/MM3 Red Blood Count 4.23 MIL/MM3 Hemoglobin 11.5 GM/DL Hematocrit 36.2 % Mean Corpuscular Volume 85.5 FL Mean Corpuscular Hemoglobin 27.3 PG Mean Corpuscular Hemoglobin Concent 31.9 % Red Cell Distribution Width 18.6 % Platelet Count 166 TH/MM3 Mean Platelet Volume 9.3 FL Prothrombin Time 19.6 SEC Prothromb Time International Ratio 1.9 RATIO Urine Color YELLOW Urine Turbidity CLEAR Urine pH 5.5 Urine Specific [place] 1.016 Urine Protein 100 mg/dL Urine Glucose (UA) NEG mg/dL Urine Ketones NEG mg/dL Urine Occult Blood NEG Urine Nitrite NEG Urine Bilirubin NEG Urine Urobilinogen LESS THAN 2.0 MG/DL Urine Leukocyte Esterase NEG Urine RBC 1 /hpf Urine WBC 1 /hpf Urine Squamous Epithelial Cells <1 /hpf Urine Hyaline Casts 30 /lpf Urine Mucus FEW /lpf Microscopic Urinalysis Comment CULT NOT INDICATED Test 03/25/17 06:27 03/26/17 08:30 White Blood Count 20.9 TH/MM3 19.7 TH/MM3 Red Blood Count 4.16 MIL/MM3 4.25 MIL/MM3 Hemoglobin 11.7 GM/DL 12.0 GM/DL Hematocrit 35.5 % 36.6 % Mean Corpuscular Volume 85.5 FL 86.1 FL Mean Corpuscular Hemoglobin 28.1 PG 28.4 PG Mean Corpuscular Hemoglobin Concent 32.9 % 32.9 % Red Cell Distribution Width 18.5 % 18.6 % Platelet Count 160 TH/MM3 156 TH/MM3 Mean Platelet Volume 9.6 FL 9.9 FL Neutrophils (%) (Auto) 86.0 % 85.1 % Lymphocytes (%) (Auto) 5.5 % 5.5 % Monocytes (%) (Auto) 8.2 % 8.3 % Eosinophils (%) (Auto) 0.0 % 0.2 % Basophils (%) (Auto) 0.3 % 0.9 % Neutrophils # (Auto) 17.9 TH/MM3 16.8 TH/MM3 Lymphocytes # (Auto) 1.2 TH/MM3 1.1 TH/MM3 Monocytes # (Auto) 1.7 TH/MM3 1.6 TH/MM3 Eosinophils # (Auto) 0.0 TH/MM3 0.0 TH/MM3 Basophils # (Auto) 0.1 TH/MM3 0.2 TH/MM3 CBC Comment DIFF FINAL AUTO DIFF Differential Comment AUTO DIFF CONFIRMED Prothrombin Time 22.1 SEC 22.5 SEC Prothromb Time International Ratio 2.2 RATIO 2.2 RATIO [place] Cells 1+ Acanthocytes 1+ Keratocytes OCC Blood Urea Nitrogen 60 MG/DL Creatinine 1.64 MG/DL Random Glucose 141 MG/DL Total Protein 8.0 GM/DL Albumin 2.5 GM/DL Calcium Level 8.9 MG/DL Phosphorus Level 3.2 MG/DL Magnesium Level 2.8 MG/DL Alkaline Phosphatase 73 U/L Aspartate Amino Transf (AST/SGOT) 216 U/L Alanine Aminotransferase (ALT/SGPT) 196 U/L Total Bilirubin 3.8 MG/DL Sodium Level 141 MEQ/L Potassium Level 3.8 MEQ/L Chloride Level 105 MEQ/L Carbon Dioxide Level 22.0 MEQ/L Anion Gap 14 MEQ/L Estimat Glomerular Filtration Rate 51 ML/MIN Free Thyroxine 1.12 NG/DL Thyroid Stimulating Hormone 3rd Gen 4.430 uIU/ML Imaging Last Impressions Chest X-Ray 03/24/17 0000 Signed Impressions: Service Date/Time: Friday, March 24, 2017 12:37 - CONCLUSION: Consolidation right lung base, possible pneumonia. Heart remains enlarged.. Maycol Leung MD Foot MRI 03/23/17 0800 Signed Impressions: Service Date/Time: Thursday, March 23, 2017 12:10 - CONCLUSION: 1. Suboptimal exam due to motion artifact. No definite marrow signal abnormality to suggest osteomyelitis. Soft tissue swelling and ulceration at the second toe. Lopez Montes MD Lower Extremity Ultrasound 03/23/17 0000 Signed Impressions: Service Date/Time: Thursday, March 23, 2017 11:25 - CONCLUSION: 1. No sonographic evidence for lower extremity DVT. Trace Robert MD Upper Extremity Ultrasound 03/21/17 0000 Signed Impressions: Service Date/Time: March 12:19 - CONCLUSION: 1. Nonocclusive DVT in the right subclavian vein. 2. Superficial venous thrombosis involving the cephalic vein. 3. Otherwise patent venous system. Shiva Watts MD Toe X-Ray 03/16/17 0000 Signed Impressions: Service Date/Time: Thursday, March 16, 2017 12:00 - CONCLUSION: 1. Dorsal soft tissue ulceration overlying the second PIP region without significant bony erosion to suggest osteomyelitis. Trace Robert MD Renal Ultrasound 03/16/17 0000 Signed Impressions: Service Date/Time: Thursday, March 16, 2017 16:06 - CONCLUSION: 1. There is increased echogenicity of the renal parenchyma suggestive of some degree of chronic medical renal disease. 2. No hydronephrosis. 3. 1.5 cm benign- appearing right renal cyst. 4. Questionable small calcification left kidney suggestive of a nonobstructing stone. Misbah Grey MD Foot X-Ray 03/16/17 0000 Signed Impressions: Service Date/Time: Thursday, March 16, 2017 11:52 - CONCLUSION: 1. Large ulcer overlying the medial forefoot first MTP joint region without definitive bony erosive change to suggest osteomyelitis. Trace Robert MD Objective Remarks GENERAL: Awake and alert seen post surgery --no current complaints SKIN: Warm and dry. bilateral lower extremities dressed GROINS dressed HEAD: Atraumatic. Normocephalic. EYES: Pupils equal and round. No scleral icterus. No injection or drainage. Extraocular muscles intact ENT: No nasal bleeding or discharge. Mucous membranes pink and dry. Tongue is midline NECK: Trachea midline. No JVD. Supple CARDIOVASCULAR: Regular rate and rhythm. S1 and S2 no S3-S4 no heave or thrill or rub or gallop RESPIRATORY: No accessory muscle use. Clear to auscultation. Breath sounds equal bilaterally. GASTROINTESTINAL: Abdomen soft, non-tender, nondistended. Hepatic and splenic margins not palpable. MUSCULOSKELETAL: Extremities without clubbing, cyanosis, or edema. No obvious deformities. Has bilateral lower extremity wounds dressed NEUROLOGICAL: Awake and alert. No obvious cranial nerve deficits. Motor grossly within normal limits. 4 out of 5 muscle strength in the arms and legs. Normal speech. Bilateral lower extremity swelling dressed PSYCHIATRIC: INAppropriate mood and affect; insight and judgment ABnormal. Procedures Procedure Date: Mar 25, 2017 Pre Op Diagnosis: PAD, B LE Post Op Diagnosis: PAD, B LE Surgeon: Wong [employer] Systems Engineer(s): Juan Stuart Procedure: 1. L LE angiogram 2. L SFA orbital atherectomy with FLARER/stent 3. R OYSTER CULTURIST Angioseal Findings: 1. L SFA occlusion, recanalized and atherectomy/stent 2. PT and peroneal runoff Complications: none Specimen(s) removed: none Estimated blood loss: 10mL Anesthesia: MAC Drains: None Fluids: 100mL IVF Patient to: PACU Patient Condition: Good Implant/Devices: SEE IMPLANT LOG (if applicable) Date/Time of Procedure: SEE SURGICAL CARE RECORD Medications and IVs Current Medications Vancomycin HCl 1000 mg/Sodium Chloride 250 ml @ 250 mls/hr ONCE ONCE IV Last administered on 03/15/17 21:40; Start 03/15/17 at 21:15; Stop 03/15/17 at 22:14 ; Status DC Morphine Sulfate (Morphine Inj) 2 mg ONCE ONCE IV PUSH Last administered on 22:04; Start 03/15/17 at 22:00; Stop 03/15/17 at 22:01; Status DC Piperacillin Sod/ Tazobactam Sod 50 ml @ 100 mls/hr Q8H IV ; Start 03/16/17 at 00:00; Stop 03/16/17 at 00:12; Status DC Piperacillin Sod/ Tazobactam Sod 50 ml @ 100 mls/hr ONCE ONCE IV Last administered on 03/16/17 00:25; Start 03/16/17 at 00:00; Stop 03/16/17 at 00:29 ; Status DC Piperacillin Sod/ Tazobactam Sod 50 ml @ 100 mls/hr Q6H IV Last administered on 03/19/17 11:03; Start 03/16/17 at 06:00; Stop 03/19/17 at 15:13; Status DC Sodium Chloride (NS Flush) 2 ml UNSCH PRN IV FLUSH FLUSH AFTER USING IV ACCESS ; Start 03/16/17 at 00:15 Sodium Chloride (NS Flush) 2 ml BID IV FLUSH Last administered on 03/25/17 22 :02; Start 03/16/17 at 09:00 Acetaminophen (Tylenol) 650 mg Q4H PRN PO TEMP > 100.4; Start 03/16/17 at 00:15 Ondansetron HCl (Zofran Inj) 4 mg Q6H PRN IVP NAUSEA OR VOMITING; Start at 00:15 Heparin Sodium (Porcine) (Heparin Inj) 5,000 units Q8H SQ Last administered on 03/16/17 06:00; Start 03/16/17 at 06:00; Stop 03/23/17 at 14:32; Status DC Naloxone HCl (Narcan Inj) 0.4 mg UNSCH PRN IV PUSH SEE LABEL COMMENTS; Start 03/16/17 at 00:15 Senna/Docusate Sodium (Sudha-Colace) 1 tab BID PO Last administered on 09:14; Start 03/16/17 at 09:00 Magnesium Hydroxide (Milk Of Magnesia Liq) 30 ml Q12H PRN PO Mild constipation Last administered on 03/21/17 08:00; Start 03/16/17 at 00:15 Sennosides (Senokot) 17.2 mg Q12H PRN PO Moderate constipation Last administered on 03/21/17 20:12; Start 03/16/17 at 00:15 Bisacodyl (Dulcolax Supp) 10 mg DAILY PRN RECTAL SEVERE CONSITIPATION; Start 03/16/17 at 00:15 Lactulose (Lactulose Liq) 30 ml DAILY PRN PO SEVERE CONSITIPATION; Start at 00:15 Potassium Chloride (KCl) 40 meq ONCE ONCE PO Last administered on 03/16/17 02 :09; Start 03/16/17 at 01:00; Stop 03/16/17 at 01:01; Status DC Pharmacy Profile Note 0 ml @ 0 mls/hr UNSCH OTHER ; Start 03/16/17 at 08:45; Stop 03/19/17 at 15:13; Status DC Potassium Chloride (KCl) 30 meq Q12HR PO Last administered on 03/16/17 20:30; Start 03/16/17 at 09:00; Stop 03/17/17 at 08:59; Status DC Dextrose (D50w (Vial) Inj) 50 ml UNSCH PRN IV PUSH HYPOGLYCEMIA-SEE COMMENTS; Start 03/16/17 at 08:45 Glucagon (Glucagon Inj) 1 mg UNSCH PRN OTHER HYPOGLYCEMIA-SEE COMMENTS; Start 03/16/17 at 08:45 Insulin Aspart (NovoLOG SUPPLEMENTAL SCALE) 1 ACHS SLIDING SCALE SQ Last administered on 03/26/17 12:00; Start 03/16/17 at 12:00 Acetaminophen (Tylenol) 650 mg Q6H PRN PO PAIN SCALE 1 TO 2; Start 03/16/17 at 08:45 Acetaminophen/ Hydrocodone Bitart (Sabine 5-325 Mg) 1 tab Q4H PRN PO PAIN SCALE 3 TO 5 Last administered on 03/19/17 23:41; Start 03/16/17 at 08:45 Acetaminophen/ Hydrocodone Bitart (Sabine 7.5-325 Mg) 1 tab Q4H PRN PO PAIN SCALE 6 TO 10 Last administered on 03/25/17 22:05; Start 03/16/17 at 08:45 Morphine Sulfate (Morphine Inj) 1 mg Q3H PRN IV PUSH BREAKTHROUGH PAIN Last administered on 03/25/17 18:26; Start 03/16/17 at 09:30 Pravastatin Sodium (Pravachol) 10 mg HS PO Last administered on 03/25/17 22: 01; Start 03/16/17 at 21:00 Potassium Chloride/Sodium Chloride 1,000 ml @ 60 mls/hr [id number] IV Last administered on 03/17/17 05:18; Start 03/16/17 at 09:00; Stop 03/17/17 at 11: 13; Status DC Gabapentin (Neurontin) 300 mg BID PO Last administered on 03/26/17 09:14; Start 03/16/17 at 12:00 Pantoprazole Sodium (Protonix) 20 mg DAILY PO ; Start 03/17/17 at 09:00; Stop 03/17/17 at 09:00; Status DC Famotidine (Pepcid) 10 mg BID PO Last administered on 03/22/17 08:16; Start 03/16/17 at 21:00; Stop 03/22/17 at 16:04; Status DC Miscellaneous (Pill Splitter) 1 ea UNSCH PRN OTHER SEE LABEL COMMENTS Last administered on 03/17/17 08:12; Start 03/16/17 at 12:00 Sodium Chloride 1,000 ml @ 60 mls/hr [id number] IV Last administered on 04:48; Start 03/17/17 at 11:15; Stop 03/18/17 at 12:02; Status DC Aspirin (Ecotrin Ec) 325 mg DAILY PO Last administered on 03/26/17 09:14; Start 03/18/17 at 09:00 Vancomycin HCl 1500 mg/Sodium Chloride 515 ml @ 257.5 mls/ hr ONCE ONCE IV Last administered on 03/18/17 12:00; Start 03/18/17 at 12:00; Stop 03/18/17 at 13:59; Status DC Furosemide (Lasix Inj) 40 mg ONCE ONCE IV PUSH Last administered on 12:00; Start 03/18/17 at 12:00; Stop 03/18/17 at 12:05; Status DC Cholecalciferol (Vitamin D3) 2,000 units DAILY PO Last administered on 09:14; Start 03/18/17 at 12:15 Collagenase (Santyl Oint) 1 applic DAILY TOPICAL Last administered on 09:20; Start 03/19/17 at 23:45 Chlorhexidine Gluconate (Hibiclens 4% Top Soln) 120 applic ONCE ONCE TOPICAL Last administered on 03/19/17 09:00; Start 03/19/17 at 09:00; Stop 03/19/17 at 09:01; Status DC Furosemide (Lasix Inj) 40 mg ONCE ONCE IV PUSH Last administered on 11:03; Start 03/19/17 at 10:45; Stop 03/19/17 at 10:46; Status DC Vancomycin HCl 1500 mg/Sodium Chloride 515 ml @ 250 mls/hr ONCE ONCE IV Last administered on 03/19/17 12:34; Start 03/19/17 at 13:00; Stop 03/19/17 at 15 :13; Status DC Ceftriaxone Sodium 1000 mg/ Sodium Chloride 100 ml @ 200 mls/hr Q24H IV Last administered on 03/23/17 16:12; Start 03/19/17 at 16:00; Stop 03/24/17 at 12 :14; Status DC Torsemide (Demadex) 20 mg DAILY PO Last administered on 03/26/17 09:14; Start 03/20/17 at 19:15 Heparin Sodium (Porcine) (Heparin Inj) 8,000 units ONCE ONCE IV PUSH Last administered on 03/21/17 17:04; Start 03/21/17 at 15:00; Stop 03/21/17 at 15 :01; Status DC Heparin Sodium/ Dextrose 250 ml @ 18 mls/hr TITRATE PRN IV Coagulation Management Last administered on 03/22/17 08:14; Start 03/21/17 at 14:30; Stop 03/23/17 at 14:17; Status DC Polyethylene Glycol (Miralax) 17 gm DAILY PRN PO constipation; Start 03/22/17 at 16:00 Famotidine (Pepcid) 20 mg BID PO Last administered on 03/26/17 09:14; Start 03/22/17 at 21:00 Warfarin Sodium (Coumadin) 2.5 mg DAILY@16 PO Last administered on 03/23/17 16:11; Start 03/22/17 at 19:30; Status Future hold Patient Medication Teaching (Coumadin Booklet) 1 ONCE ONCE .XX Last administered on 03/22/17 22:10; Start 03/22/17 at 20:45; Stop 03/22/17 at 20 :46; Status DC Povidone Iodine (Betadine 10% Top Soln) 2 applic DAILY EXTERNAL ; Start at 13:00; Stop 03/23/17 at 15:12; Status DC Sodium Hypochlorite (Dakin'S 0.5% Soln) 5 ml DAILY EXTERNAL Last administered on 03/26/17 09:20; Start 03/23/17 at 16:00 Enoxaparin Sodium (Lovenox Inj) 60 mg Q12H SQ Last administered on 03/25/17 05:03; Start 03/23/17 at 17:00; Stop 03/25/17 at 17:58; Status DC Povidone Iodine (Betadine 10% Top Soln) 1 applic DAILY EXTERNAL Last administered on 03/26/17 09:00; Start 03/23/17 at 17:00 Vancomycin HCl 1250 mg/Sodium Chloride 262.5 ml @ 262.5 mls/ hr ONCE ONCE IV ; Start 03/24/17 at 12:15; Stop 03/24/17 at 13:14; Status UNV Pharmacy Profile Note 0 ml @ 0 mls/hr UNSCH OTHER ; Start 03/24/17 at 12:15 Piperacillin Sod/ Tazobactam Sod 3.375 gm/Sodium Chloride 100 ml @ 100 mls/hr Q6H IV Last administered on 03/26/17 02:13; Start 03/24/17 at 14:00 Lactulose (Lactulose Liq) 30 ml ONCE ONCE PO Last administered on 03/24/17 12:58; Start 03/24/17 at 12:15; Stop 03/24/17 at 12:17; Status DC Vancomycin HCl 1500 mg/Sodium Chloride 515 ml @ 257.5 mls/ hr ONCE ONCE IV ; Start 03/24/17 at 14:00; Stop 03/24/17 at 14:00; Status DC Vancomycin HCl 1500 mg/Sodium Chloride 515 ml @ 257.5 mls/ hr Q24H IV Last administered on 03/25/17 17:13; Start 03/24/17 at 14:00; Status Future Hold Miscellaneous Information SPECIFIC LAB TO BE ... ONCE ONCE .XX ; Start at 13:45; Stop 03/27/17 at 13:46 Lactated Ringer's 1,000 ml @ 30 mls/hr Q24H PRN IV SEE LABEL COMMENTS; Start 03/25/17 at 04:45; Stop 03/28/17 at 04:44 Protamine Sulfate (Protamine Sulfate Inj) 50 mg STK-MED ONCE .ROUTE ; Start at 09:14; Stop 03/25/17 at 09:15; Status DC Heparin Sodium (Porcine) (Heparin Inj) 10,000 units STK-MED ONCE .ROUTE ; Start 03/25/17 at 09:14; Stop 03/25/17 at 09:15; Status DC Bupivacaine HCl (Marcaine Pf 0.5% Inj) 30 ml STK-MED ONCE .ROUTE Last administered on 03/25/17 09:15; Start 03/25/17 at 09:15; Stop 03/25/17 at 09 :16; Status DC Heparin Sodium/ Sodium Chloride 500 ml @ As Directed STK-MED ONCE .ROUTE Last administered on 03/25/17 09:15; Start 03/25/17 at 09:15; Stop 03/25/17 at 09 :16; Status DC Cefazolin Sodium/ Dextrose 0 ml @ As Directed STK-MED ONCE .ROUTE ; Start 03/25 at 09:15; Stop 03/25/17 at 09:16; Status DC Midazolam HCl (Versed Inj) 2 mg STK-MED ONCE .ROUTE ; Start 03/25/17 at 10:04; Stop 03/25/17 at 10:05; Status DC Ketamine HCl (Ketalar Inj) 500 mg STK-MED ONCE .ROUTE ; Start 03/25/17 at 10:05 ; Stop 03/25/17 at 10:06; Status DC Verapamil HCl (Isoptin Inj) 5 mg STK-MED ONCE .ROUTE ; Start 03/25/17 at 11:10 ; Stop 03/25/17 at 11:11; Status DC Nitroglycerin 5 ml @ As Directed STK-MED ONCE .ROUTE ; Start 03/25/17 at 11:14 ; Stop 03/25/17 at 11:15; Status DC Iohexol 50 ml @ 0 mls/hr ONCE ONCE IV ; Start 03/25/17 at 11:33; Stop at 13:55; Status DC Fentanyl Citrate (fentaNYL INJ) 100 mcg STK-MED ONCE .ROUTE ; Start 03/25/17 at 12:36; Stop 03/25/17 at 12:37; Status DC Morphine Sulfate (*morphine INJ PERIprocedure ONLY) 8 mg STK-MED ONCE .ROUTE Last administered on 03/25/17t 12:55; Start 03/25/17 at 12:55; Stop 03/25/17 at 12:56; Status DC Miscellaneous Information ALL NURSING DEPARTME... UNSCH PRN .XX SEE LABEL COMMENTS; Start 03/25/17 at 12:25; Stop 03/26/17 at 12:24; Status DC Miscellaneous Information SPECIFIC LAB TO BE DRAWN:VANCO TROUGH DATE TO BE DRKiley.. ONCE ONCE .XX ; Start 03/26/17 at 13:45; Stop 03/26/17 at 13:46; Status DC A/P Problem List: (1) Diabetic foot infection ICD Code: E11.69 - Type 2 diabetes mellitus with other specified complication; L08.9 - Local infection of the skin and subcutaneous tissue, unspecified (2) Diabetic foot ulcer ICD Code: E11.621 - Type 2 diabetes mellitus with foot ulcer; L97.509 - Non- pressure chronic ulcer of other part of unspecified foot with unspecified severity Assessment and Plan This is a 71-year-old male who came in because of bilateral lower extremity swelling despite change of his diuretic to Bumex. He also noted ulcers in his left foot and right second toe draining serous fluid denies fever and chills. Received antibiotics as per PCP. Diabetic foot ulcers/infection involving left first metatarsal head and right second toe with failed outpatient therapy. X-rays reviewed did not show evidence of osteomyelitis. Continue IV vancomycin and Zosyn Follow-up wound and blood cultures. Wound care following, Seen by Podiatry specialist, Right interdigital ulcers and left fist medial MPJ ulcer, recommended Hibiclens to Right foot, Betadine to interdigital spaces to right foot, Santyl to Left MPJ ulcer. Followed by Podiatry specialist, wound care with Betadine, removed Santyl, continue with Dakin's solution to the left MPJ, Discussed about probable amputation, Hematology, vascular surgery, ID specialist and Nephrology following , high risk for worsening renal failure secondary to IV contrast for surgery . PVD. Doppler pulses. Start aspirin recommended for Vascular surgery consult by Podiatry specialist. seen by Vascular plastic surgery assistant and recommended for Angiography and Angioplasty for 03/25/17 -had procedure today with vascular surgery March 25 Acute kidney injury with hypokalemia. Nephrology specialist following.probable related to NSAIDs, as Cardiorenal syndrome, bilateral Leg edema, ordered IV furosemide by Nephrology specialist, CKD III after Renal ultrasound suggested this diagnosis, most likely due to Nephrosclerosis, probable Diabetic nephropathy. improving renal function Chronic Systolic heart Failure Status post Echocardiogram performed by Doctor Montes EF less than 20% Severely reduced Left ventricular systolic function, Mild to moderate mitral regurgitation, Mild to moderate aortic valve stenosis. small Pericardial effusion present. on Diuretics. discussed with doctor Montes no further recommendations by Cardiology at this time, not recommended for Defibrillator the patient was non compliant in the past so he will need to follow as outpatient with fundraising specialist. Severe Non compliance found by fundraising specialist. Hyperlipidemia to continue Home medicines. DVT of the Right arm he has Occlusive thrombus on the right subclavian vein, After Axillary vein that continues as Subclavian vein there is high risk for Pulmonary Emboli no clear evidence of efficacy of anticoagulation with Heparin. has INR in 1.9 asked for park interpretive specialist evaluation. CONTINUE ANTICOAGULATION PER HEMATOLOGY Hypertension controlled Rheumatoid arthritis by history. DM II hemoglobin A1C 7.3 continue SSI. ANOREXIA/FAILURE TO THRIVE/POOR APPETITE- START MEGACE 800MG PO DAILY NOT CLEARED BY ID YET DVT prophylaxis with early ambulation. Heparin drip at this time added Warfarin by park interpretive specialist. Will need chronic anticoagulation Discharge Planning NOT CLEARED BY ID FOR DC YET López Perkins DO Mar 26, 2017 15:10
[2017-03-26] MEDS: MEGESTROL ACETATE SUSP 400 MG/10 ML CUP PO SCH (15:15)
--- NOTE | 2017-03-26 15:47 | RADRPT ---
EXAM DATE/TIME: 03/26/2017 15:13 [facility] COMPARISON: CHEST SINGLE AP, March 24, 2017, 12:37. INDICATIONS : Pneumonia. MEDICAL HISTORY : Congestive heart failure. Hypercholesterolemia. Hypertension. kidney stones, arthritis, diabetes SURGICAL HISTORY : None. ENCOUNTER: Initial ACUITY: 1 week PAIN SCORE: 0/10 LOCATION: Bilateral chest FINDINGS: Redemonstration of airspace disease in the right lower lung zone. Mild left basilar airspace disease. Cardiac silhouette is enlarged. Remainder of exam is unchanged. CONCLUSION: 1. Stable right lower lung zone airspace disease consistent with history of pneumonia. 2. Mild left lower lung zone airspace disease, likely atelectasis. Differential considerations includ e aspiration. 3. Cardiomegaly. Trace Robert MD on March 26, 2017 at 15:43 Board Certified Radiologist. This report was verified electronically.
[2017-03-26 16:00] VITALS: BP 100/76; PULSE 82; RESP 20; TEMP 97; O2SAT 95
[2017-03-26 16:54] LABS: HEMOGLOBIN A1a 1.2 %; HEMOGLOBIN A1b 2.2 %; HEMOGLOBIN Ao 81.4 %; HEMOGLOBIN LA1C 2.4 %; HEMOGLOBIN P3 6.3 %
[2017-03-26] MEDS: WARFARIN SOD 2.5 MG TAB PO SCH (17:04)
[2017-03-26 20:00] VITALS: BP 113/80; PULSE 115; RESP 17; TEMP 96.8; O2SAT 94
[2017-03-26] MEDS: ACETAMINOPHEN/HYDROcodone 325 MG/7.5 MG TAB PO PRN (21:02)
[2017-03-26] MEDS: PRAVASTATIN SOD 10 MG TAB PO SCH (21:02)
[2017-03-27] VITALS: BP 112/63; PULSE 89; PULSE 91; RESP 18; TEMP 97; O2SAT 97
[2017-03-27] MEDS: ACETAMINOPHEN/HYDROcodone 325 MG/7.5 MG TAB PO PRN (02:15)
[2017-03-27] MEDS: PIPERACILLIN/TAZ 3.375 GM VIAL 3.375 GM in SODIUM CHLORIDE 0.9% INJ 100 ML IV SCH ×3 (02:15→12:35)
[2017-03-27 02:59] VITALS: BP 122/67; PULSE 100; RESP 20; TEMP 95.7; O2SAT 96
[2017-03-27 05:55] LABS: APTT (PATIENT) 32.4 SEC (24.3-30.1); INTERNATIONAL NORMALIZED RATIO 2.4 RATIO; PROTHROMBIN TIME - PATIENT 24.6 SEC (9.8-11.6)
[2017-03-27 06:11] LABS: ALT (GPT) 179 U/L (12-78); ANION GAP 15 MEQ/L (5-15); AST (GOT) 211 U/L (15-37); BICARBONATE 18.7 MEQ/L (21.0-32.0); BLOOD UREA NITROGEN 76 MG/DL (7-18); CHLORIDE 107 MEQ/L (98-107); GLOMERULAR FILTRATION RATE 46 ML/MIN (>89); MAGNESIUM 2.8 MG/DL (1.5-2.5); POTASSIUM 3.6 MEQ/L (3.5-5.1); SODIUM (NA) 141 MEQ/L (136-145)
[2017-03-27 06:15] LABS: ALKALINE PHOSPHATASE 69 U/L (45-117); CREATINE KINASE 200 U/L (39-308)
[2017-03-27 06:38] LABS: AUTOMATED NEUTROPHIL # 14.5 TH/MM3 (1.8-7.7); BASOPHIL # 0.2 TH/MM3 (0-0.2); BASOPHIL % 0.9 % (0.0-2.0); EOSINOPHIL # 0.1 TH/MM3 (0-0.4); EOSINOPHIL % 0.3 % (0.0-4.0); HEMATOCRIT 37.4 % (39.0-51.0); LYMPH % 8.2 % (9.0-44.0); LYMPHOCYTE # 1.4 TH/MM3 (1.0-4.8); MEAN CELL VOLUME 86.5 FL (80.0-100.0); MEAN CORPUSCULAR HEMOGLOBIN 27.9 PG (27.0-34.0); MEAN CORPUSCULAR HGB CONC 32.3 % (32.0-36.0); MONO % 6.7 % (0.0-8.0); NEUT % 83.9 % (16.0-70.0); PLATELET COUNT 164 TH/MM3 (150-450); RED BLOOD COUNT 4.33 MIL/MM3 (4.50-5.90); WHITE BLOOD COUNT 17.3 TH/MM3 (4.0-11.0)
[2017-03-27 06:44] LABS: HEMO FLAGS AUTO DIFF
[2017-03-27 07:46] LABS: ACANTHOCYTES 1+ (NORMAL); BURR CELLS 2+ (NORMAL); KERATOCYTES OCC (NORMAL); SCAN/DIFF AUTO DIFF CONFIRMED
[2017-03-27 07:55] VITALS: BP 134/81; PULSE 108; RESP 22; TEMP 96.8; O2SAT 100
[2017-03-27 09:30] VITALS: PULSE 65
[2017-03-27] MEDS: POVIDONE IODINE 10% SOLN 118 ML BOTTLE EXTERNAL SCH (09:35)
[2017-03-27] MEDS: MEGESTROL ACETATE SUSP 400 MG/10 ML CUP PO SCH (09:36)
[2017-03-27] MEDS: FAMOTIDINE 20 MG TAB PO SCH (09:36)
[2017-03-27] MEDS: DOCUSATE SODIUM 50 MG/SENNA 8.6 MG TAB PO SCH (09:36)
[2017-03-27] MEDS: SODIUM HYPOCHLORITE 0.5% 500 ML BTL EXTERNAL SCH (09:36)
[2017-03-27] MEDS: GABAPENTIN 300 MG CAP PO SCH (09:36)
[2017-03-27] MEDS: INSULIN ASPART SUPPLEMENTAL SCALE SQ SCH ×2 (09:36→12:35)
[2017-03-27] MEDS: CHOLECALCIFEROL (VIT D3) 1000 UNIT TAB PO SCH (09:36)
[2017-03-27] MEDS: TORSEMIDE 20 MG TAB PO SCH (09:37)
[2017-03-27] MEDS: ASPIRIN EC 325 MG TABEC PO SCH (09:37)
[2017-03-27] MEDS: SODIUM CHLORIDE 0.9% FLUSH 10 ML FLUSH IV FLUSH SCH (09:38)
[2017-03-27] MEDS: COLLAGENASE OINT 30 GM TUBE TOPICAL SCH (09:45)
--- NOTE | 2017-03-27 10:15 | MP ---
cc: VINAY MATT MD DATE OF SURGERY 03/25/2017 PREOPERATIVE DIAGNOSIS Bilateral lower extremity tissue loss, peripheral arterial occlusive disease. POSTOPERATIVE DIAGNOSIS Bilateral lower extremity tissue loss, peripheral arterial occlusive disease. PROCEDURE 1. Aortogram with left lower extremity angiograms. 2. Left SFA orbital atherectomy, angioplasty and stent with a 6 x 60 stent. 3. Right common femoral Angio-Seal. ATTENDING SURGEON Vinay Matt. ASSISTANT COMMUNITY MANAGER SURGEON Juan Stuart. ANESTHESIA Local with sedation. INDICATIONS Mr. Elias is a 71-year-old gentleman with diabetes, hypertension, coronary artery disease, congestive heart failure and rheumatoid arthritis. He has tissue loss on his feet. He is taken to the operating room for angiographic evaluation and treatment. There is no prior cath-based imaging available for my review. DESCRIPTION OF PROCEDURE Informed consent was obtained from the patient. He was taken to the operating room and placed supine on the operating table. An appropriate timeout was taken to ensure the patient's identity, operative site and planned procedure. The administration of antibiotics was not necessary as the patient is on systemic and therapeutic antibiotics and these will be continued postoperatively for ongoing therapy. Everyone in the room agreed with the timeout and we proceeded. His bilateral groins were prepped and draped. The right groin was anesthetized with 1% lidocaine. A 21-gauge micropuncture needle was used to access the right common femoral artery. This was exchanged using Seldinger technique for a micropuncture sheath through which a 0.035 Glidewire was introduced and the micropuncture sheath exchanged for a 4 Cymro sheath. A VCF catheter was placed over the wire and through the sheath and the [place] and VCF were used to navigate down to the left lower extremity. Left lower extremity angiogram was obtained with the catheter tip in the left common femoral artery. The patient was systemically heparinized with 3000 units of IV heparin. A 0.035 Tsang wire was introduced down to the SFA. The VCF catheter and 4 Cymro sheath were removed and a 6 Cymro 55 cm Edwin sheath was introduced. A CXI catheter was placed over the wire and through the sheath and the Tsang was exchanged for a CO PILOT wire. Using the CO PILOT wire and CXI catheter we were re able to recanalize the SFA and with the catheter in the distal SFA the CO PILOT was exchanged for a Viper wire. The CXI catheter was removed and the orbital atherectomy device was then brought up on the field and treated the SFA. At completion a 5 mm angioplasty balloon was used to angioplasty the SFA and there was residual stenosis proximally and distally and this was treated with an additional 5 mm balloon. At the completion of this there was only a proximal stenosis which was treated with 6 x 60 stent which was post dilated to 5 mm. The completion angiogram showed excellent result without any recoil extravasation. The wire, catheter and sheath were removed and the groin was closed with an Angio-Seal. There were no complications. I was present and scrubbed and performed the entire procedure. INTERPRETATION OF IMAGES The patient has a patent left common femoral artery, superficial femoral artery down to the mid SFA and profunda. The SFA is occluded and profunda-based collaterals reconstitute the distal SFA and popliteal artery. There is two-vessel runoff to the foot with the anterior tibial artery being occluded. After atherectomy and angioplasty there is a residual stenosis proximally and distally of the SFA occlusion segment and the distal aspect was successfully treated with a repeat angioplasty to the proximal segment and required a 6 x 60 stent. The completion angiogram showed excellent result without any recoil extravasation or dissection and no embolic complications. MD CHUN Flores/RIYA /2:19 PM /9:57 AM
[2017-03-27 10:30] VITALS: BP 118/72; PULSE 79; RESP 20; TEMP 97.4; O2SAT 99
--- NOTE | 2017-03-27 10:39 | PD.VS.PN ---
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 Pt w/o complaints BLE ulcerations stable LE warm w/ motor intact Objective Vitals/I&O Date Time Temp Pulse Resp B/P (MAP) Pulse Ox O2 Delivery O2 Flow Rate FiO2 03/27/17 09:30 65 03/27/17 07:55 96.8 108 22 134/81 (98) 100 03/27/17 02:59 95.7 100 20 122/67 (85) 96 03/27/17 00:00 89 03/27/17 00:00 97.0 91 18 112/63 (79) 97 03/26/17 20:00 96.8 115 17 113/80 (91) 94 03/26/17 16:00 97.0 82 20 100/76 (84) 95 03/26/17 12:00 97.3 95 18 105/72 (83) 96 03/27/17 03/27/17 03/27/17 07:00 15:00 23:00 Intake Total 360 ml Balance 360 ml Physical Exam GENERAL: Alert in NAD SKIN: LE Warm and dry w/ motor intact BLE ulcerations dry/stable Biphasic L PT Monophasic R PT no palpable pulses R groin soft w/o hematoma or swelling Laboratory Laboratory Tests Test 03/27/17 04:35 03/27/17 04:55 Blood Urea Nitrogen 76 Creatinine 1.77 Random Glucose 154 Total Protein 7.6 Albumin 2.3 Calcium Level 8.6 Phosphorus Level 3.7 Magnesium Level 2.8 Alkaline Phosphatase 69 Aspartate Amino Transf (AST/SGOT) 211 Alanine Aminotransferase (ALT/SGPT) 179 Total Bilirubin 4.0 Sodium Level 141 Potassium Level 3.6 Chloride Level 107 Carbon Dioxide Level 18.7 Anion Gap 15 Estimat Glomerular Filtration Rate 46 Total Creatine Kinase 200 Troponin I 1.13 White Blood Count 17.3 Red Blood Count 4.33 Hemoglobin 12.1 Hematocrit 37.4 Mean Corpuscular Volume 86.5 Mean Corpuscular Hemoglobin 27.9 Mean Corpuscular Hemoglobin Concent 32.3 Red Cell Distribution Width 19.0 Platelet Count 164 Mean Platelet Volume 10.2 Neutrophils (%) (Auto) 83.9 Lymphocytes (%) (Auto) 8.2 Monocytes (%) (Auto) 6.7 Eosinophils (%) (Auto) 0.3 Basophils (%) (Auto) 0.9 Neutrophils # (Auto) 14.5 Lymphocytes # (Auto) 1.4 Monocytes # (Auto) 1.2 Eosinophils # (Auto) 0.1 Basophils # (Auto) 0.2 CBC Comment AUTO DIFF Differential Comment AUTO DIFF CONFIRMED Susan Cells 2+ Acanthocytes 1+ Keratocytes OCC Prothrombin Time 24.6 Prothromb Time International Ratio 2.4 Activated Partial Thromboplast Time 32.4 Date/Time Source Procedure Growth Status 03/24/17 16:36 Blood Peripheral Aerobic Blood Culture - Preliminary NO GROWTH IN 2 DAYS Resulted 03/24/17 16:36 Blood Peripheral Anaerobic Blood Culture - Preliminary NO GROWTH IN 2 DAYS Resulted 03/16/17 15:15 Fluid Other Gram Stain - Final Complete 03/16/17 15:15 Body Fluid Culture - Final Enterococcus Avium Complete Imaging Last 48 hours Impressions Chest X-Ray 03/26/17 0000 Signed Impressions: Service Date/Time: Sunday, March 26, 2017 15:13 - CONCLUSION: 1. Stable right lower lung zone airspace disease consistent with history of pneumonia. 2. Mild left lower lung zone airspace disease, likely atelectasis. Differential considerations include aspiration. 3. Cardiomegaly. Trace Robert MD Assessment and Plan Assessment: (1) Leg swelling Status: Acute (2) Ischemic ulcer of both feet Status: Acute Plan 71/M with BLE non healing ulcerations (tissue loss) and non palpable distal pulses now POD#2 s/p L LE revascularization Pt w/o complaints LE warm with motor intact Plan Will need R LE revasc but should allow for kidney function to recover to avoid repeated IV contrast administration. I am ok if he is d/c'ed from hospital and will arrange f/u in my clinic next week, with intervention within 1-2 weeks. Pt knows that if wounds look worse or start to have odor, he will call and come back sooner Suggest rehab or at a minimum HH RN Resume coumadin - INR 2.2 yesterday, no groin hematoma Will continue to follow while in house. Miriam Flores Mar 27, 2017 10:39
[2017-03-27] MEDS ORDERED: CARVEDILOL 3.125 MG TAB PO SCH (11:00)
[2017-03-27] MEDS: NITROGLYCERIN 0.4 MG SL 25 TABS/BTL SL PRN ×3 (11:02→11:15)
--- NOTE | 2017-03-27 11:04 | HHI.PR ---
Subjective Remarks Remarks This is a pleasant 71 y/o Male with Diabetic Foot infection, seen in his bedroom , discussed with nurse Miss Serrato, Nephrology specialist and medicare insurance specialist following, Echocardiogram performed and found EF 20%, has Acute Kidney Injury probable related to NSAIDs, as Cardiorenal syndrome, bilateral Leg edema, ordered IV furosemide by Nephrology specialist, CKD III after Renal ultrasound suggested this diagnosis, most likely due to Nephrosclerosis, probable Diabetic nephropathy. no other complaint by patient at this time. 03/19: Seen by Podiatry specialist, Right interdigital ulcers and left fist medial MPJ ulcer, recommended Hibiclens to Right foot, Betadine to interdigital spaces to right foot, Santyl to Left MPJ ulcer, No surgical intervention at this time. recommended vascular Surgery consult. on discharge Wound care center at [place]. by doctor Devries. Status post Echocardiogram performed by Doctor Montes EF less than 20% Severely reduced Left ventricular systolic function, Mild to moderate mitral regurgitation, Mild to moderate aortic valve stenosis. small Pericardial effusion present. no nausea, vomit or diarrhea, seen in his bedroom in the present of friend, 03/20: Discussed on Multidisciplinary round, patient stable improving general condition, he has CKD III and Chronic systolic heart failure will need to get final recommendations by medicare insurance specialist and Nephrology also will ask for final recommendations for wound care by Podiatry specialist. 03/21: Stable in his bedroom seen in the presence of nurse Miss Nowak and his Ex- Mrs. Svetlana Elias, but complaint of right arm edema asked for ultrasound to rule out DVT, he will have Angiography and probable angioplasty next 03/25/17. 03/22: Seen in his bedroom in the presence of his Ex Mrs. Svetlana Elias, he has Increased INR with normal liver function started on heparin yesterday for DVT on Right arm, patient with Subclavian vein thrombosis, asked for central communications specialist consult. 03/23: Stable in his bedroom, followed by Podiatry specialist, wound care with Betadine, removed Santyl, continue with Dakin's solution to the left MPJ, Discussed about probable amputation, Hematology, vascular surgery, ID specialist and Nephrology following, high risk for worsening renal failure secondary to IV contrast for surgery 03/25/17. 03/24: Seen in his bedroom, no nausea, vomit or diarrhea, Constipation, 03-[address] MATT TO RECANULATE LEFT LOWER EXTREMITY NO NEW COMPLAINTS AT THIS TIME AM LABS DW RN AND PT AND CASE MANAGEMENT 03-26 PATIENT HAS NO APPETITE WILL ADD MEGACE DAILY DW ID- NOT CLEARED FOR DC YET DW CM AND RN AND PT CONTINUE COUMADIN 03-27 patient has positive troponins. He is actively having chest pain we'll try nitroglycerin will recall cardiology Dr. Montes who is being covered by Dr. Pizarro who has just called Will give nitroglycerin now and get a stat EKG His INR is 2.4 on warfarin Await cardiology input Discussed with RN and patient and family May need to go to the cardiac catheter lab depending on what cardiology feels Patient looks quite uncomfortable at this time WILL GIVE 2 MG OF IV MORPHINE HAVING ACTIVE CHEST PAIN Objective Vitals Vital Signs Date Time Temp Pulse Resp B/P (MAP) Pulse Ox O2 Delivery O2 Flow Rate FiO2 03/27/17 10:30 97.4 79 20 118/72 (87) 99 03/27/17 09:30 65 03/27/17 07:55 96.8 108 22 134/81 (98) 100 03/27/17 02:59 95.7 100 20 122/67 (85) 96 03/27/17 00:00 89 03/27/17 00:00 97.0 91 18 112/63 (79) 97 03/26/17 20:00 96.8 115 17 113/80 (91) 94 03/26/17 16:00 97.0 82 20 100/76 (84) 95 03/26/17 12:00 97.3 95 18 105/72 (83) 96 I/O 03/26/17 03/26/17 03/26/17 03/27/17 03/27/17 03/27/17 07:00 15:00 23:00 07:00 15:00 23:00 Intake Total 240 ml 240 ml 360 ml Balance 240 ml 240 ml 360 ml Intake Oral 240 ml 240 ml 360 ml # Voids 1 3 3 # Bowel Movements 0 0 Result Diagram: 03/27/17 0455 03/27/17 0435 Other Results Laboratory Tests Test 03/25/17 06:27 03/26/17 08:30 03/27/17 04:35 03/27/17 04:55 White Blood Count 20.9 TH/MM3 19.7 TH/MM3 17.3 TH/MM3 Red Blood Count 4.16 MIL/MM3 4.25 MIL/MM3 4.33 MIL/MM3 Hemoglobin 11.7 GM/DL 12.0 GM/DL 12.1 GM/DL Hematocrit 35.5 % 36.6 % 37.4 % Mean Corpuscular Volume 85.5 FL 86.1 FL 86.5 FL Mean Corpuscular Hemoglobin 28.1 PG 28.4 PG 27.9 PG Mean Corpuscular Hemoglobin Concent 32.9 % 32.9 % 32.3 % Red Cell Distribution Width 18.5 % 18.6 % 19.0 % Platelet Count 160 TH/MM3 156 TH/MM3 164 TH/MM3 Mean Platelet Volume 9.6 FL 9.9 FL 10.2 FL Neutrophils (%) (Auto) 86.0 % 85.1 % 83.9 % Lymphocytes (%) (Auto) 5.5 % 5.5 % 8.2 % Monocytes (%) (Auto) 8.2 % 8.3 % 6.7 % Eosinophils (%) (Auto) 0.0 % 0.2 % 0.3 % Basophils (%) (Auto) 0.3 % 0.9 % 0.9 % Neutrophils # (Auto) 17.9 TH/MM3 16.8 TH/MM3 14.5 TH/MM3 Lymphocytes # (Auto) 1.2 TH/MM3 1.1 TH/MM3 1.4 TH/MM3 Monocytes # (Auto) 1.7 TH/MM3 1.6 TH/MM3 1.2 TH/MM3 Eosinophils # (Auto) 0.0 TH/MM3 0.0 TH/MM3 0.1 TH/MM3 Basophils # (Auto) 0.1 TH/MM3 0.2 TH/MM3 0.2 TH/MM3 CBC Comment DIFF FINAL AUTO DIFF AUTO DIFF Differential Comment AUTO DIFF CONFIRMED AUTO DIFF CONFIRMED Prothrombin Time 22.1 SEC 22.5 SEC 24.6 SEC Prothromb Time International Ratio 2.2 RATIO 2.2 RATIO 2.4 RATIO Susan Cells 1+ 2+ Acanthocytes 1+ 1+ Keratocytes OCC OCC Blood Urea Nitrogen 60 MG/DL 76 MG/DL Creatinine 1.64 MG/DL 1.77 MG/DL Random Glucose 141 MG/DL 154 MG/DL Total Protein 8.0 GM/DL 7.6 GM/DL Albumin 2.5 GM/DL 2.3 GM/DL Calcium Level 8.9 MG/DL 8.6 MG/DL Phosphorus Level 3.2 MG/DL 3.7 MG/DL Magnesium Level 2.8 MG/DL 2.8 MG/DL Alkaline Phosphatase 73 U/L 69 U/L Aspartate Amino Transf (AST/SGOT) 216 U/L 211 U/L Alanine Aminotransferase (ALT/SGPT) 196 U/L 179 U/L Total Bilirubin 3.8 MG/DL 4.0 MG/DL Sodium Level 141 MEQ/L 141 MEQ/L Potassium Level 3.8 MEQ/L 3.6 MEQ/L Chloride Level 105 MEQ/L 107 MEQ/L Carbon Dioxide Level 22.0 MEQ/L 18.7 MEQ/L Anion Gap 14 MEQ/L 15 MEQ/L Estimat Glomerular Filtration Rate 51 ML/MIN 46 ML/MIN Hemoglobin A1c 7.2 % Free Thyroxine 1.12 NG/DL Thyroid Stimulating Hormone 3rd Gen 4.430 uIU/ML Total Creatine Kinase 200 U/L Troponin I 1.13 NG/ML Activated Partial Thromboplast Time 32.4 SEC Imaging Last Impressions Chest X-Ray 03/26/17 0000 Signed Impressions: Service Date/Time: Sunday, March 26, 2017 15:13 - CONCLUSION: 1. Stable right lower lung zone airspace disease consistent with history of pneumonia. 2. Mild left lower lung zone airspace disease, likely atelectasis. Differential considerations include aspiration. 3. Cardiomegaly. Trace Robert MD Foot MRI 03/23/17 0800 Signed Impressions: Service Date/Time: Thursday, March 23, 2017 12:10 - CONCLUSION: 1. Suboptimal exam due to motion artifact. No definite marrow signal abnormality to suggest osteomyelitis. Soft tissue swelling and ulceration at the second toe. Lopez Montes MD Lower Extremity Ultrasound 03/23/17 0000 Signed Impressions: Service Date/Time: Thursday, March 23, 2017 11:25 - CONCLUSION: 1. No sonographic evidence for lower extremity DVT. Trace Robert MD Upper Extremity Ultrasound 03/21/17 0000 Signed Impressions: Service Date/Time: March 12:19 - CONCLUSION: 1. Nonocclusive DVT in the right subclavian vein. 2. Superficial venous thrombosis involving the cephalic vein. 3. Otherwise patent venous system. Shiva Watts MD Toe X-Ray 03/16/17 0000 Signed Impressions: Service Date/Time: Thursday, March 16, 2017 12:00 - CONCLUSION: 1. Dorsal soft tissue ulceration overlying the second PIP region without significant bony erosion to suggest osteomyelitis. Trace Robert MD Renal Ultrasound 03/16/17 0000 Signed Impressions: Service Date/Time: Thursday, March 16, 2017 16:06 - CONCLUSION: 1. There is increased echogenicity of the renal parenchyma suggestive of some degree of chronic medical renal disease. 2. No hydronephrosis. 3. 1.5 cm benign- appearing right renal cyst. 4. Questionable small calcification left kidney suggestive of a nonobstructing stone. Misbah Grey MD Foot X-Ray 03/16/17 0000 Signed Impressions: Service Date/Time: Thursday, March 16, 2017 11:52 - CONCLUSION: 1. Large ulcer overlying the medial forefoot first MTP joint region without definitive bony erosive change to suggest osteomyelitis. Trace Robert MD Objective Remarks GENERAL: Awake and alert appears uncomfortable at this time is cachectic and appears to be in some distress-having active chest pain SKIN: Warm and dry. bilateral lower extremities dressed GROINS dressed HEAD: Atraumatic. Normocephalic. EYES: Pupils equal and round. No scleral icterus. No injection or drainage. Extraocular muscles intact ENT: No nasal bleeding or discharge. Mucous membranes pink and dry. Tongue is midline NECK: Trachea midline. No JVD. Supple CARDIOVASCULAR: Regular rate and rhythm. S1 and S2 no S3-S4 no heave or thrill or rub or gallop RESPIRATORY: No accessory muscle use. Clear to auscultation. Breath sounds equal bilaterally. GASTROINTESTINAL: Abdomen soft, non-tender, nondistended. Hepatic and splenic margins not palpable. MUSCULOSKELETAL: Extremities without clubbing, cyanosis, or edema. No obvious deformities. Has bilateral lower extremity wounds dressed NEUROLOGICAL: Awake and alert. No obvious cranial nerve deficits. Motor grossly within normal limits. 4 out of 5 muscle strength in the arms and legs. Normal speech. Bilateral lower extremity swelling dressed PSYCHIATRIC: Appropriate mood and affect; insight and judgment ABnormal. Appears to be having active chest pain and appears quite uncomfortable at this time Procedures Procedure Date: Mar 25, 2017 Pre Op Diagnosis: PAD, B LE Post Op Diagnosis: PAD, B LE Surgeon: Wong Matt Pottery Kiln Builder(s): Juan Stuart Procedure: 1. L LE angiogram 2. L SFA orbital atherectomy with PAINTER SIGN MAINTENANCE/stent 3. R SETTER JUICE PACKAGING MACHINES Angioseal Findings: 1. L SFA occlusion, recanalized and atherectomy/stent 2. PT and peroneal runoff Complications: none Specimen(s) removed: none Estimated blood loss: 10mL Anesthesia: MAC Drains: None Fluids: 100mL IVF Patient to: PACU Patient Condition: Good Implant/Devices: SEE IMPLANT LOG (if applicable) Date/Time of Procedure: SEE SURGICAL CARE RECORD Medications and IVs Laboratory Tests Test 03/25/17 06:27 03/26/17 08:30 03/27/17 04:35 03/27/17 04:55 White Blood Count 20.9 TH/MM3 19.7 TH/MM3 17.3 TH/MM3 Red Blood Count 4.16 MIL/MM3 4.25 MIL/MM3 4.33 MIL/MM3 Hemoglobin 11.7 GM/DL 12.0 GM/DL 12.1 GM/DL Hematocrit 35.5 % 36.6 % 37.4 % Mean Corpuscular Volume 85.5 FL 86.1 FL 86.5 FL Mean Corpuscular Hemoglobin 28.1 PG 28.4 PG 27.9 PG Mean Corpuscular Hemoglobin Concent 32.9 % 32.9 % 32.3 % Red Cell Distribution Width 18.5 % 18.6 % 19.0 % Platelet Count 160 TH/MM3 156 TH/MM3 164 TH/MM3 Mean Platelet Volume 9.6 FL 9.9 FL 10.2 FL Neutrophils (%) (Auto) 86.0 % 85.1 % 83.9 % Lymphocytes (%) (Auto) 5.5 % 5.5 % 8.2 % Monocytes (%) (Auto) 8.2 % 8.3 % 6.7 % Eosinophils (%) (Auto) 0.0 % 0.2 % 0.3 % Basophils (%) (Auto) 0.3 % 0.9 % 0.9 % Neutrophils # (Auto) 17.9 TH/MM3 16.8 TH/MM3 14.5 TH/MM3 Lymphocytes # (Auto) 1.2 TH/MM3 1.1 TH/MM3 1.4 TH/MM3 Monocytes # (Auto) 1.7 TH/MM3 1.6 TH/MM3 1.2 TH/MM3 Eosinophils # (Auto) 0.0 TH/MM3 0.0 TH/MM3 0.1 TH/MM3 Basophils # (Auto) 0.1 TH/MM3 0.2 TH/MM3 0.2 TH/MM3 CBC Comment DIFF FINAL AUTO DIFF AUTO DIFF Differential Comment AUTO DIFF CONFIRMED AUTO DIFF CONFIRMED Prothrombin Time 22.1 SEC 22.5 SEC 24.6 SEC Prothromb Time International Ratio 2.2 RATIO 2.2 RATIO 2.4 RATIO Susan Cells 1+ 2+ Acanthocytes 1+ 1+ Keratocytes OCC OCC Blood Urea Nitrogen 60 MG/DL 76 MG/DL Creatinine 1.64 MG/DL 1.77 MG/DL Random Glucose 141 MG/DL 154 MG/DL Total Protein 8.0 GM/DL 7.6 GM/DL Albumin 2.5 GM/DL 2.3 GM/DL Calcium Level 8.9 MG/DL 8.6 MG/DL Phosphorus Level 3.2 MG/DL 3.7 MG/DL Magnesium Level 2.8 MG/DL 2.8 MG/DL Alkaline Phosphatase 73 U/L 69 U/L Aspartate Amino Transf (AST/SGOT) 216 U/L 211 U/L Alanine Aminotransferase (ALT/SGPT) 196 U/L 179 U/L Total Bilirubin 3.8 MG/DL 4.0 MG/DL Sodium Level 141 MEQ/L 141 MEQ/L Potassium Level 3.8 MEQ/L 3.6 MEQ/L Chloride Level 105 MEQ/L 107 MEQ/L Carbon Dioxide Level 22.0 MEQ/L 18.7 MEQ/L Anion Gap 14 MEQ/L 15 MEQ/L Estimat Glomerular Filtration Rate 51 ML/MIN 46 ML/MIN Hemoglobin A1c 7.2 % Free Thyroxine 1.12 NG/DL Thyroid Stimulating Hormone 3rd Gen 4.430 uIU/ML Total Creatine Kinase 200 U/L Troponin I 1.13 NG/ML Activated Partial Thromboplast Time 32.4 SEC A/P Problem List: (1) Diabetic foot infection ICD Code: E11.69 - Type 2 diabetes mellitus with other specified complication; L08.9 - Local infection of the skin and subcutaneous tissue, unspecified (2) Diabetic foot ulcer ICD Code: E11.621 - Type 2 diabetes mellitus with foot ulcer; L97.509 - Non- pressure chronic ulcer of other part of unspecified foot with unspecified severity Assessment and Plan This is a 71-year-old male who came in because of bilateral lower extremity swelling despite change of his diuretic to Bumex. He also noted ulcers in his left foot and right second toe draining serous fluid denies fever and chills. Received antibiotics as per PCP. Having active chest pain today 03/27/17 positive troponins we'll recall cardiology. Patient has known cardiomyopathy with an EF of 20% we'll try nitroglycerin and wait for cardiology input We'll have morphine available for pain Diabetic foot ulcers/infection involving left first metatarsal head and right second toe with failed outpatient therapy. X-rays reviewed did not show evidence of osteomyelitis. Continue IV vancomycin and Zosyn Follow-up wound and blood cultures. Wound care following, Seen by Podiatry specialist, Right interdigital ulcers and left fist medial MPJ ulcer, recommended Hibiclens to Right foot, Betadine to interdigital spaces to right foot, Santyl to Left MPJ ulcer. Followed by Podiatry specialist, wound care with Betadine, removed Santyl, continue with Dakin's solution to the left MPJ, Discussed about probable amputation, Hematology, vascular surgery, ID specialist and Nephrology following , high risk for worsening renal failure secondary to IV contrast for surgery . PVD. Doppler pulses. Start aspirin recommended for Vascular surgery consult by Podiatry specialist. seen by Vascular adolescent specialist and recommended for Angiography and Angioplasty for 03/25/17 -had procedure today with vascular surgery March 25 Acute kidney injury with hypokalemia. Nephrology specialist following.probable related to NSAIDs, as Cardiorenal syndrome, bilateral Leg edema, ordered IV furosemide by Nephrology specialist, CKD III after Renal ultrasound suggested this diagnosis, most likely due to Nephrosclerosis, probable Diabetic nephropathy. Worsening renal function Chronic Systolic heart Failure Status post Echocardiogram performed by Doctor Montes EF less than 20% Severely reduced Left ventricular systolic function, Mild to moderate mitral regurgitation, Mild to moderate aortic valve stenosis. small Pericardial effusion present. on Diuretics. discussed with doctor Montes no further recommendations by Cardiology at this time, not recommended for Defibrillator the patient was non compliant in the past so he will need to follow as outpatient with medicare insurance specialist. Patient having active chest pain. Cardiology has been recall we'll try some nitroglycerin to see if that helps We'll get a EKG and recall cardiology Severe Non compliance found by medicare insurance specialist. Hyperlipidemia to continue Home medicines. DVT of the Right arm he has Occlusive thrombus on the right subclavian vein, After Axillary vein that continues as Subclavian vein there is high risk for Pulmonary Emboli no clear evidence of efficacy of anticoagulation with Heparin. has INR in 1.9 asked for central communications specialist evaluation. CONTINUE ANTICOAGULATION PER HEMATOLOGY INR today March 27 is 2.4 Hypertension controlled Rheumatoid arthritis by history. DM II hemoglobin A1C 7.3 continue SSI. ANOREXIA/FAILURE TO THRIVE/POOR APPETITE- START MEGACE 800MG PO DAILY NOT CLEARED BY ID YET DVT prophylaxis with early ambulation. added Warfarin by central communications specialist. Will need chronic anticoagulation is therapeutic on Coumadin at INR of 2.4 Discharge Planning NOT CLEARED BY ID FOR DC YET López Perkins DO Mar 27, 2017 11:04
[2017-03-27] MEDS ORDERED: MORPHINE SULFATE 2 MG/ML INJ IV PUSH ONE (11:15)
[2017-03-27 12:00] VITALS: BP 108/73; PULSE 101; RESP 20; TEMP 97.7; O2SAT 99
[2017-03-27] MEDS ORDERED: NITROGLYCERIN 2% OINT 1 GM PACKET TOPICAL SCH (12:00)
--- NOTE | 2017-03-27 12:32 | HHI.IDPN ---
Note Infectious Disease Note Patient is still somnolent. Awakens easily but sleepy. Afebrile. Still has poor PO intake. Noted to have chest pain earlier. Denies chest pain now. Post left revascularization procedure of the LLE. The patient presented to the emergency department at that time with toe infection of the left great toe and right middle toe. He reportedly was failing outpatient therapy. It is not clear what antibiotic treatment was given. The patient has been in the hospital and was seen by podiatry. He also had renal failure and was seen by nephrology. The reason why this consult was called is that the patient had elevated heart rate and his white blood cell count increased from 10,000 to 15,000 yesterday and the lactic acid was obtained and the lactic acid level was elevated. He was put on vancomycin after having been on ceftriaxone previously. The MRI of the feet showed no definite evidence of osteomyelitis. Blood cultures were obtained today. The patient has been afebrile however he has had low temperatures. PAST MEDICAL HISTORY: 1. Diabetes mellitus. 2. Hypertension. 3. Hyperlipidemia. 4. Diabetic neuropathy. 5. Rheumatoid arthritis. ALLERGIES: NO KNOWN DRUG ALLERGIES. MEDICATIONS: 1. Piperacillin / tazobactam. 2. Vancomycin. REVIEW OF SYSTEMS: Difficult to obtain because of the patient's mental status OBJECTIVE: Vital Signs Date Time Temp Pulse Resp B/P (MAP) Pulse Ox O2 Delivery O2 Flow Rate FiO2 03/27/17 11:16 18 03/27/17 10:30 97.4 79 20 118/72 (87) 99 03/27/17 09:30 65 03/27/17 07:55 96.8 108 22 134/81 (98) 100 03/27/17 02:59 95.7 100 20 122/67 (85) 96 03/27/17 00:00 89 03/27/17 00:00 97.0 91 18 112/63 (79) 97 03/26/17 20:00 96.8 115 17 113/80 (91) 94 03/26/17 16:00 97.0 82 20 100/76 (84) 95 Laboratory Tests Test 03/26/17 08:30 03/27/17 04:55 White Blood Count 19.7 TH/MM3 17.3 TH/MM3 Red Blood Count 4.25 MIL/MM3 4.33 MIL/MM3 Hemoglobin 12.0 GM/DL 12.1 GM/DL Hematocrit 36.6 % 37.4 % Mean Corpuscular Volume 86.1 FL 86.5 FL Mean Corpuscular Hemoglobin 28.4 PG 27.9 PG Mean Corpuscular Hemoglobin Concent 32.9 % 32.3 % Red Cell Distribution Width 18.6 % 19.0 % Platelet Count 156 TH/MM3 164 TH/MM3 Mean Platelet Volume 9.9 FL 10.2 FL Neutrophils (%) (Auto) 85.1 % 83.9 % Lymphocytes (%) (Auto) 5.5 % 8.2 % Monocytes (%) (Auto) 8.3 % 6.7 % Eosinophils (%) (Auto) 0.2 % 0.3 % Basophils (%) (Auto) 0.9 % 0.9 % Neutrophils # (Auto) 16.8 TH/MM3 14.5 TH/MM3 Lymphocytes # (Auto) 1.1 TH/MM3 1.4 TH/MM3 Monocytes # (Auto) 1.6 TH/MM3 1.2 TH/MM3 Eosinophils # (Auto) 0.0 TH/MM3 0.1 TH/MM3 Basophils # (Auto) 0.2 TH/MM3 0.2 TH/MM3 CBC Comment AUTO DIFF AUTO DIFF Differential Comment AUTO DIFF CONFIRMED AUTO DIFF CONFIRMED [place] Cells 1+ 2+ Acanthocytes 1+ 1+ Keratocytes OCC OCC Laboratory Tests Test 03/26/17 08:30 03/27/17 04:35 03/27/17 11:10 Blood Urea Nitrogen 60 MG/DL 76 MG/DL Creatinine 1.64 MG/DL 1.77 MG/DL Random Glucose 141 MG/DL 154 MG/DL Total Protein 8.0 GM/DL 7.6 GM/DL Albumin 2.5 GM/DL 2.3 GM/DL Calcium Level 8.9 MG/DL 8.6 MG/DL Phosphorus Level 3.2 MG/DL 3.7 MG/DL Magnesium Level 2.8 MG/DL 2.8 MG/DL Alkaline Phosphatase 73 U/L 69 U/L Aspartate Amino Transf (AST/SGOT) 216 U/L 211 U/L Alanine Aminotransferase (ALT/SGPT) 196 U/L 179 U/L Total Bilirubin 3.8 MG/DL 4.0 MG/DL Sodium Level 141 MEQ/L 141 MEQ/L Potassium Level 3.8 MEQ/L 3.6 MEQ/L Chloride Level 105 MEQ/L 107 MEQ/L Carbon Dioxide Level 22.0 MEQ/L 18.7 MEQ/L Anion Gap 14 MEQ/L 15 MEQ/L Estimat Glomerular Filtration Rate 51 ML/MIN 46 ML/MIN Hemoglobin A1c 7.2 % Free Thyroxine 1.12 NG/DL Thyroid Stimulating Hormone 3rd Gen 4.430 uIU/ML Total Creatine Kinase 200 U/L 239 U/L Troponin I 1.13 NG/ML 1.32 NG/ML Microbiology Date/Time Source Procedure Growth Status 03/24/17 16:36 Blood Peripheral Aerobic Blood Culture - Preliminary NO GROWTH IN 3 DAYS Resulted 03/24/17 16:36 Blood Peripheral Anaerobic Blood Culture - Preliminary NO GROWTH IN 3 DAYS Resulted 03/24/17 16:30 Blood Peripheral Aerobic Blood Culture - Preliminary NO GROWTH IN 3 DAYS Resulted 03/24/17 16:30 Blood Peripheral Anaerobic Blood Culture - Preliminary NO GROWTH IN 3 DAYS Resulted IMAGING: Chest X-Ray 03/26/17 0000 Signed Impressions: Service Date/Time: Sunday, March 26, 2017 15:13 - CONCLUSION: 1. Stable right lower lung zone airspace disease consistent with history of pneumonia. 2. Mild left lower lung zone airspace disease, likely atelectasis. Differential considerations include aspiration. 3. Cardiomegaly. Trace Robert MD Chest X-Ray 03/24/17 0000 Signed Impressions: Service Date/Time: Friday, March 24, 2017 12:37 - CONCLUSION: Consolidation right lung base, possible pneumonia. Heart remains enlarged.. Maycol Leung MD Foot MRI 03/23/17 0800 Signed Impressions: Service Date/Time: Thursday, March 23, 2017 12:10 - CONCLUSION: 1. Suboptimal exam due to motion artifact. No definite marrow signal abnormality to suggest osteomyelitis. Soft tissue swelling and ulceration at the second toe. Lopez Montes MD Lower Extremity Ultrasound 03/23/17 0000 Signed Impressions: Service Date/Time: Thursday, March 23, 2017 11:25 - CONCLUSION: 1. No sonographic evidence for lower extremity DVT. Trace Robert MD Upper Extremity Ultrasound 03/21/17 0000 Signed Impressions: Service Date/Time: March 12:19 - CONCLUSION: 1. Nonocclusive DVT in the right subclavian vein. 2. Superficial venous thrombosis involving the cephalic vein. 3. Otherwise patent venous system. Shiva Watts MD Toe X-Ray 03/16/17 0000 Signed Impressions: Service Date/Time: Thursday, March 16, 2017 12:00 - CONCLUSION: 1. Dorsal soft tissue ulceration overlying the second PIP region without significant bony erosion to suggest osteomyelitis. Trace Robert MD Renal Ultrasound 03/16/17 0000 Signed Impressions: Service Date/Time: Thursday, March 16, 2017 16:06 - CONCLUSION: 1. There is increased echogenicity of the renal parenchyma suggestive of some degree of chronic medical renal disease. 2. No hydronephrosis. 3. 1.5 cm benign- appearing right renal cyst. 4. Questionable small calcification left kidney suggestive of a nonobstructing stone. Misbah Grey MD Foot X-Ray 03/16/17 0000 Signed Impressions: Service Date/Time: Thursday, March 16, 2017 11:52 - CONCLUSION: 1. Large ulcer overlying the medial forefoot first MTP joint region without definitive bony erosive change to suggest osteomyelitis. Trace Robert MD PHYSICAL EXAMINATION: GENERAL: Still somnolent. HEAD, EYES, EARS, NOSE, THROAT: The head is atraumatic. Extraocular movements grossly intact. No icterus. Pale sclerae. Oropharynx with no visible lesions. NECK: The neck is supple. No adenopathy. LUNGS: Decreased breath sounds with basilar rhonchi. HEART: Irregular rate and rhythm. 1-2/6 systolic murmur at the left sternal border. ABDOMEN: Bowel sounds present, soft, no tenderness appreciated. EXTREMITIES: The right third toe has an ulceration at the dorsal aspect which is draining serous drainage. The left lateral great toe has also an ulceration approximately the size of a quarter coin which has a little exudate. Both lower extremities have dry skin and have a leathery appearance. NEUROLOGIC: Difficult to assess. PSYCHIATRIC: Difficult to assess. IMPRESSION: 1. Sepsis in a patient with features including leukocytosis and lactic acidemia along with elevated heart rate and patient being very somnolent. 2. Lower extremity ulcerations. 3. Pneumonia of the right lung. May be having micro aspiration. 4. Peripheral vascular disease. 5. Leukocytosis secondary to infection. WBC still elevated. 6. Altered mentation due to infection. RECOMMENDATIONS: 1. Continue piperacillin / tazobactam for pneumonia. 2. Continue Vancomycin for the toe wounds. 3. Reculture the toe wounds. 4. Follow WBC. 5. Monitor blood cultures. Chai Triana MD Mar 27, 2017 12:32
--- NOTE | 2017-03-27 13:13 | PD.CARD.PN ---
Subjective Subjective Remarks Cardiology f/u for Dr. Montes. Patient moaning and groaning yet denies CP, abdominal pain, headache, leg pain. Denies dyspnea, dizziness, nausea, palpitations. Objective Medications Item Value Date Time Ranolazine 500 mg 03/27/17 2100 (Ranexa) Q12HR/PO Nitroglycerin 0.5 inch 03/27/17 1200 (Nitroglycerin Q6HR/TOPICAL 03/27/17 1235 2% Oint) Carvedilol 3.125 mg 03/27/17 1100 (Coreg) Q12HR/PO 03/27/17 1235 Warfarin Sodium 2.5 mg 03/22/17 1930 (Coumadin) DAILY@16/PO 03/26/17 1704 Torsemide 20 mg 03/20/17 191 (Demadex) DAILY/PO 03/27/17 0937 Aspirin 325 mg 03/18/17 0900 (Ecotrin Ec) DAILY/PO 03/27/17 0937 Pravastatin Sodium 10 mg 03/16/17 2100 (Pravachol) HS/PO 03/26/172 Current Medications Medications (Trade) Dose Ordered Sig/Iman Route Start Time Stop Time Status Last Admin (NS Flush) 2 ml UNSCH PRN IV FLUSH 03/16/17 00:15 (NS Flush) 2 ml BID IV FLUSH 03/16/17 09:00 03/27/17 09:38 (Tylenol) 650 mg Q4H PRN PO 03/16/17 00:15 (Zofran Inj) 4 mg Q6H PRN IVP 03/16/17 00:15 (Narcan Inj) 0.4 mg UNSCH PRN IV PUSH 03/16/17 00:15 (Sudha-Colace) 1 tab BID PO 03/16/17 09:00 03/27/17 09:36 (Milk Of Magnesia Liq) 30 ml Q12H PRN PO 03/16/17 00:15 03/21/17 08:00 (Senokot) 17.2 mg Q12H PRN PO 03/16/17 00:15 03/21/17 20:12 (Dulcolax Supp) 10 mg DAILY PRN RECTAL 03/16/17 00:15 (Lactulose Liq) 30 ml DAILY PRN PO 03/16/17 00:15 (D50w (Vial) Inj) 50 ml UNSCH PRN IV PUSH 03/16/17 08:45 (Glucagon Inj) 1 mg UNSCH PRN OTHER 03/16/17 08:45 (NovoLOG SUPPLEMENTAL SCALE) 1 ACHS SLIDING SCALE SQ 03/16/17 12:00 03/27/17 12:35 (Tylenol) 650 mg Q6H PRN PO 03/16/17 08:45 (Custar 5-325 Mg) 1 tab Q4H PRN PO 03/16/17 08:45 03/19/17 23:41 (Custar 7.5-325 Mg) 1 tab Q4H PRN PO 03/16/17 08:45 03/27/17 02:15 (Morphine Inj) 1 mg Q3H PRN IV PUSH 03/16/17 09:30 03/25/17 18:26 (Pravachol) 10 mg HS PO 03/16/17 21:00 03/26/17 21:02 (Neurontin) 300 mg BID PO 03/16/17 12:00 03/27/17 09:36 (Pill Splitter) 1 ea UNSCH PRN OTHER 03/16/17 12:00 03/17/17 08:12 (Ecotrin Ec) 325 mg DAILY PO 03/18/17 09:00 03/27/17 09:37 (Vitamin D3) 2,000 units DAILY PO 03/18/17 12:15 03/27/17 09:36 (Santyl Oint) 1 applic DAILY TOPICAL 03/19/17 23:45 03/27/17 09:45 (Demadex) 20 mg DAILY PO 03/20/17 19:15 03/27/17 09:37 (Miralax) 17 gm DAILY PRN PO 03/22/17 16:00 (Pepcid) 20 mg BID PO 03/22/17 21:00 03/27/17 09:36 (Coumadin) 2.5 mg DAILY@16 PO 03/22/17 19:30 Future hold 03/26/17 17:04 (Dakin'S 0.5% Soln) 5 ml DAILY EXTERNAL 03/23/17 16:00 03/27/17 09:36 (Betadine 10% Top Soln) 1 applic DAILY EXTERNAL 03/23/17 17:00 12/20/17 09:35 Pharmacy Profile Note 0 ml @ 0 mls/hr UNSCH OTHER 03/24/17 12:15 Piperacillin Sod/ Tazobactam Sod 3.375 gm/Sodium Chloride 100 ml @ 100 mls/hr Q6H IV 03/24/17 14:00 03/27/17 12:35 Vancomycin HCl 1500 mg/Sodium Chloride 515 ml @ 257.5 mls/ hr Q24H IV 03/24/17 14:00 Future Hold 03/25/17 17:13 Lactated Ringer's 1,000 ml @ 30 mls/hr Q24H PRN IV 03/25/17 04:45 03/28/17 04:44 (Megace Liq) 800 mg DAILY PO 03/26/17 15:15 03/27/17 09:36 (Nitrostat Sl) 0.4 mg Q5M PRN SL 03/27/17 11:00 03/27/17 11:15 (Coreg) 3.125 mg Q12HR PO 03/27/17 11:00 03/27/17 12:35 (Nitroglycerin 2% Oint) 0.5 inch Q6HR TOPICAL 03/27/17 12:00 03/27/17 12:35 (Ranexa) 500 mg Q12HR PO 03/27/17 21:00 Vital Signs / I&O Vital Signs Date Time Temp Pulse Resp B/P (MAP) Pulse Ox O2 Delivery O2 Flow Rate FiO2 03/27/17 12:00 97.7 101 20 108/73 (85) 99 03/27/17 11:16 18 03/27/17 10:30 97.4 79 20 118/72 (87) 99 03/27/17 09:30 65 03/27/17 07:55 96.8 108 22 134/81 (98) 100 03/27/17 02:59 95.7 100 20 122/67 (85) 96 03/27/17 00:00 89 03/27/17 00:00 97.0 91 18 112/63 (79) 97 03/26/17 20:00 96.8 115 17 113/80 (91) 94 03/26/17 16:00 97.0 82 20 100/76 (84) 95 I/O 03/26/17 03/26/17 03/26/17 03/27/17 03/27/1717 07:00 15:00 23:00 07:00 15:00 23:00 Intake Total 240 ml 240 ml 360 ml Balance 240 ml 240 ml 360 ml Intake Oral 240 ml 240 ml 360 ml # Voids 1 3 3 # Bowel Movements 0 0 Physical Exam GENERAL: Well developed, well nourished. HEENT: Jugular venous pressure ?8-9 cm water. CHEST: Diminished breath sounds bases. CARDIAC: Regular rate and rhythm without S3, S4, or murmur. ABDOMEN: Soft, nontender, no hepatosplenomegaly. Bowel sounds present. EXTREMITIES: No clubbing, cyanosis, or edema. Chronic arterial and venous insufficiency changes. Laboratory Laboratory Tests Test 03/27/17 04:35 03/27/17 04:55 03/27/17 11:10 Blood Urea Nitrogen 76 MG/DL Creatinine 1.77 MG/DL Random Glucose 154 MG/DL Total Protein 7.6 GM/DL Albumin 2.3 GM/DL Calcium Level 8.6 MG/DL Phosphorus Level 3.7 MG/DL Magnesium Level 2.8 MG/DL Alkaline Phosphatase 69 U/L Aspartate Amino Transf (AST/SGOT) 211 U/L Alanine Aminotransferase (ALT/SGPT) 179 U/L Total Bilirubin 4.0 MG/DL Sodium Level 141 MEQ/L Potassium Level 3.6 MEQ/L Chloride Level 107 MEQ/L Carbon Dioxide Level 18.7 MEQ/L Anion Gap 15 MEQ/L Estimat Glomerular Filtration Rate 46 ML/MIN Total Creatine Kinase 200 U/L 239 U/L Troponin I 1.13 NG/ML 1.32 NG/ML White Blood Count 17.3 TH/MM3 Red Blood Count 4.33 MIL/MM3 Hemoglobin 12.1 GM/DL Hematocrit 37.4 % Mean Corpuscular Volume 86.5 FL Mean Corpuscular Hemoglobin 27.9 PG Mean Corpuscular Hemoglobin Concent 32.3 % Red Cell Distribution Width 19.0 % Platelet Count 164 TH/MM3 Mean Platelet Volume 10.2 FL Neutrophils (%) (Auto) 83.9 % Lymphocytes (%) (Auto) 8.2 % Monocytes (%) (Auto) 6.7 % Eosinophils (%) (Auto) 0.3 % Basophils (%) (Auto) 0.9 % Neutrophils # (Auto) 14.5 TH/MM3 Lymphocytes # (Auto) 1.4 TH/MM3 Monocytes # (Auto) 1.2 TH/MM3 Eosinophils # (Auto) 0.1 TH/MM3 Basophils # (Auto) 0.2 TH/MM3 CBC Comment AUTO DIFF Differential Comment AUTO DIFF CONFIRMED [place] Cells 2+ Acanthocytes 1+ Keratocytes OCC Prothrombin Time 24.6 SEC Prothromb Time International Ratio 2.4 RATIO Activated Partial Thromboplast Time 32.4 SEC Assessment and Plan Problem List: (1) Chest pain ICD Codes: R07.9 - Chest pain, unspecified Plan: Reportedly with complaints of CP earlier. Patient CP free at present. Troponin levels minimally to mildly increased, though in the setting of renal insufficiency and severely reduced left ventricular function. CK MB 's pending. Patient poor candidate for invasive cardiac evaluation at this time with his high risk of dye-induced renal failure, severely reduced EF < 20%. No acute diagnostic ST/T changes on EKG's today. REC conservative medical therapy; carvedilol, nitro paste, Ranexa started today ; continue daily aspirin (2) Cardiomyopathy ICD Codes: I42.9 - Cardiomyopathy, unspecified Status: Chronic Plan: Chronic cardiomyopathy dating back to at least 2013, now reportedly with EF < 20% by echo this admission. No overt CHF by exam today. Patient had declined ICD implant and cardiac catheterization in the past, seems to decline ICD at this time as well. REC beta dre; no SERINA-I with his CRI Code Status full code Discussed Condition With patient and his ex- Problem Qualifiers (1) Chest pain: Qualified Codes: R07.9 - Chest pain, unspecified (2) Cardiomyopathy: Qualified Codes: I42.9 - Cardiomyopathy, unspecified Jesse Pizarro MD Mar 27, 2017 13:13
[2017-03-27] MEDS ORDERED: PHARMACY ORDERED LAB ONE (13:45)
[2017-03-27] MEDS ORDERED: POTASSIUM CHLORIDE 10 MEQ CONTROLLED RELEASE TAB PO ONE (14:30)
--- NOTE | 2017-03-27 14:31 | HHI.DS ---
Summary Note Date of : Mar 27, 2017 Time Of : 14:08 Admission Date Mar 15, 2017 at 23:50 Admitting Diagnosis cellulitis and ulcer infected Diagnosis at Time of : (1) Diabetic foot infection ICD Code: E11.69 - Type 2 diabetes mellitus with other specified complication; L08.9 - Local infection of the skin and subcutaneous tissue, unspecified Diagnosis: Principal (2) Diabetic foot ulcer ICD Code: E11.621 - Type 2 diabetes mellitus with foot ulcer; L97.509 - Non- pressure chronic ulcer of other part of unspecified foot with unspecified severity Diagnosis: Secondary (3) Chest pain ICD Code: R07.9 - Chest pain, unspecified Diagnosis: Principal (4) Cardiomyopathy ICD Code: I42.9 - Cardiomyopathy, unspecified Diagnosis: Principal (5) PAD (peripheral artery disease) ICD Code: I73.9 - Peripheral vascular disease, unspecified Diagnosis: Principal (6) DVT (deep venous thrombosis) ICD Code: I82.409 - Acute embolism and thrombosis of unspecified deep veins of unspecified lower extremity Diagnosis: Secondary (7) Elevated troponin ICD Code: R79.89 - Elevated troponin Diagnosis: Principal (8) Diabetes mellitus, type 2 ICD Code: E11.9 - Type 2 diabetes mellitus without complications Diagnosis: Principal Procedures Procedure Date: Mar 25, 2017 Pre Op Diagnosis: PAD, B LE Post Op Diagnosis: PAD, B LE Surgeon: Wong Benton Roller Print Tender(s): Juan Stuart Procedure: 1. L LE angiogram 2. L SFA orbital atherectomy with METAL CLEANER/stent 3. R SUBSCRIPTION AGENT Angioseal Findings: 1. L SFA occlusion, recanalized and atherectomy/stent 2. PT and peroneal runoff Complications: none Specimen(s) removed: none Estimated blood loss: 10mL Anesthesia: MAC Drains: None Fluids: 100mL IVF Patient to: PACU Patient Condition: Good Implant/Devices: SEE IMPLANT LOG (if applicable) Date/Time of Procedure: SEE SURGICAL CARE RECORD Brief History This is a 71-year-old male with a history of systolic heart failure, diabetes mellitus with neuropathy, hyperlipidemia, GERD, hypertension and rheumatoid arthritis. Please note patient does not provide good history. States he came in because of bilateral lower extremity swelling despite change of his diuretic to Bumex. Denies shortness of breath and leg swelling. No urinary complaints. He has been compliant with fluid restriction. He also noted ulcers in his left foot and right second toe draining serous fluid denies fever and chills. States he was placed on unrecalled antibiotics by his primary care physician about a week ago. He has an ulcer on the right second toe and left first metatarsal head with purulent discharge. Maggots also noted. He has neuropathic pain. All other systems reviewed negative CBC/BMP: 03/27/17 0455 03/27/17 0435 Significant Findings Laboratory Tests Test 03/25/17 06:27 03/26/17 08:30 03/27/17 04:35 03/27/17 04:55 White Blood Count 20.9 TH/MM3 (4.0-11.0) 19.7 TH/MM3 (4.0-11.0) 17.3 TH/MM3 (4.0-11.0) Red Blood Count 4.16 MIL/MM3 (4.50-5.90) 4.25 MIL/MM3 (4.50-5.90) 4.33 MIL/MM3 (4.50-5.90) Hemoglobin 11.7 GM/DL (13.0-17.0) 12.0 GM/DL (13.0-17.0) 12.1 GM/DL (13.0-17.0) Hematocrit 35.5 % (39.0-51.0) 36.6 % (39.0-51.0) 37.4 % (39.0-51.0) Red Cell Distribution Width 18.5 % (11.6-17.2) 18.6 % (11.6-17.2) 19.0 % (11.6-17.2) Neutrophils (%) (Auto) 86.0 % (16.0-70.0) 85.1 % (16.0-70.0) 83.9 % (16.0-70.0) Lymphocytes (%) (Auto) 5.5 % (9.0-44.0) 5.5 % (9.0-44.0) 8.2 % (9.0-44.0) Monocytes (%) (Auto) 8.2 % (0.0-8.0) 8.3 % (0.0-8.0) Neutrophils # (Auto) 17.9 TH/MM3 (1.8-7.7) 16.8 TH/MM3 (1.8-7.7) 14.5 TH/MM3 (1.8-7.7) Monocytes # (Auto) 1.7 TH/MM3 (0-0.9) 1.6 TH/MM3 (0-0.9) 1.2 TH/MM3 (0-0.9) Prothrombin Time 22.1 SEC (9.8-11.6) 22.5 SEC (9.8-11.6) 24.6 SEC (9.8-11.6) Susan Cells 1+ (NORMAL) 2+ (NORMAL) Acanthocytes 1+ (NORMAL) 1+ (NORMAL) Blood Urea Nitrogen 60 MG/DL (7-18) 76 MG/DL (7-18) Creatinine 1.64 MG/DL (0.60-1.30) 1.77 MG/DL (0.60-1.30) Random Glucose 141 MG/DL (74-106) 154 MG/DL (74-106) Albumin 2.5 GM/DL (3.4-5.0) 2.3 GM/DL (3.4-5.0) Magnesium Level 2.8 MG/DL (1.5-2.5) 2.8 MG/DL (1.5-2.5) Aspartate Amino Transf (AST/SGOT) 216 U/L (15-37) 211 U/L (15-37) Alanine Aminotransferase (ALT/SGPT) 196 U/L (12-78) 179 U/L (12-78) Total Bilirubin 3.8 MG/DL (0.2-1.0) 4.0 MG/DL (0.2-1.0) Estimat Glomerular Filtration Rate 51 ML/MIN (>89) 46 ML/MIN (>89) Hemoglobin A1c 7.2 % (4.3-6.0) Thyroid Stimulating Hormone 3rd Gen 4.430 uIU/ML (0.358-3.740) Carbon Dioxide Level 18.7 MEQ/L (21.0-32.0) Troponin I 1.13 NG/ML (0.02-0.05) Activated Partial Thromboplast Time 32.4 SEC (24.3-30.1) Test 03/27/17 11:10 Troponin I 1.32 NG/ML (0.02-0.05) Imaging Last Impressions Chest X-Ray 03/26/17 0000 Signed Impressions: Service Date/Time: Sunday, March 26, 2017 15:13 - CONCLUSION: 1. Stable right lower lung zone airspace disease consistent with history of pneumonia. 2. Mild left lower lung zone airspace disease, likely atelectasis. Differential considerations include aspiration. 3. Cardiomegaly. Trace Robert MD Foot MRI 03/23/17 0800 Signed Impressions: Service Date/Time: Thursday, March 23, 2017 12:10 - CONCLUSION: 1. Suboptimal exam due to motion artifact. No definite marrow signal abnormality to suggest osteomyelitis. Soft tissue swelling and ulceration at the second toe. Lopez Montes MD Lower Extremity Ultrasound 03/23/17 0000 Signed Impressions: Service Date/Time: Thursday, March 23, 2017 11:25 - CONCLUSION: 1. No sonographic evidence for lower extremity DVT. Trace Robert MD Upper Extremity Ultrasound 03/21/17 0000 Signed Impressions: Service Date/Time: March 12:19 - CONCLUSION: 1. Nonocclusive DVT in the right subclavian vein. 2. Superficial venous thrombosis involving the cephalic vein. 3. Otherwise patent venous system. Shiva Watts MD Toe X-Ray 03/16/17 0000 Signed Impressions: Service Date/Time: Thursday, March 16, 2017 12:00 - CONCLUSION: 1. Dorsal soft tissue ulceration overlying the second PIP region without significant bony erosion to suggest osteomyelitis. Trace Robert MD Renal Ultrasound 03/16/17 0000 Signed Impressions: Service Date/Time: Thursday, March 16, 2017 16:06 - CONCLUSION: 1. There is increased echogenicity of the renal parenchyma suggestive of some degree of chronic medical renal disease. 2. No hydronephrosis. 3. 1.5 cm benign- appearing right renal cyst. 4. Questionable small calcification left kidney suggestive of a nonobstructing stone. Misbah Grey MD Foot X-Ray 03/16/17 0000 Signed Impressions: Service Date/Time: Thursday, March 16, 2017 11:52 - CONCLUSION: 1. Large ulcer overlying the medial forefoot first MTP joint region without definitive bony erosive change to suggest osteomyelitis. Trace Robert MD Hospital Course This is a pleasant 71 y/o Male with Diabetic Foot infection, seen in his bedroom , discussed with nurse Miss Serrato, Nephrology specialist and retail presentation specialist following, Echocardiogram performed and found EF 20%, has Acute Kidney Injury probable related to NSAIDs, as Cardiorenal syndrome, bilateral Leg edema, ordered IV furosemide by Nephrology specialist, CKD III after Renal ultrasound suggested this diagnosis, most likely due to Nephrosclerosis, probable Diabetic nephropathy. no other complaint by patient at this time. 03/19: Seen by Podiatry specialist, Right interdigital ulcers and left fist medial MPJ ulcer, recommended Hibiclens to Right foot, Betadine to interdigital spaces to right foot, Santyl to Left MPJ ulcer, No surgical intervention at this time. recommended vascular Surgery consult. on discharge Wound care center at [place]. by doctor Devries. Status post Echocardiogram performed by Doctor Montes EF less than 20% Severely reduced Left ventricular systolic function, Mild to moderate mitral regurgitation, Mild to moderate aortic valve stenosis. small Pericardial effusion present. no nausea, vomit or diarrhea, seen in his bedroom in the present of friend, 03/20: Discussed on Multidisciplinary round, patient stable improving general condition, he has CKD III and Chronic systolic heart failure will need to get final recommendations by retail presentation specialist and Nephrology also will ask for final recommendations for wound care by Podiatry specialist. 03/21: Stable in his bedroom seen in the presence of nurse Miss Nowak and his Ex- Mrs. Svetlana Hassan, but complaint of right arm edema asked for ultrasound to rule out DVT, he will have Angiography and probable angioplasty next 03/25/17. 03/22: Seen in his bedroom in the presence of his Ex Mrs. Svetlana Hassan, he has Increased INR with normal liver function started on heparin yesterday for DVT on Right arm, patient with Subclavian vein thrombosis, asked for inventory management specialist consult. 03/23: Stable in his bedroom, followed by Podiatry specialist, wound care with Betadine, removed Santyl, continue with Dakin's solution to the left MPJ, Discussed about probable amputation, Hematology, vascular surgery, ID specialist and Nephrology following, high risk for worsening renal failure secondary to IV contrast for surgery 03/25/17. 03/24: Seen in his bedroom, no nausea, vomit or diarrhea, Constipation, 03-[address] BENTON TO RECANULATE LEFT LOWER EXTREMITY NO NEW COMPLAINTS AT THIS TIME AM LABS DW RN AND PT AND CASE MANAGEMENT 03-26 PATIENT HAS NO APPETITE WILL ADD MEGACE DAILY DW ID- NOT CLEARED FOR DC YET DW CM AND RN AND PT CONTINUE COUMADIN 03-27 patient has positive troponins. He is actively having chest pain we'll try nitroglycerin will recall cardiology Dr. Montes who is being covered by Dr. Pizarro who has just called Will give nitroglycerin now and get a stat EKG His INR is 2.4 on warfarin Await cardiology input Discussed with RN and patient and family May need to go to the cardiac catheter lab depending on what cardiology feels Patient looks quite uncomfortable at this time WILL GIVE 2 MG OF IV MORPHINE HAVING ACTIVE CHEST PAIN WAS PLACED ON COREG AND RANEXA AND NITROPASTE BY CARDIOLOGY NOTED TO CODE- DID NOT SURVIVE THE CODE- CODED BY DR STONE OF [facility] PRONOUNCED AT 14:08 SON CAESAR HASSAN López Oates DO Mar 27, 2017 14:31
--- NOTE | 2017-03-27 14:41 | PD.PROCEDR ---
Procedure Note Procedure CPR NOTE: I responded to code blue. Patient was found on the bed patient unresponsive and pulseless. Apparently had chest pain in the am with troponin elevation, cardiology following. Immediate CPR was started, and was conducted for 25 minutes. Initial rhythm was PEA. Patient received total 7 amp epinephrine, 2 amp of bicarb, 4 GMS of Magnesium and 2 amps of bicarb during code. Rhythm on monitor was irregular, PEA. At about 16 min with them check showed course of A. fib/torsade. Patient was altered 360 J with return of spontaneous circulation for 10 seconds, where he went back to course of A. fib. 2 g of magnesium given along with CPR and she was shocked again with no result. With continued CPR 300 mg of amiodarone push was given and patient was shocked again with 360 J total shocked 3 times. A total of 25 minutes of ACLS protocol followed, and patient was intubated during code blue. Patient has EF <20%. Because of overall poor prognosis and futility CPR was discontinued after 25 minutes, and patient was declared Dean Martinez MD Mar 27, 2017 14:40
--- NOTE | 2017-03-27 14:42 | PD.PROCEDR ---
Procedure Note Procedure Emergency intubation during CODE BLUE INTUBATION: The patient was put in optimal position for the procedure. Rapid sequence intubation was initiated by me using no meds, DL with Mac 4 blade, Grade 1 view, single attempt. The patient was intubated with a 8.0 cuffed endotracheal tube. Tube placement was confirmed by visualization of the tube and balloon passing through the cords, capnometry and subsequent chest x-ray. Breath sounds were equal and well aerated bilaterally postintubation. No breath sounds over stomach. Dean Martinez MD Mar 27, 2017 14:42
--- NOTE | 2017-03-27 14:43 | EKG ---
Date Performed: 03/27/2017 Time Performed: 11:24:16 PTAGE: 71 years EKG: Sinus tachycardia with PVC(s) with PAC(s). Leftward axis Anteroseptal infarct - age undeter mined Nonspecific ST and T wave abnormalities Abnormal ECG No significant change from prior electroca rdiogram. PREVIOUS TRACING : 03/27/2017 09.59 DOCTOR: Bret Mccloud Interpretating Date/Time 03/27/2017 14:42:51
--- NOTE | 2017-03-27 14:49 | EKG ---
Date Performed: 03/27/2017 Time Performed: 09:59:11 PTAGE: 71 years EKG: Multifocal atrial tachycardia WITH FREQUENT VENTRICULAR PREMATURE COMPLEXES POSSIBLE RIGHT VENTRICULAR CONDUCTION DELAY ANTEROSEPTAL MYOCARDIAL INFARCTION , OF INDETERMINATE AGE Nonspecific S T and T wave abnormalities No significant change from prior electrocardiogram. ABNORMAL ECG PREVIOUS TRACING : 03/16/2017 22.55 DOCTOR: Bret Mccloud Interpretating Date/Time 03/27/2017 14:47:48
[2017-03-27] MEDS ORDERED: VANCOMYCIN 1,500 MG/NS 500 ML IV SCH ×2 (15:00)
[2017-03-27] MEDS ORDERED: RANOLAZINE 500 MG EXTENDED RELEASE TAB PO SCH (21:00)
--- NOTE | 2017-03-27 22:06 | HHI.PR ---
Addendum to Inpatient Note Addendum Reason: Additional Documentation Additional Information Residents responded to code blue at approx 1345. On initial arrival, patient was found on the bed unresponsive and pulseless. Apparently had chest pain in the am with troponin elevation, cardiology following. Immediate CPR was started. Critical care arrived at bedside shortly thereafter and code blue was continued. Summary of code blue per critical care note: CPR was conducted for 25 minutes. Initial rhythm was PEA. Patient received total 7 amp epinephrine, 2 amp of bicarb, 4 GMS of Magnesium and 2 amps of bicarb during code. Rhythm on monitor was irregular, PEA. At about 16 min with them check showed course of A. fib/ torsade. Patient was altered 360 J with return of spontaneous circulation for 10 seconds, where he went back to course of A. fib. 2 g of magnesium given along with CPR and she was shocked again with no result. With continued CPR 300 mg of amiodarone push was given and patient was shocked again with 360 J total shocked 3 times. A total of 25 minutes of ACLS protocol followed, and patient was intubated during code blue. Patient has EF <20%. Because of overall poor prognosis and futility CPR was discontinued after 25 minutes, and patient was declared . Alexsander Mcguire MD Mar 27, 2017 22:06
[2017-03-29 03:51] LABS: BETA2 GLYCOPROTEIN I AB IGA LESS THAN 9.0 SAU (< OR = 20)
== END 2017-03-27 17:10 | disposition expired | DRG 270 ==
LOC: NEPE 19:05 → NEDA 23:50 → N07B 03-16 01:15
PROVIDERS: ADMIT Hospitalist; ATTEND Hospitalist
PROC: B41G1ZZ Fluoroscopy of Left Lower Extremity Arteries using Low Osmolar Contrast (ICD-10-PCS; 2017-03-25)
PROC: 04CL3ZZ Extirpation of Matter from Left Femoral Artery, Percutaneous Approach (ICD-10-PCS; principal; 2017-03-25 10:12)
PROC: 047L3DZ Dilation of Left Femoral Artery with Intraluminal Device, Percutaneous Approach (ICD-10-PCS; 2017-03-25 10:12)
PROC: 5A12012 Performance of Cardiac Output, Single, Manual (ICD-10-PCS; 2017-03-27)
PROC: 5A2204Z Restoration of Cardiac Rhythm, Single (ICD-10-PCS; 2017-03-27)
PROC: 0BH17EZ Insertion of Endotracheal Airway into Trachea, Via Natural or Artificial Opening (ICD-10-PCS; 2017-03-27)
PROC: 5A1935Z Respiratory Ventilation, Less than 24 Consecutive Hours (ICD-10-PCS; 2017-03-27)
DX: E11.52 Type 2 diabetes mellitus with diabetic peripheral angiopathy with gangrene (principal); I50.23 Acute on chronic systolic (congestive) heart failure; N17.9 Acute kidney failure, unspecified; A41.9 Sepsis, unspecified organism; J18.9 Pneumonia, unspecified organism; N18.3 Chronic kidney disease, stage 3 (moderate); D89.0 Polyclonal hypergammaglobulinemia; L03.031 Cellulitis of right toe; E87.2 Acidosis; I42.9 Cardiomyopathy, unspecified; I13.0 Hypertensive heart and chronic kidney disease with heart failure and stage 1 through stage 4 chronic kidney disease, or unspecified chronic kidney disease; I31.3 Pericardial effusion (noninflammatory); E11.21 Type 2 diabetes mellitus with diabetic nephropathy; E11.621 Type 2 diabetes mellitus with foot ulcer; L03.032 Cellulitis of left toe; E11.628 Type 2 diabetes mellitus with other skin complications; E11.40 Type 2 diabetes mellitus with diabetic neuropathy, unspecified; E11.69 Type 2 diabetes mellitus with other specified complication; M19.90 Unspecified osteoarthritis, unspecified site; E78.5 Hyperlipidemia, unspecified; K21.9 Gastro-esophageal reflux disease without esophagitis; M06.9 Rheumatoid arthritis, unspecified; E11.22 Type 2 diabetes mellitus with diabetic chronic kidney disease; L97.529 Non-pressure chronic ulcer of other part of left foot with unspecified severity; L97.519 Non-pressure chronic ulcer of other part of right foot with unspecified severity; Z79.84 Long term (current) use of oral hypoglycemic drugs; D64.9 Anemia, unspecified; E87.6 Hypokalemia; E87.5 Hyperkalemia; I08.0 Rheumatic disorders of both mitral and aortic valves; I25.10 Atherosclerotic heart disease of native coronary artery without angina pectoris; I46.9 Cardiac arrest, cause unspecified; I82.621 Acute embolism and thrombosis of deep veins of right upper extremity; I82.B11 Acute embolism and thrombosis of right subclavian vein; K59.00 Constipation, unspecified; R62.7 Adult failure to thrive; Z79.01 Long term (current) use of anticoagulants; Z91.19 Patient's noncompliance with other medical treatment and regimen; T39.395A Adverse effect of other nonsteroidal anti-inflammatory drugs [NSAID], initial encounter
CPT/HCPCS: 31500; 71010; 73620; 73660; 73718; 76775; 76937; 80048; 80053; 80069; 80202; 81001; 82306; 82550; 82552; 82570; 82948; 83036; 83605; 83735; 83883; 84100; 84156; 84165; 84300; 84439; 84443; 84484; 85025; 85027; 85610; 85730; 86146; 86147; 86148; 86160; 86335; 86803; 87040; 87070; 87077; 87186; 87205; 92950; 93005; 93306; 93922; 93970; 93971; 96374; 96375; C1725; C1769; C1876; J0690; J0696; J1644; J1650; J1815; J1940; J2250; J2270; J2370; J2543; J2720; J3010; J3370; J3480; J7030; J7040; J7050